=== PATIENT | male | born 1980 | race Hispanic/Latino ===

== ENCOUNTER 2018-04-16 16:55 | Emergency (ER) | payer SELFPAY ==
[~2018-04-16] VITALS: Ht 165.1 cm; Wt 70.0 kg
[~2018-04-16 16:55] MED LIST: KEFLEX250 MG PO; NO
[2018-04-16] MEDS ORDERED: LISINOPRIL20 MG PO (17:41)
[2018-04-16] MEDS ORDERED: NORVASC5 M1 PO (17:42)
[2018-04-16] MEDS ORDERED: CARVEDILOL25 MG PO (17:42)
[2018-04-16 17:49] LABS: MEAN CELL VOLUME 89.7 fL CALC (80.0-100.0); MEAN CORPUSCULAR HGB 30.6 pG CALC (26.0-32.0); MEAN CORPUSCULAR HGB CONC 34.1 g/L CALC (32.0-36.0); NEUT# 12.93 thou/uL (1.82-7.42); RED BLOOD COUNT 4.67 mill/uL (4.70-6.10); RED CELL DISTRI WIDTH 12.9 % (11.5-15.5)
[2018-04-16 17:50] LABS: HEMATOCRIT 41.9 % (39.0-50.0); HEMOGLOBIN 14.3 g/dl (14.0-18.0)
[2018-04-16 18:02] LABS: PROTHROMBIN TIME 11.4 SECONDS (9.0-12.5)
[2018-04-16 18:03] LABS: ALKALINE PHOSPHATASE 119 u/l (38-126); BILIRUBIN, TOTAL 0.4 mg/dL (0.0-1.4); CHLORIDE 100 mmol/l (95-108); SGOT/AST 15 u/l (17-59); SGPT/ALT 25 u/l (21-72); SODIUM 136 mmol/l (137-146)
[2018-04-16 18:10] LABS: ALBUMIN 4.7 g/dL (3.2-5.0); ANION GAP 27 (6-22 (CALC)); BUN 99 mg/dL (9-20); BUN/CREATININE RATIO 10 (12-20 (CALC)); CARBON DIOXIDE 15 mmol/l (22-30); CREATININE 9.9 mg/dL (0.7-1.3); GFR 6 ML/MIN (>=60 (CALC)); GFR FOR AFR.AMER. 7 ML/MIN (>=60 (CALC)); TOTAL PROTEIN 7.9 g/dL (6.3-8.2)
[2018-04-16 18:14] LABS: MYOGLOBIN 364 ng/mL (0 - 121)
[2018-04-16 19:19] VITALS: BP 104/60
[2018-04-16 19:34] LABS: INFLUENZA A NONE DETECTED (NONE DETECT); INFLUENZA B NONE DETECTED (NONE DETECT)
== END 2018-04-16 19:19 | DRG 684 ==
LOC: ED 16:55
PROVIDERS: Emergency Medicine
DX: N17.9 Acute kidney failure, unspecified (principal); I95.9 Hypotension, unspecified; R55 Syncope and collapse; I12.9 Hypertensive chronic kidney disease with stage 1 through stage 4 chronic kidney disease, or unspecified chronic kidney disease; N18.9 Chronic kidney disease, unspecified; F17.210 Nicotine dependence, cigarettes, uncomplicated

== ENCOUNTER 2018-06-18 08:41 | Inpatient (IN) | payer SELFPAY ==
[2018-06-18] VITALS (17 sets, daily range): BP systolic 119–169; BP diastolic 61–109
[~2018-06-18] VITALS: Ht 162.6 cm; Wt 87.3 kg
[~2018-06-18 08:41] MED LIST changes: +CARVEDILOL25 MG PO; +LISINOPRIL20 MG PO; +NORVASC5 M1 PO
--- NOTE | 2018-06-18 08:50 | NUR ---
PT AMB TO ROOM WITH SLOW GAIT, SLIGHTLY UNSTEADY.
--- NOTE | 2018-06-18 09:15 | NUR ---
NYSTAGMUS NOTED WHEN PATIENT TRACKING FINGER.
--- NOTE | 2018-06-18 09:18 | NUR ---
PATIENT REPORTS STOPPING ALL MEDICATIONS AT THIS TIME. STATES "I WANTED TO COME HERE TO FOR A CHECK UP BEFORE FILLING ANY MEDICATIONS." REPORTS NOT TAKING MEDS FOR 15 DAYS.
[2018-06-18 09:44] LABS: HEMATOCRIT 41.3 % (39.0-50.0); IMMATURE GRANULOCYTES 0.5 % (0.0-5.0); MEAN CELL VOLUME 90.4 fL CALC (80.0-100.0); MEAN CORPUSCULAR HGB 30.6 pG CALC (26.0-32.0); MEAN CORPUSCULAR HGB CONC 33.9 g/L CALC (32.0-36.0); NEUT# 7.58 thou/uL (1.82-7.42); RED BLOOD COUNT 4.57 mill/uL (4.70-6.10); RED CELL DISTRI WIDTH 12.8 % (11.5-15.5)
[2018-06-18 09:50] LABS: BILIRUBIN, TOTAL 0.4 mg/dL (0.0-1.4); TOTAL PROTEIN 6.7 g/dL (6.3-8.2)
[2018-06-18 10:04] LABS: POTASSIUM 3.8 mmol/l (3.5-5.1)
--- NOTE | 2018-06-18 10:10 | NUR ---
PATIENT RESTING ON STRETCHER ALERT AND ORIENTED X3. INFORMED ABOUT BP. AWAITING NEW ORDERS.
--- NOTE | 2018-06-18 10:25 | NUR ---
PATIENT GIVEN 20 MG OF LABETALOL SLOW IV PUSH. TEACHING DONE WITH PATIENT ON HOW TO TAKE BP AT HOME. INFORMED TO TAKE BP BEFORE TAKING HOME BP MEDS AND TO CHECK PB WHEN FEELING WEAK. VERBAL UNDERSTANDING. WILL CONTINUE TO MONITOR. CALL LIGHT WITHIN REACH.
--- NOTE | 2018-06-18 11:19 | NUR ---
INFORMED OF BP 167/112. AWAITING NEW ORDERS.
[2018-06-18 11:52] LABS: BARBITURATES NEGATIVE (NEGATIVE); COCAINE NEGATIVE (NEGATIVE); METHADONE NEGATIVE (NEGATIVE); TETRAHYDROCANNABIONOL POSITIVE (NEGATIVE); TRICYLIC ANTIDEPRESSANTS NEGATIVE (NEGATIVE)
[2018-06-18 11:53] LABS: OXCYCODONE NEGATIVE (NEGATIVE)
--- NOTE | 2018-06-18 12:19 | NUR ---
PATIENT STARTED ON 5 MG/HR OF CARDENE DRIP PER , INFORMED OF BP 157/95, VERBAL ORDER TO CONTINUE WITH ORDER. WILL CONTINUE TO MONITOR BP.
--- NOTE | 2018-06-18 12:29 | NUR ---
VERBAL ORDER FROM TO HOLD SAWYER KRAMER AT THIS TIME FOR B/P 140/79.
--- NOTE | 2018-06-18 12:38 | NUR ---
SBAR PRINTED TO FLOOR
--- NOTE | 2018-06-18 12:42 | NUR ---
ATTEMPT MADE TO CALL REPORT, SPOKE TO RANDOLPH, REPORTS NOT AVAILABLE AT THIS TIME FOR REPORT, WILL CALL BACK.
--- NOTE | 2018-06-18 12:53 | NUR ---
REPORT CALLED TO ICU
--- NOTE | 2018-06-18 12:55 | NUR ---
Admission Note Report Given to: SBAR PRINTED TO FLOOR Transported by: Wheelchair X Stretcher Transported with: X Nurse Transporter X Patent IV O2 X Agile Test Lead
--- NOTE | 2018-06-18 13:05 | NUR ---
male pt received to ICU bed 4 via stretcher accompanied by Edi Roque RN in stable condition; ambulatory to bed with steady gait; admission assessment completed at this time; pt alert and oriented; hong konger speaking; kelley Perez CNA at bedside; c/c of headache and dizziness; pt admits to stopping BP med and kidney meds approx 15 days ago due to meds making him sick and passing out; no n/v/diaphoresis noted; nystagmus noted to bilat eyes, worse left; pt denies pain at current; resp even and unlabored; lungs clear bilat; skin color wnl; ra; hr reg; strong pulses; no edema noted; sr on monitor; abd soft with bs present; no bm noted per policy writer typist; pt admits to voiding without pain or burning; no urine to inspect at this time; #20 in lac saline locked; iv flushed and patent; cardene restarted d/t elevated bp; pt admits to having dialysis for 2 months approx 2 yrs ago; plan of care/ meds explained; pt oriented to bed and call light system; will continue to monitor
--- NOTE | 2018-06-18 13:35 | NUR ---
pt transferred to US department via wc accompanied by this instructional writer with Cardene infusing per protocol; instructional writer remains with pt; will continue to monitor
--- NOTE | 2018-06-18 14:05 | NUR ---
returned to unit in stable condition accompanied by this resume writer
--- NOTE | 2018-06-18 14:15 | NUR ---
Dr Emmanuel present at bedside to assess pt and discuss plan of care; delay in ECHO reported; MD aware ECHO to be dome possibly wednesday
[2018-06-18 14:50] LABS: CHOLESTEROL HDL RATIO 6.1 (<4.4 (CALC))
--- NOTE | 2018-06-18 16:09 | NUR ---
awake in bed; offers no complaints; no distress noted; sr on monitor; bp controlled; cardene gtt infusing at 5mg/hr; no redness or edema noted at site; call light within reach; will continue to monitor
--- NOTE | 2018-06-18 17:10 | NUR ---
Dr Emmanuel on unit; orders received and on chart; target BP 140/90; cardene gtt placed on hold due to sbp 125 as per MD request; will continue to monitor
--- NOTE | 2018-06-18 18:00 | NUR ---
awake in bed; offers no complaints; no distress noted; iv flushed and patent; sr on monitor; pt declined dinner/ noted eating [employer] earlier; bed in lowest position; side rails elevated; call light within reach
--- NOTE | 2018-06-18 19:28 | NUR ---
PT RESTING IN BED WITH EYES CLOSED. AWAKENS TO VERBAL STIMULI. PT IS ALERT AND ORIENTED X3. SHIFT ASSESSMENT COMPLETED AT THIS TIME. IV PATENT X1. CALL LIGHT IN REACH. WILL CONTINUE TO MONITOR.
--- NOTE | 2018-06-18 20:40 | NUR ---
NOTIFIED DR MUNSON OF BP 168/108. PLACED PT BACK ON CARDENE GTT. PT ON PHONE. STARTED DRIP AT 5MG. WILL CONTINUE TO MONITOR
--- NOTE | 2018-06-18 22:10 | NUR ---
PT RESTING IN BED ON PHONE. CALL LIGHT IN REACH. WILL CONTINUE OT MONITOR
--- NOTE | 2018-06-18 23:46 | NUR ---
PT RESTING IN BED WITH EYES CLOSED. RESP ARE EVEN AND UNLABORED. NO DISTRESS NOTED. CALL LIGHT IN REACH. WILL CONTINUE TO MONITOR
[2018-06-19] VITALS (45 sets, daily range): BP systolic 119–198; BP diastolic 68–126
--- NOTE | 2018-06-19 01:50 | NUR ---
PT RESTING IN BED WITH EYES CLOSED. RESP ARE EVEN AND UNLABORED. NO DISTRESS NOTED. CALL LIGHT IN REACH. WILL CONTINUE TO MONITOR
--- NOTE | 2018-06-19 04:00 | NUR ---
PT RESTING IN BED WITH EYES CLOSED. RESP ARE EVEN AND UNLABORED. NO DISTRESS NOTED. CALL LIGHT IN REACH. WILL CONTINUE TO MONITOR
--- NOTE | 2018-06-19 05:11 | NUR ---
PLACED PT BACK ON CARDENE GTT FOR BP 182/126. LAB AT BEDSIDE DRAWING AM LABS
[2018-06-19 05:43] LABS: ALBUMIN 3.4 g/dL (3.2-5.0); BILIRUBIN, TOTAL 0.3 mg/dL (0.0-1.4); CREATININE 2.7 mg/dL (0.7-1.3); MAGNESIUM 2.2 mg/dL (1.6-2.3); POTASSIUM 3.9 mmol/l (3.5-5.1)
[2018-06-19 06:00] LABS: HEMATOCRIT 38.9 % (39.0-50.0); HEMOGLOBIN 13.2 g/dl (14.0-18.0); IMMATURE GRANULOCYTES 1.6 % (0.0-5.0); MEAN CELL VOLUME 92.2 fL CALC (80.0-100.0); MEAN CORPUSCULAR HGB 31.3 pG CALC (26.0-32.0); MEAN CORPUSCULAR HGB CONC 33.9 g/L CALC (32.0-36.0); NEUT# 7.95 thou/uL (1.82-7.42); RED BLOOD COUNT 4.22 mill/uL (4.70-6.10); RED CELL DISTRI WIDTH 12.8 % (11.5-15.5)
--- NOTE | 2018-06-19 06:10 | NUR ---
PT RESTING IN BED WITH EYES CLOSED. RESP ARE EVEN AND UNLABORED. NO DISTRESS NOTED. CALL LIGHT IN REACH. WILL CONTINUE TO MONITOR.
--- NOTE | 2018-06-19 07:30 | NUR ---
pt resting in bed with eyes closed; easily aroused; pt offers no complaints; assessment completed at this time; pt sinhala but able to speak and understabd albanian; pt alert and oriented; denies pain/headache; no n/v noted; pt admits to stationary objects moving/impaired vision; resp even and unlabored; lungs clear; skin color wnl; ra; hr reg; strong pulses; no edema noted; sr on monitor; abd soft with bs present; no bm noted per rewriter; voiding without diffculty; urinal at bedside; #20 to lac flushed and patent; cardene gtt infusing at 5mg/hr; no redness or edema noted at site; cardene place on hold for a target bp of 140/90; plan of care reviewed; call light within reach; will continue to monitor
--- NOTE | 2018-06-19 08:11 | NUR ---
pt resting with head covered; no apparent distress noted; sr on monitor; will continue to monito
--- NOTE | 2018-06-19 08:51 | NUR ---
bladimir gtt resumed; bp 183/113; hr 70; medicated with am norvasc at this time
--- NOTE | 2018-06-19 09:28 | NUR ---
Addie cheng NP notified of elevated BP; informed cardene grr restarted for bp 183/113; target bp reviewed; pt on minimal cardene; orders received to infuse cardene at 2.5mg; lovenox reviewed with BEAD CUTTER in regards to renal insuff; orders received to give lovenox
--- NOTE | 2018-06-19 10:00 | NUR ---
Dr Emmanuel at bedside to discuss plan of care; Cardene to be continued at this time;
--- NOTE | 2018-06-19 10:36 | NUR ---
awake in bed; field nurse case manager at bedside; pt offers no complaints; no distress noted; sr on monitor; iv patent; cardene gtt infusing at 2.5mg/hr; am care offered/ pt requesting to shower; bed bath offered; pt declined, wants shower; call light within reach; will continue to monitor
--- NOTE | 2018-06-19 11:02 | NUR ---
pt friend noted at bedside with outside food; cardiac diet reinfornced
--- NOTE | 2018-06-19 11:58 | NUR ---
awake in bed; visitor at bedside; no distress noted; pt offers no complaints; iv patent; cardene gtt at 2.5mg/hr; no redness or edema noted at site; sr on monitor; deny needs; call light within reach; will continue to monitor
--- NOTE | 2018-06-19 14:00 | NUR ---
pt awake in bed; no distress noted; pt offers no complaints; iv patent; cardene infusing at 2.5mg/hr; no redness or edema noted at site; sr on monitor; call light within reach; will continue to monitor
--- NOTE | 2018-06-19 14:46 | NUR ---
PT STATED HE HAS TO HAVE A BM, REFUSED TO USE A COMMODE, AMBULATED TO THE BATHROOM WITH DIFFICULTY.
--- NOTE | 2018-06-19 16:05 | NUR ---
awake in bed; offers no complaints; conversing on phone; sr on monitor; iv patent; cardene infusing at 2.5 mg/hr; call light within reach; will continue to monitor
--- NOTE | 2018-06-19 18:00 | NUR ---
awake in bed; offers no complaints; no apparent distress; sr on monitor; cardene cont at 5mg/hr; no redness or edema noted at site; call light within reach
--- NOTE | 2018-06-19 19:00 | NUR ---
PT SITTING UP IN BED TALKING ON PHONE. PT IS ALERT AND ORIENTED X3. SHIFT ASSESSMENT COMPLETED AT THIS TIME. IV PATENT X1. CALL LIGHT IN REACH. WILL CONTINUE TO MONITOR.
--- NOTE | 2018-06-19 19:15 | NUR ---
BP 185/122. INCREASED CARDENE GTT PER TITRATION CHARTING AND MD ORDERS.
--- NOTE | 2018-06-19 20:08 | NUR ---
BP 146/114. GAVE 2100 MEDS PER MAR WILL CONTINUE TO MONITOR.
--- NOTE | 2018-06-19 21:43 | NUR ---
PT RESTING IN BED TALKING ON PHONE. RESP ARE EVEN AND UNLABORED. NO DISTRESS NOTED. CALL LIGHT IN REACH. WILL CONTINUE TO MONITOR.
[2018-06-20] VITALS (16 sets, daily range): BP systolic 102–188; BP diastolic 57–122
--- NOTE | 2018-06-20 00:30 | NUR ---
TITRATED CARDENE GTT PER MD ORDERS AND PER TITRATION RECORD.
--- NOTE | 2018-06-20 01:07 | NUR ---
TITRATED CARDENE GTT PER ORDERS AND PER TITRATION RECORD.
--- NOTE | 2018-06-20 02:11 | NUR ---
STOPPED CARDENE GTT AT THIS TIME PER MD ORDERS AND TITRATION CHARTING. WILL CONTINUE TO MONITOR
--- NOTE | 2018-06-20 03:49 | NUR ---
PT RESTING IN BED WITH EYES CLOSED. RESP ARE EVEN AND UNLABORED. NO DISTRESS NOTED. CALL LIGHT IN REACH. WILL CONTINUE TO MONITOR
--- NOTE | 2018-06-20 05:45 | NUR ---
PT RESTING IN BED WITH EYES CLOSED. RESP ARE EVEN AND UNLABORED. NO DISTRESS NOTED. CALL LIGHT IN REACH. WILL CONTINUE TO MONITOR
--- NOTE | 2018-06-20 07:08 | NUR ---
pt asleep; easily aroused; pt offers no complaints; no apparent distress noted; assessment completed at this time; pt alert and oriented; speaks/ understands some palestinian; denies pain/ headache; no n/v noted; resp even and unlabored; lungs clear bilat; skin color wnl; ra; hr reg; strong pulses; no edema; sr on monitor; abd soft with bs present; no bm noted per mortgage or loan underwriter; no urine to inspect at this time; urinal at bedside; #20 saline locked to lac; flushed and patent; no redness or edema noted at site; plan of care/ am meds explained; call light within reach; will continue to monitor
--- NOTE | 2018-06-20 08:02 | NUR ---
awake conversing on cell phone; no distress noted; sr on monitor; iv intact; call light within reach; will continue to monitor
--- NOTE | 2018-06-20 09:15 | NUR ---
Dr Emmanuel present at bedside to assess pt and discuss plan of care; MD planning for discharge; BP reviewed with MD; MD aware of HTN
[2018-06-20] MEDS ORDERED: ATORVASTATIN CA20 MG PO (09:20)
[2018-06-20] MEDS ORDERED: CARVEDILOL25 MG PO (09:20)
[2018-06-20] MEDS ORDERED: AMLODIPINE BESYL5 MG PO (09:20)
--- NOTE | 2018-06-20 09:23 | NUR ---
PER DR MUNSON, CASE MANAGEMENT CALLED TO HELP PT BECAUSE HE CAN NOT AFFORD HIS HOME MEDS.
--- NOTE | 2018-06-20 09:58 | NUR ---
awake in bed; conversing on cell phone; no distress noted; pt denies needs; iv intact; sr on monitor; call light within reach; will continue to monitor
--- NOTE | 2018-06-20 10:59 | NUR ---
CASE MANAGEMENT @BEDSIDE WITH PT DISCUSSING OPTIONS FOR HOME MEDS.
--- NOTE | 2018-06-20 11:59 | NUR ---
CASE MANAGEMENT @ BEDSIDE WITH PROBATE CLERK, DISCUSSING HELP WITH RX AFTER DC.
--- NOTE | 2018-06-20 12:20 | NUR ---
Dr Emmanuel called per jingle writer; jingle writer informed current bp 181/122; pt insisting on discharge; pt to be discharged;; will continue to monitor
--- NOTE | 2018-06-20 12:40 | NUR ---
GLENROY, FROM [facility], IS ON HER WAY HERE TO DELIVER PTS HOME MEDICATIONS SINCE SENT THEM THERE WITH DC INSTRUCTIONS. MED INSTRUCTIONS WILL BE WRITTEN IN [place] FOR PT. RN & TRANSLATER AT BEDSIDE ANSWERING PTS QUESTIONS/CONCERNS.
--- NOTE | 2018-06-20 12:54 | NUR ---
Discharge instructions given. Patient verbalizes understanding of same. Discharged in stable condition via Wheelchair to Home with friend. All belongings sent with pt. Discharge instructions reviewed in great detail using forensic science examiner Morris Hernandez. Follow up care explained in great deatail. Pt strongly encouraged to buy BP monitor to monitor BP closely; Home medications/directions explained; Next dose of medications explained using forensic science examiner; Laila Gottlieb at bedside to deliver medication;
== END 2018-06-20 13:00 | disposition home or self-care (01) | DRG 305 ==
LOC: ED 08:41 → ED-I 12:01 → ED 12:32 → ICU 12:33
PROVIDERS: Emergency Medicine; Nurse Practitioner Family; ADMIT Internal Medicine Nephrology; ATTEND Internal Medicine Nephrology
DX: I16.1 Hypertensive emergency (principal); N17.9 Acute kidney failure, unspecified; H35.033 Hypertensive retinopathy, bilateral; I12.9 Hypertensive chronic kidney disease with stage 1 through stage 4 chronic kidney disease, or unspecified chronic kidney disease; N18.9 Chronic kidney disease, unspecified; F17.210 Nicotine dependence, cigarettes, uncomplicated; D63.1 Anemia in chronic kidney disease; E78.5 Hyperlipidemia, unspecified; Z91.14 Patient's other noncompliance with medication regimen
CPT/HCPCS: J1650

== ENCOUNTER 2018-11-10 16:54 | Emergency (ER) | payer SELFPAY ==
[~2018-11-10] VITALS: Ht 162.6 cm; Wt 90.0 kg
[~2018-11-10 16:54] MED LIST changes: +AMLODIPINE BESYL5 MG PO; +ATORVASTATIN CA20 MG PO
[2018-11-10 17:52] VITALS: BP 160/101
== END 2018-11-10 17:54 | disposition home or self-care (01) | DRG 607 ==
LOC: ED 16:54
DX: L65.9 Nonscarring hair loss, unspecified (principal)

== ENCOUNTER 2019-08-09 18:40 | Emergency (ER) | payer SELFPAY ==
[~2019-08-09] VITALS: Ht 162.6 cm; Wt 84.5 kg
[2019-08-09 19:31] LABS: HEMATOCRIT 36.4 % (39.0-50.0); HEMOGLOBIN 12.5 g/dl (14.0-18.0); IMMATURE GRANULOCYTES 0.9 % (0.0-5.0); MEAN CELL VOLUME 88.8 fL CALC (80.0-100.0); MEAN CORPUSCULAR HGB 30.5 pG CALC (26.0-32.0); MEAN CORPUSCULAR HGB CONC 34.3 g/L CALC (32.0-36.0); NEUT# 11.78 thou/uL (1.82-7.42); RED BLOOD COUNT 4.1 mill/uL (4.70-6.10); RED CELL DISTRI WIDTH 12.8 % (11.5-15.5)
[2019-08-09 19:32] LABS: URINE BILIRUBIN - DIPSTICK NEGATIVE (NEGATIVE); URINE BLOOD DIPSTICK MODERATE (NEGATIVE); URINE COLOR YELLOW; URINE GLUCOSE - DIPSTICK NEGATIVE (NEGATIVE); URINE KETONE NEGATIVE (NEGATIVE); URINE LEUK ESTERASE NEGATIVE (NEGATIVE); URINE NITRITE - DIPSTICK NEGATIVE (Negative); URINE PROTEIN - DIPSTICK >=300 mg/dL (NEG-TRACE); URINE SPECIFIC GRAVITY 1.025; URINE UROBILINOGEN - DIPSTICK 0.2 E.U./dL (0.2)
[2019-08-09 19:46] LABS: POTASSIUM 3.4 mmol/l (3.5-5.1); TOTAL PROTEIN 7.2 g/dL (6.3-8.2)
[2019-08-09 19:52] LABS: BILIRUBIN, TOTAL 0.5 mg/dL (0.0-1.4)
[2019-08-09 19:53] LABS: CREATININE 6.8 mg/dL (0.7-1.3)
[2019-08-09 21:34] VITALS: BP 151/98
== END 2019-08-09 21:33 | disposition short-term general hospital (02) | DRG 683 ==
LOC: ED 18:40
PROVIDERS: Family Medicine
DX: I12.9 Hypertensive chronic kidney disease with stage 1 through stage 4 chronic kidney disease, or unspecified chronic kidney disease (principal); N17.9 Acute kidney failure, unspecified; N18.9 Chronic kidney disease, unspecified; R79.89 Other specified abnormal findings of blood chemistry; N45.3 Epididymo-orchitis; R10.32 Left lower quadrant pain; N50.811 Right testicular pain; M19.90 Unspecified osteoarthritis, unspecified site; F17.210 Nicotine dependence, cigarettes, uncomplicated

== ENCOUNTER 2020-05-24 17:23 | Emergency (ER) | payer MEDICAID ==
[~2020-05-24] VITALS: Ht 162.6 cm; Wt 81.8 kg
[2020-05-24 17:55] LABS: IMMATURE GRANULOCYTES 0.5 % (0.0-5.0); MEAN CELL VOLUME 89.7 fL CALC (80.0-100.0); MEAN CORPUSCULAR HGB 29.7 pG CALC (26.0-32.0); MEAN CORPUSCULAR HGB CONC 33.1 g/dL CAL (32.0-36.0); NEUT# 6.31 thou/uL (1.82-7.42); RED BLOOD COUNT 1.85 mill/uL (4.70-6.10); RED CELL DISTRI WIDTH 13.7 % (11.5-15.5)
[2020-05-24 18:12] LABS: HEMATOCRIT 16.6 % (39.0-50.0); HEMOGLOBIN 5.5 g/dl (14.0-18.0)
[2020-05-24 18:14] LABS: ALBUMIN 3.5 g/dL (3.2-5.0); BILIRUBIN, TOTAL 0.5 mg/dL (0.0-1.4); TOTAL PROTEIN 5.8 g/dL (6.3-8.2)
[2020-05-24 18:39] LABS: CREATININE 18.8 mg/dL (0.7-1.3)
[2020-05-24 19:46] VITALS: BP 174/92
[2020-05-24 20:01] VITALS: BP 162/93
[2020-05-24 20:10] VITALS: BP 162/93
[2020-05-24 21:13] LABS: URINE BILIRUBIN - DIPSTICK NEGATIVE (NEGATIVE); URINE BLOOD DIPSTICK SMALL (NEGATIVE); URINE COLOR YELLOW; URINE GLUCOSE - DIPSTICK NEGATIVE (NEGATIVE); URINE KETONE NEGATIVE (NEGATIVE); URINE LEUK ESTERASE NEGATIVE (NEGATIVE); URINE NITRITE - DIPSTICK NEGATIVE (Negative); URINE PROTEIN - DIPSTICK 100 mg/dL (NEG-TRACE); URINE UROBILINOGEN - DIPSTICK 0.2 E.U./dL (0.2)
[2020-05-24 21:16] LABS: URINE EPITHELIAL CELLS FEW EPI/hpf (0-FEW); URINE MUCUS FEW hpf (NONE-FEW); URINE RBC 0-2 RBC/hpf (0-5)
== END 2020-05-24 21:10 | disposition short-term general hospital (02) | DRG 193 ==
LOC: ED 17:23
PROVIDERS: Family Medicine
DX: J18.9 Pneumonia, unspecified organism (principal); N18.6 End stage renal disease; N17.9 Acute kidney failure, unspecified; I12.0 Hypertensive chronic kidney disease with stage 5 chronic kidney disease or end stage renal disease; D64.9 Anemia, unspecified; F17.200 Nicotine dependence, unspecified, uncomplicated; Z99.2 Dependence on renal dialysis; Z20.828 Contact with and (suspected) exposure to other viral communicable diseases
CPT/HCPCS: P9016

== ENCOUNTER 2020-05-31 05:35 | Emergency (ER) | payer SELFPAY ==
[~2020-05-31] VITALS: Ht 162.6 cm; Wt 81.8 kg
[2020-05-31 06:52] VITALS: BP 163/106
[2020-05-31] MEDS ORDERED: LIPITOR40 M1 PO (06:54)
[2020-05-31] MEDS ORDERED: AMLODIPINE BESY10 MG PO (06:55)
[2020-05-31] MEDS ORDERED: LABETALOL HYDR300 MG PO (06:55)
[2020-05-31] MEDS ORDERED: ATORVASTATIN CA40 MG PO (16:18)
== END 2020-05-31 07:01 | disposition home or self-care (01) | DRG 315 ==
LOC: ED 05:35
DX: T82.838A Hemorrhage due to vascular prosthetic devices, implants and grafts, initial encounter (principal); N17.9 Acute kidney failure, unspecified; I10 Essential (primary) hypertension; F17.200 Nicotine dependence, unspecified, uncomplicated; Y83.8 Other surgical procedures as the cause of abnormal reaction of the patient, or of later complication, without mention of misadventure at the time of the procedure

== ENCOUNTER 2020-05-31 13:54 | Emergency (ER) | payer MEDICAID ==
[~2020-05-31] VITALS: Ht 162.6 cm; Wt 70.0 kg
[~2020-05-31 13:54] MED LIST changes: +AMLODIPINE BESY10 MG PO; +LABETALOL HYDR300 MG PO; +LIPITOR40 M1 PO
[2020-05-31 14:33] LABS: HEMATOCRIT 25.8 % (39.0-50.0); HEMOGLOBIN 8.3 g/dl (14.0-18.0); IMMATURE GRANULOCYTES 0.4 % (0.0-5.0); MEAN CELL VOLUME 90.2 fL CALC (80.0-100.0); MEAN CORPUSCULAR HGB CONC 32.2 g/dL CAL (32.0-36.0); NEUT# 5.58 thou/uL (1.82-7.42); RED BLOOD COUNT 2.86 mill/uL (4.70-6.10); RED CELL DISTRI WIDTH 14.8 % (11.5-15.5)
[2020-05-31 15:00] LABS: POTASSIUM 4.9 mmol/l (3.5-5.1)
[2020-05-31 15:09] LABS: CREATININE 10.8 mg/dL (0.7-1.3)
[2020-05-31] MEDS ORDERED: ATORVASTATIN CA40 MG PO (16:18)
[2020-05-31 16:35] VITALS: BP 162/111
== END 2020-05-31 16:35 | disposition short-term general hospital (02) | DRG 682 ==
LOC: ED 13:54
PROVIDERS: Family Medicine
DX: I12.0 Hypertensive chronic kidney disease with stage 5 chronic kidney disease or end stage renal disease (principal); N18.6 End stage renal disease; T82.838A Hemorrhage due to vascular prosthetic devices, implants and grafts, initial encounter; N17.9 Acute kidney failure, unspecified; F17.200 Nicotine dependence, unspecified, uncomplicated; Z99.2 Dependence on renal dialysis; I10 Essential (primary) hypertension; Y83.8 Other surgical procedures as the cause of abnormal reaction of the patient, or of later complication, without mention of misadventure at the time of the procedure

== ENCOUNTER 2020-08-15 00:27 | Emergency (ER) | payer MEDICAID ==
[~2020-08-15] VITALS: Ht 170.2 cm; Wt 78.0 kg
[~2020-08-15 00:27] MED LIST changes: +ATORVASTATIN CA40 MG PO
[2020-08-15] MEDS ORDERED: LASIX 40 MG TAB40 MG PO (00:54)
[2020-08-15] MEDS ORDERED: AZITHROMYCIN500 MG PO (00:54)
[2020-08-15] MEDS ORDERED: APRESOLINE50 MG PO (00:55)
[2020-08-15] MEDS ORDERED: [UNRECOGNIZED DRUG - OTHER] PO (00:56)
[2020-08-15 01:44] LABS: HEMATOCRIT 24.4 % (39.0-50.0); IMMATURE GRANULOCYTES 0.9 % (0.0-5.0); MEAN CELL VOLUME 91.4 fL CALC (80.0-100.0); MEAN CORPUSCULAR HGB CONC 32.8 g/dL CAL (32.0-36.0); NEUT# 7.99 thou/uL (1.82-7.42); RED BLOOD COUNT 2.67 mill/uL (4.70-6.10); RED CELL DISTRI WIDTH 14.3 % (11.5-15.5)
[2020-08-15 01:58] LABS: PROTHROMBIN TIME 10.3 SECONDS (9.0-12.5)
[2020-08-15 02:08] LABS: BILIRUBIN, TOTAL 0.4 mg/dL (0.0-1.4); TOTAL PROTEIN 6.8 g/dL (6.3-8.2)
[2020-08-15 02:22] LABS: ALBUMIN 4.3 g/dL (3.2-5.0); CREATININE 14.8 mg/dL (0.7-1.3); POTASSIUM 5.2 mmol/l (3.5-5.1)
[2020-08-15 05:28] VITALS: BP 188/103
== END 2020-08-15 05:28 | disposition short-term general hospital (02) ==
LOC: ED 00:27
PROVIDERS: Emergency Medicine
DX: N17.9 Acute kidney failure, unspecified (principal); I12.0 Hypertensive chronic kidney disease with stage 5 chronic kidney disease or end stage renal disease; N18.6 End stage renal disease; F17.210 Nicotine dependence, cigarettes, uncomplicated; Z99.2 Dependence on renal dialysis

== ENCOUNTER 2020-08-29 20:18 | Emergency (ER) | payer MEDICAID ==
[~2020-08-29] VITALS: Ht 170.2 cm; Wt 73.0 kg
[~2020-08-29 20:18] MED LIST changes: +APRESOLINE50 MG PO; +AZITHROMYCIN500 MG PO; +LASIX 40 MG TAB40 MG PO; +[UNRECOGNIZED DRUG - OTHER] PO
[2020-08-29 21:10] VITALS: BP 165/100
== END 2020-08-29 21:10 | disposition home or self-care (01) ==
LOC: ED 20:18
DX: R10.33 Periumbilical pain (principal); I10 Essential (primary) hypertension; F17.210 Nicotine dependence, cigarettes, uncomplicated; Z95.828 Presence of other vascular implants and grafts

== ENCOUNTER 2021-05-04 05:39 | Emergency (ER) | payer MEDICAID ==
[~2021-05-04] VITALS: Ht 170.2 cm; Wt 68.0 kg
[2021-05-04 06:24] LABS: IMMATURE GRANULOCYTES 0.3 % (0.0-5.0); MEAN CELL VOLUME 93.3 fL CALC (80.0-100.0); MEAN CORPUSCULAR HGB CONC 32.2 g/dL CAL (32.0-36.0); NEUT# 8.57 thou/uL (1.82-7.42); RED BLOOD COUNT 3.43 mill/uL (4.70-6.10); RED CELL DISTRI WIDTH 14.6 % (11.5-15.5)
[2021-05-04 06:25] LABS: HEMOGLOBIN 10.3 g/dl (14.0-18.0)
[2021-05-04 06:40] LABS: ALBUMIN 4.7 g/dL (3.2-5.0); ALKALINE PHOSPHATASE 103 u/l (38-126); ANION GAP 28 (6-22 (CALC)); BILIRUBIN, TOTAL 0.4 mg/dL (0.0-1.4); CARBON DIOXIDE 19 mmol/l (22-30); CHLORIDE 90 mmol/l (95-108); ETHYL ALCOHOL 0 mg/dl (0-30); GFR 4 ML/MIN (>=60 (CALC)); GFR FOR AFR.AMER. 5 ML/MIN (>=60 (CALC)); MAGNESIUM 2.7 mg/dL (1.6-2.3); POTASSIUM 4.6 mmol/l (3.5-5.1); SGOT/AST 34 u/l (17-59); SODIUM 132 mmol/l (137-146); TOTAL PROTEIN 7.5 g/dL (6.3-8.2)
[2021-05-04 06:46] LABS: BUN 64 mg/dL (9-20); BUN/CREATININE RATIO 5 (12-20 (CALC))
[2021-05-04 06:47] LABS: CREATININE 13.5 mg/dL (0.7-1.3)
[2021-05-04] MEDS ORDERED: LABETALOL HYDR300 MG PO (07:32)
[2021-05-04] MEDS ORDERED: HYDRALAZINE50 MG PO (07:32)
[2021-05-04] MEDS ORDERED: AMLODIPINE BESY10 MG PO (07:32)
[2021-05-04] MEDS ORDERED: ATORVASTATIN CA40 MG PO (07:33)
[2021-05-04] MEDS ORDERED: ASPIRIN81 MG PO (07:33)
[2021-05-04 10:07] VITALS: BP 182/114
== END 2021-05-04 10:36 | disposition short-term general hospital (02) ==
LOC: ED 05:39
PROVIDERS: Family Medicine
DX: F10.131 Alcohol abuse with withdrawal delirium (principal); I12.0 Hypertensive chronic kidney disease with stage 5 chronic kidney disease or end stage renal disease; N18.6 End stage renal disease; Z99.2 Dependence on renal dialysis; Z91.15 Patient's noncompliance with renal dialysis; F17.200 Nicotine dependence, unspecified, uncomplicated; Z20.822 Contact with and (suspected) exposure to COVID-19
CPT/HCPCS: J2060; S0166

== ENCOUNTER 2021-11-04 18:49 | Emergency (ER) | payer MEDICAID ==
[~2021-11-04] VITALS: Ht 170.2 cm; Wt 82.0 kg
[~2021-11-04 18:49] MED LIST changes: +ASPIRIN81 MG PO; +HYDRALAZINE50 MG PO
[2021-11-04 19:00] VITALS: BP 197/117
[2021-11-04] MEDS ORDERED: RENA-VIT1 PO (19:34)
== END 2021-11-04 20:25 | disposition home or self-care (01) ==
LOC: ED 18:49
DX: F41.9 Anxiety disorder, unspecified (principal); I12.0 Hypertensive chronic kidney disease with stage 5 chronic kidney disease or end stage renal disease; N18.6 End stage renal disease; Z99.2 Dependence on renal dialysis; F17.210 Nicotine dependence, cigarettes, uncomplicated

== ENCOUNTER 2021-11-10 01:36 | Emergency (ER) | payer MEDICAID ==
[~2021-11-10 01:36] MED LIST changes: +RENA-VIT1 PO
== END 2021-11-10 01:57 | disposition left against medical advice (07) | DRG 951 ==
LOC: ED 01:36 → LWOBS 01:57
DX: Z53.21 Procedure and treatment not carried out due to patient leaving prior to being seen by health care provider (principal)

== ENCOUNTER 2021-12-03 23:28 | Observation (INO) | payer MEDICAID ==
[~2021-12-03] VITALS: Ht 170.2 cm; Wt 80.0 kg
[2021-12-03 23:42] VITALS: BP 115/71
[2021-12-03 23:57] LABS: HEMATOCRIT 26.5 % (39.0-50.0); HEMOGLOBIN 8.5 g/dl (14.0-18.0); IMMATURE GRANULOCYTES 0.2 % (0.0-5.0); MEAN CORPUSCULAR HGB 33.2 pG CALC (26.0-32.0); MEAN CORPUSCULAR HGB CONC 32.1 g/dL CAL (32.0-36.0); NEUT# 12.21 thou/uL (1.82-7.42); RED BLOOD COUNT 2.56 mill/uL (4.70-6.10); RED CELL DISTRI WIDTH 13.8 % (11.5-15.5)
[2021-12-04 00:04] LABS: MEAN CELL VOLUME 103.5 fL CALC (80.0-100.0)
[2021-12-04 00:15] LABS: ALBUMIN 3.9 g/dL (3.2-5.0); MAGNESIUM 2.5 mg/dL (1.6-2.3); TOTAL PROTEIN 6.7 g/dL (6.3-8.2)
[2021-12-04 00:22] LABS: BILIRUBIN, TOTAL 0.6 mg/dL (0.0-1.4); CREATININE 9.5 mg/dL (0.7-1.3)
[2021-12-04 07:59] VITALS: BP 144/92
[2021-12-04 08:51] VITALS: BP 156/91
[2021-12-04 09:01] VITALS: BP 139/93
[2021-12-04 09:31] VITALS: BP 140/91
[2021-12-04 10:34] VITALS: BP 173/111
[2021-12-04] MEDS ORDERED: ALBUTEROL108 MCG/AC PO (10:48)
[2021-12-04] MEDS ORDERED: HYDRALAZINE100 MG PO (10:49)
[2021-12-04] MEDS ORDERED: DICYCLOMINE HYD10 MG PO (10:49)
[2021-12-04] MEDS ORDERED: LIPITOR40 M1 PO (10:49)
[2021-12-04] MEDS ORDERED: METOCLOPRAMIDE H5 MG PO (10:53)
[2021-12-04] MEDS ORDERED: LASIX 40 MG TAB40 MG PO (10:53)
[2021-12-04] MEDS ORDERED: OS-CAL 500500 M1 PO (10:54)
[2021-12-04] MEDS ORDERED: HYDROXYZINE HYD25 MG PO (12:01)
[2021-12-04 17:11] VITALS: BP 196/113
[2021-12-05] MEDS ORDERED: ISOSORB MONO30 MG PO (10:06)
== END 2021-12-04 18:09 | disposition home or self-care (01) ==
LOC: ED 23:28 → ED-I 12-04 07:40 → ED 12-04 08:08 → MS2 12-04 08:09
PROVIDERS: Emergency Medicine; ADMIT Hospitalist; ATTEND Hospitalist
DX: I12.0 Hypertensive chronic kidney disease with stage 5 chronic kidney disease or end stage renal disease (principal); N18.6 End stage renal disease; I16.0 Hypertensive urgency; Z99.2 Dependence on renal dialysis; D63.1 Anemia in chronic kidney disease; N25.81 Secondary hyperparathyroidism of renal origin; R10.9 Unspecified abdominal pain; R11.2 Nausea with vomiting, unspecified; D72.829 Elevated white blood cell count, unspecified; F10.10 Alcohol abuse, uncomplicated; F17.200 Nicotine dependence, unspecified, uncomplicated; Z20.822 Contact with and (suspected) exposure to COVID-19
CPT/HCPCS: G0378

== ENCOUNTER 2021-12-05 08:50 | Emergency (ER) | payer MEDICAID ==
[~2021-12-05] VITALS: Ht 170.2 cm; Wt 74.3 kg
[2021-12-05] VITALS (9 sets, daily range): BP systolic 151–184; BP diastolic 75–124
[~2021-12-05 08:50] MED LIST changes: +ALBUTEROL108 MCG/AC PO; +DICYCLOMINE HYD10 MG PO; +HYDRALAZINE100 MG PO; +HYDROXYZINE HYD25 MG PO; +METOCLOPRAMIDE H5 MG PO; +OS-CAL 500500 M1 PO
[2021-12-05 09:17] LABS: HEMOGLOBIN 10.2 g/dl (14.0-18.0); IMMATURE GRANULOCYTES 0.2 % (0.0-5.0); MEAN CELL VOLUME 104.5 fL CALC (80.0-100.0); MEAN CORPUSCULAR HGB 32.8 pG CALC (26.0-32.0); MEAN CORPUSCULAR HGB CONC 31.4 g/dL CAL (32.0-36.0); NEUT# 9.87 thou/uL (1.82-7.42); RED BLOOD COUNT 3.11 mill/uL (4.70-6.10); RED CELL DISTRI WIDTH 13.3 % (11.5-15.5)
[2021-12-05 09:25] LABS: HEMATOCRIT 32.5 % (39.0-50.0)
[2021-12-05] MEDS ORDERED: ISOSORB MONO30 MG PO (10:06)
[2021-12-05 10:10] LABS: ALBUMIN 4.5 g/dL (3.2-5.0); BILIRUBIN, TOTAL 0.7 mg/dL (0.0-1.4); POTASSIUM 4.9 mmol/l (3.5-5.1); TOTAL PROTEIN 7.3 g/dL (6.3-8.2)
[2021-12-05 10:12] LABS: CREATININE 7.2 mg/dL (0.7-1.3)
== END 2021-12-05 17:30 | disposition left against medical advice (07) ==
LOC: ED 08:50
PROVIDERS: Family Medicine
DX: R10.11 Right upper quadrant pain (principal); R10.31 Right lower quadrant pain; I12.0 Hypertensive chronic kidney disease with stage 5 chronic kidney disease or end stage renal disease; N18.6 End stage renal disease; F17.200 Nicotine dependence, unspecified, uncomplicated; Z99.2 Dependence on renal dialysis; Z91.19 Patient's noncompliance with other medical treatment and regimen

== ENCOUNTER 2021-12-22 07:12 | Observation (INO) | payer MEDICAID ==
[2021-12-22] VITALS (43 sets, daily range): BP systolic 131–226; BP diastolic 67–160
[~2021-12-22] VITALS: Ht 170.2 cm; Wt 84.0 kg
[~2021-12-22 07:12] MED LIST changes: +ISOSORB MONO30 MG PO
[2021-12-22 07:48] LABS: HEMATOCRIT 31.5 % (39.0-50.0); HEMOGLOBIN 10.2 g/dl (14.0-18.0); IMMATURE GRANULOCYTES 0.4 % (0.0-5.0); MEAN CORPUSCULAR HGB 32.7 pG CALC (26.0-32.0); MEAN CORPUSCULAR HGB CONC 32.4 g/dL CAL (32.0-36.0); NEUT# 8.69 thou/uL (1.82-7.42); RED BLOOD COUNT 3.12 mill/uL (4.70-6.10); RED CELL DISTRI WIDTH 13.7 % (11.5-15.5)
[2021-12-22 08:08] LABS: ALBUMIN 4.2 g/dL (3.2-5.0); ALKALINE PHOSPHATASE 160 u/l (38-126); BILIRUBIN, TOTAL 0.6 mg/dL (0.0-1.4); BUN 64 mg/dL (9-20); CHLORIDE 96 mmol/l (95-108); SGOT/AST 37 u/l (17-59); SODIUM 132 mmol/l (137-146); TOTAL PROTEIN 7.3 g/dL (6.3-8.2)
[2021-12-22 08:12] LABS: INTERNATIONAL NORMALIZED RATIO 1.2 RATIO (0.7-1.3); PROTHROMBIN TIME 12.7 SECONDS (9.0-12.5)
[2021-12-22 08:16] LABS: ANION GAP 27 (6-22 (CALC)); BUN/CREATININE RATIO 6 (12-20 (CALC)); CARBON DIOXIDE 15 mmol/l (22-30); CREATININE 9.9 mg/dL (0.7-1.3); GFR 6 ML/MIN (>=60 (CALC)); GFR FOR AFR.AMER. 7 ML/MIN (>=60 (CALC)); POTASSIUM 5.7 mmol/l (3.5-5.1)
[2021-12-22 08:20] LABS: MYOGLOBIN 253 ng/mL (0 - 121)
[2021-12-22 08:22] LABS: D-DIMER 0.86 mg/L (0.19-0.60)
[2021-12-23 00:30] VITALS: BP 144/84
[2021-12-23 02:01] VITALS: BP 169/103
[2021-12-23 02:31] VITALS: BP 164/120
[2021-12-23 05:34] LABS: ALBUMIN 3.7 g/dL (3.2-5.0)
[2021-12-23 05:46] LABS: CREATININE 7.9 mg/dL (0.7-1.3)
[2021-12-23 05:47] LABS: POTASSIUM 5.2 mmol/l (3.5-5.1)
[2021-12-23 06:33] VITALS: BP 212/113
[2021-12-23 08:30] VITALS: BP 183/126
[2021-12-23 09:12] VITALS: BP 183/126
== END 2021-12-23 14:30 | disposition left against medical advice (07) ==
LOC: ED 07:12 → ED-I 10:17 → ED 10:48 → ICU 10:49
PROVIDERS: Emergency Medicine; Internal Medicine Nephrology; ADMIT Internal Medicine; ATTEND Internal Medicine
DX: I16.0 Hypertensive urgency (principal); I13.2 Hypertensive heart and chronic kidney disease with heart failure and with stage 5 chronic kidney disease, or end stage renal disease; N18.6 End stage renal disease; I50.33 Acute on chronic diastolic (congestive) heart failure; D63.1 Anemia in chronic kidney disease; N25.81 Secondary hyperparathyroidism of renal origin; E87.5 Hyperkalemia; E87.1 Hypo-osmolality and hyponatremia; E87.2 Acidosis; F10.10 Alcohol abuse, uncomplicated; F17.200 Nicotine dependence, unspecified, uncomplicated; Z99.2 Dependence on renal dialysis; Z20.822 Contact with and (suspected) exposure to COVID-19
CPT/HCPCS: J1756; Q9967

== ENCOUNTER 2021-12-24 14:50 | Observation (INO) | payer MEDICAID ==
[~2021-12-24] VITALS: Ht 170.2 cm; Wt 81.2 kg
[2021-12-24 15:02] VITALS: BP 157/108
[2021-12-24 15:34] VITALS: BP 163/111
[2021-12-24 16:01] VITALS: BP 183/115
[2021-12-24 16:42] LABS: HEMATOCRIT 27.7 % (39.0-50.0); HEMOGLOBIN 8.9 g/dl (14.0-18.0); IMMATURE GRANULOCYTES 0.4 % (0.0-5.0); MEAN CELL VOLUME 102.6 fL CALC (80.0-100.0); MEAN CORPUSCULAR HGB CONC 32.1 g/dL CAL (32.0-36.0); NEUT# 4.66 thou/uL (1.82-7.42); RED BLOOD COUNT 2.7 mill/uL (4.70-6.10); RED CELL DISTRI WIDTH 13.7 % (11.5-15.5)
[2021-12-24 16:58] LABS: POTASSIUM 5.1 mmol/l (3.5-5.1)
[2021-12-24 19:00] VITALS: BP 188/126
[2021-12-24 20:02] VITALS: BP 174/103
[2022-01-02] MEDS ORDERED: TRAMADOL HCL50 MG PO (13:53)
== END 2021-12-24 21:00 | disposition home or self-care (01) ==
LOC: ED 14:50 → ED-I 15:00 → ED 15:00 → ED-I 15:15 → ED 15:50 → MS2 15:51
PROVIDERS: Family Medicine; ADMIT Internal Medicine; ATTEND Internal Medicine
DX: I12.0 Hypertensive chronic kidney disease with stage 5 chronic kidney disease or end stage renal disease (principal); N18.6 End stage renal disease; D63.1 Anemia in chronic kidney disease; N25.81 Secondary hyperparathyroidism of renal origin; F10.10 Alcohol abuse, uncomplicated; F41.9 Anxiety disorder, unspecified; E78.5 Hyperlipidemia, unspecified; F17.200 Nicotine dependence, unspecified, uncomplicated; Z91.15 Patient's noncompliance with renal dialysis; Z99.2 Dependence on renal dialysis; Z20.822 Contact with and (suspected) exposure to COVID-19
CPT/HCPCS: G0378

== ENCOUNTER 2021-12-26 00:09 | Observation (INO) | payer MEDICAID ==
[~2021-12-26] VITALS: Ht 170.2 cm; Wt 82.0 kg
[2021-12-26] VITALS (11 sets, daily range): BP systolic 128–208; BP diastolic 72–138
[2021-12-26 00:57] LABS: HEMATOCRIT 27.8 % (39.0-50.0); HEMOGLOBIN 8.8 g/dl (14.0-18.0); MEAN CELL VOLUME 101.5 fL CALC (80.0-100.0); MEAN CORPUSCULAR HGB 32.1 pG CALC (26.0-32.0); MEAN CORPUSCULAR HGB CONC 31.7 g/dL CAL (32.0-36.0); NEUT# 6.31 thou/uL (1.82-7.42); RED BLOOD COUNT 2.74 mill/uL (4.70-6.10); RED CELL DISTRI WIDTH 13.4 % (11.5-15.5)
[2021-12-26 01:09] LABS: ALBUMIN 4.2 g/dL (3.2-5.0); BILIRUBIN, TOTAL 0.5 mg/dL (0.0-1.4); TOTAL PROTEIN 7.3 g/dL (6.3-8.2)
[2021-12-26 01:21] LABS: CREATININE 8.7 mg/dL (0.7-1.3); POTASSIUM 5.4 mmol/l (3.5-5.1)
[2021-12-26 01:22] LABS: ACT PARTIAL THROMBO TIME 25.6 SECONDS (20.0-32.5); INTERNATIONAL NORMALIZED RATIO 1.1 RATIO (0.7-1.3); PROTHROMBIN TIME 11.4 SECONDS (9.0-12.5)
[2021-12-26] MEDS ORDERED: ACETAMINOPHEN500 M1 PO (08:34)
[2022-01-02] MEDS ORDERED: TRAMADOL HCL50 MG PO (13:53)
== END 2021-12-26 13:30 | disposition home or self-care (01) ==
LOC: ED 00:09 → ICU 02:00
PROVIDERS: Family Medicine; ADMIT Internal Medicine; ATTEND Internal Medicine
DX: I12.0 Hypertensive chronic kidney disease with stage 5 chronic kidney disease or end stage renal disease (principal); N18.6 End stage renal disease; D63.1 Anemia in chronic kidney disease; N25.81 Secondary hyperparathyroidism of renal origin; F10.10 Alcohol abuse, uncomplicated; F17.200 Nicotine dependence, unspecified, uncomplicated; Z99.2 Dependence on renal dialysis; Z91.15 Patient's noncompliance with renal dialysis; Z20.822 Contact with and (suspected) exposure to COVID-19
CPT/HCPCS: Q5106 EC

== ENCOUNTER 2021-12-28 23:16 | Observation (INO) | payer MEDICAID ==
[~2021-12-28] VITALS: Ht 170.2 cm; Wt 84.0 kg
[~2021-12-28 23:16] MED LIST changes: +ACETAMINOPHEN500 M1 PO
[2021-12-29 00:17] LABS: HEMATOCRIT 25.1 % (39.0-50.0); MEAN CELL VOLUME 102.4 fL CALC (80.0-100.0); MEAN CORPUSCULAR HGB 32.7 pG CALC (26.0-32.0); MEAN CORPUSCULAR HGB CONC 31.9 g/dL CAL (32.0-36.0); NEUT# 8.54 thou/uL (1.82-7.42); RED BLOOD COUNT 2.45 mill/uL (4.70-6.10); RED CELL DISTRI WIDTH 13.5 % (11.5-15.5)
[2021-12-29 00:37] LABS: BILIRUBIN, TOTAL 0.5 mg/dL (0.0-1.4); TOTAL PROTEIN 6.5 g/dL (6.3-8.2)
[2021-12-29 00:40] LABS: CREATININE 10.6 mg/dL (0.7-1.3); POTASSIUM 6.4 mmol/l (3.5-5.1)
[2021-12-29 08:30] VITALS: BP 157/97
[2021-12-29 17:07] VITALS: BP 242/131
[2022-01-02] MEDS ORDERED: TRAMADOL HCL50 MG PO (13:53)
== END 2021-12-29 18:05 | disposition left against medical advice (07) ==
LOC: ED 23:16 → ED-I 12-29 08:28 → ED 12-29 08:36 → MS2 12-29 08:37
PROVIDERS: Family Medicine; ADMIT Hospitalist; ATTEND Hospitalist
DX: I12.0 Hypertensive chronic kidney disease with stage 5 chronic kidney disease or end stage renal disease (principal); N18.6 End stage renal disease; F17.200 Nicotine dependence, unspecified, uncomplicated; F10.10 Alcohol abuse, uncomplicated; Z99.2 Dependence on renal dialysis
CPT/HCPCS: G0378; Q5106 EC

== ENCOUNTER 2021-12-31 08:55 | Observation (INO) | payer MEDICAID ==
[~2021-12-31] VITALS: Ht 170.2 cm; Wt 88.0 kg
[2021-12-31] VITALS (12 sets, daily range): BP systolic 205–224; BP diastolic 122–148
[2021-12-31 10:12] LABS: HEMATOCRIT 25.2 % (39.0-50.0); HEMOGLOBIN 8.3 g/dl (14.0-18.0); IMMATURE GRANULOCYTES 0.4 % (0.0-5.0); MEAN CELL VOLUME 98.8 fL CALC (80.0-100.0); MEAN CORPUSCULAR HGB 32.5 pG CALC (26.0-32.0); MEAN CORPUSCULAR HGB CONC 32.9 g/dL CAL (32.0-36.0); NEUT# 9.14 thou/uL (1.82-7.42); RED BLOOD COUNT 2.55 mill/uL (4.70-6.10); RED CELL DISTRI WIDTH 13.3 % (11.5-15.5)
[2021-12-31 10:32] LABS: BILIRUBIN, TOTAL 0.6 mg/dL (0.0-1.4); TOTAL PROTEIN 6.6 g/dL (6.3-8.2)
[2021-12-31 10:39] LABS: POTASSIUM 5.2 mmol/l (3.5-5.1)
[2021-12-31 10:40] LABS: CREATININE 10.3 mg/dL (0.7-1.3)
[2022-01-02] MEDS ORDERED: TRAMADOL HCL50 MG PO (13:53)
== END 2021-12-31 20:45 | disposition left against medical advice (07) ==
LOC: ED 08:55 → ED-I 10:48 → ED 10:53 → MS2 10:54
PROVIDERS: Internal Medicine; ADMIT Hospitalist; ATTEND Hospitalist
DX: I12.0 Hypertensive chronic kidney disease with stage 5 chronic kidney disease or end stage renal disease (principal); N18.6 End stage renal disease; I16.1 Hypertensive emergency; D64.9 Anemia, unspecified; F10.10 Alcohol abuse, uncomplicated; F17.200 Nicotine dependence, unspecified, uncomplicated; Z99.2 Dependence on renal dialysis
CPT/HCPCS: G0378; Q5106 EC

== ENCOUNTER 2022-01-01 17:22 | Emergency (ER) | payer MEDICAID ==
[~2022-01-01] VITALS: Ht 170.2 cm; Wt 88.0 kg
[2022-01-01 18:07] VITALS: BP 203/116
[2022-01-01 18:12] VITALS: BP 208/135
[2022-01-01 18:31] VITALS: BP 207/123
[2022-01-01 19:21] VITALS: BP 173/149
[2022-01-01 19:23] VITALS: BP 191/128
[2022-01-02] MEDS ORDERED: TRAMADOL HCL50 MG PO (13:53)
== END 2022-01-01 21:10 | disposition home or self-care (01) ==
LOC: ED 17:22
DX: R07.89 Other chest pain (principal); I12.0 Hypertensive chronic kidney disease with stage 5 chronic kidney disease or end stage renal disease; N18.6 End stage renal disease; Z99.2 Dependence on renal dialysis; F17.200 Nicotine dependence, unspecified, uncomplicated

== ENCOUNTER 2022-01-05 06:47 | Observation (INO) | payer MEDICAID ==
[2022-01-05] VITALS (29 sets, daily range): BP systolic 105–213; BP diastolic 71–150
[~2022-01-05] VITALS: Ht 170.2 cm; Wt 75.0 kg
[~2022-01-05 06:47] MED LIST changes: +TRAMADOL HCL50 MG PO
--- NOTE | 2022-01-05 07:30 | NUR ---
PT TO ROOM HOLDING LT CHEST STATING MY RIBS HURT AND I CANT BREATHE
--- NOTE | 2022-01-05 07:45 | NUR ---
PT ASKED FOR PAIN MEDS FOR LT RIB PAIN 05/13, EDP UPDATED
--- NOTE | 2022-01-05 07:55 | NUR ---
PT REQUESTED WARM BLANKET TO PLACE ON LT RIBS, GIVEN.
--- NOTE | 2022-01-05 08:00 | NUR ---
ABG AND CXR PERFORMED.
[2022-01-05 08:17] LABS: HEMOGLOBIN 7.9 g/dl (14.0-18.0); IMMATURE GRANULOCYTES 0.3 % (0.0-5.0); MEAN CELL VOLUME 98.8 fL CALC (80.0-100.0); MEAN CORPUSCULAR HGB 32.5 pG CALC (26.0-32.0); MEAN CORPUSCULAR HGB CONC 32.9 g/dL CAL (32.0-36.0); RED BLOOD COUNT 2.43 mill/uL (4.70-6.10); RED CELL DISTRI WIDTH 12.6 % (11.5-15.5)
--- NOTE | 2022-01-05 08:35 | NUR ---
MEDICATED FOR LT RIB PAIN, RESTS COMFORTABLY WITH EYES CLOSED AND SNORING RESPIRATIONS AND THEN AWAKENS WITH A JOLT AND SCREAMS OUT IN PAIN. UPDATED ON POC
[2022-01-05 08:44] LABS: ALBUMIN 4.2 g/dL (3.2-5.0); BILIRUBIN, TOTAL 0.5 mg/dL (0.0-1.4)
[2022-01-05 08:57] LABS: CREATININE 12.1 mg/dL (0.7-1.3)
--- NOTE | 2022-01-05 09:30 | NUR ---
MEDICATED FOR PAIN 05/13 LT RIB. CONTINUES ON O2 @3LPM VIA NC, SAT 96%.
--- NOTE | 2022-01-05 10:38 | NUR ---
PT MEDICATED FOR ELEVATED BP PER ORDER. PT PROVIDED WITH WARM BLANKET AND ICE PER REQUEST. ATTEMPT MADE TO REACH FAMILY TO LOCATE PT'S CELL PHONE THAT HE THINKS HE LEFT IN [place]-UNABLE TO REACH, WILL TRY AGAIN-PT AWARE. WILL CONTINUE TO MONITOR.
--- NOTE | 2022-01-05 10:56 | NUR ---
PT'S BP REMAINS ELEVATED, DR AVILA AWARE ADN ORDERS OBTAINED.
--- NOTE | 2022-01-05 11:04 | NUR ---
PT MEDICATED AGAING FOR ELEVATED BP AND OXYGEN TITRATED TO 5L/MIN VIA NC TO MAINTAIN OXYGEN SAT ABOVE 90%. DR AVILA AWARE. PT SLEEPING/SNORING DURING MED ADMINISTRATION. WILL CONTINUE TO MONITOR.
--- NOTE | 2022-01-05 11:13 | NUR ---
DR AVILA IN TO SPEAK WITH PT ABOUT RESULTS AND POC
--- NOTE | 2022-01-05 11:52 | NUR ---
PT ASLEEP/SNORING. PT'S BP REMAINS ELEVATED. DR MCGUIRE.
--- NOTE | 2022-01-05 11:56 | NUR ---
CALL PLACED TO MED/SURG TO GIVE SBAR. ZENA MACIAS WILL CALL BACK TO RECEIVE REPORT.
--- NOTE | 2022-01-05 12:27 | NUR ---
SECOND ATTEMPT TO CALL SBAR REPORT. LEFT MESSAGE FOR ZENA MACIAS TO RETURN CALL.
--- NOTE | 2022-01-05 12:37 | NUR ---
PT'S OXYGEN SATURATION DROPS, IN TO CHECK ON PT AND PT WEARING NC ON HIS FOREHEAD. NC PLACED BACK INTO NARES. PT REMAINS ASLEEP/SNORING. PT AWAITING ADMISSION. WILL CONTINUE TO MONITOR.
--- NOTE | 2022-01-05 12:52 | NUR ---
[employer] ATTENDANT/HOSPITALIST IN TO SEE PT
--- NOTE | 2022-01-05 13:05 | NUR ---
REPORT GIVEN TO COLLEEN FREITAS AT THIS TIME.
--- NOTE | 2022-01-05 13:12 | NUR ---
PT TAKEN TO MED/SURG VIA STRETCHER WITH TELE AND OXYGEN IN PLACE. ALL BELONGINGS AND PAPERWORK HANDED OFF TO ZENA MACIAS. PT'S CANTOR COUNTED BY THIS RN AND ZENA MACIAS IN FRONT OF PT AND RECORDED ON BELONGINGS SHEET.
--- NOTE | 2022-01-05 14:15 | NUR ---
PT ARRIVED BY TERRENCE, VERY SLEEPY, WOULD WAKE UP FOR A COUPLE SECONDS THEN FALL BACK ALSEEP
--- NOTE | 2022-01-05 18:00 | NUR ---
PT GETTING DIALYSIS, RESTING IN BED NO S/S OF DISCOMFORT OR DISTRESS
--- NOTE | 2022-01-05 20:00 | NUR ---
PATIENT RESTING IN BED AT THIS TIME. H/D COMPLETED. PATIENT WITH TELE MONITOR IN PLACE. H/D CATH INTACT TO RIGHT UPPER CHEST. SALINE LOCK INTACT TO LAC WITH GOOD BLOOD RETURN. O2 VIA NASAL CANNULA REAPPLIED-O2 SAT IN THE HIGH 80'S WITHOUT O2 IN PLACE. PATIENT RFEINSTRUCTED THAT HE NEEDS TO LEAVE THE O2 IN PLACE-O2 SAT IN LOW 90'S. BP IS ELEVATED AT 180/106-HS MEDS INCLUDING BP MEDS. TEMP-100.9-MEDICATED WITH TYLENOL FOR TEMP. SAFETY PRECAUTIONS REINFORCED. CALL LIGHT IN REACH. [facility]
--- NOTE | 2022-01-05 22:00 | NUR ---
TEMP IOS DOWN TO 98.9. PATIENT EATING HELATHY CHOICE TURKEY DINNER AT THIS TIME-STATES THAT HE IS HUNGRY. BP IS DOWN TO 142/83 AT THIS TIME. CALL LIGHT IN REACH. WILL CONT TO MONITOR.
[2022-01-06] VITALS (8 sets, daily range): BP systolic 142–200; BP diastolic 89–120
--- NOTE | 2022-01-06 | NUR ---
RESTING IN BED AT THIS TIME. TELE MONITOR IN PLACE. RIGHT UPPER CHEST DIALYSIS CATH INTACT. IV SITE TO LAC INTACT. O2 VIA NASAL CANNULA REAPPLIED. REINFORCED WITH PATIENT THAT HE NEEDS TO LEAVE THE O2 IN PLACE. CALL LIGHT IN REACH. WILL CONT TO MONITOR,
--- NOTE | 2022-01-06 05:15 | NUR ---
PATIENT RESTING IN BED-CONT TO TAKE OFF HIS O2 AND HIS TELE MONITOR. ENCOURAGED PATIENT TO LEAVE THE O2 VIA NASAL CANNULA IN PLACE AND TO LEAVE TELE MONITOR IN PLACE. C/O LEFT RIB PAIN-MEDICATED WITH TRAMADOL 50MG PO FOR PAIN. LAST TELE READING WAS SR-94. SAFETY PRECAUTIONS REINFORCED. CALL LIGHT IN REACH. WILL CONT TO MONITOR.
[2022-01-06 05:42] LABS: HEMATOCRIT 22.7 % (39.0-50.0); HEMOGLOBIN 7.3 g/dl (14.0-18.0); MEAN CORPUSCULAR HGB 32.2 pG CALC (26.0-32.0); MEAN CORPUSCULAR HGB CONC 32.2 g/dL CAL (32.0-36.0); RED BLOOD COUNT 2.27 mill/uL (4.70-6.10); RED CELL DISTRI WIDTH 12.9 % (11.5-15.5)
[2022-01-06 06:27] LABS: CREATININE 8.2 mg/dL (0.7-1.3); POTASSIUM 5.2 mmol/l (3.5-5.1)
--- NOTE | 2022-01-06 06:39 | NUR ---
RECIEVED CALL FROMMAU IN THE LAB WITH CRITICAL CREAT OF 8.2. PATIENT ESRD ALREADY ON H/D. HAD DIALYSIS YESTERDAY-SCHEDULED ON . WILL CONT TO MONITOR.
--- NOTE | 2022-01-06 07:50 | NUR ---
PT SLEEPING IN BED, SNORING NO S/S OF DISTRESS OR DISCOMFORT
--- NOTE | 2022-01-06 11:09 | NUR ---
ASKED BY DR VAUGHN IF WE COULD USE A VENTURI MASK INSTEAD OF A NASAL CANNULA FOR THE PATEINT. PT WAS PRIMARILY DOING MOUTH BREATHING, AND A VENTURI MASK WAS STARTED. PT IS ON 30% VENTURI MASK WITH A FLOW OF 6L.
--- NOTE | 2022-01-06 12:00 | NUR ---
PT RESTING IN BED, RESTING COMFORTABLLY NO S/S OR DISTRESS OR DISCOMFORT
--- NOTE | 2022-01-06 16:17 | NUR ---
REMOVED MEDS INCLUDING HYDRALAZINE, TRAMADOL AND GUAIFFENESIN W/ PARAS AT 1525 HE IS IN THE SHOWER AND TOLD ME TO COME BACK HE WAS STILL IN SHOWER AT 1615 WILL HOLD MEDS UNTIL HE GETS OUT REQUESTED
--- NOTE | 2022-01-06 18:51 | NUR ---
PT STATED THAT HE FEELS LIKE HE HAS SOMETHING OBSTRUCTING HIS AIRWAY EVEN WITH THE O2 ON AND THE O2 MAKES IT WORSE. ALSO FEELS PRESSURE ON HIS CHEST. VS 200/111, HR 84, O2 96% ON OXYGEN. DR SOMMER ADVISED TO GIVE BREATHING TX AND HYDRAZELINE
--- NOTE | 2022-01-06 19:30 | NUR ---
PATIENT RESTING IN BED-AWAKE ALERT AND ORIENTEDX3. PATIENT IS QUITE ANXIOUS-BP IS ELEVATED-177/104-MEDICATED WITH HS MEDS INCLUDING APRESOLINE 100MG PO AND LABETALOL 300MG PO. PATIENT CONT TO TAKE O2 ON AND OFF-WHEN HE HAS IT ON HE SATS IN THE MID90'S. WHEN OFF DESATS TO THE LOW 90'S-HI 80'S. RIGHT UPPER CHEST DIALYSIS CATH INTACT. IV SITE TO LAC INTACT AND HEALTHY AT THIS TIME. TELE MONITOR-SR -80'S. SAFETY PRECAUTIONS REINFORCED. WILL CONT TO MONITOR.
[2022-01-07 00:31] VITALS: BP 172/106
--- NOTE | 2022-01-07 00:44 | NUR ---
PATIENT SITTING UP IN BED WITH O2 OFF AGAIN. PATIENT IS HIGH ANXIETY AGAIN. MEDICATED FOR HTN 172/106, HR-89 WITH APRESOLINE 10MG IVP ORDERED FOR HTN. ALSO MEDICATED FOR LEFT RIB PAIN WITH U LTRAM 50MG PO AND FOR COUGH WITH ROBITUSSIN AC. PATIENT STATES THAT HE NEEDS TO GO TO THE BR-CN HERE TO ASSIST PATIENT. WILL CONT TO MONITOR.
--- NOTE | 2022-01-07 02:45 | NUR ---
PATIENT SITTING UP IN BED-ANXIOUS AND AGITATED-MEDICATED WITH ATIVAN 0.5MG IVP VIA LEFT AC SITE. H/D CATH TO RIGHT UPPER CHEST INTACT. O2 VIA NASAL MASK REAPPLIED. TELE MONITOR REAPPLIED AGAIN. PATIENT IS CONSTANTLY TAKING IT OFF EVEN AFTER BEING EDUCATED OVER AND OVER AGAIN. PATIENT IS ALSO SCRATCHING BOTH OF HIS ARMS VERY HARD. SAFETY PRECAUTIONS REINFORCED. CALL LIGHT IN REACH. WILL CONT TO MONITOR.
[2022-01-07 04:09] VITALS: BP 173/98
[2022-01-07 05:49] LABS: HEMATOCRIT 22.1 % (39.0-50.0); HEMOGLOBIN 7.2 g/dl (14.0-18.0); MEAN CORPUSCULAR HGB 32.6 pG CALC (26.0-32.0); MEAN CORPUSCULAR HGB CONC 32.6 g/dL CAL (32.0-36.0); RED BLOOD COUNT 2.21 mill/uL (4.70-6.10); RED CELL DISTRI WIDTH 12.9 % (11.5-15.5)
[2022-01-07 06:16] LABS: ALBUMIN 3.8 g/dL (3.2-5.0)
[2022-01-07 06:23] LABS: CREATININE 10.1 mg/dL (0.7-1.3)
--- NOTE | 2022-01-07 07:00 | NUR ---
RECEIVE REPORT FROM YAW FREITAS.
[2022-01-07 08:00] VITALS: BP 209/109
--- NOTE | 2022-01-07 08:00 | NUR ---
PATIENT ALERT AND ORIENTE X3. NO RESPIRATORY DISTRESS AT HTIS TIME. PATIENT SMOKES IN THE BATHROOM BUT SAYS THAT HE DID NOT BUT WE FOUD THE CIGARETTES AND SOLE BUFFER IN THE BED PLUS THE STRONG SMELL OF CIGARETTES. PATIENT IS EDUCATES ABOUT THIS, MEDICATIONS, DIALYSIS AND NURSING PLAN FOR TODAY.
--- NOTE | 2022-01-07 12:07 | NUR ---
PATIENT STABLE AT THIS TIME. PATIENT IN DIALYSIS NOW.
[2022-01-07 15:09] VITALS: BP 150/98
[2022-01-07 15:26] VITALS: BP 150/98
== END 2022-01-07 15:14 | disposition left against medical advice (07) ==
LOC: ED 06:47 → ED-I 10:50 → ED 11:11 → MS2 11:12
PROVIDERS: Family Medicine; Internal Medicine Nephrology; ADMIT Internal Medicine; ATTEND Internal Medicine
DX: J18.9 Pneumonia, unspecified organism (principal); I12.0 Hypertensive chronic kidney disease with stage 5 chronic kidney disease or end stage renal disease; N18.6 End stage renal disease; I16.1 Hypertensive emergency; D63.1 Anemia in chronic kidney disease; N25.81 Secondary hyperparathyroidism of renal origin; E87.5 Hyperkalemia; E87.1 Hypo-osmolality and hyponatremia; E87.2 Acidosis; F10.10 Alcohol abuse, uncomplicated; F17.200 Nicotine dependence, unspecified, uncomplicated; S22.32XD Fracture of one rib, left side, subsequent encounter for fracture with routine healing; X58.XXXD Exposure to other specified factors, subsequent encounter; T46.5X6A Underdosing of other antihypertensive drugs, initial encounter; Z91.128 Patient's intentional underdosing of medication regimen for other reason; Z99.2 Dependence on renal dialysis; Z20.822 Contact with and (suspected) exposure to COVID-19; Z91.11 Patient's noncompliance with dietary regimen
CPT/HCPCS: G0378; J2060; Q5106 EC; Q9967

== ENCOUNTER 2022-01-09 00:21 | Observation (INO) | payer MEDICAID ==
[~2022-01-09] VITALS: Ht 170.2 cm; Wt 63.0 kg
[2022-01-09 01:08] VITALS: BP 173/118
[2022-01-09 01:43] LABS: HEMATOCRIT 20.4 % (39.0-50.0); IMMATURE GRANULOCYTES 0.8 % (0.0-5.0); MEAN CORPUSCULAR HGB 32.7 pG CALC (26.0-32.0); MEAN CORPUSCULAR HGB CONC 32.4 g/dL CAL (32.0-36.0); NEUT# 9.56 thou/uL (1.82-7.42); RED BLOOD COUNT 2.02 mill/uL (4.70-6.10)
[2022-01-09 01:49] LABS: HEMOGLOBIN 6.6 g/dl (14.0-18.0)
[2022-01-09 01:53] LABS: ALBUMIN 3.7 g/dL (3.2-5.0); BILIRUBIN, TOTAL 0.5 mg/dL (0.0-1.4); TOTAL PROTEIN 6.3 g/dL (6.3-8.2)
[2022-01-09 01:58] LABS: CREATININE 9.2 mg/dL (0.7-1.3)
[2022-01-09 07:45] VITALS: BP 215/114
[2022-01-09 12:45] VITALS: BP 198/108
[2022-01-09 12:51] VITALS: BP 193/117
== END 2022-01-09 14:40 | disposition left against medical advice (07) ==
LOC: ED 00:21 → MS2 06:36
PROVIDERS: Family Medicine; ADMIT Internal Medicine; ATTEND Internal Medicine
DX: I13.2 Hypertensive heart and chronic kidney disease with heart failure and with stage 5 chronic kidney disease, or end stage renal disease (principal); N18.6 End stage renal disease; I50.32 Chronic diastolic (congestive) heart failure; I16.1 Hypertensive emergency; J18.9 Pneumonia, unspecified organism; Z99.2 Dependence on renal dialysis; F10.10 Alcohol abuse, uncomplicated; S22.32XD Fracture of one rib, left side, subsequent encounter for fracture with routine healing; X58.XXXD Exposure to other specified factors, subsequent encounter; D63.1 Anemia in chronic kidney disease; N25.81 Secondary hyperparathyroidism of renal origin; E87.5 Hyperkalemia; E87.1 Hypo-osmolality and hyponatremia; E87.2 Acidosis; K59.00 Constipation, unspecified; Z91.14 Patient's other noncompliance with medication regimen; F17.200 Nicotine dependence, unspecified, uncomplicated
CPT/HCPCS: G0378; P9016

== ENCOUNTER 2022-01-10 23:24 | Emergency (ER) | payer MEDICAID ==
[~2022-01-10] VITALS: Ht 170.2 cm; Wt 76.0 kg
[2022-01-11] VITALS (9 sets, daily range): BP systolic 146–179; BP diastolic 88–116
[2022-01-11 00:05] LABS: HEMATOCRIT 21.5 % (39.0-50.0); IMMATURE GRANULOCYTES 1.4 % (0.0-5.0); MEAN CELL VOLUME 102.4 fL CALC (80.0-100.0); MEAN CORPUSCULAR HGB 32.4 pG CALC (26.0-32.0); MEAN CORPUSCULAR HGB CONC 31.6 g/dL CAL (32.0-36.0); NEUT# 6.21 thou/uL (1.82-7.42); RED BLOOD COUNT 2.1 mill/uL (4.70-6.10)
[2022-01-11 00:22] LABS: ALBUMIN 3.7 g/dL (3.2-5.0); BILIRUBIN, TOTAL 0.5 mg/dL (0.0-1.4); POTASSIUM 5.1 mmol/l (3.5-5.1); TOTAL PROTEIN 6.2 g/dL (6.3-8.2)
[2022-01-11 00:30] LABS: HEMOGLOBIN 6.8 g/dl (14.0-18.0)
[2022-01-11 00:31] LABS: CREATININE 8.8 mg/dL (0.7-1.3)
[2022-01-11] MEDS ORDERED: RENA-VIT1 PO (01:13)
== END 2022-01-11 05:07 | disposition home or self-care (01) ==
LOC: ED 23:24
PROVIDERS: Family Medicine
DX: R07.89 Other chest pain (principal); I12.0 Hypertensive chronic kidney disease with stage 5 chronic kidney disease or end stage renal disease; N18.6 End stage renal disease; F17.200 Nicotine dependence, unspecified, uncomplicated; Z99.2 Dependence on renal dialysis

== ENCOUNTER 2022-01-14 06:38 | Observation (INO) | payer MEDICAID ==
[~2022-01-14] VITALS: Ht 170.2 cm; Wt 90.9 kg
--- NOTE | 2022-01-14 07:03 | NUR ---
AMBULATORY TO TX ROOM, STABLE
[2022-01-14 07:23] VITALS: BP 186/125
[2022-01-14 07:24] VITALS: BP 179/120
[2022-01-14 07:25] VITALS: BP 202/127
[2022-01-14 07:34] LABS: HEMATOCRIT 22.4 % (39.0-50.0); HEMOGLOBIN 7.2 g/dl (14.0-18.0); IMMATURE GRANULOCYTES 0.5 % (0.0-5.0); MEAN CELL VOLUME 100.4 fL CALC (80.0-100.0); MEAN CORPUSCULAR HGB 32.3 pG CALC (26.0-32.0); MEAN CORPUSCULAR HGB CONC 32.1 g/dL CAL (32.0-36.0); NEUT# 9.77 thou/uL (1.82-7.42); RED BLOOD COUNT 2.23 mill/uL (4.70-6.10); RED CELL DISTRI WIDTH 13.5 % (11.5-15.5)
[2022-01-14 07:38] VITALS: BP 179/120
[2022-01-14 07:47] LABS: ALBUMIN 3.9 g/dL (3.2-5.0); BILIRUBIN, TOTAL 0.6 mg/dL (0.0-1.4); POTASSIUM 4.5 mmol/l (3.5-5.1); TOTAL PROTEIN 6.5 g/dL (6.3-8.2)
[2022-01-14 07:49] LABS: CREATININE 7.8 mg/dL (0.7-1.3)
--- NOTE | 2022-01-14 08:07 | NUR ---
Reassessment of patient completed. No distress noted.
--- NOTE | 2022-01-14 08:45 | NUR ---
REPORT PROVIDED PT TO RM 286 VIA WC IN STABLE CONDITION.
--- NOTE | 2022-01-14 09:00 | NUR ---
pt to room from er per w/c and placed in recliner, dialysis nurse at bedside. advmission done as well as this staff can because of poor historian and language. pt appears to be veryi restless.
--- NOTE | 2022-01-14 13:30 | NUR ---
pt completed dialysis with dialysis nurse and vss. pt tolerated well. Patient decides to leave AMA. Multiple attempts made to ecourage patient to remain here for continued treatment. Explained to patient all risks of leaving against medical advice including . Pt verbalized understanding of all risks. Pt also encouraged to return to [facility] at any time, especially if symptoms continue or become worse. Pt verbalized understanding. Pt left ambulatory to lobby in no distress with steady gait.
== END 2022-01-14 13:30 | disposition left against medical advice (07) ==
LOC: ED 06:38 → ED-I 07:19 → ED 07:19 → MS2 08:06
PROVIDERS: Family Medicine; ADMIT Hospitalist; ATTEND Hospitalist
DX: I12.0 Hypertensive chronic kidney disease with stage 5 chronic kidney disease or end stage renal disease (principal); N18.6 End stage renal disease; D63.1 Anemia in chronic kidney disease; N25.81 Secondary hyperparathyroidism of renal origin; I16.1 Hypertensive emergency; K59.00 Constipation, unspecified; E87.5 Hyperkalemia; E87.1 Hypo-osmolality and hyponatremia; E87.2 Acidosis; F10.10 Alcohol abuse, uncomplicated; F17.200 Nicotine dependence, unspecified, uncomplicated; Z99.2 Dependence on renal dialysis; Z91.14 Patient's other noncompliance with medication regimen
CPT/HCPCS: G0378

== ENCOUNTER 2022-01-16 07:01 | Observation (INO) | payer MEDICAID ==
[~2022-01-16] VITALS: Ht 170.2 cm; Wt 84.3 kg
[2022-01-16] VITALS (10 sets, daily range): BP systolic 152–194; BP diastolic 85–127
[2022-01-16 07:53] LABS: HEMATOCRIT 21.2 % (39.0-50.0); IMMATURE GRANULOCYTES 0.5 % (0.0-5.0); MEAN CELL VOLUME 101.9 fL CALC (80.0-100.0); MEAN CORPUSCULAR HGB 32.7 pG CALC (26.0-32.0); MEAN CORPUSCULAR HGB CONC 32.1 g/dL CAL (32.0-36.0); NEUT# 10.28 thou/uL (1.82-7.42); RED BLOOD COUNT 2.08 mill/uL (4.70-6.10); RED CELL DISTRI WIDTH 13.2 % (11.5-15.5)
[2022-01-16 08:00] LABS: ALBUMIN 3.5 g/dL (3.2-5.0); BILIRUBIN, TOTAL 0.5 mg/dL (0.0-1.4)
[2022-01-16 08:13] LABS: CREATININE 8.6 mg/dL (0.7-1.3)
[2022-01-16 08:14] LABS: HEMOGLOBIN 6.8 g/dl (14.0-18.0)
[2022-01-16 15:57] LABS: MAGNESIUM 3.1 mg/dL (1.6-2.3)
[2022-01-17 00:27] VITALS: BP 175/106
[2022-01-17 04:30] VITALS: BP 194/107
[2022-01-17 05:26] LABS: HEMATOCRIT 24.4 % (39.0-50.0); HEMOGLOBIN 7.9 g/dl (14.0-18.0); MEAN CELL VOLUME 99.6 fL CALC (80.0-100.0); MEAN CORPUSCULAR HGB 32.2 pG CALC (26.0-32.0); MEAN CORPUSCULAR HGB CONC 32.4 g/dL CAL (32.0-36.0); RED BLOOD COUNT 2.45 mill/uL (4.70-6.10); RED CELL DISTRI WIDTH 14.4 % (11.5-15.5)
[2022-01-17 05:42] LABS: MAGNESIUM 2.7 mg/dL (1.6-2.3)
[2022-01-17 05:54] LABS: POTASSIUM 5.6 mmol/l (3.5-5.1)
[2022-01-17 08:00] VITALS: BP 199/125
[2022-01-17] MEDS ORDERED: LORTAB 5/3255 MG PO (11:17)
[2022-01-17] MEDS ORDERED: LIDOCAINE 3.5% TD ×2 (11:20→11:21)
[2022-01-17] MEDS ORDERED: LORTAB 7.57.5 MG PO ×2 (11:20→11:21)
[2022-01-17] MEDS ORDERED: ALBUTEROL108 MCG/AC IN (11:58)
[2022-01-21] MEDS ORDERED: OMEPRAZOLE DR20 MG PO (10:14)
[2022-01-21] MEDS ORDERED: LIDOCAINE PATCH 55 % TD (10:20)
== END 2022-01-17 12:18 | disposition left against medical advice (07) ==
LOC: ED 07:01 → ED-I 08:00 → ED 08:26 → MS2 08:27
PROVIDERS: Family Medicine; Internal Medicine Nephrology; ADMIT Hospitalist; ATTEND Hospitalist
DX: I12.0 Hypertensive chronic kidney disease with stage 5 chronic kidney disease or end stage renal disease (principal); N18.6 End stage renal disease; D63.1 Anemia in chronic kidney disease; N25.81 Secondary hyperparathyroidism of renal origin; I16.1 Hypertensive emergency; E87.5 Hyperkalemia; E87.1 Hypo-osmolality and hyponatremia; E87.2 Acidosis; K59.00 Constipation, unspecified; F10.10 Alcohol abuse, uncomplicated; F17.200 Nicotine dependence, unspecified, uncomplicated; S22.32XD Fracture of one rib, left side, subsequent encounter for fracture with routine healing; X58.XXXD Exposure to other specified factors, subsequent encounter; Z99.2 Dependence on renal dialysis; Z91.14 Patient's other noncompliance with medication regimen; Z20.822 Contact with and (suspected) exposure to COVID-19
CPT/HCPCS: G0378; P9016

== ENCOUNTER 2022-01-19 06:43 | Observation (INO) | payer MEDICAID ==
[~2022-01-19] VITALS: Ht 170.2 cm; Wt 90.0 kg
[~2022-01-19 06:43] MED LIST changes: +ALBUTEROL108 MCG/AC IN; +LIDOCAINE 3.5% TD; +LORTAB 5/3255 MG PO; +LORTAB 7.57.5 MG PO
[2022-01-19 07:09] VITALS: BP 168/114
[2022-01-19 07:15] VITALS: BP 183/125
[2022-01-19 07:30] VITALS: BP 192/132
[2022-01-19 07:48] LABS: HEMATOCRIT 23.4 % (39.0-50.0); HEMOGLOBIN 7.6 g/dl (14.0-18.0); IMMATURE GRANULOCYTES 0.6 % (0.0-5.0); MEAN CORPUSCULAR HGB 32.5 pG CALC (26.0-32.0); MEAN CORPUSCULAR HGB CONC 32.5 g/dL CAL (32.0-36.0); NEUT# 9.47 thou/uL (1.82-7.42); RED BLOOD COUNT 2.34 mill/uL (4.70-6.10); RED CELL DISTRI WIDTH 14.2 % (11.5-15.5)
[2022-01-19 08:04] LABS: BILIRUBIN, TOTAL 0.5 mg/dL (0.0-1.4); TOTAL PROTEIN 6.6 g/dL (6.3-8.2)
[2022-01-19 08:18] LABS: CREATININE 11.6 mg/dL (0.7-1.3); POTASSIUM 5.8 mmol/l (3.5-5.1)
[2022-01-19 12:14] VITALS: BP 200/127
[2022-01-21] MEDS ORDERED: OMEPRAZOLE DR20 MG PO (10:14)
[2022-01-21] MEDS ORDERED: LIDOCAINE PATCH 55 % TD (10:20)
== END 2022-01-19 14:06 | disposition left against medical advice (07) ==
LOC: ED 06:43 → ED-I 08:20 → ED 08:30 → MS2 08:31
PROVIDERS: ADMIT Internal Medicine; ATTEND Internal Medicine
DX: I12.0 Hypertensive chronic kidney disease with stage 5 chronic kidney disease or end stage renal disease (principal); N18.6 End stage renal disease; J18.9 Pneumonia, unspecified organism; I16.1 Hypertensive emergency; D63.1 Anemia in chronic kidney disease; N25.81 Secondary hyperparathyroidism of renal origin; E87.5 Hyperkalemia; E87.1 Hypo-osmolality and hyponatremia; E87.2 Acidosis; F10.10 Alcohol abuse, uncomplicated; F17.200 Nicotine dependence, unspecified, uncomplicated; Z91.14 Patient's other noncompliance with medication regimen; Z99.2 Dependence on renal dialysis; Z20.822 Contact with and (suspected) exposure to COVID-19
CPT/HCPCS: G0378

== ENCOUNTER 2022-01-23 11:28 | Observation (INO) | payer MEDICAID ==
[~2022-01-23] VITALS: Ht 170.2 cm; Wt 77.8 kg
[~2022-01-23 11:28] MED LIST changes: +LIDOCAINE PATCH 55 % TD; +OMEPRAZOLE DR20 MG PO
[2022-01-23 11:36] VITALS: BP 198/140
[2022-01-23 11:51] LABS: HEMOGLOBIN 8.1 g/dl (14.0-18.0); IMMATURE GRANULOCYTES 0.2 % (0.0-5.0); MEAN CELL VOLUME 98.8 fL CALC (80.0-100.0); MEAN CORPUSCULAR HGB CONC 32.4 g/dL CAL (32.0-36.0); NEUT# 6.26 thou/uL (1.82-7.42); RED BLOOD COUNT 2.53 mill/uL (4.70-6.10); RED CELL DISTRI WIDTH 13.7 % (11.5-15.5)
[2022-01-23 11:58] VITALS: BP 171/122
[2022-01-23 12:08] LABS: ALBUMIN 4.3 g/dL (3.2-5.0); BILIRUBIN, TOTAL 0.6 mg/dL (0.0-1.4); TOTAL PROTEIN 7.1 g/dL (6.3-8.2)
[2022-01-23 12:12] LABS: CREATININE 11.9 mg/dL (0.7-1.3); POTASSIUM 5.6 mmol/l (3.5-5.1)
[2022-01-23 21:14] VITALS: BP 166/111
[2022-01-23 23:29] VITALS: BP 185/109
[2022-01-23 23:34] VITALS: BP 203/130
[2022-01-23 23:46] VITALS: BP 201/120
[2022-01-24] VITALS (46 sets, daily range): BP systolic 113–233; BP diastolic 72–139
[2022-01-24 04:17] LABS: HEMATOCRIT 25.7 % (39.0-50.0); HEMOGLOBIN 8.1 g/dl (14.0-18.0); MEAN CELL VOLUME 99.6 fL CALC (80.0-100.0); MEAN CORPUSCULAR HGB 31.4 pG CALC (26.0-32.0); MEAN CORPUSCULAR HGB CONC 31.5 g/dL CAL (32.0-36.0); RED BLOOD COUNT 2.58 mill/uL (4.70-6.10); RED CELL DISTRI WIDTH 13.4 % (11.5-15.5)
[2022-01-24 04:41] LABS: ALBUMIN 3.8 g/dL (3.2-5.0); POTASSIUM 4.5 mmol/l (3.5-5.1)
[2022-01-24 04:50] LABS: CREATININE 7.9 mg/dL (0.7-1.3)
[2022-01-25] VITALS (33 sets, daily range): BP systolic 140–194; BP diastolic 91–134
[2022-01-26 07:23] VITALS: BP 163/114
[2022-01-26 08:01] VITALS: BP 166/107
[2022-01-26 08:52] LABS: HEMATOCRIT 23.3 % (39.0-50.0); HEMOGLOBIN 7.6 g/dl (14.0-18.0); IMMATURE GRANULOCYTES 0.3 % (0.0-5.0); MEAN CELL VOLUME 98.3 fL CALC (80.0-100.0); MEAN CORPUSCULAR HGB 32.1 pG CALC (26.0-32.0); MEAN CORPUSCULAR HGB CONC 32.6 g/dL CAL (32.0-36.0); NEUT# 6.96 thou/uL (1.82-7.42); RED BLOOD COUNT 2.37 mill/uL (4.70-6.10); RED CELL DISTRI WIDTH 13.3 % (11.5-15.5)
[2022-01-26 09:01] VITALS: BP 191/123
[2022-01-26 09:57] VITALS: BP 164/105
[2022-01-26 09:59] LABS: CREATININE 11.7 mg/dL (0.7-1.3); POTASSIUM 5.2 mmol/l (3.5-5.1)
[2022-01-26 14:51] VITALS: BP 164/105
== END 2022-01-26 20:45 | disposition left against medical advice (07) ==
LOC: ED 11:28 → ED-I 12:05 → ED 12:22 → MS2 12:23 → ICU 19:21
PROVIDERS: Family Medicine; Nurse Practitioner; ADMIT Internal Medicine; ATTEND Internal Medicine
DX: I12.0 Hypertensive chronic kidney disease with stage 5 chronic kidney disease or end stage renal disease (principal); F17.200 Nicotine dependence, unspecified, uncomplicated; N18.6 End stage renal disease; Z99.2 Dependence on renal dialysis; F10.20 Alcohol dependence, uncomplicated; F29 Unspecified psychosis not due to a substance or known physiological condition; D63.1 Anemia in chronic kidney disease; R53.83 Other fatigue; N25.81 Secondary hyperparathyroidism of renal origin; E87.1 Hypo-osmolality and hyponatremia; Z91.19 Patient's noncompliance with other medical treatment and regimen
CPT/HCPCS: Q5106 EC; S0166

== ENCOUNTER 2022-01-29 18:54 | Emergency (ER) | payer MEDICAID ==
[~2022-01-29] VITALS: Ht 170.2 cm; Wt 82.0 kg
[2022-01-29 21:37] LABS: HEMATOCRIT 23.8 % (39.0-50.0); HEMOGLOBIN 7.6 g/dl (14.0-18.0); IMMATURE GRANULOCYTES 0.4 % (0.0-5.0); MEAN CORPUSCULAR HGB 31.9 pG CALC (26.0-32.0); MEAN CORPUSCULAR HGB CONC 31.9 g/dL CAL (32.0-36.0); NEUT# 6.61 thou/uL (1.82-7.42); RED BLOOD COUNT 2.38 mill/uL (4.70-6.10)
[2022-01-29 21:54] LABS: ALBUMIN 4.1 g/dL (3.2-5.0); BILIRUBIN, TOTAL 0.5 mg/dL (0.0-1.4); POTASSIUM 4.8 mmol/l (3.5-5.1); TOTAL PROTEIN 6.7 g/dL (6.3-8.2)
[2022-01-29 21:58] LABS: CREATININE 9.2 mg/dL (0.7-1.3)
[2022-01-29] MEDS ORDERED: BENADRYL25 M1 PO (22:21)
[2022-01-29] MEDS ORDERED: PATADAY0.2 % OU (22:21)
[2022-01-29 22:24] VITALS: BP 179/121
== END 2022-01-29 23:49 | disposition home or self-care (01) ==
LOC: ED 18:54
PROVIDERS: Emergency Medicine
DX: L29.9 Pruritus, unspecified (principal); F41.9 Anxiety disorder, unspecified; I12.0 Hypertensive chronic kidney disease with stage 5 chronic kidney disease or end stage renal disease; N18.6 End stage renal disease; Z99.2 Dependence on renal dialysis; F17.210 Nicotine dependence, cigarettes, uncomplicated

== ENCOUNTER 2022-01-30 12:35 | Observation (INO) | payer MEDICAID ==
[~2022-01-30] VITALS: Ht 170.2 cm; Wt 84.6 kg
[~2022-01-30 12:35] MED LIST changes: +BENADRYL25 M1 PO; +PATADAY0.2 % OU
[2022-01-30 12:47] VITALS: BP 196/133
--- NOTE | 2022-01-30 12:48 | NUR ---
PATIENT TO ROOM 15
[2022-01-30 13:20] LABS: HEMATOCRIT 22.7 % (39.0-50.0); HEMOGLOBIN 7.3 g/dl (14.0-18.0); IMMATURE GRANULOCYTES 0.3 % (0.0-5.0); MEAN CELL VOLUME 101.3 fL CALC (80.0-100.0); MEAN CORPUSCULAR HGB 32.6 pG CALC (26.0-32.0); MEAN CORPUSCULAR HGB CONC 32.2 g/dL CAL (32.0-36.0); NEUT# 9.28 thou/uL (1.82-7.42); RED BLOOD COUNT 2.24 mill/uL (4.70-6.10); RED CELL DISTRI WIDTH 14.1 % (11.5-15.5)
--- NOTE | 2022-01-30 13:40 | NUR ---
Reassessment of patient completed. No distress noted.
[2022-01-30 13:41] VITALS: BP 181/122
[2022-01-30 13:44] LABS: ALBUMIN 3.8 g/dL (3.2-5.0); BILIRUBIN, TOTAL 0.6 mg/dL (0.0-1.4); POTASSIUM 4.7 mmol/l (3.5-5.1); TOTAL PROTEIN 6.2 g/dL (6.3-8.2)
[2022-01-30 13:46] VITALS: BP 174/118
[2022-01-30 13:46] LABS: CREATININE 9.2 mg/dL (0.7-1.3)
[2022-01-30 13:58] VITALS: BP 213/139
--- NOTE | 2022-01-30 15:15 | NUR ---
PATIENT IN HALLWAY/NURSES STATION SEVERAL TIMES. PATIENT UPDATED TO CURRENT PPOC AND ENCOURAGED TO PARTICAPATE IN HIS OWN CARE.
--- NOTE | 2022-01-30 15:34 | NUR ---
PATIENT BEING PICK-UP AT THIS TIME BY DIALYSIS NURSE TO GO UPSTAIRS
--- NOTE | 2022-01-30 15:45 | NUR ---
male pt received to [facility] 286 via wc accompanied by staff; admission assessment completed at this time; pt alert and oriented; admits to generalized pain; no n/v noted; pt here for dialysis treatment; pt anxious; resp labored; lungs clear with crackles to left bases; skin color wnl; ra; loose productive freq cough noted; pt noted to spit on floor, self avd various places; tissues and trash basin provided; hr reg; strong pulses; 4+ edema noted to ble/feet; facial edema noted as well; abd soft with bs present; no bm noted per financial underwriter; no urine to inspect at this time; dialydid catheter intact to right subclavian; plan of care/ meds explained; weight 84.6kg; consent for dialysis obtained; staff remains at bedside; will continue to monitor
--- NOTE | 2022-01-30 15:45 | NUR ---
CALLED DR LAURENT AND DIALYSIS ORDERS RECEIVED.
[2022-01-30 16:00] VITALS: BP 178/126
--- NOTE | 2022-01-30 16:59 | NUR ---
staff attempting to place tele monitor; pt noncompliant
--- NOTE | 2022-01-30 17:12 | NUR ---
Dr Villaseñor called per marketing copywriter; informed of elevated bp; informed of prev bp meds admin; bp currently 188/129; 1.5 hours left of dialysis; orders received to admin 2100 dose of labetalol
--- NOTE | 2022-01-30 17:41 | NUR ---
dinner provided; pt declined
[2022-01-30 17:45] VITALS: BP 205/131
--- NOTE | 2022-01-30 19:27 | NUR ---
staff has spoken with pt in great detail in regards to leaving ama; pt insisting on leaving AMA: detoriation and/or explained; pt demanding to leave AMA after treatment
--- NOTE | 2022-01-30 20:42 | NUR ---
completed four hours of dialysis. pt more alert and converses more appropriately, pt still very demanding about needs but more pleasant. no sob, no cp denies cramping. noted pedal edema decreased to 1+. tablo reads 5.0 L fluid removed during treatment. vss. pt ambulatory around room without difficulty. dressing change completed to cvc site colin.
--- NOTE | 2022-01-30 20:55 | NUR ---
Patient decides to leave AMA. Multiple attempts made to ecourage patient to remain here for continued treatment. Explained to patient all risks of leaving against medical advice including . Pt verbalized understanding of all risks. Pt also encouraged to return to [facility] at any time, especially if symptoms continue or become worse. Pt verbalized understanding. Pt transported to exit via after calling for a ride. pt ambulatory in no distress.
== END 2022-01-30 20:55 | disposition left against medical advice (07) ==
LOC: ED 12:35 → ED-I 13:30 → ED 14:56 → MS2 14:56
PROVIDERS: Nurse Practitioner; ADMIT Hospitalist; ATTEND Hospitalist
DX: I12.0 Hypertensive chronic kidney disease with stage 5 chronic kidney disease or end stage renal disease (principal); N18.6 End stage renal disease; N25.81 Secondary hyperparathyroidism of renal origin; D63.1 Anemia in chronic kidney disease; I16.1 Hypertensive emergency; F17.200 Nicotine dependence, unspecified, uncomplicated; F10.10 Alcohol abuse, uncomplicated; Z91.19 Patient's noncompliance with other medical treatment and regimen; Z99.2 Dependence on renal dialysis
CPT/HCPCS: G0378

== ENCOUNTER 2022-02-02 13:26 | Observation (INO) | payer MEDICAID ==
[~2022-02-02] VITALS: Ht 170.2 cm; Wt 68.0 kg
[2022-02-02] VITALS (10 sets, daily range): BP systolic 124–172; BP diastolic 80–107
--- NOTE | 2022-02-02 13:35 | NUR ---
PATIENT ROOMED IN NO ACUTE DISTRESS. CONNECTED TO MONITOR. PROVIDER NOTIFIED OF PATIENT STATUS.
[2022-02-02 14:11] LABS: IMMATURE GRANULOCYTES 0.4 % (0.0-5.0); MEAN CELL VOLUME 99.5 fL CALC (80.0-100.0); MEAN CORPUSCULAR HGB 31.7 pG CALC (26.0-32.0); MEAN CORPUSCULAR HGB CONC 31.8 g/dL CAL (32.0-36.0); NEUT# 6.78 thou/uL (1.82-7.42); RED BLOOD COUNT 2.21 mill/uL (4.70-6.10); RED CELL DISTRI WIDTH 13.8 % (11.5-15.5)
[2022-02-02 14:13] LABS: ALBUMIN 3.8 g/dL (3.2-5.0); BILIRUBIN, TOTAL 0.4 mg/dL (0.0-1.4); TOTAL PROTEIN 6.2 g/dL (6.3-8.2)
[2022-02-02 14:16] LABS: CREATININE 11.4 mg/dL (0.7-1.3); POTASSIUM 5.5 mmol/l (3.5-5.1)
--- NOTE | 2022-02-02 15:49 | NUR ---
PT TRANSPORTED TO DIALYSIS. REPORT GIVEN TO MARJORIE FREITAS. PT STABLE IN NO ACUTE DISTRESS
--- NOTE | 2022-02-02 15:49 | NUR ---
PT ARRIVES ON MS VIA WC, WALKS TO SCALE WITHOUT DISTRESS.REPORT FROM ER NURSE ABA. PT RESP EVEN AND UNLABORED. T WITH 3+ PEDAL EDEMA BILATERALLY. LUNGS CLEAR. COLOR PALE. MAEW. PT C/O LT RIB PAIN TODAY. ALSO C/O ITCHING TO TRUNK. FREE FROM RASH OR ERUPTIONS. ORIENTED TO ROOM AND NEED FRO BLOOD ADMINISTRATION TODAY WITH DIALYSIS . PT AGREEABLE.
--- NOTE | 2022-02-02 16:45 | NUR ---
1 UMIT PRBC INITIATED ORDERED PER PROTOCOL VIA DIALYSIS. PT TOLERATING WELL. WILL MONITOR.
--- NOTE | 2022-02-02 17:39 | NUR ---
completed 1 unit PRBC, vss, pt tolerated well. lungs clear , resp even and unlabored. continues dialysis tx without complaint.
--- NOTE | 2022-02-02 19:45 | NUR ---
DRESSING CHANGE TO RIJ LINE. FREE FROM DRAINAGE, BOTH SITES CLEAN AND DRY.
--- NOTE | 2022-02-02 20:22 | NUR ---
completed dialysis tx, 4999.5L removed during tx. Pt tolerated well. Noted by to be hypertensive. Pt states "i am not taking any medicine right now. I have to wait one hour after dialysis and recheck my bp, then I will take my medicine" Pt states he is leaving AMA as he "does not want to stay here tonight". Patient decides to leave AMA. Multiple attempts made to ecourage patient to remain here for continued treatment. Explained to patient all risks of leaving against medical advice including . Pt verbalized understanding of all risks. Pt also encouraged to return to [facility] at any time, especially if symptoms continue or become worse. Pt verbalized understanding. pt transported to [facility] in no distress via wc and pt waits on bench for his ride per his request.
== END 2022-02-02 20:25 | disposition left against medical advice (07) ==
LOC: ED 13:26 → ED-I 14:13 → ED 14:25 → MS2 14:26
PROVIDERS: ADMIT Internal Medicine; ATTEND Internal Medicine
DX: I12.0 Hypertensive chronic kidney disease with stage 5 chronic kidney disease or end stage renal disease (principal); N18.6 End stage renal disease; D63.1 Anemia in chronic kidney disease; N25.81 Secondary hyperparathyroidism of renal origin; F10.10 Alcohol abuse, uncomplicated; F17.200 Nicotine dependence, unspecified, uncomplicated; Z99.2 Dependence on renal dialysis; Z91.14 Patient's other noncompliance with medication regimen; Z20.822 Contact with and (suspected) exposure to COVID-19
CPT/HCPCS: G0378; P9016

== ENCOUNTER 2022-02-04 08:39 | Observation (INO) | payer MEDICAID ==
[2022-02-04] VITALS (9 sets, daily range): BP systolic 157–196; BP diastolic 108–121
[~2022-02-04] VITALS: Ht 170.2 cm; Wt 82.0 kg
[2022-02-04 09:11] LABS: HEMATOCRIT 26.3 % (39.0-50.0); HEMOGLOBIN 8.4 g/dl (14.0-18.0); IMMATURE GRANULOCYTES 0.4 % (0.0-5.0); MEAN CORPUSCULAR HGB 31.9 pG CALC (26.0-32.0); MEAN CORPUSCULAR HGB CONC 31.9 g/dL CAL (32.0-36.0); NEUT# 8.89 thou/uL (1.82-7.42); RED BLOOD COUNT 2.63 mill/uL (4.70-6.10)
[2022-02-04 09:49] LABS: ALBUMIN 4.1 g/dL (3.2-5.0); BILIRUBIN, TOTAL 0.5 mg/dL (0.0-1.4); TOTAL PROTEIN 6.7 g/dL (6.3-8.2)
[2022-02-04 09:59] LABS: CREATININE 9.4 mg/dL (0.7-1.3); POTASSIUM 5.5 mmol/l (3.5-5.1)
[2022-02-11] MEDS ORDERED: HYDROCO/APAP1 T10 PO ×3 (07:23→16:26)
== END 2022-02-04 22:30 | disposition left against medical advice (07) ==
LOC: ED 08:39 → ED-I 09:08 → ED 10:10 → MS2 10:11
PROVIDERS: Internal Medicine; ADMIT Internal Medicine; ATTEND Internal Medicine
DX: I12.0 Hypertensive chronic kidney disease with stage 5 chronic kidney disease or end stage renal disease (principal); F17.200 Nicotine dependence, unspecified, uncomplicated; N18.6 End stage renal disease; Z99.2 Dependence on renal dialysis; F10.10 Alcohol abuse, uncomplicated; Z91.14 Patient's other noncompliance with medication regimen; D63.1 Anemia in chronic kidney disease; R07.89 Other chest pain; S22.32XA Fracture of one rib, left side, initial encounter for closed fracture; N25.81 Secondary hyperparathyroidism of renal origin; X58.XXXA Exposure to other specified factors, initial encounter; Y92.009 Unspecified place in unspecified non-institutional (private) residence as the place of occurrence of the external cause
CPT/HCPCS: G0378; Q5106 EC

== ENCOUNTER 2022-02-06 07:46 | Observation (INO) | payer MEDICAID ==
[~2022-02-06] VITALS: Ht 170.2 cm; Wt 84.1 kg
[2022-02-06] VITALS (11 sets, daily range): BP systolic 185–223; BP diastolic 119–156
--- NOTE | 2022-02-06 08:01 | NUR ---
PT CALLED FROM LOBBY AND ENTRY WAY BUT NOT PRESENT.
--- NOTE | 2022-02-06 08:05 | NUR ---
PT HAS DIALYSIS CATH TO RT CHEST
--- NOTE | 2022-02-06 08:15 | NUR ---
PATIENT TO ROOM VIA WHEELCHAIR FOR BEDSIDE TRIAGE.
--- NOTE | 2022-02-06 08:27 | NUR ---
PATIENT REQUESTING TO BE PLACED ON O2, VERBAL ORDER FROM DR LERMA OBTAINED.
[2022-02-06 09:11] LABS: ALBUMIN 4.3 g/dL (3.2-5.0); BILIRUBIN, TOTAL 0.5 mg/dL (0.0-1.4); TOTAL PROTEIN 7.3 g/dL (6.3-8.2)
[2022-02-06 09:12] LABS: HEMATOCRIT 28.1 % (39.0-50.0); HEMOGLOBIN 9.2 g/dl (14.0-18.0); IMMATURE GRANULOCYTES 0.4 % (0.0-5.0); MEAN CELL VOLUME 99.3 fL CALC (80.0-100.0); MEAN CORPUSCULAR HGB 32.5 pG CALC (26.0-32.0); MEAN CORPUSCULAR HGB CONC 32.7 g/dL CAL (32.0-36.0); NEUT# 9.26 thou/uL (1.82-7.42); RED BLOOD COUNT 2.83 mill/uL (4.70-6.10); RED CELL DISTRI WIDTH 13.8 % (11.5-15.5)
[2022-02-06 09:23] LABS: CREATININE 9.2 mg/dL (0.7-1.3); POTASSIUM 6.3 mmol/l (3.5-5.1)
--- NOTE | 2022-02-06 09:33 | NUR ---
DR LERMA AWARE OF ELEVATED BP. NO NEW ORDERS RECIEVED.
--- NOTE | 2022-02-06 10:00 | NUR ---
REPORT PROVIDED TO ROBI
[2022-02-06] MEDS ORDERED: VENTOLIN HFA108 MCG IN (10:21)
[2022-02-06] MEDS ORDERED: LIDOCAINE PATCH 55 % TOP (10:21)
[2022-02-06] MEDS ORDERED: AMLODIPINE BESY10 MG PO (10:22)
[2022-02-06] MEDS ORDERED: ASPIRIN81 MG PO (10:22)
[2022-02-06] MEDS ORDERED: RENA-VIT1 PO (10:22)
[2022-02-06] MEDS ORDERED: TRANDATE300 MG PO (10:23)
[2022-02-06] MEDS ORDERED: ISOSORB MONO30 MG PO (10:23)
[2022-02-06] MEDS ORDERED: ATORVASTATIN CA40 MG PO (10:23)
--- NOTE | 2022-02-06 10:30 | NUR ---
PT TO ROOM 286 VIA WC IN STABLE CONDITION. CARE ASSUMED BY ROBI DUMAS ON [facility]. ADVISED OF ELEVATED BP MD AWARE. PT MEDICATED FOR PAIN DUE TO PRIOR LT RIB INJURY/PAIN PRIOR TO BEING TRANSPORTED TO [facility].
--- NOTE | 2022-02-06 14:30 | NUR ---
PT RETRIEVED FROM INPT ROOM VIA WC, TO STANDUP SCALE FOR WT AND TRANSPORTED TO DIALYSIS ROOM TO INITIATE DIALYSIS TREATMENT. PT C/O PAIN TO LT RIB AREA WITH ANY MOVEMENT. PLACED IN RECLINER AND ATEMPTED TO MAKE COMFORTABLE WITH MX PILLOWS AND POSITIONING. VSS.CLEANSED RIJ LINE DIALYSIS CATHETERS INDICATED, GOOD BLOOD RETURN AND FLUSHES WELL. SETUP TABLO AND INITIATED HEMODIALYSIS INDICATED AFTER SAFETY CHECKS.
--- NOTE | 2022-02-06 14:58 | NUR ---
PT CONTINUES TO THRASH AROUND IN CHAIR, FALLS ASLEEP UPRIGHT IN RECLINER AND JERKS AWAKE WHEN HE STARTS TO LEAN FORWARD. HAVE MADE NUMEROUS ATTEMPTS TO REPOSITION FOR COMFORT. PT MEDICATED WITH LORTAB ORDERED FOR PAIN. PT FULLY ABLE TO MAKE NEEDS KNOWN TO NURSE IN [place].
--- NOTE | 2022-02-06 16:00 | NUR ---
PATIENT WITH DIALYSIS NURSE GETTING TREATMENT NOW. PATIENT IS SLEEPING IN RECLINER.
--- NOTE | 2022-02-06 18:57 | NUR ---
completed dialysis treatment and pt tolerated well. vss. denies sob, chest pain,leg cramping or dizziness.
--- NOTE | 2022-02-06 19:02 | NUR ---
Patient decides to leave AMA. Multiple attempts made to ecourage patient to remain here for continued treatment. Explained to patient all risks of leaving against medical advice including . Pt verbalized understanding of all risks. Pt also encouraged to return to [facility] at any time, especially if symptoms continue or become worse. Pt verbalized understanding.Pt left via wc in stable condition.
== END 2022-02-06 19:00 | disposition left against medical advice (07) ==
LOC: ED 07:46 → ED-I 09:20 → ED 09:35 → MS2 09:36
PROVIDERS: ADMIT Internal Medicine; ATTEND Internal Medicine
DX: I12.0 Hypertensive chronic kidney disease with stage 5 chronic kidney disease or end stage renal disease (principal); N18.6 End stage renal disease; Z99.2 Dependence on renal dialysis; E87.5 Hyperkalemia; D63.1 Anemia in chronic kidney disease; N25.81 Secondary hyperparathyroidism of renal origin; F10.10 Alcohol abuse, uncomplicated; F17.200 Nicotine dependence, unspecified, uncomplicated; T50.916A Underdosing of multiple unspecified drugs, medicaments and biological substances, initial encounter; S22.32XD Fracture of one rib, left side, subsequent encounter for fracture with routine healing; X58.XXXD Exposure to other specified factors, subsequent encounter; Z91.11 Patient's noncompliance with dietary regimen; Z91.128 Patient's intentional underdosing of medication regimen for other reason
CPT/HCPCS: G0378; Q5106 EC

== ENCOUNTER 2022-02-11 06:37 | Observation (INO) | payer MEDICAID ==
[2022-02-11] VITALS (10 sets, daily range): BP systolic 129–151; BP diastolic 50–97
[~2022-02-11] VITALS: Ht 170.2 cm; Wt 105.0 kg
[~2022-02-11 06:37] MED LIST changes: +LIDOCAINE PATCH 55 % TOP; +TRANDATE300 MG PO; +VENTOLIN HFA108 MCG IN
[2022-02-11] MEDS ORDERED: HYDROCO/APAP1 T10 PO ×4 (07:23→16:53)
[2022-02-11] MEDS ORDERED: OYSTER CALCIUM500 MG PO (07:26)
[2022-02-11] MEDS ORDERED: DIPHENHIST25 MG PO (07:27)
[2022-02-11 07:32] LABS: HEMATOCRIT 25.9 % (39.0-50.0); HEMOGLOBIN 8.3 g/dl (14.0-18.0); IMMATURE GRANULOCYTES 0.4 % (0.0-5.0); MEAN CELL VOLUME 98.9 fL CALC (80.0-100.0); MEAN CORPUSCULAR HGB 31.7 pG CALC (26.0-32.0); NEUT# 10.85 thou/uL (1.82-7.42); RED BLOOD COUNT 2.62 mill/uL (4.70-6.10); RED CELL DISTRI WIDTH 13.7 % (11.5-15.5)
[2022-02-11 07:48] LABS: ALBUMIN 4.3 g/dL (3.2-5.0); BILIRUBIN, TOTAL 0.5 mg/dL (0.0-1.4); TOTAL PROTEIN 7.1 g/dL (6.3-8.2)
[2022-02-11 08:17] LABS: CREATININE 9.9 mg/dL (0.7-1.3); POTASSIUM 7.6 mmol/l (3.5-5.1)
== END 2022-02-11 16:53 | disposition left against medical advice (07) ==
LOC: ED 06:37 → ED-I 07:30 → ED 08:53 → MS2 08:54
PROVIDERS: Family Medicine; ADMIT Hospitalist; ATTEND Hospitalist
DX: I12.0 Hypertensive chronic kidney disease with stage 5 chronic kidney disease or end stage renal disease (principal); N18.6 End stage renal disease; J18.9 Pneumonia, unspecified organism; Z99.2 Dependence on renal dialysis; F10.10 Alcohol abuse, uncomplicated; D63.1 Anemia in chronic kidney disease; N25.81 Secondary hyperparathyroidism of renal origin; E87.5 Hyperkalemia; F17.200 Nicotine dependence, unspecified, uncomplicated; S22.32XD Fracture of one rib, left side, subsequent encounter for fracture with routine healing; X58.XXXD Exposure to other specified factors, subsequent encounter; Z91.19 Patient's noncompliance with other medical treatment and regimen; Z20.822 Contact with and (suspected) exposure to COVID-19
CPT/HCPCS: G0378; Q5106 EC

== ENCOUNTER 2022-02-13 11:14 | Observation (INO) | payer MEDICAID ==
[~2022-02-13] VITALS: Ht 170.2 cm; Wt 86.4 kg
[~2022-02-13 11:14] MED LIST changes: +DIPHENHIST25 MG PO; +HYDROCO/APAP1 T10 PO; +OYSTER CALCIUM500 MG PO
[2022-02-13 11:54] LABS: HEMATOCRIT 24.3 % (39.0-50.0); HEMOGLOBIN 7.8 g/dl (14.0-18.0); IMMATURE GRANULOCYTES 0.3 % (0.0-5.0); MEAN CELL VOLUME 98.8 fL CALC (80.0-100.0); MEAN CORPUSCULAR HGB 31.7 pG CALC (26.0-32.0); MEAN CORPUSCULAR HGB CONC 32.1 g/dL CAL (32.0-36.0); NEUT# 9.28 thou/uL (1.82-7.42); RED BLOOD COUNT 2.46 mill/uL (4.70-6.10); RED CELL DISTRI WIDTH 13.4 % (11.5-15.5)
[2022-02-13 12:17] LABS: BILIRUBIN, TOTAL 0.4 mg/dL (0.0-1.4); TOTAL PROTEIN 6.7 g/dL (6.3-8.2)
[2022-02-13 12:38] LABS: CREATININE 10.7 mg/dL (0.7-1.3); POTASSIUM 6.8 mmol/l (3.5-5.1)
[2022-02-13 16:00] VITALS: BP 137/101; BP 156/92
== END 2022-02-13 20:55 | disposition left against medical advice (07) ==
LOC: ED 11:14 → ED-I 12:30 → ED 12:42 → MS2 12:43
PROVIDERS: ADMIT Hospitalist; ATTEND Hospitalist
DX: I12.0 Hypertensive chronic kidney disease with stage 5 chronic kidney disease or end stage renal disease (principal); N18.6 End stage renal disease; D63.1 Anemia in chronic kidney disease; E87.5 Hyperkalemia; N25.81 Secondary hyperparathyroidism of renal origin; Z99.2 Dependence on renal dialysis; F10.10 Alcohol abuse, uncomplicated; S22.32XD Fracture of one rib, left side, subsequent encounter for fracture with routine healing; F17.200 Nicotine dependence, unspecified, uncomplicated; X58.XXXD Exposure to other specified factors, subsequent encounter; Z91.19 Patient's noncompliance with other medical treatment and regimen
CPT/HCPCS: G0378; P9016; Q5106 EC

== ENCOUNTER 2022-02-16 10:10 | Observation (INO) | payer MEDICAID ==
[~2022-02-16] VITALS: Ht 170.2 cm; Wt 82.0 kg
[2022-02-16 10:21] VITALS: BP 153/96
[2022-02-16 10:43] LABS: HEMATOCRIT 25.5 % (39.0-50.0); HEMOGLOBIN 8.1 g/dl (14.0-18.0); IMMATURE GRANULOCYTES 0.4 % (0.0-5.0); MEAN CELL VOLUME 99.2 fL CALC (80.0-100.0); MEAN CORPUSCULAR HGB 31.5 pG CALC (26.0-32.0); MEAN CORPUSCULAR HGB CONC 31.8 g/dL CAL (32.0-36.0); NEUT# 7.65 thou/uL (1.82-7.42); RED BLOOD COUNT 2.57 mill/uL (4.70-6.10); RED CELL DISTRI WIDTH 13.9 % (11.5-15.5)
[2022-02-16 10:55] LABS: BILIRUBIN, TOTAL 0.4 mg/dL (0.0-1.4); TOTAL PROTEIN 6.9 g/dL (6.3-8.2)
[2022-02-16 10:58] LABS: CREATININE 11.2 mg/dL (0.7-1.3); POTASSIUM 6.2 mmol/l (3.5-5.1)
[2022-02-16 12:30] VITALS: BP 155/92
[2022-02-16] MEDS ORDERED: LASIX 80 MG TAB80 MG PO (13:22)
[2022-02-17] MEDS ORDERED: ULTRAM50 M1 PO (10:20)
== END 2022-02-16 17:55 | disposition left against medical advice (07) ==
LOC: ED 10:10 → ED-I 10:59 → MS2 11:15 → ED 11:15 → MS2 17:55
PROVIDERS: Family Medicine; ADMIT Internal Medicine; ATTEND Internal Medicine
DX: I12.0 Hypertensive chronic kidney disease with stage 5 chronic kidney disease or end stage renal disease (principal); N18.6 End stage renal disease; Z99.2 Dependence on renal dialysis; E87.5 Hyperkalemia; D63.1 Anemia in chronic kidney disease; N25.81 Secondary hyperparathyroidism of renal origin; F10.10 Alcohol abuse, uncomplicated; F17.200 Nicotine dependence, unspecified, uncomplicated; T50.1X6A Underdosing of loop [high-ceiling] diuretics, initial encounter; Z91.128 Patient's intentional underdosing of medication regimen for other reason; S22.43XD Multiple fractures of ribs, bilateral, subsequent encounter for fracture with routine healing; X58.XXXD Exposure to other specified factors, subsequent encounter; Z91.11 Patient's noncompliance with dietary regimen; Z20.822 Contact with and (suspected) exposure to COVID-19
CPT/HCPCS: G0378; Q5106 EC

== ENCOUNTER 2022-02-17 08:40 | Emergency (ER) | payer MEDICAID ==
[~2022-02-17] VITALS: Ht 170.2 cm; Wt 90.0 kg
[~2022-02-17 08:40] MED LIST changes: +LASIX 80 MG TAB80 MG PO
[2022-02-17 09:23] VITALS: BP 186/116
[2022-02-17] MEDS ORDERED: ULTRAM50 M1 PO (10:20)
[2022-02-17 10:23] VITALS: BP 186/116
== END 2022-02-17 10:28 | disposition home or self-care (01) ==
LOC: ED 08:40
DX: S22.31XD Fracture of one rib, right side, subsequent encounter for fracture with routine healing (principal); I12.0 Hypertensive chronic kidney disease with stage 5 chronic kidney disease or end stage renal disease; N18.6 End stage renal disease; X58.XXXD Exposure to other specified factors, subsequent encounter; Z99.2 Dependence on renal dialysis

== ENCOUNTER 2022-02-18 09:50 | Emergency (ER) | payer MEDICAID ==
[~2022-02-18 09:50] MED LIST changes: +ULTRAM50 M1 PO
== END 2022-02-18 11:07 | disposition left against medical advice (07) | DRG 951 ==
LOC: ED 09:50 → LWOBS 11:07
DX: Z53.21 Procedure and treatment not carried out due to patient leaving prior to being seen by health care provider (principal)

== ENCOUNTER 2022-02-18 13:26 | Observation (INO) | payer MEDICAID ==
[~2022-02-18] VITALS: Ht 170.2 cm; Wt 82.0 kg
[2022-02-18 13:32] VITALS: BP 166/109
[2022-02-18 13:49] LABS: HEMATOCRIT 27.1 % (39.0-50.0); HEMOGLOBIN 8.5 g/dl (14.0-18.0); IMMATURE GRANULOCYTES 0.4 % (0.0-5.0); MEAN CELL VOLUME 97.5 fL CALC (80.0-100.0); MEAN CORPUSCULAR HGB 30.6 pG CALC (26.0-32.0); MEAN CORPUSCULAR HGB CONC 31.4 g/dL CAL (32.0-36.0); NEUT# 7.03 thou/uL (1.82-7.42); RED BLOOD COUNT 2.78 mill/uL (4.70-6.10); RED CELL DISTRI WIDTH 13.8 % (11.5-15.5)
[2022-02-18 14:01] LABS: ALBUMIN 4.1 g/dL (3.2-5.0); BILIRUBIN, TOTAL 0.4 mg/dL (0.0-1.4); TOTAL PROTEIN 6.9 g/dL (6.3-8.2)
[2022-02-18 14:12] LABS: CREATININE 10.1 mg/dL (0.7-1.3); POTASSIUM 5.2 mmol/l (3.5-5.1)
[2022-02-18 17:00] VITALS: BP 185/131
[2022-02-18 17:27] VITALS: BP 202/122
== END 2022-02-18 21:30 | disposition left against medical advice (07) ==
LOC: ED 13:26 → ED-I 13:37 → ED 13:37 → ED-I 13:52 → ED 14:19 → MS2 14:20 → ED-I 15:35 → ED 15:35 → MS2 21:30
PROVIDERS: Nurse Practitioner; ADMIT Internal Medicine; ATTEND Internal Medicine
DX: I12.0 Hypertensive chronic kidney disease with stage 5 chronic kidney disease or end stage renal disease (principal); N18.6 End stage renal disease; Z99.2 Dependence on renal dialysis; E87.5 Hyperkalemia; D63.1 Anemia in chronic kidney disease; N25.81 Secondary hyperparathyroidism of renal origin; F10.10 Alcohol abuse, uncomplicated; F17.200 Nicotine dependence, unspecified, uncomplicated; S22.43XD Multiple fractures of ribs, bilateral, subsequent encounter for fracture with routine healing; X58.XXXD Exposure to other specified factors, subsequent encounter; Z91.11 Patient's noncompliance with dietary regimen
CPT/HCPCS: G0378

== ENCOUNTER 2022-02-20 14:26 | Observation (INO) | payer MEDICAID ==
[~2022-02-20] VITALS: Ht 170.2 cm; Wt 80.0 kg
[2022-02-20 14:40] VITALS: BP 174/114
[2022-02-20 15:12] LABS: HEMATOCRIT 27.1 % (39.0-50.0); HEMOGLOBIN 8.8 g/dl (14.0-18.0); IMMATURE GRANULOCYTES 0.5 % (0.0-5.0); MEAN CELL VOLUME 95.8 fL CALC (80.0-100.0); MEAN CORPUSCULAR HGB 31.1 pG CALC (26.0-32.0); MEAN CORPUSCULAR HGB CONC 32.5 g/dL CAL (32.0-36.0); NEUT# 5.22 thou/uL (1.82-7.42); RED BLOOD COUNT 2.83 mill/uL (4.70-6.10); RED CELL DISTRI WIDTH 13.9 % (11.5-15.5)
[2022-02-20 15:35] LABS: ALBUMIN 4.3 g/dL (3.2-5.0); BILIRUBIN, TOTAL 0.4 mg/dL (0.0-1.4); POTASSIUM 4.6 mmol/l (3.5-5.1); TOTAL PROTEIN 7.3 g/dL (6.3-8.2)
[2022-02-20 15:43] LABS: CREATININE 10.7 mg/dL (0.7-1.3)
[2022-02-20 17:16] VITALS: BP 174/117
== END 2022-02-20 19:50 | disposition left against medical advice (07) ==
LOC: ED 14:26 → ED-I 15:20 → ED 15:52 → MS2 15:53
PROVIDERS: Family Medicine; ADMIT Internal Medicine; ATTEND Internal Medicine
DX: I12.0 Hypertensive chronic kidney disease with stage 5 chronic kidney disease or end stage renal disease (principal); N18.6 End stage renal disease; Z99.2 Dependence on renal dialysis; R07.81 Pleurodynia; Z53.9 Procedure and treatment not carried out, unspecified reason
CPT/HCPCS: G0378; Q5106 EC

== ENCOUNTER 2022-02-23 12:21 | Observation (INO) | payer MEDICAID ==
[~2022-02-23] VITALS: Ht 170.2 cm; Wt 86.0 kg
[2022-02-23 13:15] LABS: HEMATOCRIT 26.4 % (39.0-50.0); HEMOGLOBIN 8.2 g/dl (14.0-18.0); MEAN CORPUSCULAR HGB 31.1 pG CALC (26.0-32.0); MEAN CORPUSCULAR HGB CONC 31.1 g/dL CAL (32.0-36.0); NEUT# 10.65 thou/uL (1.82-7.42); RED BLOOD COUNT 2.64 mill/uL (4.70-6.10); RED CELL DISTRI WIDTH 14.6 % (11.5-15.5)
[2022-02-23 13:37] LABS: BILIRUBIN, TOTAL 0.4 mg/dL (0.0-1.4); TOTAL PROTEIN 6.6 g/dL (6.3-8.2)
[2022-02-23 13:42] LABS: CREATININE 11.3 mg/dL (0.7-1.3); POTASSIUM 5.8 mmol/l (3.5-5.1)
[2022-02-23 18:51] VITALS: BP 196/136
== END 2022-02-23 19:40 | disposition left against medical advice (07) ==
LOC: ED 12:21 → MS2 14:07
PROVIDERS: ADMIT Hospitalist; ATTEND Hospitalist
DX: I12.0 Hypertensive chronic kidney disease with stage 5 chronic kidney disease or end stage renal disease (principal); N18.6 End stage renal disease; N25.81 Secondary hyperparathyroidism of renal origin; D63.1 Anemia in chronic kidney disease; Z99.2 Dependence on renal dialysis; F10.10 Alcohol abuse, uncomplicated; F17.200 Nicotine dependence, unspecified, uncomplicated; E87.5 Hyperkalemia; Z91.14 Patient's other noncompliance with medication regimen; Z87.81 Personal history of (healed) traumatic fracture; Z20.822 Contact with and (suspected) exposure to COVID-19
CPT/HCPCS: G0378; Q5106 EC

== ENCOUNTER 2022-02-24 04:53 | Emergency (ER) | payer MEDICAID ==
[~2022-02-24] VITALS: Ht 170.2 cm; Wt 77.2 kg
[2022-02-24 05:13] VITALS: BP 175/117
[2022-02-24 05:23] LABS: HEMATOCRIT 26.4 % (39.0-50.0); HEMOGLOBIN 8.4 g/dl (14.0-18.0); IMMATURE GRANULOCYTES 0.4 % (0.0-5.0); MEAN CELL VOLUME 98.5 fL CALC (80.0-100.0); MEAN CORPUSCULAR HGB 31.3 pG CALC (26.0-32.0); MEAN CORPUSCULAR HGB CONC 31.8 g/dL CAL (32.0-36.0); NEUT# 11.06 thou/uL (1.82-7.42); RED BLOOD COUNT 2.68 mill/uL (4.70-6.10); RED CELL DISTRI WIDTH 14.3 % (11.5-15.5)
[2022-02-24 05:38] LABS: BILIRUBIN, TOTAL 0.5 mg/dL (0.0-1.4); POTASSIUM 4.7 mmol/l (3.5-5.1); TOTAL PROTEIN 6.8 g/dL (6.3-8.2)
[2022-02-24 05:43] LABS: CREATININE 7.1 mg/dL (0.7-1.3)
[2022-02-24 06:13] VITALS: BP 171/112
[2022-02-24 06:15] VITALS: BP 162/127
[2022-02-24 06:30] VITALS: BP 163/118
[2022-02-24 07:02] VITALS: BP 175/88
== END 2022-02-24 07:04 | disposition home or self-care (01) ==
LOC: ED 04:53
PROVIDERS: Family Medicine
DX: R06.02 Shortness of breath (principal); I12.0 Hypertensive chronic kidney disease with stage 5 chronic kidney disease or end stage renal disease; N18.6 End stage renal disease; F17.200 Nicotine dependence, unspecified, uncomplicated; Z99.2 Dependence on renal dialysis

== ENCOUNTER 2022-02-25 08:55 | Observation (INO) | payer MEDICAID ==
[~2022-02-25] VITALS: Ht 170.2 cm; Wt 81.4 kg
[2022-02-25 09:19] LABS: HEMATOCRIT 26.7 % (39.0-50.0); HEMOGLOBIN 8.4 g/dl (14.0-18.0); IMMATURE GRANULOCYTES 0.3 % (0.0-5.0); MEAN CELL VOLUME 100.8 fL CALC (80.0-100.0); MEAN CORPUSCULAR HGB 31.7 pG CALC (26.0-32.0); MEAN CORPUSCULAR HGB CONC 31.5 g/dL CAL (32.0-36.0); NEUT# 9.11 thou/uL (1.82-7.42); RED BLOOD COUNT 2.65 mill/uL (4.70-6.10); RED CELL DISTRI WIDTH 14.6 % (11.5-15.5)
[2022-02-25 09:39] LABS: ALBUMIN 4.1 g/dL (3.2-5.0); BILIRUBIN, TOTAL 0.6 mg/dL (0.0-1.4); TOTAL PROTEIN 7.1 g/dL (6.3-8.2)
[2022-02-25 09:42] LABS: POTASSIUM 5.9 mmol/l (3.5-5.1)
[2022-02-25 09:43] LABS: CREATININE 9.1 mg/dL (0.7-1.3)
[2022-02-25 13:55] VITALS: BP 209/131
== END 2022-02-25 16:15 | disposition left against medical advice (07) ==
LOC: ED 08:55 → ED-I 09:34 → ED 10:01 → MS2 10:02
PROVIDERS: Family Medicine; ADMIT Hospitalist; ATTEND Hospitalist
DX: I12.0 Hypertensive chronic kidney disease with stage 5 chronic kidney disease or end stage renal disease (principal); N18.6 End stage renal disease; Z99.2 Dependence on renal dialysis; D63.1 Anemia in chronic kidney disease; N25.81 Secondary hyperparathyroidism of renal origin; E87.5 Hyperkalemia; F10.10 Alcohol abuse, uncomplicated; F17.200 Nicotine dependence, unspecified, uncomplicated; Z91.14 Patient's other noncompliance with medication regimen; Z87.81 Personal history of (healed) traumatic fracture
CPT/HCPCS: G0378; Q5106 EC

== ENCOUNTER 2022-02-27 08:12 | Observation (INO) | payer MEDICAID ==
[~2022-02-27] VITALS: Ht 170.2 cm; Wt 81.2 kg
--- NOTE | 2022-02-27 08:12 | NUR ---
PT ROOMED BY DR AVILA
[2022-02-27 08:28] VITALS: BP 163/110
[2022-02-27 09:07] LABS: HEMATOCRIT 26.7 % (39.0-50.0); HEMOGLOBIN 8.5 g/dl (14.0-18.0); IMMATURE GRANULOCYTES 0.2 % (0.0-5.0); MEAN CELL VOLUME 98.9 fL CALC (80.0-100.0); MEAN CORPUSCULAR HGB 31.5 pG CALC (26.0-32.0); MEAN CORPUSCULAR HGB CONC 31.8 g/dL CAL (32.0-36.0); NEUT# 9.08 thou/uL (1.82-7.42); RED BLOOD COUNT 2.7 mill/uL (4.70-6.10); RED CELL DISTRI WIDTH 14.5 % (11.5-15.5)
[2022-02-27 09:32] LABS: ALBUMIN 4.3 g/dL (3.2-5.0); BILIRUBIN, TOTAL 0.6 mg/dL (0.0-1.4); TOTAL PROTEIN 6.9 g/dL (6.3-8.2)
[2022-02-27 09:34] LABS: CREATININE 8.5 mg/dL (0.7-1.3); POTASSIUM 6.3 mmol/l (3.5-5.1)
--- NOTE | 2022-02-27 10:00 | NUR ---
PT BROUGHT TO MED SURG TELE AT THIS TIME VIA WC REPORT GIVEN TO MARJORIE FREITAS AT BEDSIDE.
--- NOTE | 2022-02-27 10:00 | NUR ---
PT RECEIVED FROM ER VIA WC IN NO DISTRESS. ALERT AND ORIENTED. STOOD ON SCALE TO BE WEIGHED AND TO ROOM.ORIENTED TO DIALYSIS ROOM AND PT SIGNED CONSENT FOR DIALYSIS. ALL PRECHECKS COMPLETED. RIJ CVC INTACT, WITH GOOD BLOOD RETURN AND FLUSHES WELL. INITIATED TREATMENT AFTER ORDERES RECEIVED BY DR FLORES.
--- NOTE | 2022-02-27 12:00 | NUR ---
ADVISED DR LANIER AND COREY BLANTON OF CONTINUED ELEVATED BP. PT ASYMPTOMATIC AT THIS TIME. REFUSED LUNCH TRAY BUT ORDERED SUBWAY BY RUTHIE. COUNSELED O SALT CONTENT OF THIS MEAL.
[2022-02-27 12:33] VITALS: BP 169/119
--- NOTE | 2022-02-27 13:00 | NUR ---
ARRANGED TRANSPORT FOR PT WITH [employer] WILL BUFFING WHEEL INSPECTOR PT AT HIS HOME ADDRESS APPROX 730AM MWF,AND WILL TRANSPORT TO HOME AFTER TRESTMENT, PT AGREEABLE.PT TOLERATING DIALYSIS WELL. MEDICATED EARLIER WITH PO MEDS FOR HTN.
--- NOTE | 2022-02-27 14:50 | NUR ---
dialysis completed.Blood returned , procrit administered as ordered.rij cvc flushes well. dressing change to rij completed. pt denies dizziness or sob. pt to lobby via wc in no distress. 5L fluid removed during dialysis , 83.9L processed and completed 4 hour treatment as ordered. Patient decides to leave AMA. Multiple attempts made to ecourage patient to remain here for continued treatment. Explained to patient all risks of leaving against medical advice including . Pt verbalized understanding of all risks. Pt also encouraged to return to [facility] at any time, especially if symptoms continue or become worse. Pt verbalized understanding.
== END 2022-02-27 14:50 | disposition left against medical advice (07) ==
LOC: ED 08:12 → ED-I 08:43 → ED 09:45 → MS2 09:46
PROVIDERS: Family Medicine; ADMIT Hospitalist; ATTEND Hospitalist
DX: I12.0 Hypertensive chronic kidney disease with stage 5 chronic kidney disease or end stage renal disease (principal); N18.6 End stage renal disease; Z99.2 Dependence on renal dialysis; E87.5 Hyperkalemia; D63.1 Anemia in chronic kidney disease; N25.81 Secondary hyperparathyroidism of renal origin; F10.10 Alcohol abuse, uncomplicated; F17.200 Nicotine dependence, unspecified, uncomplicated; Z87.81 Personal history of (healed) traumatic fracture; Z91.19 Patient's noncompliance with other medical treatment and regimen
CPT/HCPCS: G0378; Q5106 EC

== ENCOUNTER 2022-02-28 06:14 | Emergency (ER) | payer MEDICAID ==
[2022-02-28] VITALS (26 sets, daily range): BP systolic 151–209; BP diastolic 101–137
[~2022-02-28] VITALS: Ht 170.2 cm; Wt 88.0 kg
[2022-02-28 06:50] LABS: HEMATOCRIT 26.8 % (39.0-50.0); HEMOGLOBIN 8.3 g/dl (14.0-18.0); IMMATURE GRANULOCYTES 0.4 % (0.0-5.0); NEUT# 8.47 thou/uL (1.82-7.42); RED BLOOD COUNT 2.68 mill/uL (4.70-6.10); RED CELL DISTRI WIDTH 14.6 % (11.5-15.5)
[2022-02-28 06:59] LABS: ALBUMIN 4.2 g/dL (3.2-5.0); BILIRUBIN, TOTAL 0.5 mg/dL (0.0-1.4); TOTAL PROTEIN 7.1 g/dL (6.3-8.2)
[2022-02-28 07:06] LABS: CREATININE 6.4 mg/dL (0.7-1.3); POTASSIUM 5.4 mmol/l (3.5-5.1)
== END 2022-02-28 10:19 | disposition short-term general hospital (02) ==
LOC: ED 06:14
PROVIDERS: Emergency Medicine
DX: R07.9 Chest pain, unspecified (principal); I16.1 Hypertensive emergency; I12.0 Hypertensive chronic kidney disease with stage 5 chronic kidney disease or end stage renal disease; N18.6 End stage renal disease; Z99.2 Dependence on renal dialysis; Z87.81 Personal history of (healed) traumatic fracture; Z20.822 Contact with and (suspected) exposure to COVID-19

== ENCOUNTER 2022-03-02 07:25 | Observation (INO) | payer MEDICAID ==
[2022-03-02] VITALS (16 sets, daily range): BP systolic 176–244; BP diastolic 116–168
[~2022-03-02] VITALS: Ht 170.2 cm; Wt 81.0 kg
[2022-03-02 07:53] LABS: HEMATOCRIT 30.7 % (39.0-50.0); HEMOGLOBIN 9.6 g/dl (14.0-18.0); IMMATURE GRANULOCYTES 0.2 % (0.0-5.0); MEAN CELL VOLUME 99.4 fL CALC (80.0-100.0); MEAN CORPUSCULAR HGB 31.1 pG CALC (26.0-32.0); MEAN CORPUSCULAR HGB CONC 31.3 g/dL CAL (32.0-36.0); NEUT# 9.99 thou/uL (1.82-7.42); RED BLOOD COUNT 3.09 mill/uL (4.70-6.10); RED CELL DISTRI WIDTH 14.7 % (11.5-15.5)
[2022-03-02 08:07] LABS: ALBUMIN 4.7 g/dL (3.2-5.0); BILIRUBIN, TOTAL 0.5 mg/dL (0.0-1.4); TOTAL PROTEIN 7.7 g/dL (6.3-8.2)
[2022-03-02 08:10] LABS: CREATININE 8.8 mg/dL (0.7-1.3); POTASSIUM 5.2 mmol/l (3.5-5.1)
== END 2022-03-02 14:50 | disposition left against medical advice (07) ==
LOC: ED 07:25 → ED-I 09:00 → ED 09:30 → ICU 09:31
PROVIDERS: Family Medicine; ADMIT Hospitalist; ATTEND Hospitalist
DX: I16.1 Hypertensive emergency (principal); I12.0 Hypertensive chronic kidney disease with stage 5 chronic kidney disease or end stage renal disease; N18.6 End stage renal disease; F10.10 Alcohol abuse, uncomplicated; F17.200 Nicotine dependence, unspecified, uncomplicated; G47.30 Sleep apnea, unspecified; Z99.2 Dependence on renal dialysis; Z87.81 Personal history of (healed) traumatic fracture; Z91.19 Patient's noncompliance with other medical treatment and regimen; Z20.822 Contact with and (suspected) exposure to COVID-19
CPT/HCPCS: G0378

== ENCOUNTER 2022-03-04 07:55 | Observation (INO) | payer MEDICAID ==
[~2022-03-04] VITALS: Ht 170.2 cm; Wt 81.8 kg
[2022-03-04 08:57] VITALS: BP 172/124
[2022-03-04 09:00] VITALS: BP 167/107
[2022-03-04 09:20] LABS: HEMATOCRIT 27.2 % (39.0-50.0); HEMOGLOBIN 8.7 g/dl (14.0-18.0); IMMATURE GRANULOCYTES 0.5 % (0.0-5.0); MEAN CELL VOLUME 98.2 fL CALC (80.0-100.0); MEAN CORPUSCULAR HGB 31.4 pG CALC (26.0-32.0); NEUT# 7.85 thou/uL (1.82-7.42); RED BLOOD COUNT 2.77 mill/uL (4.70-6.10)
[2022-03-04 09:42] LABS: ALBUMIN 4.4 g/dL (3.2-5.0); BILIRUBIN, TOTAL 0.4 mg/dL (0.0-1.4); POTASSIUM 4.9 mmol/l (3.5-5.1); TOTAL PROTEIN 7.4 g/dL (6.3-8.2)
[2022-03-04 10:53] VITALS: BP 178/134
[2022-03-04 10:55] VITALS: BP 175/118
== END 2022-03-04 12:43 | disposition left against medical advice (07) ==
LOC: ED 07:55 → ED-I 10:10 → ED 10:22 → MS2 10:23
PROVIDERS: ADMIT Internal Medicine; ATTEND Internal Medicine
DX: I12.0 Hypertensive chronic kidney disease with stage 5 chronic kidney disease or end stage renal disease (principal); N18.6 End stage renal disease; Z99.2 Dependence on renal dialysis; D63.1 Anemia in chronic kidney disease; N25.81 Secondary hyperparathyroidism of renal origin; E87.5 Hyperkalemia; F10.10 Alcohol abuse, uncomplicated; F17.200 Nicotine dependence, unspecified, uncomplicated; T82.41XA Breakdown (mechanical) of vascular dialysis catheter, initial encounter; Y83.8 Other surgical procedures as the cause of abnormal reaction of the patient, or of later complication, without mention of misadventure at the time of the procedure; Z91.14 Patient's other noncompliance with medication regimen
CPT/HCPCS: G0378

== ENCOUNTER 2022-03-09 09:09 | Emergency (ER) | payer MEDICAID ==
[~2022-03-09] VITALS: Ht 170.2 cm; Wt 90.0 kg
[2022-03-09 09:52] VITALS: BP 181/125
[2022-03-09 09:56] VITALS: BP 181/125
[2022-03-09 10:31] LABS: HEMATOCRIT 31.3 % (39.0-50.0); HEMOGLOBIN 9.8 g/dl (14.0-18.0); IMMATURE GRANULOCYTES 0.5 % (0.0-5.0); MEAN CELL VOLUME 99.7 fL CALC (80.0-100.0); MEAN CORPUSCULAR HGB 31.2 pG CALC (26.0-32.0); MEAN CORPUSCULAR HGB CONC 31.3 g/dL CAL (32.0-36.0); NEUT# 9.1 thou/uL (1.82-7.42); RED BLOOD COUNT 3.14 mill/uL (4.70-6.10); RED CELL DISTRI WIDTH 14.4 % (11.5-15.5)
[2022-03-09 10:49] LABS: ALBUMIN 4.3 g/dL (3.2-5.0); BILIRUBIN, TOTAL 0.4 mg/dL (0.0-1.4); POTASSIUM 4.7 mmol/l (3.5-5.1); TOTAL PROTEIN 7.5 g/dL (6.3-8.2)
[2022-03-09 10:51] LABS: CREATININE 10.8 mg/dL (0.7-1.3)
== END 2022-03-09 10:28 | disposition left against medical advice (07) ==
LOC: ED 09:09
PROVIDERS: Family Medicine
DX: I12.0 Hypertensive chronic kidney disease with stage 5 chronic kidney disease or end stage renal disease (principal); N18.6 End stage renal disease; Z99.2 Dependence on renal dialysis; F17.200 Nicotine dependence, unspecified, uncomplicated; Z91.19 Patient's noncompliance with other medical treatment and regimen

== ENCOUNTER 2022-03-09 13:44 | Observation (INO) | payer MEDICAID ==
[~2022-03-09] VITALS: Ht 170.2 cm; Wt 77.8 kg
[2022-03-09 17:35] VITALS: BP 199/126
== END 2022-03-09 21:10 | disposition left against medical advice (07) ==
LOC: ED 13:44 → ED-I 14:26 → ED 14:26 → ED-I 14:26 → ED 14:40 → MS2 14:40
PROVIDERS: ADMIT Hospitalist; ATTEND Hospitalist
DX: I12.0 Hypertensive chronic kidney disease with stage 5 chronic kidney disease or end stage renal disease (principal); I16.0 Hypertensive urgency; N18.6 End stage renal disease; Z99.2 Dependence on renal dialysis; D63.1 Anemia in chronic kidney disease; N25.81 Secondary hyperparathyroidism of renal origin; E87.5 Hyperkalemia; F10.10 Alcohol abuse, uncomplicated; F17.200 Nicotine dependence, unspecified, uncomplicated; Z91.14 Patient's other noncompliance with medication regimen; Z87.81 Personal history of (healed) traumatic fracture; Z20.822 Contact with and (suspected) exposure to COVID-19; R06.02 Shortness of breath; Z91.19 Patient's noncompliance with other medical treatment and regimen
CPT/HCPCS: G0378; Q5106 EC

== ENCOUNTER 2022-03-11 08:48 | Observation (INO) | payer MEDICAID ==
[~2022-03-11] VITALS: Ht 170.2 cm; Wt 85.0 kg
[2022-03-11 09:21] LABS: HEMOGLOBIN 9.6 g/dl (14.0-18.0); IMMATURE GRANULOCYTES 0.7 % (0.0-5.0); MEAN CELL VOLUME 98.7 fL CALC (80.0-100.0); MEAN CORPUSCULAR HGB 30.6 pG CALC (26.0-32.0); NEUT# 7.86 thou/uL (1.82-7.42); RED BLOOD COUNT 3.14 mill/uL (4.70-6.10); RED CELL DISTRI WIDTH 15.2 % (11.5-15.5)
[2022-03-11 09:33] LABS: ALBUMIN 4.2 g/dL (3.2-5.0); BILIRUBIN, TOTAL 0.4 mg/dL (0.0-1.4); POTASSIUM 5.9 mmol/l (3.5-5.1); TOTAL PROTEIN 6.9 g/dL (6.3-8.2)
[2022-03-11 09:34] LABS: CREATININE 9.8 mg/dL (0.7-1.3)
[2022-03-11 12:35] VITALS: BP 174/111
== END 2022-03-11 14:51 | disposition left against medical advice (07) ==
LOC: ED 08:48 → ED-I 09:33 → ED 09:40 → MS2 09:41
PROVIDERS: Emergency Medicine; ADMIT Hospitalist; ATTEND Hospitalist
DX: I12.0 Hypertensive chronic kidney disease with stage 5 chronic kidney disease or end stage renal disease (principal); N18.6 End stage renal disease; Z99.2 Dependence on renal dialysis; I16.0 Hypertensive urgency; D63.1 Anemia in chronic kidney disease; N25.81 Secondary hyperparathyroidism of renal origin; E87.5 Hyperkalemia; F10.10 Alcohol abuse, uncomplicated; F17.200 Nicotine dependence, unspecified, uncomplicated; Z91.14 Patient's other noncompliance with medication regimen; Z87.81 Personal history of (healed) traumatic fracture
CPT/HCPCS: G0378; Q5106 EC

== ENCOUNTER 2022-03-18 06:40 | Observation (INO) | payer MEDICAID ==
[~2022-03-18] VITALS: Ht 170.2 cm; Wt 81.0 kg
[2022-03-18 07:45] VITALS: BP 172/120
[2022-03-18 08:01] VITALS: BP 174/110
[2022-03-18 08:15] VITALS: BP 184/130
[2022-03-18 08:42] LABS: HEMATOCRIT 26.9 % (39.0-50.0); HEMOGLOBIN 8.6 g/dl (14.0-18.0); IMMATURE GRANULOCYTES 0.2 % (0.0-5.0); MEAN CELL VOLUME 96.8 fL CALC (80.0-100.0); MEAN CORPUSCULAR HGB 30.9 pG CALC (26.0-32.0); NEUT# 7.51 thou/uL (1.82-7.42); RED BLOOD COUNT 2.78 mill/uL (4.70-6.10); RED CELL DISTRI WIDTH 15.1 % (11.5-15.5)
[2022-03-18 08:59] LABS: ALBUMIN 3.9 g/dL (3.2-5.0); BILIRUBIN, TOTAL 0.4 mg/dL (0.0-1.4); TOTAL PROTEIN 6.6 g/dL (6.3-8.2)
[2022-03-18 09:03] LABS: CREATININE 11.2 mg/dL (0.7-1.3); POTASSIUM 6.5 mmol/l (3.5-5.1)
[2022-03-18 11:36] VITALS: BP 184/130
== END 2022-03-18 15:35 | disposition left against medical advice (07) ==
LOC: ED 06:40 → ED-I 08:30 → ED 09:06 → MS2 09:07
PROVIDERS: Emergency Medicine; ADMIT Internal Medicine; ATTEND Internal Medicine
DX: I12.0 Hypertensive chronic kidney disease with stage 5 chronic kidney disease or end stage renal disease (principal); N18.6 End stage renal disease; Z99.2 Dependence on renal dialysis; D63.1 Anemia in chronic kidney disease; N25.81 Secondary hyperparathyroidism of renal origin; E87.5 Hyperkalemia; E87.1 Hypo-osmolality and hyponatremia; F10.10 Alcohol abuse, uncomplicated; F17.200 Nicotine dependence, unspecified, uncomplicated; T50.916A Underdosing of multiple unspecified drugs, medicaments and biological substances, initial encounter; Z91.128 Patient's intentional underdosing of medication regimen for other reason; Z20.822 Contact with and (suspected) exposure to COVID-19
CPT/HCPCS: G0378; J2997

== ENCOUNTER 2022-03-20 08:36 | Emergency (ER) | payer MEDICAID ==
[~2022-03-20] VITALS: Ht 170.2 cm; Wt 80.0 kg
[2022-03-20 08:43] VITALS: BP 193/128
[2022-03-20 09:00] VITALS: BP 201/123
[2022-03-20 09:45] LABS: HEMATOCRIT 26.3 % (39.0-50.0); HEMOGLOBIN 8.4 g/dl (14.0-18.0); IMMATURE GRANULOCYTES 0.3 % (0.0-5.0); MEAN CORPUSCULAR HGB CONC 31.9 g/dL CAL (32.0-36.0); NEUT# 7.51 thou/uL (1.82-7.42); RED BLOOD COUNT 2.71 mill/uL (4.70-6.10); RED CELL DISTRI WIDTH 14.8 % (11.5-15.5)
[2022-03-20 09:54] LABS: ALBUMIN 4.2 g/dL (3.2-5.0); BILIRUBIN, TOTAL 0.4 mg/dL (0.0-1.4)
[2022-03-20 10:02] LABS: CREATININE 10.2 mg/dL (0.7-1.3); POTASSIUM 5.6 mmol/l (3.5-5.1)
[2022-03-20 10:09] VITALS: BP 201/123
== END 2022-03-20 10:01 | disposition left against medical advice (07) ==
LOC: ED 08:36
PROVIDERS: Internal Medicine
DX: I12.0 Hypertensive chronic kidney disease with stage 5 chronic kidney disease or end stage renal disease (principal); N18.6 End stage renal disease; F17.200 Nicotine dependence, unspecified, uncomplicated; Z99.2 Dependence on renal dialysis; Z91.19 Patient's noncompliance with other medical treatment and regimen

== ENCOUNTER 2022-03-23 08:28 | Observation (INO) | payer MEDICAID ==
[2022-03-23] VITALS (8 sets, daily range): BP systolic 152–192; BP diastolic 74–128
[~2022-03-23] VITALS: Ht 170.2 cm; Wt 56.0 kg
[2022-03-23 09:09] LABS: HEMATOCRIT 27.2 % (39.0-50.0); HEMOGLOBIN 8.6 g/dl (14.0-18.0); IMMATURE GRANULOCYTES 0.6 % (0.0-5.0); MEAN CELL VOLUME 96.5 fL CALC (80.0-100.0); MEAN CORPUSCULAR HGB 30.5 pG CALC (26.0-32.0); MEAN CORPUSCULAR HGB CONC 31.6 g/dL CAL (32.0-36.0); NEUT# 4.32 thou/uL (1.82-7.42); RED BLOOD COUNT 2.82 mill/uL (4.70-6.10); RED CELL DISTRI WIDTH 14.3 % (11.5-15.5)
[2022-03-23 09:27] LABS: ALBUMIN 3.9 g/dL (3.2-5.0); BILIRUBIN, TOTAL 0.4 mg/dL (0.0-1.4); TOTAL PROTEIN 6.4 g/dL (6.3-8.2)
[2022-03-23 09:43] LABS: CREATININE 12.9 mg/dL (0.7-1.3); POTASSIUM 5.4 mmol/l (3.5-5.1)
== END 2022-03-23 14:50 | disposition left against medical advice (07) ==
LOC: ED 08:28 → ED-I 09:15 → ED 09:40 → MS2 09:41
PROVIDERS: Family Medicine; ADMIT Internal Medicine; ATTEND Internal Medicine
DX: I12.0 Hypertensive chronic kidney disease with stage 5 chronic kidney disease or end stage renal disease (principal); N18.6 End stage renal disease; D63.1 Anemia in chronic kidney disease; N25.81 Secondary hyperparathyroidism of renal origin; E87.5 Hyperkalemia; E87.1 Hypo-osmolality and hyponatremia; F17.200 Nicotine dependence, unspecified, uncomplicated; Z91.14 Patient's other noncompliance with medication regimen; Z99.2 Dependence on renal dialysis; Z20.822 Contact with and (suspected) exposure to COVID-19
CPT/HCPCS: G0378

== ENCOUNTER 2022-03-24 21:37 | Emergency (ER) | payer MEDICAID ==
[~2022-03-24] VITALS: Ht 170.2 cm; Wt 81.0 kg
[2022-03-24 22:33] LABS: HEMATOCRIT 24.6 % (39.0-50.0); HEMOGLOBIN 7.9 g/dl (14.0-18.0); IMMATURE GRANULOCYTES 0.7 % (0.0-5.0); MEAN CELL VOLUME 96.1 fL CALC (80.0-100.0); MEAN CORPUSCULAR HGB 30.9 pG CALC (26.0-32.0); MEAN CORPUSCULAR HGB CONC 32.1 g/dL CAL (32.0-36.0); NEUT# 2.91 thou/uL (1.82-7.42); RED BLOOD COUNT 2.56 mill/uL (4.70-6.10); RED CELL DISTRI WIDTH 14.2 % (11.5-15.5)
[2022-03-24 22:46] LABS: POTASSIUM 4.8 mmol/l (3.5-5.1)
[2022-03-24 22:47] LABS: CREATININE 9.6 mg/dL (0.7-1.3)
[2022-03-24 23:45] VITALS: BP 139/95
== END 2022-03-24 23:45 | disposition home or self-care (01) ==
LOC: ED 21:37
PROVIDERS: Family Medicine
DX: R07.89 Other chest pain (principal); I12.0 Hypertensive chronic kidney disease with stage 5 chronic kidney disease or end stage renal disease; N18.6 End stage renal disease; Z99.2 Dependence on renal dialysis; F17.200 Nicotine dependence, unspecified, uncomplicated

== ENCOUNTER 2022-03-25 09:48 | Observation (INO) | payer MEDICAID ==
[~2022-03-25] VITALS: Ht 170.2 cm; Wt 81.2 kg
[2022-03-25 10:24] VITALS: BP 122/82
[2022-03-25 10:42] LABS: HEMATOCRIT 27.5 % (39.0-50.0); HEMOGLOBIN 8.8 g/dl (14.0-18.0); IMMATURE GRANULOCYTES 0.3 % (0.0-5.0); MEAN CELL VOLUME 93.9 fL CALC (80.0-100.0); NEUT# 2.17 thou/uL (1.82-7.42); RED BLOOD COUNT 2.93 mill/uL (4.70-6.10); RED CELL DISTRI WIDTH 13.9 % (11.5-15.5)
--- NOTE | 2022-03-25 11:00 | NUR ---
PATIENT AMBULATORY TO ROOM IN NAD. PROVIDER NOTIFIED OF PATIENT STATUS.
--- NOTE | 2022-03-25 11:00 | NUR ---
Reassessment of patient completed. No distress noted.
[2022-03-25 11:26] LABS: ALBUMIN 4.1 g/dL (3.2-5.0); BILIRUBIN, TOTAL 0.4 mg/dL (0.0-1.4); POTASSIUM 4.6 mmol/l (3.5-5.1)
--- NOTE | 2022-03-25 12:05 | NUR ---
PT ARRIVES TO FLOOR ALERT AND RESPONSIVE IN NO DISTRESS. AMBULATES TO CHAIR AND CONSENTS SIGNED. BP ELEVATED. DISCUSSED POC. RIJ CVC WITH GOOD BLOOD RETURN BOTH LINES AND FLUSHES WELL.PT FALLS ASLEEP QUICKLY IN DIALYSIS CHAIR. READIED FOR HEMODIALYSIS AFTER ORDERS RECEIVED FROM DR LAURENT.
--- NOTE | 2022-03-25 12:16 | NUR ---
PT TRANSPORTED TO [facility] ROOM 286 VIA WHEELCHAIR IN STABLE CONDITION.
[2022-03-25 12:30] VITALS: BP 171/108
--- NOTE | 2022-03-25 13:16 | NUR ---
INFORMED DR LANIER OF ASYMPTOMATIC ELEVATED BP AND RT RIB PAIN. PAIN TO RT LOWER RIB AREA REPRODUCILE WITH PALPATION. NO BRUISING OR SWELLING NOTED. PT DENIES FALL OR TRAUMA. PT WAS SEEN FOR SAME C/O LAST NIGHT IN [facility] ER WITH NEGATIVE RIB XR. PT CURRENTLY SLEEPING WITH EYES CLOSED WITH SNORING RESPIRATIONS.
[2022-03-25 13:19] VITALS: BP 154/110
--- NOTE | 2022-03-25 14:00 | NUR ---
PT RELATES HE DOES NOT KNOW THE NAMES OF HIS MEDICATIONS BUT "I TAKE THE ONES YOU TOLD ME TO TAKE" ASKED PT TO BRING MEDS TO NEXT VISIT. PT STATES UNDERSTANDING
[2022-03-25 14:01] VITALS: BP 154/110
--- NOTE | 2022-03-25 17:30 | NUR ---
pt completed dialysis treatment. Bp appropriate for Procrit administration, administered as ordered via dialysis . pt alert and conversive, in a hurry to get disconnected and leave. pt denies dizziness, sob or chest pain. slept most of dialysis tx after being medicated for pain. Patient decides to leave AMA. Multiple attempts made to ecourage patient to remain here for continued treatment. Explained to patient all risks of leaving against medical advice including . Pt verbalized understanding of all risks. Pt also encouraged to return to [facility] at any time, especially if symptoms continue or become worse. Pt verbalized understanding. pt left ambulatory in no distress.
== END 2022-03-25 17:30 | disposition left against medical advice (07) ==
LOC: ED 09:48 → ED-I 11:25 → ED 11:44 → MS2 11:45
PROVIDERS: Family Medicine; ADMIT Hospitalist; ATTEND Hospitalist
DX: I12.0 Hypertensive chronic kidney disease with stage 5 chronic kidney disease or end stage renal disease (principal); N18.6 End stage renal disease; Z99.2 Dependence on renal dialysis; I16.0 Hypertensive urgency; E87.5 Hyperkalemia; D63.1 Anemia in chronic kidney disease; N25.81 Secondary hyperparathyroidism of renal origin; F17.200 Nicotine dependence, unspecified, uncomplicated; Z87.81 Personal history of (healed) traumatic fracture; Z91.14 Patient's other noncompliance with medication regimen
CPT/HCPCS: G0378

== ENCOUNTER 2022-03-26 21:07 | Emergency (ER) | payer MEDICAID ==
[~2022-03-26] VITALS: Ht 170.2 cm; Wt 85.0 kg
[2022-03-26 21:16] VITALS: BP 168/129
[2022-03-26 21:30] VITALS: BP 151/116
[2022-03-26 21:41] LABS: HEMATOCRIT 28.5 % (39.0-50.0); HEMOGLOBIN 9.3 g/dl (14.0-18.0); IMMATURE GRANULOCYTES 0.5 % (0.0-5.0); MEAN CELL VOLUME 95.3 fL CALC (80.0-100.0); MEAN CORPUSCULAR HGB 31.1 pG CALC (26.0-32.0); MEAN CORPUSCULAR HGB CONC 32.6 g/dL CAL (32.0-36.0); NEUT# 7.55 thou/uL (1.82-7.42); RED BLOOD COUNT 2.99 mill/uL (4.70-6.10); RED CELL DISTRI WIDTH 14.2 % (11.5-15.5)
[2022-03-26 21:55] VITALS: BP 151/116
[2022-03-26 22:10] LABS: ALBUMIN 4.1 g/dL (3.2-5.0); BILIRUBIN, TOTAL 0.4 mg/dL (0.0-1.4); POTASSIUM 5.1 mmol/l (3.5-5.1); TOTAL PROTEIN 7.2 g/dL (6.3-8.2)
[2022-03-26 22:13] LABS: CREATININE 8.6 mg/dL (0.7-1.3)
== END 2022-03-26 21:50 | disposition left against medical advice (07) ==
LOC: ED 21:07
PROVIDERS: Emergency Medicine
DX: R07.9 Chest pain, unspecified (principal); I12.0 Hypertensive chronic kidney disease with stage 5 chronic kidney disease or end stage renal disease; N18.6 End stage renal disease; F17.200 Nicotine dependence, unspecified, uncomplicated; Z99.2 Dependence on renal dialysis; Z91.19 Patient's noncompliance with other medical treatment and regimen

== ENCOUNTER 2022-03-27 08:19 | Emergency (ER) | payer MEDICAID ==
[~2022-03-27] VITALS: Ht 170.2 cm; Wt 79.5 kg
[2022-03-27 08:25] VITALS: BP 175/132
[2022-03-27 08:30] VITALS: BP 187/132
[2022-03-27 08:49] VITALS: BP 187/132
[2022-03-27 08:55] LABS: HEMOGLOBIN 9.3 g/dl (14.0-18.0); IMMATURE GRANULOCYTES 0.3 % (0.0-5.0); MEAN CELL VOLUME 95.1 fL CALC (80.0-100.0); MEAN CORPUSCULAR HGB 30.5 pG CALC (26.0-32.0); MEAN CORPUSCULAR HGB CONC 32.1 g/dL CAL (32.0-36.0); NEUT# 9.73 thou/uL (1.82-7.42); RED BLOOD COUNT 3.05 mill/uL (4.70-6.10); RED CELL DISTRI WIDTH 14.2 % (11.5-15.5)
[2022-03-27 09:14] LABS: INTERNATIONAL NORMALIZED RATIO 1.2 RATIO (0.7-1.3); PROTHROMBIN TIME 12.3 SECONDS (9.0-12.5)
[2022-03-27 09:16] LABS: BILIRUBIN, TOTAL 0.4 mg/dL (0.0-1.4); POTASSIUM 4.7 mmol/l (3.5-5.1); TOTAL PROTEIN 6.7 g/dL (6.3-8.2)
[2022-03-27 09:30] LABS: CREATININE 9.5 mg/dL (0.7-1.3)
== END 2022-03-27 10:52 | disposition left against medical advice (07) ==
LOC: ED 08:19 → ED-I 10:25 → ED 10:52
PROVIDERS: Family Medicine
DX: J18.9 Pneumonia, unspecified organism (principal); R04.2 Hemoptysis; I12.0 Hypertensive chronic kidney disease with stage 5 chronic kidney disease or end stage renal disease; N18.6 End stage renal disease; Z99.2 Dependence on renal dialysis; F17.200 Nicotine dependence, unspecified, uncomplicated; Z91.19 Patient's noncompliance with other medical treatment and regimen; Z20.822 Contact with and (suspected) exposure to COVID-19

== ENCOUNTER 2022-03-30 10:37 | Emergency (ER) | payer MEDICAID ==
[~2022-03-30] VITALS: Ht 170.2 cm; Wt 79.5 kg
[2022-03-30 10:58] VITALS: BP 122/90
[2022-03-30 11:00] VITALS: BP 124/95
[2022-03-30 11:46] LABS: HEMATOCRIT 33.1 % (39.0-50.0); HEMOGLOBIN 10.6 g/dl (14.0-18.0); IMMATURE GRANULOCYTES 0.5 % (0.0-5.0); MEAN CELL VOLUME 94.6 fL CALC (80.0-100.0); MEAN CORPUSCULAR HGB 30.3 pG CALC (26.0-32.0); NEUT# 10.76 thou/uL (1.82-7.42); RED BLOOD COUNT 3.5 mill/uL (4.70-6.10); RED CELL DISTRI WIDTH 14.3 % (11.5-15.5)
[2022-03-30 11:53] LABS: ALBUMIN 4.8 g/dL (3.2-5.0); POTASSIUM 4.1 mmol/l (3.5-5.1)
[2022-03-30 12:06] LABS: BILIRUBIN, TOTAL 0.6 mg/dL (0.0-1.4); CREATININE 8.7 mg/dL (0.7-1.3); TOTAL PROTEIN 8.9 g/dL (6.3-8.2)
[2022-03-30 13:02] VITALS: BP 124/95
== END 2022-03-30 13:03 | disposition home or self-care (01) ==
LOC: ED 10:37
PROVIDERS: Family Medicine
DX: I12.0 Hypertensive chronic kidney disease with stage 5 chronic kidney disease or end stage renal disease (principal); N18.6 End stage renal disease; F17.200 Nicotine dependence, unspecified, uncomplicated; Z99.2 Dependence on renal dialysis

== ENCOUNTER 2022-04-01 09:28 | Observation (INO) | payer MEDICAID ==
[~2022-04-01] VITALS: Ht 170.2 cm; Wt 80.2 kg
--- NOTE | 2022-04-01 09:30 | NUR ---
PT AMB TO ROOM FOR TRIAGE
[2022-04-01 09:36] VITALS: BP 165/118
[2022-04-01 09:45] VITALS: BP 163/116
[2022-04-01 10:10] LABS: HEMATOCRIT 28.4 % (39.0-50.0); HEMOGLOBIN 9.1 g/dl (14.0-18.0); IMMATURE GRANULOCYTES 0.9 % (0.0-5.0); MEAN CORPUSCULAR HGB 30.1 pG CALC (26.0-32.0); NEUT# 10.49 thou/uL (1.82-7.42); RED BLOOD COUNT 3.02 mill/uL (4.70-6.10); RED CELL DISTRI WIDTH 14.3 % (11.5-15.5)
[2022-04-01 10:24] LABS: ALBUMIN 4.1 g/dL (3.2-5.0); BILIRUBIN, TOTAL 0.5 mg/dL (0.0-1.4); TOTAL PROTEIN 7.2 g/dL (6.3-8.2)
[2022-04-01 10:26] LABS: CREATININE 11.8 mg/dL (0.7-1.3); POTASSIUM 5.3 mmol/l (3.5-5.1)
--- NOTE | 2022-04-01 10:30 | NUR ---
PT RETURNED FROM CT
--- NOTE | 2022-04-01 11:46 | NUR ---
Admission Note Report Given to: ZENA AMADOR Transported by: X Wheelchair Stretcher Transported with: X Nurse Transporter Patent IV O2 X Glassware Selector Location: ICU X MS2
--- NOTE | 2022-04-01 11:50 | NUR ---
Brought to floor via wc alert and in no distress. making usual request for food, juice, crackers and ice. Wt 77 kg via standing scale. resp even and unlabored. no edema noted. Pt states he had 5L removed Wednesday and Wednesday via hemodialysis at [facility]. Pt counseled on dietary non compliance. Consents signed and orders received from Dr Coello for hemodialysis.
[2022-04-01 12:31] VITALS: BP 207/133
[2022-04-01 15:39] VITALS: BP 125/83
--- NOTE | 2022-04-01 16:16 | NUR ---
pt resting supine in no distress,vss. Tolerating hemodialysis well.
[2022-04-01 16:34] VITALS: BP 138/83
--- NOTE | 2022-04-01 17:16 | NUR ---
COMPLETED HEMODIALYSIS, BLOOD RETURNED VIA TABLO, NO DIFFICULTIES. BP STABEL AND PROCRIT ADMINISTERED. SAT IN CHAIR FOR 10 MIN FOR OBSERVATION OF C/O DIZZINESS UNTIL DIZZINESS RESOLVED. NO C/O CHEST PAIN OR SOB. DRESSING INTACT TO [facility] CVC. PT STATES HE DOES NOT WISH TO STAY FOR ADMISSION. ENCOURAGED PT TO STAY FOR OBSERVATION HE HAD RT SIDE PAIN EARLIER. PT DECLINES, NO FURTHER C/O SIDE PAIN.
--- NOTE | 2022-04-01 17:25 | NUR ---
Patient decides to leave AMA. Multiple attempts made to ecourage patient to remain here for continued treatment. Explained to patient all risks of leaving against medical advice including . Pt verbalized understanding of all risks. Pt also encouraged to return to [facility] at any time, especially if symptoms continue or become worse. Pt verbalized understanding. PT LEFT VIA WC TO AWAIT COMPLIMENTARY CAB HOJME TODAY.
[2022-04-02] MEDS ORDERED: BENADRYL25 M1 PO (08:29)
[2022-04-02] MEDS ORDERED: PROAIR HFA108 MCG/AC PO (08:29)
[2022-04-02] MEDS ORDERED: LASIX 40 MG TAB40 MG PO (08:32)
[2022-04-02] MEDS ORDERED: CITRATE OF MEGNESIA PO (08:32)
== END 2022-04-01 17:20 | disposition left against medical advice (07) ==
LOC: ED 09:28 → ED-I 10:52 → ED 11:06 → MS2 11:07
PROVIDERS: Family Medicine; ADMIT Internal Medicine; ATTEND Internal Medicine
DX: J18.9 Pneumonia, unspecified organism (principal); I12.0 Hypertensive chronic kidney disease with stage 5 chronic kidney disease or end stage renal disease; N18.6 End stage renal disease; N25.81 Secondary hyperparathyroidism of renal origin; Z99.2 Dependence on renal dialysis; D63.1 Anemia in chronic kidney disease; F10.10 Alcohol abuse, uncomplicated; E87.5 Hyperkalemia; E87.1 Hypo-osmolality and hyponatremia; R07.81 Pleurodynia; F17.200 Nicotine dependence, unspecified, uncomplicated; Z91.14 Patient's other noncompliance with medication regimen; Z20.822 Contact with and (suspected) exposure to COVID-19
CPT/HCPCS: G0378; J1644; Q9967

== ENCOUNTER 2022-04-02 06:16 | Emergency (ER) | payer MEDICAID ==
[~2022-04-02] VITALS: Ht 170.2 cm; Wt 80.0 kg
[2022-04-02 07:00] VITALS: BP 157/108
[2022-04-02 07:01] LABS: HEMATOCRIT 28.2 % (39.0-50.0); HEMOGLOBIN 8.7 g/dl (14.0-18.0); IMMATURE GRANULOCYTES 1.2 % (0.0-5.0); MEAN CELL VOLUME 95.9 fL CALC (80.0-100.0); MEAN CORPUSCULAR HGB 29.6 pG CALC (26.0-32.0); MEAN CORPUSCULAR HGB CONC 30.9 g/dL CAL (32.0-36.0); NEUT# 13.38 thou/uL (1.82-7.42); RED BLOOD COUNT 2.94 mill/uL (4.70-6.10); RED CELL DISTRI WIDTH 14.4 % (11.5-15.5)
[2022-04-02 07:22] LABS: BILIRUBIN, TOTAL 0.4 mg/dL (0.0-1.4); POTASSIUM 4.7 mmol/l (3.5-5.1); TOTAL PROTEIN 7.1 g/dL (6.3-8.2)
[2022-04-02 07:30] LABS: CREATININE 7.8 mg/dL (0.7-1.3)
[2022-04-02] MEDS ORDERED: BENADRYL25 M1 PO (08:29)
[2022-04-02] MEDS ORDERED: PROAIR HFA108 MCG/AC PO (08:29)
[2022-04-02] MEDS ORDERED: CITRATE OF MEGNESIA PO (08:32)
[2022-04-02] MEDS ORDERED: LASIX 40 MG TAB40 MG PO (08:32)
== END 2022-04-02 09:01 | disposition home or self-care (01) ==
LOC: ED 06:16
PROVIDERS: Family Medicine
DX: K59.00 Constipation, unspecified (principal); I12.0 Hypertensive chronic kidney disease with stage 5 chronic kidney disease or end stage renal disease; N18.6 End stage renal disease; F17.200 Nicotine dependence, unspecified, uncomplicated; S22.43XD Multiple fractures of ribs, bilateral, subsequent encounter for fracture with routine healing; X58.XXXD Exposure to other specified factors, subsequent encounter; Z99.2 Dependence on renal dialysis

== ENCOUNTER 2022-04-06 12:38 | Observation (INO) | payer MEDICAID ==
[2022-04-06] VITALS (7 sets, daily range): BP systolic 179–220; BP diastolic 119–162
[~2022-04-06] VITALS: Ht 170.2 cm; Wt 63.6 kg
[~2022-04-06 12:38] MED LIST changes: +CITRATE OF MEGNESIA PO; +PROAIR HFA108 MCG/AC PO
[2022-04-06 13:42] LABS: HEMATOCRIT 26.7 % (39.0-50.0); HEMOGLOBIN 8.6 g/dl (14.0-18.0); IMMATURE GRANULOCYTES 0.5 % (0.0-5.0); MEAN CORPUSCULAR HGB 30.6 pG CALC (26.0-32.0); MEAN CORPUSCULAR HGB CONC 32.2 g/dL CAL (32.0-36.0); NEUT# 11.49 thou/uL (1.82-7.42); RED BLOOD COUNT 2.81 mill/uL (4.70-6.10); RED CELL DISTRI WIDTH 14.6 % (11.5-15.5)
[2022-04-06 13:52] LABS: ALBUMIN 4.1 g/dL (3.2-5.0); BILIRUBIN, TOTAL 0.5 mg/dL (0.0-1.4); POTASSIUM 5.1 mmol/l (3.5-5.1); TOTAL PROTEIN 7.1 g/dL (6.3-8.2)
[2022-04-06 14:01] LABS: CREATININE 17.6 mg/dL (0.7-1.3)
== END 2022-04-06 20:00 | disposition left against medical advice (07) ==
LOC: ED 12:38 → ED-I 12:53 → ED 14:31 → MS2 14:32
PROVIDERS: Nurse Practitioner; ADMIT Hospitalist; ATTEND Hospitalist
DX: I12.0 Hypertensive chronic kidney disease with stage 5 chronic kidney disease or end stage renal disease (principal); I16.0 Hypertensive urgency; N18.6 End stage renal disease; Z99.2 Dependence on renal dialysis; D63.1 Anemia in chronic kidney disease; E87.5 Hyperkalemia; N25.81 Secondary hyperparathyroidism of renal origin; F10.10 Alcohol abuse, uncomplicated; F17.200 Nicotine dependence, unspecified, uncomplicated; Z91.14 Patient's other noncompliance with medication regimen; Z87.81 Personal history of (healed) traumatic fracture; Z20.822 Contact with and (suspected) exposure to COVID-19; Z04.89 Encounter for examination and observation for other specified reasons; K59.00 Constipation, unspecified; D72.829 Elevated white blood cell count, unspecified; T50.916A Underdosing of multiple unspecified drugs, medicaments and biological substances, initial encounter; Z91.128 Patient's intentional underdosing of medication regimen for other reason; F17.210 Nicotine dependence, cigarettes, uncomplicated
CPT/HCPCS: G0378

== ENCOUNTER 2022-04-06 21:44 | Emergency (ER) | payer MEDICAID ==
[~2022-04-06] VITALS: Ht 170.2 cm; Wt 68.0 kg
[2022-04-06] VITALS (8 sets, daily range): BP systolic 121–181; BP diastolic 88–124
[2022-04-06 22:43] LABS: HEMATOCRIT 30.8 % (39.0-50.0); HEMOGLOBIN 9.9 g/dl (14.0-18.0); IMMATURE GRANULOCYTES 0.8 % (0.0-5.0); MEAN CELL VOLUME 93.6 fL CALC (80.0-100.0); MEAN CORPUSCULAR HGB 30.1 pG CALC (26.0-32.0); MEAN CORPUSCULAR HGB CONC 32.1 g/dL CAL (32.0-36.0); NEUT# 15.36 thou/uL (1.82-7.42); RED BLOOD COUNT 3.29 mill/uL (4.70-6.10); RED CELL DISTRI WIDTH 14.5 % (11.5-15.5)
[2022-04-06 23:04] LABS: POTASSIUM 4.8 mmol/l (3.5-5.1)
[2022-04-06 23:06] LABS: CREATININE 8.9 mg/dL (0.7-1.3)
== END 2022-04-06 23:45 | DRG 391 ==
LOC: ED 21:44
PROVIDERS: Family Medicine
DX: K59.00 Constipation, unspecified (principal); D72.829 Elevated white blood cell count, unspecified; N18.6 End stage renal disease; I12.0 Hypertensive chronic kidney disease with stage 5 chronic kidney disease or end stage renal disease; Z99.2 Dependence on renal dialysis; T50.916A Underdosing of multiple unspecified drugs, medicaments and biological substances, initial encounter; Z91.128 Patient's intentional underdosing of medication regimen for other reason; F17.210 Nicotine dependence, cigarettes, uncomplicated

== ENCOUNTER 2022-04-07 14:59 | Emergency (ER) | payer OTHER, MEDICAID | END 2022-04-07 15:03 | disposition left against medical advice (07) | DRG 951 | LOC: ED 14:59 → LWOBS 15:02 | DX: Z53.21 Procedure and treatment not carried out due to patient leaving prior to being seen by health care provider (principal) ==

== ENCOUNTER 2022-04-08 12:25 | Observation (INO) | payer MEDICAID ==
[~2022-04-08] VITALS: Ht 170.2 cm; Wt 70.0 kg
--- NOTE | 2022-04-08 12:26 | NUR ---
PT TRANSFERRED TO ROOM 9 FROM EMS STRETCHER. NAD NOTED.
[2022-04-08 13:00] VITALS: BP 201/135
[2022-04-08 13:06] LABS: HEMATOCRIT 25.7 % (39.0-50.0); HEMOGLOBIN 8.2 g/dl (14.0-18.0); IMMATURE GRANULOCYTES 1.8 % (0.0-5.0); MEAN CELL VOLUME 95.5 fL CALC (80.0-100.0); MEAN CORPUSCULAR HGB 30.5 pG CALC (26.0-32.0); MEAN CORPUSCULAR HGB CONC 31.9 g/dL CAL (32.0-36.0); NEUT# 8.77 thou/uL (1.82-7.42); RED BLOOD COUNT 2.69 mill/uL (4.70-6.10); RED CELL DISTRI WIDTH 14.5 % (11.5-15.5)
[2022-04-08 13:34] LABS: ALBUMIN 4.1 g/dL (3.2-5.0); BILIRUBIN, TOTAL 0.5 mg/dL (0.0-1.4); POTASSIUM 4.8 mmol/l (3.5-5.1); TOTAL PROTEIN 7.5 g/dL (6.3-8.2)
[2022-04-08 13:56] LABS: CREATININE 12.2 mg/dL (0.7-1.3)
--- NOTE | 2022-04-08 14:30 | NUR ---
PT CONTINUOUSLY HEARD CALLING OUT FROM ROOM. PT AT DOOR ASKING FOR NURSE IN [place]. THIS RN TO BEDSIDE, PT STATES HE HAS BEEN ASKING FOR FOOD AND WATER. PT ADVISED THAT HE WAS TOLD HE IS NPO D/T HIS ABDOMINAL PAIN, HE IS AWAITING ROOM FOR DIALYSIS. PT CONTINUES TO RAMBLE AND TALK OVER THIS RN. PT ASKING WHAT HE IS WAITING FOR NOW DESPITE PRIMARY RN UPDATING HIM 10 MINUTES AGO. PT ADVISED HE IS AWAITING HIS ROOM TO BE READY FOR DIALYSIS. PT NOTED TO HAVE TAKEN HIMSELF OFF ADMIN DIR. PRIMARY RN NOTIFIED.
--- NOTE | 2022-04-08 15:00 | NUR ---
PT XFER TO DIALYSIS RM, BEDSIDE REPORT GIVEN TO RN. PT STABLE IN NO ACUTE DISTRESS
--- NOTE | 2022-04-08 15:00 | NUR ---
PT ARRIVES VIA WC IN NO DISTRESS.SKIN PALE, STOOD ON SCALE TO BE WEIGHED. DISCUSSED POC AND TREATMENT, CONSENTS SIGNED AND DR LAURENT NOTIFIED FOR ORDERS.
--- NOTE | 2022-04-08 15:29 | NUR ---
PT STOOD AT BEDSIDE AND URINATED APPROX 20CC YELLOW URINE. SITTING UP EATING ICE PER HIS REQUEST. RESP EVEN AND UNLABORED. PT APPEARS PALE. NO COMPLAINTS AT THIS TIME.
[2022-04-08 15:35] VITALS: BP 190/130
--- NOTE | 2022-04-08 15:41 | NUR ---
PT COMPLAINS OF ITCHING ALL OVER BODY. NO RASH OR DISCOLORATION NOTED TO SKIN. NOTIFIED DR LANIER AND MEDICATED FOR HTN.
--- NOTE | 2022-04-08 16:41 | NUR ---
RESTING SUPINE IN RECLINER WITH EYES CLOSED WITH SNORING RESPIRATIONS, ROUSES EASILY. STATES HE IS HUNGRY. ORDERED LATE LUNCH TRAY FOR PT. CONSUMED 100% OF MEAL WITHOUT COMPLANTS. TOLERATING DIALYSIS VIA RIJ CVC WELL.
--- NOTE | 2022-04-08 17:35 | NUR ---
PT PASSING GAS, DENIES ABDOMNAL PAIN. STILL WANTS TO WAIT TO TAKE MAG CITRATE UNTIL HE GETS HOME SO "I CAN POOP AT HOME". PT PLEASANT AND CONVERSIVE AT THIS TIME. NO COMPLAINTS. CONTINUES DIALYSIS THRU RIJ CVC, TOLERATING WELL. NO CRAMPING, SOB OR CHEST PAIN
--- NOTE | 2022-04-08 18:40 | NUR ---
PT RESTING RECLINED WITH EYES CLOSED.ROUSES EASILY. NO COMPLAINTS AT THIS TIME.
--- NOTE | 2022-04-08 19:40 | NUR ---
COMPLETED DIALYSIS TREATMENT AND BLOOD RETURNED VIA RIJ CVC, FLUSHES WELL AND DISCONNECTED. PT STILL WITH HTN, PT STATES HE IS NOT STAYING THE NIGHT AND WISHES TO LEAVE. LUNGS CLEAR, RESP EVEN AND UNLABORED.NOO C/O CP OR SOB WT 70 KG VIA STANDING SCALE POST TREATMENT. Patient decides to leave AMA. Multiple attempts made to ecourage patient to remain here for continued treatment. Explained to patient all risks of leaving against medical advice including . Pt verbalized understanding of all risks. Pt also encouraged to return to [facility] at any time, especially if symptoms continue or become worse. Pt verbalized understanding. DR LANIER NOTIFIED. PT TRANSPORTED TO [facility] FOR INCURABLES AND AMBULATED TO [facility]. CALLED FOR COMPLIMENTARY CAB DUE TO LATE HOUR. PT THANKED STAFF FOR CARE.
== END 2022-04-08 19:45 | disposition left against medical advice (07) ==
LOC: ED 12:25 → ED-I 14:00 → ED 14:27 → MS2 14:27
PROVIDERS: Nurse Practitioner; ADMIT Hospitalist; ATTEND Hospitalist
DX: I12.0 Hypertensive chronic kidney disease with stage 5 chronic kidney disease or end stage renal disease (principal); N18.6 End stage renal disease; I16.0 Hypertensive urgency; K59.00 Constipation, unspecified; D63.1 Anemia in chronic kidney disease; E87.5 Hyperkalemia; N25.81 Secondary hyperparathyroidism of renal origin; F10.10 Alcohol abuse, uncomplicated; F17.200 Nicotine dependence, unspecified, uncomplicated; S22.32XD Fracture of one rib, left side, subsequent encounter for fracture with routine healing; X58.XXXD Exposure to other specified factors, subsequent encounter; Z99.2 Dependence on renal dialysis; Z91.14 Patient's other noncompliance with medication regimen
CPT/HCPCS: G0378

== ENCOUNTER 2022-04-11 03:20 | Emergency (ER) | payer MEDICAID ==
[~2022-04-11] VITALS: Ht 170.2 cm; Wt 81.0 kg
[2022-04-11] MEDS ORDERED: CORTISPORIN OTI10 ML AU (03:38)
[2022-04-11 03:51] VITALS: BP 124/64
== END 2022-04-11 04:02 | disposition home or self-care (01) ==
LOC: ED 03:20
DX: H92.03 Otalgia, bilateral (principal); I12.0 Hypertensive chronic kidney disease with stage 5 chronic kidney disease or end stage renal disease; N18.6 End stage renal disease; F17.200 Nicotine dependence, unspecified, uncomplicated; Z99.2 Dependence on renal dialysis

== ENCOUNTER 2022-04-13 10:47 | Observation (INO) | payer MEDICAID ==
[~2022-04-13] VITALS: Ht 170.2 cm; Wt 68.0 kg
[~2022-04-13 10:47] MED LIST changes: +CORTISPORIN OTI10 ML AU
--- NOTE | 2022-04-13 11:00 | NUR ---
PATIENT TO ROOM VIA WHEELCHAIR.
[2022-04-13 11:36] LABS: HEMATOCRIT 27.1 % (39.0-50.0); HEMOGLOBIN 8.9 g/dl (14.0-18.0); IMMATURE GRANULOCYTES 0.4 % (0.0-5.0); MEAN CELL VOLUME 90.9 fL CALC (80.0-100.0); MEAN CORPUSCULAR HGB 29.9 pG CALC (26.0-32.0); MEAN CORPUSCULAR HGB CONC 32.8 g/dL CAL (32.0-36.0); NEUT# 6.16 thou/uL (1.82-7.42); RED BLOOD COUNT 2.98 mill/uL (4.70-6.10); RED CELL DISTRI WIDTH 14.9 % (11.5-15.5)
--- NOTE | 2022-04-13 12:08 | NUR ---
PT CONTINUES TO CALL OUT FROM ROOM, UPON ENTERING ROOM PT STATES HE WANTS TO SPEAK WITH THE NURSE THAT BROUGHT HIM IN. PT ADVISED THAT THIS RN IS HIS PRIMARY RN. STATES HE NEEDS TO SPEAK TO PANDA RN ABOUT SOMETHING. PTS CALL KAUR IN REACH AND RE-EDUCATED ON USE. LEONA FREITAS NOTIFIED
[2022-04-13 12:16] LABS: ALBUMIN 4.4 g/dL (3.2-5.0); BILIRUBIN, TOTAL 0.5 mg/dL (0.0-1.4); TOTAL PROTEIN 7.5 g/dL (6.3-8.2)
[2022-04-13 12:32] LABS: CREATININE 18.4 mg/dL (0.7-1.3); POTASSIUM 5.3 mmol/l (3.5-5.1)
--- NOTE | 2022-04-13 13:30 | NUR ---
PT TO MS WITH DIALYSIS NURSE MARJORIE FREITAS VIA WHEELCHAIR AT THIS TIME W/ TELE IN PLACE.
--- NOTE | 2022-04-13 13:30 | NUR ---
pt to dialysis room via wc from ed. Resp even and unlbored. minimal swlling to LE. pt alert, states he has pain to lt ear from "the animals in my ear".
--- NOTE | 2022-04-13 13:55 | NUR ---
dr manjarrez at bedside to assess pt.
--- NOTE | 2022-04-13 14:30 | NUR ---
PT SITITNG UP IN CHAIR "TRYING TO PULL ANIMALS OUT OF MY EAR" MAKING PULLING MOTION TO BOTH EARS LIKE HE IS PULLING A STRING OUT OF IT, HE WINDS "SOMETHING UP IN HIS HAND AND PUTS IT IN A BAG, NOTED NOTHING IN HIS HANDS.
--- NOTE | 2022-04-13 16:15 | NUR ---
treatement delayed Radha Friedman APRN notified. Pt in no distress. Updated on POC and agreeable.
--- NOTE | 2022-04-13 16:20 | NUR ---
NOTED THAT PTS RIJ CVC LINE HAS NO PROTECTIVE COVERING/DRESSING TO IT. AREA CLEANSED AND STERILE DRESSING APPLIED AND LINES SECURED.
--- NOTE | 2022-04-13 16:28 | NUR ---
Good blood return from venous and arterial line RIJ CVC.Lines flush well. Prepared for dialysis and intiiated as per orders. Reclining in dialysis room pt cooperative.
--- NOTE | 2022-04-13 17:22 | NUR ---
PATIENT CONTINUES TO EXPRESS CONCERN FOR "ANIMALS" IN HIS EARS, C/O PF PAIN TO BOTH EARS, MD. AWARE AND EARS CHECKED WITH NO ISSUES NOTED. PATIENT ITCHING CONSTANTLY, TRYING TO KEEP TELE PASTIES INTACT WITHOUT SUCCESS. CONSTANT MOVEMENT WITH DIALYSIS MACHINE ALARMING. B/P MEDICATION GIVEN WITH B/P'S REMAINING HIOGHT AT THIS TIME.
[2022-04-13 17:54] VITALS: BP 202/143
--- NOTE | 2022-04-13 19:45 | NUR ---
SPOKE WITH DR LANIER WHO INQUIRED HOW TREATMENT WAS PROGRESSING.
--- NOTE | 2022-04-13 20:22 | NUR ---
SITTING UP IN RECLINER EATING BURRITO FROM HOME. REFUSED DINNER TRAY OFFERED EARLIER. REQUESTED A CUP OFICE, GIVEN. SKIN PWD. NO DISTRESS. RESP EVEN AND UNLABORED. DIALYSIS CONTINUES.
--- NOTE | 2022-04-13 20:40 | NUR ---
call placed to Dr Villaseñor to inform pt is staying as admission this evening as " i havent slept in 5 days". discussed elevated bp and labetolol ordered for 1999. states to give po labetolol scheduled and monitor bp.
--- NOTE | 2022-04-13 20:50 | NUR ---
blood returned and treatment completed. Blood returned without any s/s of clotting. Pt tolerated well. no c/o cramping,sob, or chest pain.
[2022-04-13 20:53] VITALS: BP 191/120
--- NOTE | 2022-04-13 21:00 | NUR ---
Pt transported to room via stretcher and weighed on stand up scale. Oriented to room and report given to Flora Jolley.
--- NOTE | 2022-04-13 21:00 | NUR ---
RECEIVED REPORT FROM ZENA AMADOR. PATIENT RESTING IN BED. PATIENT AOX3; OBEYS COMMANDS. PATIENT APPEARS LETHARGIC; HOWEVER, OPENS EYES TO VERBAL STIMULI. NO DISTRESS NOTED. BP ELEVATED; WILL MEDICATE PER PHYSICIANS ORDERS. TELEMONITORING IN PLACE. FALL PRECAUTTIONS INITIATED. CALL KAUR WITHIN REACH.
[2022-04-13 21:06] VITALS: BP 169/116
--- NOTE | 2022-04-14 00:16 | NUR ---
PATIENT SLEEPING AT THIS; OPENS EYES TO VEBAL STIMULI; HOW STILL APPEARS LETHARGIC. STATES 'HE HAS NOT SLEPT IN 5 DAYS.' NO COMPLAINTS AT THIS. FALL PRECAUTIONS IN PLACE.
[2022-04-14 04:13] VITALS: BP 168/117
--- NOTE | 2022-04-14 04:15 | NUR ---
PATIENT AWAKE AT THIS TIME, RESTING IN BED. NO DISTRESS NOTED. FALLL PRECAUTIONS IN PLACE. CALL KAUR WITHIN REACH.
[2022-04-14 05:03] LABS: HEMATOCRIT 28.2 % (39.0-50.0); HEMOGLOBIN 9.3 g/dl (14.0-18.0); MEAN CELL VOLUME 91.6 fL CALC (80.0-100.0); MEAN CORPUSCULAR HGB 30.2 pG CALC (26.0-32.0); RED BLOOD COUNT 3.08 mill/uL (4.70-6.10); RED CELL DISTRI WIDTH 14.4 % (11.5-15.5)
[2022-04-14 05:24] LABS: MAGNESIUM 2.8 mg/dL (1.6-2.3); POTASSIUM 4.5 mmol/l (3.5-5.1)
[2022-04-14 05:36] LABS: CREATININE 9.4 mg/dL (0.7-1.3)
--- NOTE | 2022-04-14 05:37 | NUR ---
NOTIFIED BY LAB TECHNITION INITIALS RR THAT PATIENT HAS CREATININE OF CITICAL CREATININE OF 9.4. PATIENT RECEIVED DIALYSIS ON 04/13/22 CREATININE IMPROVED FROM 18.4.
--- NOTE | 2022-04-14 06:45 | NUR ---
NOITIFIED DR. LANIER OF CRITICAL CREATININE LAB OF 9.4.
[2022-04-14 06:46] VITALS: BP 149/98
[2022-04-14 10:11] VITALS: BP 150/99
[2022-04-14 11:04] VITALS: BP 100/57
[2022-04-14 15:26] VITALS: BP 121/87
--- NOTE | 2022-04-14 15:53 | NUR ---
PT TO BE DC
--- NOTE | 2022-04-14 19:20 | NUR ---
PATIENT AOX3. SITTING UP IN BED. NO DISTRESS NOTED. PT C/O L CHRONIC HEAR PAIN. EDUCATED PATIENT ON SCHEDULED PAIN MEDICATION AND PAIN SCALE. PATIENT STATES UNDERSTANDING. FALL PRECAUTIONS IN PLACE. CALL KAUR WITHIN REACH.
[2022-04-14 20:03] VITALS: BP 137/92
--- NOTE | 2022-04-14 23:48 | NUR ---
NOTIFIED DR. LANIER THAT PATIENT CONTINUES TO REMOVE TELEMONITOR. RECEIVED ORDER TO DISCONTINUE TELEMONITOR.
--- NOTE | 2022-04-15 00:50 | NUR ---
PATIENT RESTING IN BED. NO DISTRESS NOTED. FALL PRECAUTIONS IN PLACE. CALL KAUR WITHIN REACH.
[2022-04-15 03:37] VITALS: BP 134/97
[2022-04-15 04:33] LABS: HEMATOCRIT 26.7 % (39.0-50.0); HEMOGLOBIN 8.8 g/dl (14.0-18.0); MEAN CELL VOLUME 91.8 fL CALC (80.0-100.0); MEAN CORPUSCULAR HGB 30.2 pG CALC (26.0-32.0); RED BLOOD COUNT 2.91 mill/uL (4.70-6.10); RED CELL DISTRI WIDTH 14.7 % (11.5-15.5)
[2022-04-15 04:44] LABS: MAGNESIUM 2.8 mg/dL (1.6-2.3); POTASSIUM 4.8 mmol/l (3.5-5.1)
--- NOTE | 2022-04-15 04:49 | NUR ---
PATIENT SLEEPING. NO DISTRESS NOTED. FALL PRECAUTION IN PLACE. CALL BEEL WITHIN REACH.
[2022-04-15 04:57] LABS: CREATININE 11.3 mg/dL (0.7-1.3)
--- NOTE | 2022-04-15 05:50 | NUR ---
RECEIVED CALL FROM R.R. IN LAB OF A CRITICAL CREATININE OF 11.3. PER DR. LANIER NO NEED TO NOTIFY OF CRITICAL CREATININE RESULTS PATIENT RECEIVES DIALYSIS.
[2022-04-15 06:19] VITALS: BP 136/95
--- NOTE | 2022-04-15 08:00 | NUR ---
GOT REPORT FROM DRUM MAKER NURSE. PATIENT ASSESSED. AOX3. PATIENT C/O OF A SMALL PAIN IN HIS EAR AND BELIEVES THAT THERE IS A BUG IN IT. I RE-ENSURED PATIENT THAT THERE WERE NO BUGS IN HIS EAR. PATIENT HAS CALL LIGHT AND BEDSIDE TABLE WITH IN REACH. ADVISED TO CALL IF HE NEEDED ANYTHING.
--- NOTE | 2022-04-15 09:30 | NUR ---
transported patient via w/c from admit room to dialysis room. assisted to dialysis chair. no c/o at present. Dialysis cathater intact, changed drsg, cleaned ports and tago for ready use for dialysis. Patient lungs cta all peace, oriented x 4, heart regular, no edema noted, pulses regular palpable. Dialysis initiated, V/S WNL, assessment negative, Dr. Coello notified for orders. Dialysis orders reviewed and initiated.
--- NOTE | 2022-04-15 10:45 | NUR ---
DR LANIER AT BEDSIDE. DISCUSSED PTS COMPLAINTS AND CONCERNS. TOLERATING DIALYSIS WELL.
--- NOTE | 2022-04-15 12:00 | NUR ---
PATIENT STILL IN WITH DIAYLSIS.
[2022-04-15 13:50] VITALS: BP 147/94
[2022-04-15 14:08] VITALS: BP 132/84
[2022-04-15 14:10] VITALS: BP 102/68
--- NOTE | 2022-04-15 14:24 | NUR ---
PATIENT FINISHED DIAYLSIS. GOT REPORT FROM DIALYSIS NURSE. PATIENT SETTLED IN ROOM. NO QUESTIONS OR CONCERNS AT THIS TIME.
--- NOTE | 2022-04-15 14:27 | NUR ---
Patient dialysis complete, blood returned, patient tolerated without incident, v/s stable, patient verbalized no c/o at present. sitting b/p 132/84, standing patient had orthostatic hypotension of 102/64, sat back down for several minutes. Patient placed in W/C stood for weight without issues and taken back to room. Instructed patient to notify nursing of any issues of dizziness standing or any issues at all. Patient verbalized understanding. Cathater tales taped for security. Procret given per Dt. Coello.
--- NOTE | 2022-04-15 14:27 | NUR ---
COMPLETED DIALYSIS AND RETURNED TO ROOM, STOOD ON STANDING SCALE WITHOUT COMPLAINTS. RETURNED TO ROOM VIA WC IN NO DISTRESS.
--- NOTE | 2022-04-15 15:31 | NUR ---
Discharge instructions given. Patient verbalizes understanding of same. Discharged in stable condition via Wheelchair to Home with *Other. All belongings sent with pt.
== END 2022-04-15 15:37 | disposition home or self-care (01) ==
LOC: ED 10:47 → ED-I 12:40 → ED 12:51 → MS2 12:51
PROVIDERS: ADMIT Hospitalist; ATTEND Hospitalist
DX: I12.0 Hypertensive chronic kidney disease with stage 5 chronic kidney disease or end stage renal disease (principal); I16.0 Hypertensive urgency; N18.6 End stage renal disease; D63.1 Anemia in chronic kidney disease; E87.5 Hyperkalemia; N25.81 Secondary hyperparathyroidism of renal origin; E87.2 Acidosis; K59.00 Constipation, unspecified; F10.10 Alcohol abuse, uncomplicated; F17.200 Nicotine dependence, unspecified, uncomplicated; Z99.2 Dependence on renal dialysis; Z87.81 Personal history of (healed) traumatic fracture; Z91.14 Patient's other noncompliance with medication regimen; Z20.822 Contact with and (suspected) exposure to COVID-19
CPT/HCPCS: G0378; J1644

== ENCOUNTER 2022-04-17 06:18 | Observation (INO) | payer MEDICAID ==
[~2022-04-17] VITALS: Ht 170.2 cm; Wt 75.8 kg
--- NOTE | 2022-04-17 07:55 | NUR ---
PT TO ROOM W/STEADY GAIT.
[2022-04-17 08:15] VITALS: BP 165/136
[2022-04-17 08:49] LABS: HEMATOCRIT 30.1 % (39.0-50.0); HEMOGLOBIN 9.8 g/dl (14.0-18.0); IMMATURE GRANULOCYTES 0.7 % (0.0-5.0); MEAN CELL VOLUME 94.1 fL CALC (80.0-100.0); MEAN CORPUSCULAR HGB 30.6 pG CALC (26.0-32.0); MEAN CORPUSCULAR HGB CONC 32.6 g/dL CAL (32.0-36.0); NEUT# 10.76 thou/uL (1.82-7.42); RED BLOOD COUNT 3.2 mill/uL (4.70-6.10); RED CELL DISTRI WIDTH 15.1 % (11.5-15.5)
[2022-04-17 09:12] LABS: BILIRUBIN, TOTAL 0.3 mg/dL (0.0-1.4); POTASSIUM 4.5 mmol/l (3.5-5.1); TOTAL PROTEIN 6.9 g/dL (6.3-8.2)
[2022-04-17 09:16] LABS: CREATININE 9.9 mg/dL (0.7-1.3)
--- NOTE | 2022-04-17 09:30 | NUR ---
PT PROVIDED WITH ICE CHIPS PER REQUEST. AMBULATES IN ROOM. PLEASANT. ADVISED OF WAIT TIME.
--- NOTE | 2022-04-17 10:23 | NUR ---
PT TO MEDSURG VIA WC ON TELE IN STABLE CONDITION.
[2022-04-17 11:00] VITALS: BP 201/138
[2022-04-17 11:33] VITALS: BP 199/130
--- NOTE | 2022-04-17 12:36 | NUR ---
Patient alert and oriented x 4, Md. orders, consents, meds, and admission initiated. Patient ambulates with steady gait. wt 75.8 kg. Elevated B/P noted with appropriate medications given.Heart regular, no edema noted, pulses present, skin warm dry intact, lungs CTA, respirations easy nonlabored on RA, no cough noted. patient denies c/o of pain at present, BS x 4 BM today in ER per patient Drsg to Dialysis Cathater changed, clean dry intact. lines aspirating and flushing without incident. no evidence of infection noted. No cardiac issues noted ST regular rate and rhythm. No hypotensive episodes noted, thus no interventions needed B/P 2 hours into tx. 189/133 Heart rate 107. Dialysis machine without issues noted this day. appropriate conductivity and PH and Temp. Arterial and Venous lines intact visable and secured, pressures WNL. Patient tolerating meal trays without incident. PO food and fluids 100 taken on braskfast and lunch trays. No edema noted, skin warm dry intact. Tele shows ST normal rate and rhythm. Q hour flushes of 50 mls via dialysis machine. Patient educated on disease process, epogen, and dialysis importance. Patient verbalized understanding. No clotting thus far, tolerating dialysis treatment without incident.. No reaction to treatment of dialysis
--- NOTE | 2022-04-17 16:26 | NUR ---
Patient tolerated dialysis treatment without incident. Cathater DRSG CHANGED no evidence of infection noted. Lines aspirating and flushing without difficulty. V/S remained high with Md aware and medicated appropriately with home medication. No EPOGEN given this treatment due to elevated B/P. No incidences of HYPOTENSION, SEIZURES, EARLY TERMINATION, CLOTTING OF THE SYSTEM OR LINES, NO CARDIAC ISSUES, TEMP WNL,EDUCATION FOR TREATMENT, MEDS AND IMPORTANCE OF REGULAR TREATMENTS WEIGHTS PRE AND POST RECORDED, CONDUCTIVIEY AT 13.9, ARTERIAL AND VENOUS PRESSURES DOCUMENTED Q B/P ALONG WITH UFR, ALARMS ON AND OFF INDICATED. CATHATER PATENT AND FUNCTIONING WITHOUT INCIDENT.. Patient decides to leave AMA. Multiple attempts made to ecourage patient to remain here for continued treatment. Explained to patient all risks of leaving against medical advice including . Pt verbalized understanding of all risks. Pt also encouraged to return to [facility] at any time, especially if symptoms continue or become worse. Pt verbalized understanding. Patient weight on standing scale without incident, to lobby via w/c to complimantary taxi to home. No issues noted on AMA D/C.
== END 2022-04-17 15:30 | disposition left against medical advice (07) ==
LOC: ED 06:18 → ED-I 09:01 → ED 09:32 → MS2 09:33
PROVIDERS: Family Medicine; ADMIT Hospitalist; ATTEND Hospitalist
DX: I12.0 Hypertensive chronic kidney disease with stage 5 chronic kidney disease or end stage renal disease (principal); N18.6 End stage renal disease; Z99.2 Dependence on renal dialysis; I16.0 Hypertensive urgency; F10.10 Alcohol abuse, uncomplicated; D63.1 Anemia in chronic kidney disease; N25.81 Secondary hyperparathyroidism of renal origin; K59.00 Constipation, unspecified; E87.5 Hyperkalemia; E87.2 Acidosis; F17.200 Nicotine dependence, unspecified, uncomplicated; Z91.14 Patient's other noncompliance with medication regimen; Z87.81 Personal history of (healed) traumatic fracture
CPT/HCPCS: G0378; J1644

== ENCOUNTER 2022-04-18 01:13 | Emergency (ER) | payer MEDICAID ==
[~2022-04-18] VITALS: Ht 170.2 cm; Wt 90.0 kg
[2022-04-18 01:44] LABS: HEMATOCRIT 27.4 % (39.0-50.0); HEMOGLOBIN 8.7 g/dl (14.0-18.0); MEAN CELL VOLUME 95.1 fL CALC (80.0-100.0); MEAN CORPUSCULAR HGB 30.2 pG CALC (26.0-32.0); MEAN CORPUSCULAR HGB CONC 31.8 g/dL CAL (32.0-36.0); NEUT# 7.66 thou/uL (1.82-7.42); RED BLOOD COUNT 2.88 mill/uL (4.70-6.10); RED CELL DISTRI WIDTH 15.2 % (11.5-15.5)
[2022-04-18 02:03] LABS: ALBUMIN 3.8 g/dL (3.2-5.0); BILIRUBIN, TOTAL 0.3 mg/dL (0.0-1.4); POTASSIUM 4.4 mmol/l (3.5-5.1); TOTAL PROTEIN 6.9 g/dL (6.3-8.2)
[2022-04-18 02:10] LABS: CREATININE 5.8 mg/dL (0.7-1.3)
[2022-04-18 03:02] VITALS: BP 174/100
== END 2022-04-18 03:26 | disposition home or self-care (01) ==
LOC: ED 01:13
PROVIDERS: Family Medicine
DX: R07.89 Other chest pain (principal); I12.0 Hypertensive chronic kidney disease with stage 5 chronic kidney disease or end stage renal disease; N18.6 End stage renal disease; Z99.2 Dependence on renal dialysis; F17.200 Nicotine dependence, unspecified, uncomplicated

== ENCOUNTER 2022-04-20 04:55 | Observation (INO) | payer MEDICAID ==
[~2022-04-20] VITALS: Ht 170.2 cm; Wt 64.0 kg
--- NOTE | 2022-04-20 04:55 | NUR ---
PT TO ROOM 15 VIA EMS.
[2022-04-20] MEDS ORDERED: LASIX 80 MG TAB80 MG PO (05:17)
[2022-04-20] MEDS ORDERED: FAMOTIDINE20 M1 PO (05:18)
--- NOTE | 2022-04-20 05:22 | NUR ---
PT REPORTS HE ONLY CURRENTLY TAKES TWO MEDICATIONS BECAUSE ALL THE OTHER MEDICATIONS FINISHED A MONTH AGO. PT EDUCATED ON IMPORTANCE OF REFILLING HIS MEDICATIONS AND TAKING MEDICATIONS PRESCRIBED.
--- NOTE | 2022-04-20 05:33 | NUR ---
REINFORCED TEACHING ABOUT MEDICATION COMPLIANCE PARTICULARLY FOR ELEBATED BLOOD PRESSURE THAT MAY RESULT IN A STROKE LEADING TO OR DISABILITY. INFORMATION GIVEN IN SERBIAN AND GUAMANIAN BY ZENA RAMIREZ.
[2022-04-20 05:38] LABS: HEMATOCRIT 26.1 % (39.0-50.0); HEMOGLOBIN 8.6 g/dl (14.0-18.0); IMMATURE GRANULOCYTES 0.7 % (0.0-5.0); MEAN CELL VOLUME 93.5 fL CALC (80.0-100.0); MEAN CORPUSCULAR HGB 30.8 pG CALC (26.0-32.0); NEUT# 13.61 thou/uL (1.82-7.42); RED BLOOD COUNT 2.79 mill/uL (4.70-6.10); RED CELL DISTRI WIDTH 15.6 % (11.5-15.5)
--- NOTE | 2022-04-20 05:46 | NUR ---
PT REMOVES OPHTHALMIC TECH AND PULSE-OX. PT SP02 94% WITH 02 @ 2L/M VIA NC. PT LOUDLY YELLING OUT FOR MORE OXYGEN. PT STATES "IF YOU'RE NOT GOING TO GIVE ME MORE OXYGEN JUST LET ME " AND PT REMOVES NASAL CANNULA. EDUCATION PROVIDED TO PT REGARDING APPROPRIATE OXYGEN NEEDS AND IMPORTANCE OF CARDIAC MONITORING. PT REFUSES TO ALLOW OXYGEN OR MONITORS TO BE RE-APPLIED. PT WISHES FOR OXYGEN TO BE TURNED "ALL THE WAY UP". EDUCATION PROVIDED REGARDING PRESCRIBED MEDICATIONS, PT REFUSES MEDICATION. PT ADVISED TO LET NURSE KNOW WHEN HE WAS PREPARED TO ALLOW TREATMENT IF HE CHOOSES TO CONTINUE WITH TREATMENT. CALL KAUR WITHIN REACH. DR. MCGINNIS AWARE OF PT'S REFUSAL.
--- NOTE | 2022-04-20 05:52 | NUR ---
DR. MCGINNIS AT BEDSIDE.
--- NOTE | 2022-04-20 05:57 | NUR ---
OFFERED TO REAPPLY O2 AND BLOOD COORDINATOR AND ADMINISTER ORDERED MEDICATIONS. PT REFUSING AT THIS TIME. WILL CON'T WITH FREQ VISUAL MONITORING SINCE PT WILL NOT ALLOW HEMODYNAMIC MONITORING. PT SITTING AT END OF STRETCHER WITH BLANKET PULLED OVER HIS HEAD.
[2022-04-20 06:03] LABS: TOTAL PROTEIN 7.1 g/dL (6.3-8.2)
[2022-04-20 06:06] LABS: BILIRUBIN, TOTAL 0.5 mg/dL (0.0-1.4)
--- NOTE | 2022-04-20 06:14 | NUR ---
Vivian CROFT RN, AND STAGE BUILDER TO ROOM TO REINFORCE EDUCATION REGARDING PRESCRIBED MEDICATIONS AND HEMODYNAMIC MONITORING. PT AGREES TO REAPPLY MONITOR, 02 AND TAKE MEDICATIONS. 02 REAPPLIED. MONITOR REAPPLIED. MEDICATION ADMINISTERED, SEE E-MAR.
--- NOTE | 2022-04-20 06:26 | NUR ---
PT PULLS OUT IV, PULLS OFF CHARGE WEIGHER AND PULSE-OX. SITTING UP ON STOOL. REFUSES TO ALLOW MONITORING OR GET BACK ON STRETCHER. REFUSING IV RE-INSERTION.
--- NOTE | 2022-04-20 07:10 | NUR ---
Reassessment of patient completed. No distress noted. ASSUMED CARE OF PATIENT AND RECEIVED BEDSIDE REPORT FROM RN.
--- NOTE | 2022-04-20 07:55 | NUR ---
PATIENT TRANSPORTED VIA WHEELCHAIR WITH MEAL TRAY AND BELONGINGS TO DIALYSIS ROOM 286. BEDSIDE REPORT GIVEN. PATIENT IN NAD.
--- NOTE | 2022-04-20 08:01 | NUR ---
MANUEL WITH EMERGENT RADIOLOGY CALLED WITH RESULTS STATING POSSIBLE ACUTE RIGHT RIB FRACTURE AND FOCAL ILEUS VERSUS SMALL BOWEL OBSTRUCTION. CALLED THESE RESULTS TO ARAVIND IN DIALYSIS WHO IS IN CARE OF THE PATIENT. ARAVIND STATED SHE WOULD NOTIFY THE PHYSICIAN.
[2022-04-20 10:41] VITALS: BP 214/129
[2022-04-20 11:26] VITALS: BP 201/133
--- NOTE | 2022-04-20 11:42 | NUR ---
Patient admitted for dialysis. Cathater to [facility] chest clean dry intact, drsg changed no evidence of infection noted.to remove 4800 mls fluid via dialysis machine. No evidence of hypotension this shift B/P 201/133 , B/P meds given per orders. No reactions to treatment noted.elevated heart rate however regular rate and rhythm. Consents signed with . orders verifiedStarting weight 81.6 kg. V/S elevated 191/143, Temp 98.4, respiration at 20. Conductivity and PH noted and documented. Patient eating breakfast tray at present.
--- NOTE | 2022-04-20 13:52 | NUR ---
patient dialysis completed, blood returned, patient tolerated treatment without incident, inded 13:42 rremoved 4798.9 mls fluid V/S remained high throughouttreatment. No EPOGEN give due to elevated B/P No Heparin given not clotting of dialysis lines or cathater. Patient transported via W/C to room for more testing and procedures vis Md. rios
--- NOTE | 2022-04-20 14:10 | NUR ---
Patient decides to leave AMA. Multiple attempts made to ecourage patient to remain here for continued treatment. Explained to patient all risks of leaving against medical advice including . Pt verbalized understanding of all risks. Pt also encouraged to return to [facility] at any time, especially if symptoms continue or become worse. Pt verbalized understanding.PATIENT LEFT AT 1358
== END 2022-04-20 13:58 | disposition left against medical advice (07) ==
LOC: ED 04:55 → MS2 07:06
PROVIDERS: Family Medicine; ADMIT Internal Medicine; ATTEND Internal Medicine
DX: I12.0 Hypertensive chronic kidney disease with stage 5 chronic kidney disease or end stage renal disease (principal); N18.6 End stage renal disease; Z99.2 Dependence on renal dialysis; I16.0 Hypertensive urgency; R10.11 Right upper quadrant pain; F10.10 Alcohol abuse, uncomplicated; F17.200 Nicotine dependence, unspecified, uncomplicated; T50.916A Underdosing of multiple unspecified drugs, medicaments and biological substances, initial encounter; Z91.128 Patient's intentional underdosing of medication regimen for other reason; Z20.822 Contact with and (suspected) exposure to COVID-19; D63.1 Anemia in chronic kidney disease; N25.81 Secondary hyperparathyroidism of renal origin; E87.5 Hyperkalemia; E87.2 Acidosis
CPT/HCPCS: G0378; Q5106 EC; S0164

== ENCOUNTER 2022-04-22 07:06 | Emergency (ER) | payer MEDICAID ==
[2022-04-22] VITALS (24 sets, daily range): BP systolic 146–235; BP diastolic 116–154
[~2022-04-22] VITALS: Ht 170.2 cm; Wt 80.4 kg
[~2022-04-22 07:06] MED LIST changes: +FAMOTIDINE20 M1 PO
[2022-04-22 08:04] LABS: HEMATOCRIT 22.6 % (39.0-50.0); IMMATURE GRANULOCYTES 0.3 % (0.0-5.0); MEAN CELL VOLUME 99.1 fL CALC (80.0-100.0); MEAN CORPUSCULAR HGB 30.3 pG CALC (26.0-32.0); MEAN CORPUSCULAR HGB CONC 30.5 g/dL CAL (32.0-36.0); NEUT# 14.16 thou/uL (1.82-7.42); RED BLOOD COUNT 2.28 mill/uL (4.70-6.10); RED CELL DISTRI WIDTH 15.5 % (11.5-15.5)
[2022-04-22 08:11] LABS: HEMOGLOBIN 6.9 g/dl (14.0-18.0)
[2022-04-22 08:27] LABS: ALBUMIN 4.4 g/dL (3.2-5.0); BILIRUBIN, TOTAL 0.6 mg/dL (0.0-1.4); TOTAL PROTEIN 7.6 g/dL (6.3-8.2)
[2022-04-22 08:30] LABS: CREATININE 8.8 mg/dL (0.7-1.3); POTASSIUM 5.6 mmol/l (3.5-5.1)
== END 2022-04-22 11:06 ==
LOC: ED 07:06 → ED-I 08:26 → ED 11:06
PROVIDERS: Family Medicine
DX: J18.9 Pneumonia, unspecified organism (principal); I16.1 Hypertensive emergency; D64.9 Anemia, unspecified; I12.0 Hypertensive chronic kidney disease with stage 5 chronic kidney disease or end stage renal disease; N18.6 End stage renal disease; Z99.2 Dependence on renal dialysis; F17.200 Nicotine dependence, unspecified, uncomplicated; Z20.822 Contact with and (suspected) exposure to COVID-19
CPT/HCPCS: Q5106 EC

== ENCOUNTER 2022-04-24 08:38 | Observation (INO) | payer MEDICAID ==
[~2022-04-24] VITALS: Ht 170.2 cm; Wt 82.0 kg
--- NOTE | 2022-04-24 08:45 | NUR ---
PT TO ROOM VIA WC
[2022-04-24 08:50] VITALS: BP 178/126
[2022-04-24 09:24] LABS: HEMATOCRIT 22.8 % (39.0-50.0); HEMOGLOBIN 7.3 g/dl (14.0-18.0); IMMATURE GRANULOCYTES 0.2 % (0.0-5.0); MEAN CELL VOLUME 95.8 fL CALC (80.0-100.0); MEAN CORPUSCULAR HGB 30.7 pG CALC (26.0-32.0); NEUT# 6.71 thou/uL (1.82-7.42); RED BLOOD COUNT 2.38 mill/uL (4.70-6.10); RED CELL DISTRI WIDTH 15.2 % (11.5-15.5)
[2022-04-24] MEDS ORDERED: CITRATE OF MEGNESIA PO (09:40)
[2022-04-24] MEDS ORDERED: FAMOTIDINE20 M1 PO (09:40)
[2022-04-24] MEDS ORDERED: AMLODIPINE BESY10 MG PO (09:40)
[2022-04-24] MEDS ORDERED: LASIX 80 MG TAB80 MG PO (09:40)
[2022-04-24] MEDS ORDERED: PROAIR HFA108 MCG/AC PO (09:40)
[2022-04-24] MEDS ORDERED: ISOSORB MONO30 MG PO (09:40)
[2022-04-24] MEDS ORDERED: ASPIRIN81 MG PO (09:40)
[2022-04-24] MEDS ORDERED: VENTOLIN HFA108 MCG IN (09:40)
[2022-04-24] MEDS ORDERED: TRANDATE300 MG PO (09:40)
[2022-04-24] MEDS ORDERED: ATORVASTATIN CA40 MG PO (09:40)
--- NOTE | 2022-04-24 09:45 | NUR ---
PT AMBULATES TO BATHROOM.
[2022-04-24 10:03] LABS: ALBUMIN 3.8 g/dL (3.2-5.0); BILIRUBIN, TOTAL 0.4 mg/dL (0.0-1.4); TOTAL PROTEIN 6.5 g/dL (6.3-8.2)
[2022-04-24 10:04] LABS: CREATININE 8.1 mg/dL (0.7-1.3); POTASSIUM 5.2 mmol/l (3.5-5.1)
--- NOTE | 2022-04-24 10:30 | NUR ---
Reassessment of patient completed. No distress noted. patient educated on FLUID INTAKE BUT HAS BEEN NON-COMPLIENT. PATIENT STATES THAT WHEN HE LAYS FLAT HE IS SHORT OF BREATH. BUT NO DISTRESS AT THIS TIME
--- NOTE | 2022-04-24 10:45 | NUR ---
Reassessment of patient completed. No distress noted.
--- NOTE | 2022-04-24 11:46 | NUR ---
11:00 patient arrived to room via W/C. B/P initiated. Accessed dialysis cathater without incident. Changed dialysis cathater dressing. patient tolerated without incident. Dialysis initiated 11:14. patient SOB, EDEMA TO RIGHT ARM AND HAND, AND BI LAT LOWER EXTREMITY. O2 N/C FOR SOB. B/P STANDING 205/131 SITTING 211/126. RESPIRATIONS AT 20 LABORED O2 SATS 99%. PULSE 98. TEMP 98.0. NO EVIDENCE OF SEIZURE ACTIVITY, CONSENTS SIGNED,DRSG CHANGED. PATIENT CONSTANTLY MOVING AND ITCHING.
--- NOTE | 2022-04-24 12:16 | NUR ---
PATIENT EATING FOOD FROM OUTSIDE, FAST FOOD, NO EVIDENCE OF SOB NOTED WHILE EATING.
[2022-04-24 12:19] VITALS: BP 112/71
[2022-04-24 13:27] VITALS: BP 210/148
--- NOTE | 2022-04-24 14:47 | NUR ---
patient tolerating dialysis treatment without incident. talking on phone cathater lines intact, secure and visable, B/P meds given for elevated B/P half way into treatment. patient spitting in trash, blowing nose in hands, when asked to stop patient refused.
--- NOTE | 2022-04-24 15:43 | NUR ---
153 DIALYSIS TREATMENT COMPLETE BLOOD RETURNED, PATIENT TOLERATED TREATMENT WITHOUT INCIDENT REMOVED 5 L'S, PRESSURES REMAINED HIGH THROUGHOUT TREATMENT EVEN AFTER B/P MEDS GIVEN. NO EPOGEN OR HEPARIN GIVEN THIS TREATMENT. NO EPISODES OF HYPOTENSION, SEIZURES, CLOTTING, OR ADVERSE REACTIONS TO DIALYSIS NOTED THIS TREATMENT. CATHATER DRSG CHANGED START WEIGHT 84 KG STOP WEIGHT 79.4 KG TEMP 99.1 PATIENT BREATHING BETTER UPON COMPLETION OF TREATMENT. NO ISSUES THROUGHOUT TREATMENT.
== END 2022-04-24 15:32 | disposition left against medical advice (07) ==
LOC: ED 08:38 → ED-I 09:20 → ED 10:11 → MS2 10:12
PROVIDERS: Family Medicine; ADMIT Internal Medicine; ATTEND Internal Medicine
DX: I12.0 Hypertensive chronic kidney disease with stage 5 chronic kidney disease or end stage renal disease (principal); N18.6 End stage renal disease; I16.0 Hypertensive urgency; Z99.2 Dependence on renal dialysis; D63.1 Anemia in chronic kidney disease; N25.81 Secondary hyperparathyroidism of renal origin; E87.5 Hyperkalemia; E87.2 Acidosis; F10.10 Alcohol abuse, uncomplicated; F17.210 Nicotine dependence, cigarettes, uncomplicated; T50.916A Underdosing of multiple unspecified drugs, medicaments and biological substances, initial encounter; Z91.128 Patient's intentional underdosing of medication regimen for other reason
CPT/HCPCS: G0378; J1644

== ENCOUNTER 2022-04-25 21:16 | Inpatient (IN) | payer MEDICAID ==
[~2022-04-25] VITALS: Ht 170.2 cm; Wt 86.0 kg
--- NOTE | 2022-04-25 21:20 | NUR ---
PT TRANSFERRED TO ROOM 15 FROM EMS STRETCHER, LAURA NOTED, A&OX3
--- NOTE | 2022-04-25 21:32 | NUR ---
PT PLACED ON ROOM AIR. ABG COMPLETED. RESP EASY.
[2022-04-25 21:51] LABS: IMMATURE GRANULOCYTES 0.3 % (0.0-5.0); MEAN CELL VOLUME 96.9 fL CALC (80.0-100.0); MEAN CORPUSCULAR HGB 30.9 pG CALC (26.0-32.0); MEAN CORPUSCULAR HGB CONC 31.9 g/dL CAL (32.0-36.0); NEUT# 6.6 thou/uL (1.82-7.42); RED BLOOD COUNT 1.94 mill/uL (4.70-6.10); RED CELL DISTRI WIDTH 15.5 % (11.5-15.5)
[2022-04-25 21:56] LABS: HEMATOCRIT 18.8 % (39.0-50.0)
[2022-04-25 22:00] LABS: ALBUMIN 3.7 g/dL (3.2-5.0); BILIRUBIN, TOTAL 0.3 mg/dL (0.0-1.4); POTASSIUM 4.6 mmol/l (3.5-5.1); TOTAL PROTEIN 6.5 g/dL (6.3-8.2)
[2022-04-25 22:06] LABS: CREATININE 6.8 mg/dL (0.7-1.3)
--- NOTE | 2022-04-25 22:21 | NUR ---
O2 SAT DECREASED TO 83% WHILE ASLEEP. PT AROUSED. SAT INCREASED TO 88%. O2 VIA NC PLACED AT 2L. PT STATES, "I WANT THE MASK." EXPAINED TO PATIENT THAT NC IS NEEDED AT THIS TIME AND WILL MONITOR O2 SATURATION. O2 BY MASK WILL BE PLACED IF NEEDED. PT RIPPED THE NC OFF OF HIS FACE. RIPPED BP CUFF OFF HIS ARM. PT STATES, "I'M CALLING MY FAMILY TO TAKE ME TO A DIFFERENT HOSPITAL." PT ENCOURAGED TO REMAIN IN ED FOR OXYGEN AND TREATMENT/DIAGNOSTIC TESTS ORDERED BY PHYSICIAN FOR ELEVATED BP AND LOW 02 SAT. PT STATTES, "I'M LEAVING. PHYSICIAN AND CHARGE NURSE NOTIFIED.
--- NOTE | 2022-04-25 22:30 | NUR ---
PT SITTING ON STRETCHER. CONTINUES TO REFUSE BP MONITORING. PT OOB AT THIS TIME, REPORTS HE IS GOING TO THE BATHROOM. BEDSIDE COMMODE OFFERED. PT REFUSED.
--- NOTE | 2022-04-25 22:33 | NUR ---
RPT GIVEN TO LUDMILA FREITAS, PT CARE RELINQUISHED AT THIS TIME
--- NOTE | 2022-04-25 22:45 | NUR ---
PT RETURNED TO ROOM 15 VIA AMBULATORY. FRIEND AT BEDSIDE. PT SOB/STATES HAVING PAIN. SWELLING IN LEGS. FRIEND WANTED TO KNOW WHAT WE ARE GOING TO DO ABOUT THAT. ADVISED THAT PT NEEDS TO LET US TREAT HIM...AND NOT REMOVING EQUIP AND O2. ADVISED THAT PT DOES NOT COOPERATE.
[2022-04-26] VITALS (43 sets, daily range): BP systolic 126–183; BP diastolic 78–134
--- NOTE | 2022-04-26 01:13 | NUR ---
PT AGREES WITH PLAN FOR ADMISSION TO ICU. FRIEND AT BEDSIDE.
--- NOTE | 2022-04-26 01:37 | NUR ---
PT BEING TRANSPORTED TO ICU ACCOMPANIED BY NURSE. BP IMPROVED. FREQUENT MONITORING IN PROGRESS.
--- NOTE | 2022-04-26 01:45 | NUR ---
PT ARRIVED TO ICU BED 3 VIA STRETCHER FROM ER ACCOMPANIED BY NURSE. PT SITTING HIGH FOWLERS IN STRETCHER. PT UP TO BED PER SELF PT C/O SOB ON EXERTION. 02 2L NC SPO2 95%. PT C/O GENERALIZED PAIN AND BEING COLD, BLANKETS PROVIDED. CONNECTED PT TO MONITOR, ORIENTED PT TO ROOM AND CALL LIGHT. BED IN LOW POSITIONED, SIDE RAILS X2, CALL LIGHT IN REACH, CONTINUE TO MONITOR.
--- NOTE | 2022-04-26 01:48 | NUR ---
Admission Note Report Given to: ALEXIS Transported by: Wheelchair X Stretcher Transported with: X Nurse Transporter X Patent IV X O2 X Second Ride Fare Collector Location: X ICU MS2 LETY, ZENA AND SERENE, REGULATORY SPECIALIST IN ICU - INSTRUCTED TO GIVE REPORT TO DAMARIS ESPINOZA.
--- NOTE | 2022-04-26 01:48 | NUR ---
PT TRANSPORTED TO ICU. PEPORT GIVEN DAMARIS ESPINOZA INSTRUCTED BY ZENA DAVIDSON IN ICU.
--- NOTE | 2022-04-26 02:15 | NUR ---
REPORT GIVEN TO ZENA GLORIA
--- NOTE | 2022-04-26 02:38 | NUR ---
TRANSFUSION PRBC INITIATED AT THIS TIME WITH Tarik MCKEON RN.
--- NOTE | 2022-04-26 03:00 | NUR ---
PT THRASING ARMS AND ROLLING ABOUT IN BED, CONTINUES TO REMOVE MONITOR AND NIBP CUFF. PT ENCOURAGED TO KEEP CUFF AND MONITOR ON AND KEEP ARMS AT REST TO HELP PRESERVE IV SITE. PT REQUESTS WARM BLANKET, EXTRA TAPE ON IV, AND SLEEPING PILL. WARM BLANKET PROVIDED. IV SITE REINFORCED WITH COBAN. ORDER FOR ATIVAN PO RECEIVED.
--- NOTE | 2022-04-26 03:30 | NUR ---
CALL RECEIVED FROM DR. IZAGUIRRE, ORDER RECEIVED TO CONSULT DR. FLORES. LASIX 60MG IV X1, REPEAT PCXR IN AM. HOLD SECOND UNIT PRBC UNTIL REPEAT PCXR EVALUATED BY PHYSICIAN.
--- NOTE | 2022-04-26 03:52 | NUR ---
PT'S IV SITE BEGINS TO LEAK. TRANSFUSION HELD. PT REFUSES NEW IV ATTEMPT. BLAMES THIS NURSE FOR BLOOD LEAKING ONTO HIS SHORTS. PT WILL NOT ALLOW THIS NURSE TO TREAT HIM AT THIS TIME. AGREES FOR ANOTHER NURSE. Kelly NORTH LPN IN ROOM TO D/C IV. IV SITE FOUND WITH CATHETER DISCONNECTED. LIKELY FROM PT'S THRASHING AROUND. NEW SITE INSERTED BY Kelly NORTH LPN TO R-AC 20G X 1 ATTEMPT. Tarik ABRAMS RN REAL ESTATE REPRESENTATIVE CALLED INTO ROOM. PT STATES HE "DOESN'T WANT THAT (POINTS AT THIS NURSE) IN HERE ANYMORE", THIS NURSE REMOVES SELF FROM PT'S CARE AT THIS TIME. Kelly NORTH LPN ASSIGNED TO CARE AT THIS TIME. PT IS AGREEABLE TO CHANGE IN AU PAIR. TRANSFUSION RESUMED.
--- NOTE | 2022-04-26 04:00 | NUR ---
ASSUMED CARE OF PATIENT, PT IS NOW RESTING IN BED WITH EYES CLOSED, CALL LIGHT IN REACH,CONTINUE TO MONITOR.
--- NOTE | 2022-04-26 04:27 | NUR ---
BLOOD TRANFUSION COMPLETED, TRAPEZE PERFORMER AT BEDSIDE, SL IV TO RAC, PT STATES HE WANTS A MASK INSTEAD OF O2 NC, INFORMED PT THAT HIS 02 SATURATION IS BETTER NO NC THAN THE MASK. PT STATES HE HAS BEEN DOING THIS FOR YEARS AND KNOWS WHAT HE NEEDS. RT AT BEDSIDE PT PLACED ON 30% VENTI MASK. WARM BLANKETS PROVIDED, CALL LIGHT IN REACH, CONTINUE TO MONITOR.
--- NOTE | 2022-04-26 04:30 | NUR ---
PT BP REMAINS ELEVATED, NURSING WEIGHER BULKER CALLED MD AND RECEIVED NEW ORDERS.
--- NOTE | 2022-04-26 05:04 | NUR ---
PATIENT B/P REMAIN ELEVATED. CARDENE DRIP STARTED PER ORDERED.
--- NOTE | 2022-04-26 05:42 | NUR ---
PT RESTLESS STATES HE CANT BREATHE, INFORMED PT THAT HIS SATURATION IS BETTER ON NC, PT NICARDIPINE INFUSING AT 7.5 MG/HR AT THIS TIME. BP DECREASING BUT 02 SATURATION DROPPING INTO 88% EVEN AFTER CHANGED TO NC, ENCOURAGED PT TO BREATHE THROUGH HIS NOSE NOT HIS MOUTH. TITRATED O2 UP TO 4L NC, INCREASED TO 92%. CALL LIGHT IN REACH,CONTINUE TO MONITOR.
--- NOTE | 2022-04-26 06:14 | NUR ---
Vivian MEJIA CPT IN ROOM COLLECTING BLOOD WITH ASSIST FROM Kelly NORTH LPN. PT SWUNG ARM AWAY AFTER 2 PRIOR ATTEMPTS BY. Vivian MEJIA CPT.
[2022-04-26 06:59] LABS: IMMATURE GRANULOCYTES 0.3 % (0.0-5.0); MEAN CELL VOLUME 93.2 fL CALC (80.0-100.0); MEAN CORPUSCULAR HGB 30.5 pG CALC (26.0-32.0); MEAN CORPUSCULAR HGB CONC 32.7 g/dL CAL (32.0-36.0); NEUT# 9.17 thou/uL (1.82-7.42); RED BLOOD COUNT 2.79 mill/uL (4.70-6.10); RED CELL DISTRI WIDTH 15.3 % (11.5-15.5)
[2022-04-26 07:00] LABS: HEMOGLOBIN 8.5 g/dl (14.0-18.0)
--- NOTE | 2022-04-26 07:15 | NUR ---
PATIENT IS SLEEPING, MOANS WHEN TRYING TO WAKE UP HIM UP, 3L 02NC. WARM/DRY SKIN. DIMINSHED LUNG SOUNDS, ACTIVE BOWEL SOUNDS. TRACED EDEMA BUE AND BLE, STRONG PULSES. SAFETY MEASURES IN PLACE, CALL LIGHT IN REACH. WILL CONTINUE TO MONITOR PER HOSPITAL'S POLICY.
--- NOTE | 2022-04-26 07:32 | NUR ---
DR. FLORES STATED HE DOESNT WANT THE 2ND UNIT OF BLOOD, STATED TO D/C 2ND BAG OF BLOOD. STATED TO KEEP HIM STABLE, HE WILL GET DIALYSIS TOMORROW.
--- NOTE | 2022-04-26 07:37 | NUR ---
INFORMED JORGE IN LAB THAT WE NO LONGER NEED 2ND RBC FOR THIS PATIENT.
[2022-04-26 08:08] LABS: ALBUMIN 3.9 g/dL (3.2-5.0); POTASSIUM 4.9 mmol/l (3.5-5.1)
--- NOTE | 2022-04-26 08:30 | NUR ---
PATIENT SITTING UP IN BED, REQUESTING DIALYSIS, EXPLAINED TO HIM TOMORROW, HE SAID NO TODAY, INFORMED HIM PER HIS DIALYSIS DOCTOR IT WILL BE TOMORROW, HE SEEMED UPSET. BREAKFAST TRAY AT BEDSIDE.
[2022-04-26 08:39] LABS: CREATININE 7.6 mg/dL (0.7-1.3)
--- NOTE | 2022-04-26 08:39 | NUR ---
MARY FROM LAB CALLED CREATINE 7.6, WILL NOTIFY DOCTOR.
--- NOTE | 2022-04-26 11:00 | NUR ---
patient ripped out iv, refused to get new iv placed. education was given, requested ama forms, called his friend to pick him up.
--- NOTE | 2022-04-26 11:13 | NUR ---
requested ama forms, education was given, patient refuses to stay, requested ama forms again, per request gave him ama form, patient signed and stated he understood he wants to leave now.
--- NOTE | 2022-04-26 11:20 | NUR ---
patient in wheelchair, sitting on curb out front of the er waiting for his friend to come.
== END 2022-04-26 11:15 | disposition left against medical advice (07) | DRG 291 ==
LOC: ED 21:16 → ED-I 22:50 → ED 04-26 00:24 → ICU 04-26 00:25
PROVIDERS: Internal Medicine Nephrology; ADMIT Emergency Medicine; ATTEND Internal Medicine
PROC: 30233N1 Transfusion of Nonautologous Red Blood Cells into Peripheral Vein, Percutaneous Approach (ICD-10-PCS; principal; 2022-04-26)
DX: I13.2 Hypertensive heart and chronic kidney disease with heart failure and with stage 5 chronic kidney disease, or end stage renal disease (principal); I50.31 Acute diastolic (congestive) heart failure; N18.6 End stage renal disease; E87.1 Hypo-osmolality and hyponatremia; I16.0 Hypertensive urgency; D63.1 Anemia in chronic kidney disease; Z99.2 Dependence on renal dialysis; F10.10 Alcohol abuse, uncomplicated; F17.200 Nicotine dependence, unspecified, uncomplicated; T50.916A Underdosing of multiple unspecified drugs, medicaments and biological substances, initial encounter; Z91.128 Patient's intentional underdosing of medication regimen for other reason; Z20.822 Contact with and (suspected) exposure to COVID-19
CPT/HCPCS: P9016

== ENCOUNTER 2022-05-09 04:32 | Emergency (ER) | payer MEDICAID ==
[~2022-05-09] VITALS: Ht 170.2 cm; Wt 77.0 kg
[2022-05-09] VITALS (38 sets, daily range): BP systolic 155–191; BP diastolic 95–131
[2022-05-09 05:25] LABS: HEMATOCRIT 29.8 % (39.0-50.0); HEMOGLOBIN 9.5 g/dl (14.0-18.0); IMMATURE GRANULOCYTES 3.3 % (0.0-5.0); MEAN CELL VOLUME 97.4 fL CALC (80.0-100.0); MEAN CORPUSCULAR HGB CONC 31.9 g/dL CAL (32.0-36.0); NEUT# 9.88 thou/uL (1.82-7.42); RED BLOOD COUNT 3.06 mill/uL (4.70-6.10); RED CELL DISTRI WIDTH 16.6 % (11.5-15.5)
[2022-05-09 05:48] LABS: ALBUMIN 3.9 g/dL (3.2-5.0); BILIRUBIN, TOTAL 0.3 mg/dL (0.0-1.4); POTASSIUM 4.1 mmol/l (3.5-5.1); TOTAL PROTEIN 6.9 g/dL (6.3-8.2)
[2022-05-14] MEDS ORDERED: LOPRESSOR25 M1 PO (13:11)
[2022-05-14] MEDS ORDERED: RENVELA800 MG PO (13:12)
[2022-05-14] MEDS ORDERED: AMOX/K CLAV875 M1 PO (13:13)
[2022-05-14] MEDS ORDERED: LASIX 80 MG TAB80 MG PO (13:14)
[2022-05-14] MEDS ORDERED: PERCOCET 5/325M1 TAB PO (13:14)
[2022-05-14] MEDS ORDERED: PROCARDIA XL60 MG PO (13:15)
[2022-05-14] MEDS ORDERED: PREDNISONE10 MG PO (13:17)
== END 2022-05-09 09:44 | disposition home or self-care (01) ==
LOC: ED 04:32
PROVIDERS: Emergency Medicine
DX: R07.9 Chest pain, unspecified (principal); H66.91 Otitis media, unspecified, right ear; I12.0 Hypertensive chronic kidney disease with stage 5 chronic kidney disease or end stage renal disease; N18.6 End stage renal disease; Z99.2 Dependence on renal dialysis; F19.10 Other psychoactive substance abuse, uncomplicated; F17.200 Nicotine dependence, unspecified, uncomplicated; Z20.822 Contact with and (suspected) exposure to COVID-19

== ENCOUNTER 2022-05-10 06:44 | Observation (INO) | payer MEDICAID ==
[~2022-05-10] VITALS: Ht 170.2 cm; Wt 81.0 kg
--- NOTE | 2022-05-10 07:00 | NUR ---
REPORT RECEIVED FROM ZENA VIVAR. PATIENT RESTING ON STRETCHER. REQUESTING CUP OF ICE
--- NOTE | 2022-05-10 07:00 | NUR ---
PT REFUSED IV STICK
--- NOTE | 2022-05-10 07:30 | NUR ---
PATIENT TO BATHROOM WITH STEADY GAIT.
[2022-05-10 07:36] LABS: HEMATOCRIT 27.8 % (39.0-50.0); HEMOGLOBIN 8.7 g/dl (14.0-18.0); IMMATURE GRANULOCYTES 3.5 % (0.0-5.0); MEAN CELL VOLUME 98.2 fL CALC (80.0-100.0); MEAN CORPUSCULAR HGB 30.7 pG CALC (26.0-32.0); MEAN CORPUSCULAR HGB CONC 31.3 g/dL CAL (32.0-36.0); NEUT# 9.17 thou/uL (1.82-7.42); RED BLOOD COUNT 2.83 mill/uL (4.70-6.10); RED CELL DISTRI WIDTH 16.9 % (11.5-15.5)
[2022-05-10 07:46] VITALS: BP 171/114
--- NOTE | 2022-05-10 07:48 | NUR ---
PATIENT REPORTS NOT TAKING MEDICATION DIRECTED DUE TO BEING ADMITTED.
[2022-05-10 08:00] LABS: POTASSIUM 4.7 mmol/l (3.5-5.1)
--- NOTE | 2022-05-10 08:11 | NUR ---
Admission Note Report Given to: ARELI Transported by: X Wheelchair Stretcher Transported with: X Nurse Transporter Patent IV O2 X Head Worker Location: ICU X MS2 DIALYSIS NURSE COMES TO ED FOR PATIENT. REPORT GIVEN, CARE RELINQUISHED
[2022-05-10 08:22] LABS: CREATININE 8.4 mg/dL (0.7-1.3)
--- NOTE | 2022-05-10 09:29 | NUR ---
DIALYSIS: PT RECEIVED ON ER, PT STABLE, ALERT, NO C/O'S, LUNGS CLEAR, CVC DRESSING C/I/D, PERIORBITAL EDEMA, HD TX CONSENT SIGNED, RT CVC DRESSING CHANGED, TEGOS PUT ON, BP HIGH, PT REFER DID NOT TAKE HIS MEDICATIONS IN THE MORNING, TX STARTED UNDER ASEPTIC TECHNIQUES. LABS REVIEWED, ORDERS GIVEN BY DR. LAURENT, PT EDUCATED ABOUT PROCEDURE, VERVALIZED UNDERSTANDING. DENIES ANY PAIN. BP 169/106, P 102, R 19, TEMP 98.2 MACHINE: [id number] CARTRIDGE LOT- [id number] PH- 7.4 COND. EXP.- 13.9 COND. ACT- 13.9
--- NOTE | 2022-05-10 11:58 | NUR ---
DIALYSIS: BLOOD RETURNED UNDER ASEPTIC TECHNIQUES, CVC CAPPED AND CLAMPPED, 700 ML REMOVED, PT STILL WITH HBP, EDUCATED ABOUT TAKE HIS BP MEDS, PT TRANSFERED TO ER ON WHEELCHAIR. PT SIGNED AN AMA. PT STABLE, ASYMPTHOMATIC, DENIES ANY PAIN.
--- NOTE | 2022-05-10 12:38 | NUR ---
Patient decides to leave AMA. Multiple attempts made to ecourage patient to remain here for continued treatment. Explained to patient all risks of leaving against medical advice including . Pt verbalized understanding of all risks. Pt also encouraged to return to [facility] at any time, especially if symptoms continue or become worse. Pt verbalized understanding.
[2022-05-14] MEDS ORDERED: LOPRESSOR25 M1 PO (13:11)
[2022-05-14] MEDS ORDERED: RENVELA800 MG PO (13:12)
[2022-05-14] MEDS ORDERED: AMOX/K CLAV875 M1 PO (13:13)
[2022-05-14] MEDS ORDERED: PERCOCET 5/325M1 TAB PO (13:14)
[2022-05-14] MEDS ORDERED: LASIX 80 MG TAB80 MG PO (13:14)
[2022-05-14] MEDS ORDERED: PROCARDIA XL60 MG PO (13:15)
[2022-05-14] MEDS ORDERED: PREDNISONE10 MG PO (13:17)
== END 2022-05-10 11:35 | disposition left against medical advice (07) ==
LOC: ED 06:44 → ED-I 07:40 → ED 07:52 → MS2 07:53
PROVIDERS: Family Medicine; ADMIT Internal Medicine; ATTEND Internal Medicine
DX: I12.0 Hypertensive chronic kidney disease with stage 5 chronic kidney disease or end stage renal disease (principal); N18.6 End stage renal disease; Z99.2 Dependence on renal dialysis; F10.10 Alcohol abuse, uncomplicated; D63.1 Anemia in chronic kidney disease; N25.81 Secondary hyperparathyroidism of renal origin; E87.5 Hyperkalemia; E87.2 Acidosis; F17.200 Nicotine dependence, unspecified, uncomplicated; Z86.74 Personal history of sudden cardiac arrest
CPT/HCPCS: G0378

== ENCOUNTER 2022-05-12 02:41 | Observation (INO) | payer MEDICAID ==
[~2022-05-12] VITALS: Ht 170.2 cm; Wt 80.0 kg
[2022-05-12] VITALS (16 sets, daily range): BP systolic 159–216; BP diastolic 115–154
--- NOTE | 2022-05-12 02:50 | NUR ---
RECEIVED PT FROM EMS IN ROOM 15. NO DISTRESS. PT REFUSED BEDSIDE PRE ASSEMBLY WIRER.
[2022-05-12 03:24] LABS: HEMATOCRIT 26.8 % (39.0-50.0); HEMOGLOBIN 8.6 g/dl (14.0-18.0); IMMATURE GRANULOCYTES 1.8 % (0.0-5.0); MEAN CELL VOLUME 96.4 fL CALC (80.0-100.0); MEAN CORPUSCULAR HGB 30.9 pG CALC (26.0-32.0); MEAN CORPUSCULAR HGB CONC 32.1 g/dL CAL (32.0-36.0); NEUT# 10.51 thou/uL (1.82-7.42); RED BLOOD COUNT 2.78 mill/uL (4.70-6.10); RED CELL DISTRI WIDTH 16.7 % (11.5-15.5)
[2022-05-12 03:43] LABS: ALBUMIN 3.9 g/dL (3.2-5.0); BILIRUBIN, TOTAL 0.3 mg/dL (0.0-1.4); POTASSIUM 4.8 mmol/l (3.5-5.1); TOTAL PROTEIN 6.5 g/dL (6.3-8.2)
--- NOTE | 2022-05-12 04:00 | NUR ---
DR. IZAGUIRRE INFORMED OF BP 169/144. NO NEW ORDER AT THIS TIME. PER PHYSICIAN. PT IN NEED OF DIALYSIS. WILL CONINUE WITH PLAN OF CARE.
--- NOTE | 2022-05-12 04:22 | NUR ---
PT FREQUENTLY REMOVES BP CUFF.
--- NOTE | 2022-05-12 04:39 | NUR ---
PT C/O L RIB PAIN AND REQUESTS PAIN MEDICINE. PHYICIAN NOTIFIED.
--- NOTE | 2022-05-12 04:54 | NUR ---
PT REFUSES IV START FOR PAIN MEDICINE AND FOR BP MEDICINE. PT STATES, "NO IV. I DON'T WANT NO IV. I ONLY WANT DIALYSIS."
--- NOTE | 2022-05-12 07:09 | NUR ---
REPORT GIVEN TO ZENA HERNANDEZ
--- NOTE | 2022-05-12 07:46 | NUR ---
PATIENT DEPARTED ED VIA WHEELCHAIR TO ROOM 286 MED SURG/DIALYSIS ON TELE.
--- NOTE | 2022-05-12 08:43 | NUR ---
DIALYSIS: PT RECEIVED IN WHEELCHAIR FROM ER WITH RN, PT STABLE, ALERT, C/O OF SOB, PT WITH GENERALIZED EDEMA, HD TX CONSENT SIGNED, CVC DRESSING C/I/D, BP HIGH, PT EDUCATED ABOUT PROCEDURE, HOW IMPORTANT IS TAKE HIS MEDICATIONS, AND FLUIDS RESTRICTIONS. TX STARTED UNDER ASEPTIC TECHNIQUES, TARGET SET TO 5 LTS RANDELL. BP- 193/128, P-104, R-20, TEMP-97.5, DENIES ANY PAIN. ORDERS RECEIVED BY DR. LAURENT. [id number] CARTRIDGE [id number] PH-7.0 COND. ACT.-13.9 COND EXP.-13.9 WATER TEMP- 78.8
--- NOTE | 2022-05-12 09:03 | NUR ---
DIALYSIS CONT: LUNGS EXP. WHEEZINGS BILAT
--- NOTE | 2022-05-12 12:20 | NUR ---
Patient decides to leave AMA. Multiple attempts made to ecourage patient to remain here for continued treatment. Explained to patient all risks of leaving against medical advice including . Pt verbalized understanding of all risks. Pt also encouraged to return to [facility] at any time, especially if symptoms continue or become worse. Pt verbalized understanding.
--- NOTE | 2022-05-12 12:20 | NUR ---
Patient decides to leave AMA. Multiple attempts made to ecourage patient to remain here for continued treatment. Explained to patient all risks of leaving against medical advice including . Pt verbalized understanding of all risks. Pt also encouraged to return to [facility] at any time, especially if symptoms continue or become worse. Pt verbalized understanding.Patient left at 1220
--- NOTE | 2022-05-12 12:38 | NUR ---
DIALYSIS POST: BLOOD RETURNED UNDER ASEPTIC TECHNIQUES, CVC CAPPED AND CLAMPPED, 5 LTS REMOVED W/O PROBLEMS, CVC LOCKED WITH HEPARIN 1,000 UNITS, 2.1 ML EACH PORT. BP STILL HIGH, PT EDUCATED TO TAKER HIS BP MEDS. PT SIGNED AMA. PT LEFT FROM THE UNIT ON WHEELCHAIR WITH VOLUNTEER. BP-179/110, P-96, R-20, TEMP 98.4, DENIES ANY PAIN, LUNGS CLEAR, DRESSING CHANGED PER PT REQUEST.
[2022-05-14] MEDS ORDERED: LOPRESSOR25 M1 PO (13:11)
[2022-05-14] MEDS ORDERED: RENVELA800 MG PO (13:12)
[2022-05-14] MEDS ORDERED: AMOX/K CLAV875 M1 PO (13:13)
[2022-05-14] MEDS ORDERED: PERCOCET 5/325M1 TAB PO (13:14)
[2022-05-14] MEDS ORDERED: LASIX 80 MG TAB80 MG PO (13:14)
[2022-05-14] MEDS ORDERED: PROCARDIA XL60 MG PO (13:15)
[2022-05-14] MEDS ORDERED: PREDNISONE10 MG PO (13:17)
== END 2022-05-12 12:20 | disposition left against medical advice (07) ==
LOC: ED 02:41 → ED-I 06:30 → ED 06:45 → MS2 06:46
PROVIDERS: Emergency Medicine; ADMIT Internal Medicine; ATTEND Internal Medicine
DX: I12.0 Hypertensive chronic kidney disease with stage 5 chronic kidney disease or end stage renal disease (principal); N18.6 End stage renal disease; Z99.2 Dependence on renal dialysis; D63.1 Anemia in chronic kidney disease; N25.81 Secondary hyperparathyroidism of renal origin; E87.5 Hyperkalemia; E87.2 Acidosis; F10.10 Alcohol abuse, uncomplicated; F17.200 Nicotine dependence, unspecified, uncomplicated; T50.916A Underdosing of multiple unspecified drugs, medicaments and biological substances, initial encounter; Z91.128 Patient's intentional underdosing of medication regimen for other reason
CPT/HCPCS: G0378; J1644

== ENCOUNTER 2022-05-21 07:12 | Emergency (ER) | payer MEDICAID ==
[~2022-05-21] VITALS: Ht 170.2 cm; Wt 84.8 kg
[~2022-05-21 07:12] MED LIST changes: +AMOX/K CLAV875 M1 PO; +LOPRESSOR25 M1 PO; +PERCOCET 5/325M1 TAB PO; +PREDNISONE10 MG PO; +PROCARDIA XL60 MG PO; +RENVELA800 MG PO
[2022-05-21 07:29] VITALS: BP 191/134
[2022-05-21 07:30] VITALS: BP 189/138
[2022-05-21 08:00] VITALS: BP 192/139
[2022-05-21 08:06] LABS: HEMATOCRIT 24.8 % (39.0-50.0); HEMOGLOBIN 7.9 g/dl (14.0-18.0); IMMATURE GRANULOCYTES 0.4 % (0.0-5.0); MEAN CELL VOLUME 95.8 fL CALC (80.0-100.0); MEAN CORPUSCULAR HGB 30.5 pG CALC (26.0-32.0); MEAN CORPUSCULAR HGB CONC 31.9 g/dL CAL (32.0-36.0); NEUT# 8.01 thou/uL (1.82-7.42); RED BLOOD COUNT 2.59 mill/uL (4.70-6.10); RED CELL DISTRI WIDTH 15.5 % (11.5-15.5)
[2022-05-21 08:50] LABS: ALBUMIN 4.3 g/dL (3.2-5.0); BILIRUBIN, TOTAL 0.4 mg/dL (0.0-1.4); TOTAL PROTEIN 7.5 g/dL (6.3-8.2)
[2022-05-21 08:58] LABS: CREATININE 10.3 mg/dL (0.7-1.3); POTASSIUM 4.7 mmol/l (3.5-5.1)
[2022-05-21 10:11] VITALS: BP 192/139
== END 2022-05-21 10:12 | disposition left against medical advice (07) ==
LOC: ED 07:12 → ED-I 08:30 → ED 09:10 → MS2 09:11 → ED 09:11
PROVIDERS: Emergency Medicine
DX: I12.0 Hypertensive chronic kidney disease with stage 5 chronic kidney disease or end stage renal disease (principal); N18.6 End stage renal disease; Z72.0 Tobacco use
CPT/HCPCS: Q5106 EC

== ENCOUNTER 2022-06-03 18:57 | Emergency (ER) | payer MEDICAID ==
[~2022-06-03] VITALS: Ht 170.2 cm; Wt 84.8 kg
[2022-06-03 19:45] VITALS: BP 119/83
[2022-06-03 20:00] VITALS: BP 119/84
== END 2022-06-03 20:50 | disposition left against medical advice (07) ==
LOC: ED 18:57
DX: A64 Unspecified sexually transmitted disease (principal); H57.89 Other specified disorders of eye and adnexa; H92.02 Otalgia, left ear; I12.0 Hypertensive chronic kidney disease with stage 5 chronic kidney disease or end stage renal disease; N18.6 End stage renal disease; F19.10 Other psychoactive substance abuse, uncomplicated; F17.200 Nicotine dependence, unspecified, uncomplicated; Z99.2 Dependence on renal dialysis; Z91.19 Patient's noncompliance with other medical treatment and regimen

== ENCOUNTER 2022-06-04 07:48 | Observation (INO) | payer MEDICAID ==
[2022-06-04] VITALS (25 sets, daily range): BP systolic 136–209; BP diastolic 88–164
[~2022-06-04] VITALS: Ht 170.2 cm; Wt 82.0 kg
[2022-06-04 08:08] LABS: HEMATOCRIT 25.2 % (39.0-50.0); HEMOGLOBIN 8.1 g/dl (14.0-18.0); IMMATURE GRANULOCYTES 0.4 % (0.0-5.0); MEAN CELL VOLUME 96.6 fL CALC (80.0-100.0); MEAN CORPUSCULAR HGB CONC 32.1 g/dL CAL (32.0-36.0); NEUT# 9.99 thou/uL (1.82-7.42); RED BLOOD COUNT 2.61 mill/uL (4.70-6.10); RED CELL DISTRI WIDTH 16.6 % (11.5-15.5)
[2022-06-04 08:17] LABS: BILIRUBIN, TOTAL 0.5 mg/dL (0.0-1.4); TOTAL PROTEIN 6.9 g/dL (6.3-8.2)
[2022-06-04 08:20] LABS: CREATININE 12.4 mg/dL (0.7-1.3); POTASSIUM 5.6 mmol/l (3.5-5.1)
[2022-06-05] VITALS (7 sets, daily range): BP systolic 132–180; BP diastolic 76–124
[2022-06-05 06:08] LABS: CHOLESTEROL HDL RATIO 2.5 (<4.4 (CALC)); MAGNESIUM 2.1 mg/dL (1.6-2.3)
[2022-06-05 07:22] LABS: CREATININE 7.6 mg/dL (0.7-1.3)
[2022-06-05 07:23] LABS: POTASSIUM 5.2 mmol/l (3.5-5.1)
== END 2022-06-05 10:20 | disposition left against medical advice (07) ==
LOC: ED 07:48 → ED-I 08:10 → ED 08:10 → ICU 08:59
PROVIDERS: Family Medicine; ADMIT Internal Medicine; ATTEND Internal Medicine
DX: I13.2 Hypertensive heart and chronic kidney disease with heart failure and with stage 5 chronic kidney disease, or end stage renal disease (principal); I16.0 Hypertensive urgency; N18.6 End stage renal disease; I50.22 Chronic systolic (congestive) heart failure; R79.89 Other specified abnormal findings of blood chemistry; Z99.2 Dependence on renal dialysis; F10.10 Alcohol abuse, uncomplicated; D63.1 Anemia in chronic kidney disease; N25.81 Secondary hyperparathyroidism of renal origin; E87.5 Hyperkalemia; E87.2 Acidosis; I25.10 Atherosclerotic heart disease of native coronary artery without angina pectoris; F17.200 Nicotine dependence, unspecified, uncomplicated; S22.43XD Multiple fractures of ribs, bilateral, subsequent encounter for fracture with routine healing; X58.XXXD Exposure to other specified factors, subsequent encounter; Z91.19 Patient's noncompliance with other medical treatment and regimen; Z20.822 Contact with and (suspected) exposure to COVID-19
CPT/HCPCS: J1650

== ENCOUNTER 2022-06-06 08:15 | Observation (INO) | payer MEDICAID ==
[~2022-06-06] VITALS: Ht 170.2 cm; Wt 82.0 kg
[2022-06-06 08:22] VITALS: BP 152/111
--- NOTE | 2022-06-06 08:25 | NUR ---
PT AMBULATES TO ROOM 5 FOR EVAL OF SOB SINCE YESTERDAY
[2022-06-06 08:30] VITALS: BP 167/111
[2022-06-06 08:32] LABS: HEMATOCRIT 28.2 % (39.0-50.0); HEMOGLOBIN 9.2 g/dl (14.0-18.0); IMMATURE GRANULOCYTES 0.4 % (0.0-5.0); MEAN CELL VOLUME 96.6 fL CALC (80.0-100.0); MEAN CORPUSCULAR HGB 31.5 pG CALC (26.0-32.0); MEAN CORPUSCULAR HGB CONC 32.6 g/dL CAL (32.0-36.0); NEUT# 11.11 thou/uL (1.82-7.42); RED BLOOD COUNT 2.92 mill/uL (4.70-6.10); RED CELL DISTRI WIDTH 16.8 % (11.5-15.5)
[2022-06-06 08:58] LABS: ALBUMIN 4.3 g/dL (3.2-5.0); BILIRUBIN, TOTAL 0.5 mg/dL (0.0-1.4); TOTAL PROTEIN 7.2 g/dL (6.3-8.2)
[2022-06-06 08:59] LABS: POTASSIUM 5.3 mmol/l (3.5-5.1)
[2022-06-06 09:00] LABS: CREATININE 9.7 mg/dL (0.7-1.3)
--- NOTE | 2022-06-06 09:42 | NUR ---
PRIVATE SECTOR EXECUTIVE AT BEDSIDE. REPORT RECEIVED.
[2022-06-06 09:54] VITALS: BP 167/111
--- NOTE | 2022-06-06 11:07 | NUR ---
DIALYSIS PRE: PT RECEIVED FROM ER ON WHEELCHAIR WITH LASTING MACHINE OPERATOR, C/O OF ITCHY, PT WITH GENERALIZED EDEMA, LUNGS DIMINISHED, PT EDUCATED ABOUT PROCEDURE, HD TX CONSENT SIGNED, CVC DRESSING SOILED, CVC DRESSING CHANGED, HBP 217/127 P97 R22, TEMP 97.4 WEIGHT 81 KG. C/O OF PAIN ON HIS BODY. ORDERS RECEIVED BY DR. LAURENT, TX STARTED UNDER ASEPTIC TECHNIQUES, TARGET SET TO 6 LTS RANDELL. ANTIBIOTIC ORDERED BY PRIMARY DR. NICKERSON GIVEN. MACHINE-[id number] CARTRIDGE LOT- [id number] COND ACT- 13.9 COND EXP- 13.9 WATER TEMP- 86.1
--- NOTE | 2022-06-06 12:15 | NUR ---
ADMIT NOTE: ATTEMPTS TO COMPLETE ADMISSION PROCESS MADE WHILE PT RECEIVING DIALYSIS. PT KNOWN TO THIS NURSE, PT WITH HISTORY OF REFUSAL OF PARTICIPATION IN CARE AND AGGRESIVE BEHAVIOR. PT TURNS TO DIALYSIS NURSE AND STATES "I DON'T WANT HIM TO TOUCH ME", PT REFUSES TO PARTICIPATE OR ALLOW FULL PHYSICAL EXAM. ASSESMENT DEFFERED PER PT'S STATED DESIRE AND THIS NURSES SAFETY.
--- NOTE | 2022-06-06 15:56 | NUR ---
DIALYSIS POST: BLOOD RETURNED UNDER ASEPTIC TECHNIQUES, 6.1LTS REMOVED W/O PROBLEMS, ANTIBIOTIC GIVEN IN THE END OF TX, BENADRYL GIVEN DURING TX, PT TOOK HIS BP MEDS DURING TX, PT STILL WITH HBP. CVC CAPPED AND CLAMPPED.PT CONTINUE WITH PAIN ON HIS BODY. BP 193/133 P-88, R-19 TEMP-98.1 WEIGHT 74.9 KG. AMA SIGNED BY PT. PT TRANSFERED TO THE EXIT ON WHEELCHAIR. PT STABLE, ALERT.
[2022-06-07] MEDS ORDERED: VISTARIL 50MG C50 M1 PO (07:22)
== END 2022-06-06 14:50 | disposition home or self-care (01) ==
LOC: ED 08:15 → ED-I 08:45 → ED 09:04 → MS2 09:05
PROVIDERS: Family Medicine; ADMIT Internal Medicine; ATTEND Internal Medicine
DX: I13.2 Hypertensive heart and chronic kidney disease with heart failure and with stage 5 chronic kidney disease, or end stage renal disease (principal); N18.6 End stage renal disease; I50.22 Chronic systolic (congestive) heart failure; Z99.2 Dependence on renal dialysis; D63.1 Anemia in chronic kidney disease; N25.81 Secondary hyperparathyroidism of renal origin; E87.5 Hyperkalemia; E87.2 Acidosis; I25.10 Atherosclerotic heart disease of native coronary artery without angina pectoris; F10.10 Alcohol abuse, uncomplicated; F17.200 Nicotine dependence, unspecified, uncomplicated; Z91.19 Patient's noncompliance with other medical treatment and regimen
CPT/HCPCS: G0378; J1644; Q5106 EC

== ENCOUNTER 2022-06-07 05:41 | Emergency (ER) | payer MEDICAID ==
[~2022-06-07] VITALS: Ht 170.2 cm; Wt 81.8 kg
[2022-06-07 05:52] VITALS: BP 188/132
[2022-06-07] MEDS ORDERED: VISTARIL 50MG C50 M1 PO (07:22)
== END 2022-06-07 07:10 | disposition home or self-care (01) ==
LOC: ED 05:41
DX: R44.2 Other hallucinations (principal); I12.0 Hypertensive chronic kidney disease with stage 5 chronic kidney disease or end stage renal disease; N18.6 End stage renal disease; F17.200 Nicotine dependence, unspecified, uncomplicated; Z99.2 Dependence on renal dialysis; Z91.19 Patient's noncompliance with other medical treatment and regimen

== ENCOUNTER 2022-06-08 12:34 | Emergency (ER) | payer MEDICAID ==
[~2022-06-08] VITALS: Ht 170.2 cm; Wt 81.8 kg
[2022-06-08] VITALS (9 sets, daily range): BP systolic 197–228; BP diastolic 139–161
[~2022-06-08 12:34] MED LIST changes: +VISTARIL 50MG C50 M1 PO
[2022-06-08 12:52] LABS: HEMATOCRIT 27.3 % (39.0-50.0); HEMOGLOBIN 8.9 g/dl (14.0-18.0); IMMATURE GRANULOCYTES 0.5 % (0.0-5.0); MEAN CELL VOLUME 95.8 fL CALC (80.0-100.0); MEAN CORPUSCULAR HGB 31.2 pG CALC (26.0-32.0); MEAN CORPUSCULAR HGB CONC 32.6 g/dL CAL (32.0-36.0); NEUT# 10.17 thou/uL (1.82-7.42); RED BLOOD COUNT 2.85 mill/uL (4.70-6.10); RED CELL DISTRI WIDTH 16.2 % (11.5-15.5)
== END 2022-06-08 13:24 | disposition left against medical advice (07) ==
LOC: ED 12:34
PROVIDERS: Nurse Practitioner
DX: R06.02 Shortness of breath (principal); I12.0 Hypertensive chronic kidney disease with stage 5 chronic kidney disease or end stage renal disease; N18.6 End stage renal disease; Z99.2 Dependence on renal dialysis; F19.10 Other psychoactive substance abuse, uncomplicated; F17.200 Nicotine dependence, unspecified, uncomplicated; Z91.19 Patient's noncompliance with other medical treatment and regimen; Z20.822 Contact with and (suspected) exposure to COVID-19

== ENCOUNTER 2022-06-09 05:01 | Observation (INO) | payer MEDICAID ==
[~2022-06-09] VITALS: Ht 170.2 cm; Wt 82.0 kg
[2022-06-09 05:58] LABS: HEMATOCRIT 26.6 % (39.0-50.0); HEMOGLOBIN 8.7 g/dl (14.0-18.0); IMMATURE GRANULOCYTES 0.7 % (0.0-5.0); MEAN CELL VOLUME 96.4 fL CALC (80.0-100.0); MEAN CORPUSCULAR HGB 31.5 pG CALC (26.0-32.0); MEAN CORPUSCULAR HGB CONC 32.7 g/dL CAL (32.0-36.0); NEUT# 10.67 thou/uL (1.82-7.42); RED BLOOD COUNT 2.76 mill/uL (4.70-6.10); RED CELL DISTRI WIDTH 16.1 % (11.5-15.5)
[2022-06-09 06:42] LABS: CREATININE 12.1 mg/dL (0.7-1.3); POTASSIUM 7.5 mmol/l (3.5-5.1)
[2022-06-09 08:54] VITALS: BP 205/154
[2022-06-09 12:30] LABS: ALBUMIN 4.1 g/dL (3.2-5.0)
[2022-06-09 12:37] LABS: CREATININE 5.5 mg/dL (0.7-1.3)
== END 2022-06-09 13:23 | disposition left against medical advice (07) ==
LOC: ED 05:01 → ED-I 06:31 → ED 06:53 → MS2 06:54
PROVIDERS: Family Medicine; Internal Medicine Nephrology; ADMIT Internal Medicine; ATTEND Internal Medicine
DX: I13.2 Hypertensive heart and chronic kidney disease with heart failure and with stage 5 chronic kidney disease, or end stage renal disease (principal); I16.1 Hypertensive emergency; N18.6 End stage renal disease; I50.22 Chronic systolic (congestive) heart failure; Z99.2 Dependence on renal dialysis; J18.9 Pneumonia, unspecified organism; D63.1 Anemia in chronic kidney disease; N25.81 Secondary hyperparathyroidism of renal origin; E87.5 Hyperkalemia; E87.2 Acidosis; I25.10 Atherosclerotic heart disease of native coronary artery without angina pectoris; F10.10 Alcohol abuse, uncomplicated; F17.200 Nicotine dependence, unspecified, uncomplicated; Z91.14 Patient's other noncompliance with medication regimen; Z20.822 Contact with and (suspected) exposure to COVID-19
CPT/HCPCS: G0378; J1644; Q5106 EC

== ENCOUNTER 2022-06-10 21:28 | Emergency (ER) | payer MEDICAID ==
[~2022-06-10] VITALS: Ht 170.2 cm; Wt 90.0 kg
[2022-06-10 21:34] VITALS: BP 195/143
[2022-06-10 21:45] VITALS: BP 207/145
== END 2022-06-10 22:01 | disposition left against medical advice (07) ==
LOC: ED 21:28
DX: R06.02 Shortness of breath (principal); I12.0 Hypertensive chronic kidney disease with stage 5 chronic kidney disease or end stage renal disease; N18.6 End stage renal disease; Z99.2 Dependence on renal dialysis; Z91.19 Patient's noncompliance with other medical treatment and regimen; F17.210 Nicotine dependence, cigarettes, uncomplicated

== ENCOUNTER 2022-06-11 00:54 | Observation (INO) | payer MEDICAID ==
[~2022-06-11] VITALS: Ht 170.2 cm; Wt 82.0 kg
--- NOTE | 2022-06-11 00:55 | NUR ---
PT TO ROOM 9 VIA EMS AFTER LEAVING AMA A FEW HOURS AGO.
[2022-06-11 01:11] VITALS: BP 196/134
[2022-06-11 01:15] VITALS: BP 186/150
[2022-06-11 01:37] LABS: HEMATOCRIT 26.8 % (39.0-50.0); HEMOGLOBIN 8.6 g/dl (14.0-18.0); MEAN CELL VOLUME 96.8 fL CALC (80.0-100.0); MEAN CORPUSCULAR HGB CONC 32.1 g/dL CAL (32.0-36.0); NEUT# 7.92 thou/uL (1.82-7.42); RED BLOOD COUNT 2.77 mill/uL (4.70-6.10); RED CELL DISTRI WIDTH 16.3 % (11.5-15.5)
[2022-06-11 01:54] LABS: ALBUMIN 3.8 g/dL (3.2-5.0); BILIRUBIN, TOTAL 0.4 mg/dL (0.0-1.4); TOTAL PROTEIN 6.6 g/dL (6.3-8.2)
[2022-06-11 01:58] LABS: POTASSIUM 5.3 mmol/l (3.5-5.1)
[2022-06-11 01:59] LABS: CREATININE 9.7 mg/dL (0.7-1.3)
--- NOTE | 2022-06-11 02:03 | NUR ---
PT MEDICATED FOR BP. CONTINUES TO REQUEST ICE CHIPS FREQUENTLY. PT REMOVES MONITORING EQUIP.
--- NOTE | 2022-06-11 03:02 | NUR ---
PT VITAL SIGNS INACCURATE PT CONTINUES TO PULL PULSE OX AND BP CUFF OFF.
[2022-06-11 03:49] VITALS: BP 187/136
--- NOTE | 2022-06-11 04:30 | NUR ---
PT RESTING. REFUSES TO KEEP EQUIP ON. EATING ICE CHIPS.
--- NOTE | 2022-06-11 06:00 | NUR ---
PT RESTING. NAD.
--- NOTE | 2022-06-11 07:00 | NUR ---
RECEIVED BEDSIDE REPORT FROM NIGHTSHIFT RN. PATIENT IN NAD.
--- NOTE | 2022-06-11 08:03 | NUR ---
ESCORTED PATIENT TO DIALYSIS. BEDSIDE REPORT GIVEN TO NECK SKEWER. PATIENT IN NAD.
--- NOTE | 2022-06-11 09:20 | NUR ---
DIALYSIS PRE: PT RECEIVED FROM ER ON WHEELCHAIR WITH RN, PT WITH GENERALIZED EDEMA, C/O'S OF SOB, PT WITH OXIGEN BY MASK ON 5 LTS, PT ALERT, PT WITH RIGHT CVC LINE WITH DRESSING SOILED, PT EDUACTED ABOUT PROCEDURE, HD TX CONSENT SIGNED. ORDERS RECEIVED BY DR. LAURENT. TX STARTED UNDER ASEPTIC TECHNIQUES, TARGET SET TO 6 LTS RANDELL, PT WITH HBP. BP 193/134 P 75 R 22 TEMP 96.5 WEIGHT 79.6 KG. PT DENIES ANY PAIN, PT WITH ITCHY ON HIS BODY. [id number] CARTRIDGE [id number] PH-7.2 COND ACT-13.9 COND EXP-13.9 WATER TEMP-80.2
[2022-06-11 10:23] VITALS: BP 224/141
--- NOTE | 2022-06-11 12:20 | NUR ---
Patient decides to leave AMA. Multiple attempts made to ecourage patient to remain here for continued treatment. Explained to patient all risks of leaving against medical advice including . Pt verbalized understanding of all risks. Pt also encouraged to return to [facility] at any time, especially if symptoms continue or become worse. Pt verbalized understanding.
--- NOTE | 2022-06-11 12:54 | NUR ---
DIALYSIS POST: DR. LAURENT ROUNDED, PT WANTED TO COME OFF WITH ONLY 3.36 HOURS PT EDUCATED ABOUT COMPLICATIONS, AMA SIGNED, PT STILL WITH HBP. BLOOD RETURNED UNDER ASEPTIC TECHNIQUES, CVC CAPPED AND CLAMPPED, 5.3 LTS REMOVED, PT DENIES ANY PAIN. BP 229/129 P 78 R 19 TEMP 98.3 WEIGHT 75KG. PT LEFT FROM THE UNIT ON WHEELCHAIR WITH RN. ANTIBIOTIC, RETACRIT AND HEPARIN GIVEN DURING TX.
== END 2022-06-11 12:20 | disposition left against medical advice (07) ==
LOC: ED 00:54 → ED-I 06:40 → ED 06:48 → MS2 06:49
PROVIDERS: Family Medicine; ADMIT Internal Medicine; ATTEND Internal Medicine
DX: I13.2 Hypertensive heart and chronic kidney disease with heart failure and with stage 5 chronic kidney disease, or end stage renal disease (principal); N18.6 End stage renal disease; I50.22 Chronic systolic (congestive) heart failure; Z99.2 Dependence on renal dialysis; N25.81 Secondary hyperparathyroidism of renal origin; E87.5 Hyperkalemia; E87.2 Acidosis; I25.10 Atherosclerotic heart disease of native coronary artery without angina pectoris; D63.1 Anemia in chronic kidney disease; Z91.14 Patient's other noncompliance with medication regimen; Z91.11 Patient's noncompliance with dietary regimen; F10.10 Alcohol abuse, uncomplicated; F17.200 Nicotine dependence, unspecified, uncomplicated; I16.1 Hypertensive emergency; J40 Bronchitis, not specified as acute or chronic; R06.02 Shortness of breath; I12.0 Hypertensive chronic kidney disease with stage 5 chronic kidney disease or end stage renal disease; Z91.15 Patient's noncompliance with renal dialysis
CPT/HCPCS: G0378; J1644; Q5106 EC

== ENCOUNTER 2022-06-11 20:27 | Emergency (ER) | payer MEDICAID ==
[~2022-06-11] VITALS: Ht 170.2 cm; Wt 80.0 kg
[2022-06-11 20:35] VITALS: BP 197/139
[2022-06-11 20:51] VITALS: BP 197/139
== END 2022-06-11 20:45 | disposition left against medical advice (07) ==
LOC: ED 20:27
DX: R06.02 Shortness of breath (principal); I12.0 Hypertensive chronic kidney disease with stage 5 chronic kidney disease or end stage renal disease; N18.6 End stage renal disease; Z99.2 Dependence on renal dialysis; Z91.15 Patient's noncompliance with renal dialysis; F17.200 Nicotine dependence, unspecified, uncomplicated

== ENCOUNTER 2022-06-15 01:39 | Emergency (ER) | payer MEDICAID ==
[~2022-06-15] VITALS: Ht 170.2 cm; Wt 80.0 kg
[2022-06-15] VITALS (14 sets, daily range): BP systolic 156–214; BP diastolic 105–163
[2022-06-15 02:20] LABS: HEMATOCRIT 28.2 % (39.0-50.0); HEMOGLOBIN 9.3 g/dl (14.0-18.0); IMMATURE GRANULOCYTES 1.4 % (0.0-5.0); MEAN CELL VOLUME 95.3 fL CALC (80.0-100.0); MEAN CORPUSCULAR HGB 31.4 pG CALC (26.0-32.0); NEUT# 8.25 thou/uL (1.82-7.42); RED BLOOD COUNT 2.96 mill/uL (4.70-6.10); RED CELL DISTRI WIDTH 16.4 % (11.5-15.5)
[2022-06-15 02:26] LABS: ALBUMIN 4.1 g/dL (3.2-5.0); TOTAL PROTEIN 6.8 g/dL (6.3-8.2)
[2022-06-15 02:31] LABS: BILIRUBIN, TOTAL 0.6 mg/dL (0.0-1.4); CREATININE 10.9 mg/dL (0.7-1.3); POTASSIUM 5.3 mmol/l (3.5-5.1)
== END 2022-06-15 03:45 | disposition short-term general hospital (02) ==
LOC: ED 01:39
PROVIDERS: Family Medicine
DX: I12.0 Hypertensive chronic kidney disease with stage 5 chronic kidney disease or end stage renal disease (principal); N18.6 End stage renal disease; Z99.2 Dependence on renal dialysis; I16.1 Hypertensive emergency; R79.89 Other specified abnormal findings of blood chemistry; F19.10 Other psychoactive substance abuse, uncomplicated; Z91.19 Patient's noncompliance with other medical treatment and regimen; Z77.22 Contact with and (suspected) exposure to environmental tobacco smoke (acute) (chronic)
CPT/HCPCS: J2060

== ENCOUNTER 2022-06-25 01:38 | Observation (INO) | payer MEDICAID ==
[~2022-06-25] VITALS: Ht 170.2 cm; Wt 79.5 kg
[2022-06-25] VITALS (15 sets, daily range): BP systolic 171–240; BP diastolic 113–159
--- NOTE | 2022-06-25 01:40 | NUR ---
PT TO ROOM 6 VIA EMS
--- NOTE | 2022-06-25 01:44 | NUR ---
PT REPRENTS TO THE ED VIA EMS C/O SOB AND COUGH. PT IS HYPERTENSIVE. PT STATES HE WAS AT [facility] YESTERDAY, THEY PRESCRIBED HIM ANTI-HYTENSIVE MEDS WHICH HE DID NOT GET FILLED AT THE PHARMACY. IV LINE STARTED LABS AND ECG HAS BEEN OBTAINED.
[2022-06-25 02:11] LABS: HEMATOCRIT 25.5 % (39.0-50.0); HEMOGLOBIN 8.2 g/dl (14.0-18.0); IMMATURE GRANULOCYTES 1.2 % (0.0-5.0); MEAN CELL VOLUME 94.8 fL CALC (80.0-100.0); MEAN CORPUSCULAR HGB 30.5 pG CALC (26.0-32.0); MEAN CORPUSCULAR HGB CONC 32.2 g/dL CAL (32.0-36.0); NEUT# 9.11 thou/uL (1.82-7.42); RED BLOOD COUNT 2.69 mill/uL (4.70-6.10); RED CELL DISTRI WIDTH 14.9 % (11.5-15.5)
[2022-06-25 02:36] LABS: POTASSIUM 5.7 mmol/l (3.5-5.1)
--- NOTE | 2022-06-25 02:50 | NUR ---
PT IS NON-COMPLIANT WITH ED TREATMENT WITH THE EXEPTION OF MEDICATION. PT REFUSE TO STAY IN BED AND REFUSING TO KEEP PULSE OX ON.
--- NOTE | 2022-06-25 03:25 | NUR ---
PT STANDING, FALLING ASLEEP STANDING UP, REGARDLESS OF PT ALMOST FALLEN, PT CONTINUING TO REFUSE TO STAY IN BED. PT HAS BEEN EDUCATED ON SAFETY, BUT STILL REFUSE. PT REFUSE TO SIT OR GET IN BED FOR ACCURATED BLOOD PRESSURE READING.
--- NOTE | 2022-06-25 04:05 | NUR ---
PT IS SLEEPING ON THE CHAIR CONTINUING TO REFUSE TO KEEP PULSE OX ON FINGER AND REFUSING TO GO TO BED.
--- NOTE | 2022-06-25 05:33 | NUR ---
PT IS AWAKE. SITTING IN CHAIR. NO DISTRESS OR DISCOMFORT NOTED AT THIS TIME
--- NOTE | 2022-06-25 06:45 | NUR ---
Reassessment of patient completed. Pt is in chair. No distress noted.
--- NOTE | 2022-06-25 07:05 | NUR ---
RECEIVED REPORT FROM OUTGOING RN
--- NOTE | 2022-06-25 07:45 | NUR ---
PT WHEELED TO DIALYSIS
--- NOTE | 2022-06-25 08:28 | NUR ---
PRE-DIALYSIS NOTE: PT ARRIVES VIA WHEELCHAIR, ACCOMPANIED BY JAVASCRIPT FRONT END DEVELOPER. VERBAL REPORT RECEIVED, CARE OF PT ASSUMED AT THIS TIME. FOR HEMODIALYSIS TREATMENT. CONSENT HAS BEEN OBTAINED AND SIGNED BY PHYSICIAN. TREATMENT ORDERS OBTAINED FROM DR. FLORES. EDUCATION PROVIDED VERBALLY, ALLOWING TIME FOR PT TO ASK ANY QUESTIONS. PT VERBALIZES UNDERSTANDING AND DENIES FURTHER QUESTIONS. LABS REVIEWED. WEIGHT: 79 KG VS: 196/117 mmHg 85 bpm 20 RR/MIN 97.2 F HD ACCESS: PT WITH RT CVC WITH DRESSING C/I/D HEMODIALYSIS TREATMENT INITIATED AT 0806 WITHOUT DIFFICULTY OR COMPLICATION. PT TOLERATED PROCEDURE WELL. WILL REMAIN WITH PT FOR MONITORING. TX STARTED UNDER ASEPTIC TECHNIQUES, TARGET SET TO 3.5 LTS RANDELL, PT WITH HBP. PT DENIES ANY PAIN. LUNGS CLEAR, GENERALIZED EDEMA. MACHINE # [id number] DIALYZER F 180 - [id number] CARTRIDGE LOT - [id number] PH - 7.2 COND. EXP.- 13.9 COND. ACT. - 14.0 WATER TEMP - 78.8 F
--- NOTE | 2022-06-25 12:20 | NUR ---
Patient decides to leave AMA. Multiple attempts made to ecourage patient to remain here for continued treatment. Explained to patient all risks of leaving against medical advice including . Pt verbalized understanding of all risks. Pt also encouraged to return to [facility] at any time, especially if symptoms continue or become worse. Pt verbalized understanding.
--- NOTE | 2022-06-25 12:32 | NUR ---
BLOOD RETURNED UNDER ASEPTIC TECHNIQUES, CVC DRESSING AND TEGOS CHANGED, 3.5 LTS REMOVED W/O PROBLEMS, PT STILL WITH HBP, PRESCRIPTION GIVEN BY DR. VAUGHN. CVC CAPPED AND CLAMPPED, AMA SIGNED, BENADRYL, OXYCODONE, LEVAQUIN AND HEPARIN GIVEN DUJEFF TX, DR. LAURENT ROUNDED. PT LEFT FROM THE UNIT AMBULATORY. BP 181/125 P 95 R 20 TEMP 98.2 WEIGHT 75.5 KG
== END 2022-06-25 12:32 | disposition left against medical advice (07) ==
LOC: ED 01:38 → ED-I 06:42 → ED 06:55 → MS2 06:56
PROVIDERS: Family Medicine; ADMIT Internal Medicine; ATTEND Internal Medicine
DX: I13.2 Hypertensive heart and chronic kidney disease with heart failure and with stage 5 chronic kidney disease, or end stage renal disease (principal); N18.6 End stage renal disease; I50.22 Chronic systolic (congestive) heart failure; Z99.2 Dependence on renal dialysis; I16.1 Hypertensive emergency; J18.9 Pneumonia, unspecified organism; F10.10 Alcohol abuse, uncomplicated; D63.1 Anemia in chronic kidney disease; N25.81 Secondary hyperparathyroidism of renal origin; E87.5 Hyperkalemia; E87.2 Acidosis; I25.10 Atherosclerotic heart disease of native coronary artery without angina pectoris; F17.200 Nicotine dependence, unspecified, uncomplicated; T50.916A Underdosing of multiple unspecified drugs, medicaments and biological substances, initial encounter; Z91.128 Patient's intentional underdosing of medication regimen for other reason; Z20.822 Contact with and (suspected) exposure to COVID-19
CPT/HCPCS: G0378; J1644

== ENCOUNTER 2022-06-27 02:56 | Emergency (ER) | payer MEDICAID ==
[~2022-06-27] VITALS: Ht 170.2 cm; Wt 80.0 kg
[2022-06-27 03:01] VITALS: BP 155/134
[2022-06-27 03:15] LABS: HEMATOCRIT 23.4 % (39.0-50.0); HEMOGLOBIN 7.5 g/dl (14.0-18.0); IMMATURE GRANULOCYTES 0.6 % (0.0-5.0); MEAN CELL VOLUME 95.5 fL CALC (80.0-100.0); MEAN CORPUSCULAR HGB 30.6 pG CALC (26.0-32.0); MEAN CORPUSCULAR HGB CONC 32.1 g/dL CAL (32.0-36.0); NEUT# 10.53 thou/uL (1.82-7.42); RED BLOOD COUNT 2.45 mill/uL (4.70-6.10); RED CELL DISTRI WIDTH 14.8 % (11.5-15.5)
[2022-06-27 03:35] LABS: POTASSIUM 5.6 mmol/l (3.5-5.1)
[2022-06-27 03:36] LABS: CREATININE 8.9 mg/dL (0.7-1.3)
[2022-06-27 06:08] VITALS: BP 211/146
== END 2022-06-27 04:15 | disposition left against medical advice (07) ==
LOC: ED 02:56
PROVIDERS: Family Medicine
DX: R06.02 Shortness of breath (principal); I12.0 Hypertensive chronic kidney disease with stage 5 chronic kidney disease or end stage renal disease; N18.6 End stage renal disease; F17.200 Nicotine dependence, unspecified, uncomplicated; Z99.2 Dependence on renal dialysis; Z91.19 Patient's noncompliance with other medical treatment and regimen; F19.10 Other psychoactive substance abuse, uncomplicated

== ENCOUNTER 2022-06-29 02:19 | Emergency (ER) | payer MEDICAID ==
[~2022-06-29] VITALS: Ht 170.2 cm; Wt 70.0 kg
[2022-06-29 02:39] VITALS: BP 201/151
== END 2022-06-29 02:39 | disposition left against medical advice (07) ==
LOC: ED 02:19
DX: R06.02 Shortness of breath (principal); I12.0 Hypertensive chronic kidney disease with stage 5 chronic kidney disease or end stage renal disease; N18.6 End stage renal disease; Z99.2 Dependence on renal dialysis; F19.10 Other psychoactive substance abuse, uncomplicated; F17.200 Nicotine dependence, unspecified, uncomplicated; Z91.19 Patient's noncompliance with other medical treatment and regimen

== ENCOUNTER 2022-07-02 17:53 | Emergency (ER) | payer MEDICAID ==
[~2022-07-02] VITALS: Ht 170.2 cm; Wt 80.0 kg
[2022-07-02 17:58] VITALS: BP 131/83
[2022-07-02] MEDS ORDERED: HYDROCO/APAP1 TA9 PO (18:29)
[2022-07-02 18:31] LABS: HEMATOCRIT 26.5 % (39.0-50.0); HEMOGLOBIN 8.3 g/dl (14.0-18.0); IMMATURE GRANULOCYTES 1.2 % (0.0-5.0); MEAN CELL VOLUME 97.8 fL CALC (80.0-100.0); MEAN CORPUSCULAR HGB 30.6 pG CALC (26.0-32.0); MEAN CORPUSCULAR HGB CONC 31.3 g/dL CAL (32.0-36.0); NEUT# 7.91 thou/uL (1.82-7.42); RED BLOOD COUNT 2.71 mill/uL (4.70-6.10); RED CELL DISTRI WIDTH 15.4 % (11.5-15.5)
[2022-07-02 18:37] VITALS: BP 131/83
[2022-07-02 18:37] LABS: ALBUMIN 4.5 g/dL (3.2-5.0); BILIRUBIN, TOTAL 0.4 mg/dL (0.0-1.4); TOTAL PROTEIN 7.8 g/dL (6.3-8.2)
[2022-07-02 18:39] LABS: POTASSIUM 4.4 mmol/l (3.5-5.1)
[2022-07-02 18:40] LABS: CREATININE 9.8 mg/dL (0.7-1.3)
== END 2022-07-02 18:39 | disposition left against medical advice (07) ==
LOC: ED 17:53
PROVIDERS: Family Medicine
DX: R11.2 Nausea with vomiting, unspecified (principal); I12.0 Hypertensive chronic kidney disease with stage 5 chronic kidney disease or end stage renal disease; N18.6 End stage renal disease; Z99.2 Dependence on renal dialysis; F19.10 Other psychoactive substance abuse, uncomplicated; F17.200 Nicotine dependence, unspecified, uncomplicated; Z91.19 Patient's noncompliance with other medical treatment and regimen

== ENCOUNTER 2022-07-06 04:59 | Observation (INO) | payer MEDICAID ==
[~2022-07-06] VITALS: Ht 170.2 cm; Wt 75.0 kg
[2022-07-06] VITALS (36 sets, daily range): BP systolic 144–236; BP diastolic 90–167
[~2022-07-06 04:59] MED LIST changes: +HYDROCO/APAP1 TA9 PO
[2022-07-06 06:03] LABS: HEMATOCRIT 23.5 % (39.0-50.0); HEMOGLOBIN 7.4 g/dl (14.0-18.0); IMMATURE GRANULOCYTES 0.4 % (0.0-5.0); MEAN CELL VOLUME 97.1 fL CALC (80.0-100.0); MEAN CORPUSCULAR HGB 30.6 pG CALC (26.0-32.0); MEAN CORPUSCULAR HGB CONC 31.5 g/dL CAL (32.0-36.0); NEUT# 7.99 thou/uL (1.82-7.42); RED BLOOD COUNT 2.42 mill/uL (4.70-6.10); RED CELL DISTRI WIDTH 15.4 % (11.5-15.5)
--- NOTE | 2022-07-06 06:28 | NUR ---
PT'S BP DID NOT IMPROVE WITH CATAPRES, PT REFUSED IV FOR ANTIHYPERTENSIVE. DR. IZAGUIRRE NOTIFIED.
[2022-07-06 06:31] LABS: ALBUMIN 4.1 g/dL (3.2-5.0); BILIRUBIN, TOTAL 0.4 mg/dL (0.0-1.4)
[2022-07-06 06:35] LABS: CREATININE 12.1 mg/dL (0.7-1.3); POTASSIUM 6.2 mmol/l (3.5-5.1)
--- NOTE | 2022-07-06 07:57 | NUR ---
patient is a dialysis patient here for dialysis. last session was on Wednesday. pt complainig of SOB and requesting oxygen saturation wnl with NC. patient have right chest dialysis port. blood pressure elevated. waiting to be admited for dialysis
--- NOTE | 2022-07-06 08:37 | NUR ---
PT TO DIALYSIIS AT THIS TIME AND CARE RELINQUISHED TO DIALYSIS NURSES.
--- NOTE | 2022-07-06 09:00 | NUR ---
PATIENT ARIVED TO DIALYSIS BY WHEELCHAIR. NO REPORT RECEIVED. PATIENT TRANSFERRED TO CHAIR. BP ELEVATED AT 244/152. PT C/O SOB AND PRODUCTIVE COUGH.
--- NOTE | 2022-07-06 09:10 | NUR ---
patient was taken to dialysis,
--- NOTE | 2022-07-06 09:30 | NUR ---
PT NOTED WITH TACHYPNEA, O2 SAT 82% ON RA, APPLIED O2 VIA NC @4LPM, O2 SAT IMPROVED TO 93%. PT FIGHTING WITH NURSE TO KEEP CANNULA ON YELLING THAT "I NEED A MASK".
--- NOTE | 2022-07-06 09:35 | NUR ---
NON REBREATHER APPLIED TO PATIENT SPO2 100% NOW RESTING COMFORTABLY IN CHAIR.
--- NOTE | 2022-07-06 10:12 | NUR ---
[facility]AP[facility] RESPONSE CALLED. PT C/O SEVERE SOB. HE IS TACHPNIC, SPO2 79% ON NON REBREATHER.
--- NOTE | 2022-07-06 10:30 | NUR ---
PATIENT DIFFUSE WHEEZES AND COUGHING UP PINK TINGED SPUTUM. IV SITE INITAITED, EKG COMPLETED AND PATIENT PLACED ON BIPAP. DR AVILA AND DR VAUGHN AT BEDSIDE. VERBAL ORDERS GIVEN FOR NITRO SL X 3, NITRO DRIP START 100 MCG/MIN AND 5 MG OF VALIUM IVP.
--- NOTE | 2022-07-06 11:10 | NUR ---
INITIATION OF DIALYSIS: PT MOVED TO DIALYSIS BAY ON CONTINUOUS BIPAP, GOOD BLOOD RETURN FROM ARTERIAL AND VENOUS CATHS TO RT CHEST CVC. PT RESTING WITH EYES CLOSED ROUSES TO VOICE. PERRLA AT 4MM. FACIAL SYMMETRY NOTED. PT CONTINUOUS EVENT MANAGER, BP AND O2. TOLERATING IV NITRO GTT WELL
--- NOTE | 2022-07-06 11:15 | NUR ---
PATIENT SPO2 100% ON BIPAP. HE IS RESTING IN BED. BP REMAINS ELEVATED AT 219/144.
--- NOTE | 2022-07-06 12:30 | NUR ---
BP 196/135. NITRO DRIP REMAINS AT 300 MCG/MIN. DR VAUGHN NOTIFIED, AWAITING NEW ORDERS.
--- NOTE | 2022-07-06 12:55 | NUR ---
CARDENE INFUSION INITIATED AT 5 MG/HR. NITRO DRIP DECREASED TO 200 MCG/MIN. BP 201/144.
--- NOTE | 2022-07-06 14:00 | NUR ---
NITRO DRIP COMPLETED. CARDENE INFUSING AT 12.5 MG/HR. BP 159/97 WILL CONTINUE TO TITRATE DOWN.
--- NOTE | 2022-07-06 15:20 | NUR ---
REPORT CALLED TO KEYANNA MANAGER OF SOFTWARE DEVELOPMENT, PT AWAKE MOVING ARMS AND LEGS, TALKING THRU BIPAP SAYING " I AM HUNGRY" STATES HE IS FEELING MUCH BETTER. SKIN PWD.
--- NOTE | 2022-07-06 19:20 | NUR ---
During patient physical assessment, patient refused to wear bipap. Educated patient of necesity of bipap, oxygen necessity, and at risk of decompensating. Patient called family via cell, and requested to leave AMA. Notified Dr. Palmer. Patient signed AMA. Removed left AC. Family picked up in ED.
--- NOTE | 2022-07-06 19:30 | NUR ---
Patient decides to leave AMA. Multiple attempts made to ecourage patient to remain here for continued treatment. Explained to patient all risks of leaving against medical advice including . Pt verbalized understanding of all risks. Pt also encouraged to return to [facility] at any time, especially if symptoms continue or become worse. Pt verbalized understanding.
== END 2022-07-06 19:16 | disposition left against medical advice (07) ==
LOC: ED 04:59 → ED-I 06:18 → ED 06:28 → ED-I 06:29 → ANR-I 08:33 → ICU 10:26
PROVIDERS: Emergency Medicine; ADMIT Internal Medicine; ATTEND Internal Medicine
DX: I12.0 Hypertensive chronic kidney disease with stage 5 chronic kidney disease or end stage renal disease (principal); N18.6 End stage renal disease; Z99.2 Dependence on renal dialysis; I16.0 Hypertensive urgency; D63.1 Anemia in chronic kidney disease; N25.81 Secondary hyperparathyroidism of renal origin; R09.02 Hypoxemia; F19.10 Other psychoactive substance abuse, uncomplicated; F10.10 Alcohol abuse, uncomplicated; F17.200 Nicotine dependence, unspecified, uncomplicated; Z91.199 Patient's noncompliance with other medical treatment and regimen due to unspecified reason

== ENCOUNTER 2022-07-07 05:54 | Inpatient (IN) | payer MEDICAID ==
[~2022-07-07] VITALS: Ht 170.2 cm; Wt 70.0 kg
[2022-07-07 07:35] LABS: HEMOGLOBIN 7.2 g/dl (14.0-18.0); IMMATURE GRANULOCYTES 0.7 % (0.0-5.0); MEAN CORPUSCULAR HGB 30.8 pG CALC (26.0-32.0); MEAN CORPUSCULAR HGB CONC 32.7 g/dL CAL (32.0-36.0); NEUT# 7.75 thou/uL (1.82-7.42); RED BLOOD COUNT 2.34 mill/uL (4.70-6.10); RED CELL DISTRI WIDTH 15.2 % (11.5-15.5)
[2022-07-07 07:36] LABS: ALBUMIN 4.1 g/dL (3.2-5.0); BILIRUBIN, TOTAL 0.3 mg/dL (0.0-1.4); TOTAL PROTEIN 7.1 g/dL (6.3-8.2)
[2022-07-07 07:39] LABS: CREATININE 9.1 mg/dL (0.7-1.3); POTASSIUM 4.8 mmol/l (3.5-5.1)
[2022-07-07 15:30] VITALS: BP 135/76
[2022-07-08] MEDS ORDERED: CHERATUSSIN PO (15:20)
== END 2022-07-07 20:30 | disposition left against medical advice (07) | DRG 682 ==
LOC: ED 05:54 → ED-I 11:30 → ED 13:32 → ANR-I 13:33 → MS2 18:26
PROVIDERS: Emergency Medicine; ADMIT Internal Medicine; ATTEND Internal Medicine
PROC: 5A1D70Z Performance of Urinary Filtration, Intermittent, Less than 6 Hours Per Day (ICD-10-PCS; principal; 2022-07-07)
DX: I12.0 Hypertensive chronic kidney disease with stage 5 chronic kidney disease or end stage renal disease (principal); J18.9 Pneumonia, unspecified organism; J96.01 Acute respiratory failure with hypoxia; N18.6 End stage renal disease; N25.81 Secondary hyperparathyroidism of renal origin; I16.0 Hypertensive urgency; F19.10 Other psychoactive substance abuse, uncomplicated; D63.1 Anemia in chronic kidney disease; F17.200 Nicotine dependence, unspecified, uncomplicated; B97.4 Respiratory syncytial virus as the cause of diseases classified elsewhere; Z99.2 Dependence on renal dialysis; Z91.14 Patient's other noncompliance with medication regimen; Z91.119 Patient's noncompliance with dietary regimen due to unspecified reason; Z20.822 Contact with and (suspected) exposure to COVID-19

== ENCOUNTER 2022-07-08 13:26 | Emergency (ER) | payer MEDICAID ==
[~2022-07-08] VITALS: Ht 170.2 cm; Wt 77.4 kg
[2022-07-08] VITALS (7 sets, daily range): BP systolic 151–168; BP diastolic 92–120
[2022-07-08 14:01] LABS: HEMATOCRIT 23.3 % (39.0-50.0); HEMOGLOBIN 7.6 g/dl (14.0-18.0); IMMATURE GRANULOCYTES 2.4 % (0.0-5.0); MEAN CORPUSCULAR HGB 30.6 pG CALC (26.0-32.0); MEAN CORPUSCULAR HGB CONC 32.6 g/dL CAL (32.0-36.0); NEUT# 5.72 thou/uL (1.82-7.42); RED BLOOD COUNT 2.48 mill/uL (4.70-6.10); RED CELL DISTRI WIDTH 15.4 % (11.5-15.5)
[2022-07-08 14:18] LABS: ALBUMIN 4.1 g/dL (3.2-5.0); BILIRUBIN, TOTAL 0.4 mg/dL (0.0-1.4); POTASSIUM 3.9 mmol/l (3.5-5.1); TOTAL PROTEIN 7.4 g/dL (6.3-8.2)
[2022-07-08 14:19] LABS: CREATININE 7.7 mg/dL (0.7-1.3)
[2022-07-08] MEDS ORDERED: CHERATUSSIN PO (15:20)
== END 2022-07-08 15:45 | disposition home or self-care (01) ==
LOC: ED 13:26
PROVIDERS: Family Medicine
DX: J06.9 Acute upper respiratory infection, unspecified (principal); I12.0 Hypertensive chronic kidney disease with stage 5 chronic kidney disease or end stage renal disease; N18.6 End stage renal disease; Z99.2 Dependence on renal dialysis; F17.210 Nicotine dependence, cigarettes, uncomplicated; Z91.199 Patient's noncompliance with other medical treatment and regimen due to unspecified reason

== ENCOUNTER 2022-07-09 14:30 | Emergency (ER) | payer MEDICAID ==
[~2022-07-09] VITALS: Ht 170.2 cm; Wt 91.0 kg
[~2022-07-09 14:30] MED LIST changes: +CHERATUSSIN PO
[2022-07-09 14:52] VITALS: BP 195/121
[2022-07-09 14:58] LABS: HEMATOCRIT 24.1 % (39.0-50.0); HEMOGLOBIN 7.5 g/dl (14.0-18.0); IMMATURE GRANULOCYTES 1.7 % (0.0-5.0); MEAN CELL VOLUME 99.2 fL CALC (80.0-100.0); MEAN CORPUSCULAR HGB 30.9 pG CALC (26.0-32.0); MEAN CORPUSCULAR HGB CONC 31.1 g/dL CAL (32.0-36.0); NEUT# 4.94 thou/uL (1.82-7.42); RED BLOOD COUNT 2.43 mill/uL (4.70-6.10); RED CELL DISTRI WIDTH 15.3 % (11.5-15.5)
[2022-07-09 15:20] VITALS: BP 195/121
[2022-07-09 15:38] LABS: ALBUMIN 4.3 g/dL (3.2-5.0); BILIRUBIN, TOTAL 0.3 mg/dL (0.0-1.4); POTASSIUM 4.5 mmol/l (3.5-5.1); TOTAL PROTEIN 6.8 g/dL (6.3-8.2)
[2022-07-09 15:42] LABS: CREATININE 10.4 mg/dL (0.7-1.3)
== END 2022-07-09 15:23 | disposition left against medical advice (07) ==
LOC: ED 14:30
PROVIDERS: Nurse Practitioner
DX: I12.0 Hypertensive chronic kidney disease with stage 5 chronic kidney disease or end stage renal disease (principal); N18.6 End stage renal disease; Z99.2 Dependence on renal dialysis; F19.10 Other psychoactive substance abuse, uncomplicated; F17.200 Nicotine dependence, unspecified, uncomplicated; Z91.199 Patient's noncompliance with other medical treatment and regimen due to unspecified reason; Z53.29 Procedure and treatment not carried out because of patient's decision for other reasons

== ENCOUNTER 2022-07-10 03:03 | Inpatient (IN) | payer MEDICAID ==
[2022-07-10] VITALS (9 sets, daily range): BP systolic 141–198; BP diastolic 85–138
[~2022-07-10] VITALS: Ht 170.2 cm; Wt 82.0 kg
[2022-07-10 03:25] LABS: HEMATOCRIT 22.2 % (39.0-50.0); HEMOGLOBIN 7.3 g/dl (14.0-18.0); MEAN CELL VOLUME 94.9 fL CALC (80.0-100.0); MEAN CORPUSCULAR HGB 31.2 pG CALC (26.0-32.0); MEAN CORPUSCULAR HGB CONC 32.9 g/dL CAL (32.0-36.0); NEUT# 13.19 thou/uL (1.82-7.42); RED BLOOD COUNT 2.34 mill/uL (4.70-6.10); RED CELL DISTRI WIDTH 15.5 % (11.5-15.5)
--- NOTE | 2022-07-10 03:30 | NUR ---
Pt arrives via ems with c/o cp. pt sleeping when asked chest pain level. see triage
[2022-07-10 03:42] LABS: ALBUMIN 4.1 g/dL (3.2-5.0); BILIRUBIN, TOTAL 0.4 mg/dL (0.0-1.4); POTASSIUM 4.8 mmol/l (3.5-5.1); TOTAL PROTEIN 7.3 g/dL (6.3-8.2)
[2022-07-10 03:48] LABS: CREATININE 11.6 mg/dL (0.7-1.3)
--- NOTE | 2022-07-10 06:07 | NUR ---
No changes to note.Bp remains elevated, md aware, pt needs dialysis. Pt contniues to take esthetician/skin therapist off and is non compliant. Denies pain.
--- NOTE | 2022-07-10 06:59 | NUR ---
ekg obtained, pt refusing engine monitor
--- NOTE | 2022-07-10 07:06 | NUR ---
ASSUMED CARE OF PATIENT. NAD.
--- NOTE | 2022-07-10 07:27 | NUR ---
ASSUMED CARE AT THIS TIME. PATIENT RESTING IN BED. NAD. VITALS CHECKED. CALL LIGHT IN REACH. NO CONCERNS VERBALIZED AT THIS TIME.
--- NOTE | 2022-07-10 08:46 | NUR ---
PT WAS REASSESSED. NAD NOTED. VITALS CHECKED. CALL LIGHT IN REACH.BREAKFAST WAS GIVEN. CURRENTLY WAITING FOR DIALYSIS.
--- NOTE | 2022-07-10 10:03 | NUR ---
PATIENT C/O CHEST PAIN, EKG PERFORMED. EKG GIVEN TO DR. AVILA
--- NOTE | 2022-07-10 10:45 | NUR ---
PT TRANSPORTED VIA WHEELCHAIR TO DIALYSIS. REPORT WAS GIVEN TO TERESA FREITAS. PT WAS TRANSPORTED ON 3 LITERS OF O2 AND PORTABLE TELE.
--- NOTE | 2022-07-10 11:00 | NUR ---
ATTEMPTED TO BEGIN DIALYSIS TREATMENT, ARTERIAL PORT OF R-SUBCLAVIAN TLC APPEARS TO BE CRACKED AND LEAKING. TX HELD. DR. VAUGHN NOTIFIED. PLAN IS TO PLACE TEMPORARY CATHETER AND DIALYZE AFTER TEMP CATH ESTABLISHED. PT TAKEN TO ROOM 276 FOR ADMISSION, REPORT GIVEN TO FEMMaylin GUPTA RN.
--- NOTE | 2022-07-10 23:30 | NUR ---
DIALYSIS NOTE START TIME:1938 END TIME:2313 TIME COMPLETED: 3 HRs 10 Min FLUID REMOVED: 6000ML PRE TX WEIGHT: 82KGPOST TX WEIGHT: 76KG TABLO SERIAL #[id number] DIALYZER: OPTIFLUX 200NR PH: 7.4 WATER TEMP: 85F R/O REJECTION: 99% EXPECTED CONDUCTIVITY: 13.9 ACTUAL CONDUCTIVITY: 13.9 HEP B ANTIGEN: NEG 06/09/22 HEP B ANTIBODY: <5 ON 04/06/22 PRE TX VS: NIBP 160/94mmHg HR 100bpm RR 22/MIN T 100F POST TX VS: NIBP 159/99mmHg HR 103bpm RR 22/MIN T 99.9F INFORMED CONSENT SIGNED BY PATIENT AND DR. LAURENT, WITNESSED BY Tarik URIAS RN. LABS REVIEWED, ASSESMENT COMPLETED. ORDERS FOR HEMODIALYSIS OBTAINED FROM DR. LAURENT. EDUCATION PROVIDED TO PATIENT. ACCESS: LEFT GROIN CVC, DOUBLE LUMEN WITH 1.2ML VOLUME. FLUSHES EASILY WITH GOOD BLOOD RETURN. ACCESSED FOR HEMODILAYSIS PER POLICY UNDER ASEPTIC TECHNIQUE. AFTER TX HEPLOCKED PER ORDERS WITH 1.2ML HEPARIN IN EACH LUMEN. TEGO CONNECTERS APPLIED WITH SWAB CAPS. MEDICATIONS ADMINISTERED: NACL 0.9% 1000ML X2, HEPARIN 1,000 UNIT LOADING DOSE, HEPARIN 1,000 UNIT/ML 1.2ML IN EACH CVC LUMEN FOR HEPLOCK. ASSESMENT: PT BROUGHT TO DIALYSIS ROOM IN BED BY PROCESSING OPERATOR AFTER RECEIVING REPORT FROM Joon SHEFFIELD RN. PT IS DROWSY BUT ROUSABLE, A/OX3 AND UNCOOPERATIVE WITH CARE. COUGH WITH MODERATE YELLOW SPUTUM. SOB WITH EXERTION.02 AT 4L/MIN VIA SIMPLE FACE MASK. SR-ST ON MONITOR. GENERALIZED EDEMA +2-3. REFUSES AUSCULATATION OF LUNGS AND HEART. PT TOLERATED HEMODIALYSIS WITHOUT COMPLICATION. REPORT PROVIDED TO Joon SHEFFIELD RN. PT RETURNED TO ROOM IN BED.
[2022-07-11] VITALS (11 sets, daily range): BP systolic 130–177; BP diastolic 77–100
[2022-07-11 05:12] LABS: MAGNESIUM 2.3 mg/dL (1.6-2.3); POTASSIUM 4.1 mmol/l (3.5-5.1)
[2022-07-11 05:14] LABS: CREATININE 8.5 mg/dL (0.7-1.3)
[2022-07-11 05:38] LABS: IMMATURE GRANULOCYTES 0.6 % (0.0-5.0); MEAN CELL VOLUME 94.1 fL CALC (80.0-100.0); MEAN CORPUSCULAR HGB 30.9 pG CALC (26.0-32.0); MEAN CORPUSCULAR HGB CONC 32.8 g/dL CAL (32.0-36.0); NEUT# 13.97 thou/uL (1.82-7.42); RED BLOOD COUNT 2.04 mill/uL (4.70-6.10); RED CELL DISTRI WIDTH 15.5 % (11.5-15.5)
[2022-07-11 05:39] LABS: HEMOGLOBIN 6.3 g/dl (14.0-18.0)
[2022-07-11 05:40] LABS: HEMATOCRIT 19.2 % (39.0-50.0)
--- NOTE | 2022-07-11 06:55 | NUR ---
DR. BARRY AWARE OF HB VALUE. HE STATED HE WOULD ASSESS THE PATIENT WHEN HE ARRIVES.
--- NOTE | 2022-07-11 09:37 | NUR ---
dr costa at bedside for assessment and discussion of poc
--- NOTE | 2022-07-11 09:48 | NUR ---
pt sitting in bed eating breakfast. a&o x3. no distress noted. pt denies any pain. crackles heard in bilateral lower lobes. o2 at bedside if needed. active bowel sounds x4 quadrants. bilateral lower leg edema. tele in place. iv healthy and patent. assessment completed. discussed poc. call light within reach.
--- NOTE | 2022-07-11 12:30 | NUR ---
Per the conversation with this chart writer and MD, temp dialysis catheter not to be removed per Dr. Herrera.
--- NOTE | 2022-07-11 14:40 | NUR ---
informed consent obtained for blood transfusion
--- NOTE | 2022-07-11 14:40 | NUR ---
Consent obtained for administration of blood and or blood products for 1 unit of blood. pt agreebale to have transfusion with dialysis as per dr baltazar pt to be dialyzed today. pt in agreement with plan. IV dressing changed at this time. call light within reach.
--- NOTE | 2022-07-11 15:44 | NUR ---
pt transferred to dialysis via bed in stable condition. bedside report given to Tarik Hernandes Rn. vss, this copy writer to picker packer blood product.
--- NOTE | 2022-07-11 15:59 | NUR ---
blood product verified by Anjali Hernandes and Mar Bell RN, pt educated prior to transfusion regarding s/s of rx pt verbalized understanding. care to be continued at this time during dialysis to Anjali Hernandes RN
--- NOTE | 2022-07-11 17:37 | NUR ---
as warehouse production worker I spoke with director systems integration analyst, the nursing techn, Dr. eldridge and Dr. rachel about this patient's temporary dialysis catheter. patient was still requesting to go home and to sign ama forms. detailed education was given again by patient's nurse.
--- NOTE | 2022-07-11 18:00 | NUR ---
pt educated on risks and benefits of leaving [facility]. per pt he is staying tonight and leaving tomorrow. currently still rec dialysis
--- NOTE | 2022-07-11 19:00 | NUR ---
Report received from offgoing RN.
--- NOTE | 2022-07-11 19:30 | NUR ---
DIALYSIS NOTE START TIME:1549 END TIME:1921 TIME COMPLETED: 3HOURS FLUID REMOVED:3500ML PRE TX WEIGHT: 77KG POST TX WEIGHT: 74KG TABLO SERIAL #[id number] DIALYZER: OPTIFLUX 200NR LOT#[id number] PH: 7.5 WATER TEMP: 80.2FTABLO CARTRIDGE LOT#[id number] R/O REJECTION: 99% EXP CONDUCTIVITY: 13.9 ACT CONDUCTIVITY: 13.9 HEP B ANTIGEN: NEG 07/10/22 HEP B ANTIBODY: <5 ON 04/06/22 PRE TX VS: NIBP 129/83mmHg HR 84bpm RR 22/MIN T 98.3F POST TX VS: NIBP 137/90mmHg HR 85bpm RR 21/MIN T 98.6F INFORMED CONSENT SIGNED BY PATIENT AND DR. LAURENT, WITNESSED BY Tarik URIAS RN. LABS REVIEWED, ASSESMENT COMPLETED. ORDERS FOR HEMODIALYSIS OBTAINED FROM DR. LAURENT. EDUCATION PROVIDED TO PATIENT. PT DISINTERESTED IN EDUCATION. CONTINUE TO REINFORCE. ACCESS: LEFT GROIN CVC, DOUBLE LUMEN WITH 1.2ML VOLUME. FLUSHES EASILY WITH GOOD BLOOD RETURN. ACCESSED FOR HEMODILAYSIS PER POLICY UNDER ASEPTIC TECHNIQUE. AFTER TX HEPLOCKED PER ORDERS WITH 1.2ML HEPARIN IN EACH LUMEN. TEGO CONNECTERS APPLIED WITH SWAB CAPS. MEDICATIONS ADMINISTERED: NACL 0.9% 1000ML X2, HEPARIN 1,000 UNIT LOADING DOSE, HEPARIN 1,000 UNIT/ML 1.2ML IN EACH CVC LUMEN FOR HEPLOCK. BENADRYL 25MG IV AND APAP 650MG PO. ASSESMENT: PT BROUGHT TO DIALYSIS ROOM IN BED BY TUBE ROOM SUPERVISOR AFTER RECEIVING REPORT FROM RANDY FREITAS. DROWSY BUT ROUSABLE, A/OX3 AND UNCOOPERATIVE WITH CARE. COUGH WITH MODERATE YELLOW SPUTUM. SOB WITH EXERTION.02 AT 3/MIN VIA SIMPLE FACE MASK. SR-ST ON MONITOR. GENERALIZED EDEMA +2-3. REFUSES AUSCULATATION OF LUNGS AND HEART. PT TOLERATED HEMODIALYSIS WITHOUT COMPLICATION. REPORT PROVIDED TO Tarik MARTÍNEZ RN. RETURNED TO ROOM IN BED.
--- NOTE | 2022-07-11 19:32 | NUR ---
report given to oncoming shift
--- NOTE | 2022-07-11 21:00 | NUR ---
Pt noted to have a small nose bleed. Humidity place on O2. VSS. Will monitor.
--- NOTE | 2022-07-11 21:30 | NUR ---
Pt awake, alert. Has removed his towel sewer and refuses to have same replaced. Charge nurse aware.
[2022-07-12] VITALS: BP 130/77
--- NOTE | 2022-07-12 00:12 | NUR ---
Pt's IV is leaking and painful. Same removed intact. Pt at first refusing resite. But then allowed nurse to try. Will monitor.
--- NOTE | 2022-07-12 02:15 | NUR ---
Pt assisted up to bathroom to have BM. No noted complaints. Will continue to monitor.
--- NOTE | 2022-07-12 04:17 | NUR ---
Pt refusing VS and daily weight. Also continues to refuse bus driver/monitor.
--- NOTE | 2022-07-12 05:08 | NUR ---
Patient refused daily weight and blood pressure, when asked many times by the nurse and I.
--- NOTE | 2022-07-12 07:32 | NUR ---
PT RESTING IN LOW FOWLERS POSITION. PT ASSESSMENT COMPLETED. HEART RHYHTM SR FROM LAST TELE READING. PT REFUSED TELE AND PT REMOVED. PT 22G RFA NOTED. RESPIRATIONS UNLABORED ON 2L /MASK PER PT REQUEST HUMUDIFIED. BOWEL SOUNDS ACTIVE. PT HAS REFUSED VS . ALL SAFETY PRECAUTIONS IN PLACE WITH CALL LIGHT IN REACH.
[2022-07-12 08:28] VITALS: BP 140/94
[2022-07-12 08:39] VITALS: BP 140/94
[2022-07-12 08:57] LABS: HEMOGLOBIN 7.2 g/dl (14.0-18.0); IMMATURE GRANULOCYTES 2.3 % (0.0-5.0); MEAN CELL VOLUME 92.4 fL CALC (80.0-100.0); MEAN CORPUSCULAR HGB 30.3 pG CALC (26.0-32.0); MEAN CORPUSCULAR HGB CONC 32.7 g/dL CAL (32.0-36.0); NEUT# 8.1 thou/uL (1.82-7.42); RED BLOOD COUNT 2.38 mill/uL (4.70-6.10); RED CELL DISTRI WIDTH 16.6 % (11.5-15.5)
[2022-07-12 09:14] LABS: POTASSIUM 4.2 mmol/l (3.5-5.1)
[2022-07-12 09:21] LABS: CREATININE 6.8 mg/dL (0.7-1.3)
--- NOTE | 2022-07-12 11:25 | NUR ---
TEMPORARY DIALYSIS CATHETER REMOVED IN RIGHT GROIN PATIENT DECIDES TO LEAVE AMA. VERBAL ORDER RECEIVED FROM DR BARRY. CATHETER REMOVED WITH TIP INTACT. PRESSURE HELD TO RIGHT GROIN FOR 10 MINUTES. NO ACTIVE BLEEDING NOTED, DRESSING APPLIED.
--- NOTE | 2022-07-12 11:30 | NUR ---
DAY NURSINGSUPERVISOR. REMOVED. RIGHT GROIN DIALYSIS CATH. NO BLEEDING NOTED AT THE TIME. PT TOLERATED WELL.
--- NOTE | 2022-07-12 11:55 | NUR ---
dressing to right groin remains dry and intact. no active bleeding noted.
--- NOTE | 2022-07-12 12:00 | NUR ---
PT DISLIKED MEAL NEW MEAL ORDERED. IV TO BE REMOVED.
--- NOTE | 2022-07-12 12:25 | NUR ---
Patient decides to leave AMA. Multiple attempts made to ecourage patient to remain here for continued treatment. Explained to patient all risks of leaving against medical advice including . Pt verbalized understanding of all risks. Pt also encouraged to return to [facility] at any time, especially if symptoms continue or become worse. Pt verbalized understanding.
== END 2022-07-12 12:17 | disposition left against medical advice (07) | DRG 682 ==
LOC: ED 03:03 → ED-I 06:40 → ED 06:45 → ED-I 06:45 → ED 06:55 → MS2 06:56
PROVIDERS: Family Medicine; Internal Medicine; ADMIT Internal Medicine; ATTEND Internal Medicine
PROC: 06HY33Z Insertion of Infusion Device into Lower Vein, Percutaneous Approach (ICD-10-PCS; principal; 2022-07-10)
PROC: 5A1D70Z Performance of Urinary Filtration, Intermittent, Less than 6 Hours Per Day (ICD-10-PCS; 2022-07-10)
PROC: 5A1D70Z Performance of Urinary Filtration, Intermittent, Less than 6 Hours Per Day (ICD-10-PCS; 2022-07-11)
PROC: 3E02340 Introduction of Influenza Vaccine into Muscle, Percutaneous Approach (ICD-10-PCS; 2022-07-11)
PROC: 30243N1 Transfusion of Nonautologous Red Blood Cells into Central Vein, Percutaneous Approach (ICD-10-PCS; 2022-07-11)
DX: I12.0 Hypertensive chronic kidney disease with stage 5 chronic kidney disease or end stage renal disease (principal); J18.9 Pneumonia, unspecified organism; N18.6 End stage renal disease; J96.01 Acute respiratory failure with hypoxia; T82.41XA Breakdown (mechanical) of vascular dialysis catheter, initial encounter; N25.81 Secondary hyperparathyroidism of renal origin; I16.0 Hypertensive urgency; D63.1 Anemia in chronic kidney disease; F10.10 Alcohol abuse, uncomplicated; F17.200 Nicotine dependence, unspecified, uncomplicated; Z23 Encounter for immunization; Z99.2 Dependence on renal dialysis; Y83.8 Other surgical procedures as the cause of abnormal reaction of the patient, or of later complication, without mention of misadventure at the time of the procedure; Z91.15 Patient's noncompliance with renal dialysis
CPT/HCPCS: J1644; P9016

== ENCOUNTER 2022-07-24 06:56 | Observation (INO) | payer MEDICAID ==
[~2022-07-24] VITALS: Ht 170.2 cm; Wt 100.0 kg
[2022-07-24 07:03] VITALS: BP 179/119
[2022-07-24 07:23] LABS: HEMATOCRIT 24.6 % (39.0-50.0); HEMOGLOBIN 7.8 g/dl (14.0-18.0); IMMATURE GRANULOCYTES 0.3 % (0.0-5.0); MEAN CELL VOLUME 91.1 fL CALC (80.0-100.0); MEAN CORPUSCULAR HGB 28.9 pG CALC (26.0-32.0); MEAN CORPUSCULAR HGB CONC 31.7 g/dL CAL (32.0-36.0); NEUT# 7.87 thou/uL (1.82-7.42); RED BLOOD COUNT 2.7 mill/uL (4.70-6.10); RED CELL DISTRI WIDTH 16.1 % (11.5-15.5)
[2022-07-24 07:35] LABS: ALBUMIN 3.9 g/dL (3.2-5.0); POTASSIUM 4.8 mmol/l (3.5-5.1); TOTAL PROTEIN 7.4 g/dL (6.3-8.2)
[2022-07-24 07:38] LABS: BILIRUBIN, TOTAL 0.7 mg/dL (0.0-1.4); CREATININE 8.9 mg/dL (0.7-1.3)
[2022-07-24 09:46] VITALS: BP 180/129
== END 2022-07-24 19:20 | disposition left against medical advice (07) ==
LOC: ED 06:56 → ED-I 08:21 → ED 08:41 → MS2 08:41
PROVIDERS: Family Medicine; ADMIT Internal Medicine; ATTEND Internal Medicine
DX: I12.0 Hypertensive chronic kidney disease with stage 5 chronic kidney disease or end stage renal disease (principal); N18.6 End stage renal disease; Z99.2 Dependence on renal dialysis; D63.1 Anemia in chronic kidney disease; N25.81 Secondary hyperparathyroidism of renal origin; F10.10 Alcohol abuse, uncomplicated; F17.200 Nicotine dependence, unspecified, uncomplicated; Z91.199 Patient's noncompliance with other medical treatment and regimen due to unspecified reason
CPT/HCPCS: G0378; J1644

== ENCOUNTER 2022-07-27 07:25 | Observation (INO) | payer MEDICAID ==
[~2022-07-27] VITALS: Ht 170.2 cm; Wt 78.4 kg
[2022-07-27 07:36] VITALS: BP 186/132
[2022-07-27 07:43] LABS: HEMATOCRIT 25.1 % (39.0-50.0); HEMOGLOBIN 8.2 g/dl (14.0-18.0); IMMATURE GRANULOCYTES 0.2 % (0.0-5.0); MEAN CORPUSCULAR HGB 29.1 pG CALC (26.0-32.0); MEAN CORPUSCULAR HGB CONC 32.7 g/dL CAL (32.0-36.0); NEUT# 7.93 thou/uL (1.82-7.42); RED BLOOD COUNT 2.82 mill/uL (4.70-6.10); RED CELL DISTRI WIDTH 16.1 % (11.5-15.5)
[2022-07-27 07:46] VITALS: BP 189/139
[2022-07-27 08:00] VITALS: BP 188/128
[2022-07-27] MEDS ORDERED: LASIX 40 MG TAB40 MG PO (08:00)
[2022-07-27] MEDS ORDERED: NORMODYNE/TRAN100 MG PO (08:01)
[2022-07-27] MEDS ORDERED: VITAMIN D31000 UNI1 PO (08:03)
[2022-07-27] MEDS ORDERED: ACETAMINOPHEN500 M1 PO (08:04)
[2022-07-27] MEDS ORDERED: FERROUS SULF325 M3 PO (08:04)
[2022-07-27 08:05] LABS: ALBUMIN 4.2 g/dL (3.2-5.0); BILIRUBIN, TOTAL 0.6 mg/dL (0.0-1.4); POTASSIUM 5.1 mmol/l (3.5-5.1); TOTAL PROTEIN 7.7 g/dL (6.3-8.2)
[2022-07-27 08:10] LABS: CREATININE 11.5 mg/dL (0.7-1.3)
[2022-07-27 08:15] VITALS: BP 161/117
[2022-07-27 11:17] VITALS: BP 161/117
== END 2022-07-27 14:46 | disposition left against medical advice (07) ==
LOC: ED 07:25 → ED-I 07:51 → ED 07:51 → ED-I 07:55 → ED 08:19 → MS2 08:20
PROVIDERS: Family Medicine; ADMIT Internal Medicine; ATTEND Internal Medicine
DX: I12.0 Hypertensive chronic kidney disease with stage 5 chronic kidney disease or end stage renal disease (principal); N18.6 End stage renal disease; Z99.2 Dependence on renal dialysis; I16.0 Hypertensive urgency; D63.1 Anemia in chronic kidney disease; N25.81 Secondary hyperparathyroidism of renal origin; F10.10 Alcohol abuse, uncomplicated; F17.200 Nicotine dependence, unspecified, uncomplicated; Z91.199 Patient's noncompliance with other medical treatment and regimen due to unspecified reason; Z20.822 Contact with and (suspected) exposure to COVID-19
CPT/HCPCS: G0378; J1644

== ENCOUNTER 2022-07-29 06:50 | Observation (INO) | payer MEDICAID ==
[~2022-07-29] VITALS: Ht 170.2 cm; Wt 76.2 kg
[~2022-07-29 06:50] MED LIST changes: +FERROUS SULF325 M3 PO; +NORMODYNE/TRAN100 MG PO; +VITAMIN D31000 UNI1 PO
[2022-07-29 07:02] VITALS: BP 190/140
[2022-07-29 07:07] VITALS: BP 195/136
[2022-07-29 07:08] VITALS: BP 196/138
[2022-07-29 07:15] VITALS: BP 201/141
[2022-07-29 07:24] LABS: HEMATOCRIT 26.1 % (39.0-50.0); HEMOGLOBIN 8.3 g/dl (14.0-18.0); IMMATURE GRANULOCYTES 0.2 % (0.0-5.0); MEAN CORPUSCULAR HGB 28.6 pG CALC (26.0-32.0); MEAN CORPUSCULAR HGB CONC 31.8 g/dL CAL (32.0-36.0); NEUT# 8.29 thou/uL (1.82-7.42); RED BLOOD COUNT 2.9 mill/uL (4.70-6.10); RED CELL DISTRI WIDTH 16.1 % (11.5-15.5)
[2022-07-29 07:34] LABS: BILIRUBIN, TOTAL 0.5 mg/dL (0.0-1.4); POTASSIUM 5.1 mmol/l (3.5-5.1); TOTAL PROTEIN 7.3 g/dL (6.3-8.2)
[2022-07-29 07:37] LABS: CREATININE 10.8 mg/dL (0.7-1.3)
[2022-07-29 10:37] VITALS: BP 201/141
== END 2022-07-29 13:53 | disposition left against medical advice (07) ==
LOC: ED 06:50 → ED-I 07:20 → ED 07:20 → MS2 07:43
PROVIDERS: Emergency Medicine; ADMIT Internal Medicine; ATTEND Internal Medicine
DX: I12.0 Hypertensive chronic kidney disease with stage 5 chronic kidney disease or end stage renal disease (principal); N18.6 End stage renal disease; Z99.2 Dependence on renal dialysis; D63.1 Anemia in chronic kidney disease; N25.81 Secondary hyperparathyroidism of renal origin; F10.10 Alcohol abuse, uncomplicated; F17.200 Nicotine dependence, unspecified, uncomplicated
CPT/HCPCS: G0378; J1644

== ENCOUNTER 2022-07-31 08:10 | Observation (INO) | payer MEDICAID ==
[~2022-07-31] VITALS: Ht 170.2 cm; Wt 168.1 kg
--- NOTE | 2022-07-31 08:10 | NUR ---
PT ESCORTED VIA WHEELCHAIR TO ROOM 5 FOR REQUEST FOR DIALYSIS
[2022-07-31 08:16] VITALS: BP 142/106
[2022-07-31 08:31] VITALS: BP 133/75
[2022-07-31 08:43] LABS: HEMATOCRIT 24.9 % (39.0-50.0); IMMATURE GRANULOCYTES 0.2 % (0.0-5.0); MEAN CELL VOLUME 89.6 fL CALC (80.0-100.0); MEAN CORPUSCULAR HGB 28.8 pG CALC (26.0-32.0); MEAN CORPUSCULAR HGB CONC 32.1 g/dL CAL (32.0-36.0); NEUT# 6.04 thou/uL (1.82-7.42); RED BLOOD COUNT 2.78 mill/uL (4.70-6.10); RED CELL DISTRI WIDTH 15.8 % (11.5-15.5)
[2022-07-31 08:46] VITALS: BP 109/88
[2022-07-31 09:04] LABS: ALBUMIN 4.1 g/dL (3.2-5.0); BILIRUBIN, TOTAL 0.6 mg/dL (0.0-1.4); POTASSIUM 4.6 mmol/l (3.5-5.1); TOTAL PROTEIN 7.4 g/dL (6.3-8.2)
[2022-07-31 09:12] LABS: CREATININE 10.7 mg/dL (0.7-1.3)
[2022-07-31 09:45] VITALS: BP 109/88
--- NOTE | 2022-07-31 09:57 | NUR ---
PT ARRIVED ON UNIT @ 0957 TRANSPORTED VIA W/C BY ED STAFF AND SETTLED IN BED. BEDSIDE REPORT GIVEN ED STAFF, PT ALERT AND ORIENTED BUT STATES HE WANTS TO SLEEP NOW AND WENT STRAIGHT UNDER COVERS AND CLOSED HIS EYES, TELE MOITOR IN PLACE, CALL KAUR IN REACH AND BED LOCKED IN LOWEST POSITION.
--- NOTE | 2022-07-31 10:13 | NUR ---
TRANSPORTED VIA WHEELCHAIR TO ROOM 273. REPORT PROVIDED TO LANETTE AT BEDSIDE
--- NOTE | 2022-07-31 14:13 | NUR ---
BEING TRANSPORTED VIA W/C TO DIALYSIS AT THIS TIME.
--- NOTE | 2022-07-31 14:15 | NUR ---
PRE-DIALYSIS NOTE: PT ARRIVES VIA W/C , ACCOMPANIED BY VP OF MARKETING. VERBAL REPORT RECEIVED, CARE OF PT ASSUMED AT THIS TIME. FOR HEMODIALYSIS TREATMENT. CONSENT HAS BEEN OBTAINED AND SIGNED BY PHYSICIAN. TREATMENT ORDERS OBTAINED FROM DR. FLORES. EDUCATION PROVIDED VERBALLY, ALLOWING TIME FOR PT TO ASK ANY QUESTIONS. PT VERBALIZES UNDERSTANDING AND DENIES FURTHER QUESTIONS. LABS REVIEWED. WEIGHT: 77.2 KG BY STANDING SCALE VS: 174/120 mmHg 96 bpm 98 SPO2 HEMODIALYSIS TREATMENT INITIATED AT 1430 WITHOUT DIFFICULTY OR COMPLICATION. PT TOLERATED PROCEDURE WELL. WILL REMAIN WITH PT FOR MONITORING. MACHINE #[id number], SEE TABLO DOCUMENTATION.
--- NOTE | 2022-07-31 14:48 | NUR ---
DR VAUGHN AT BEDSIDE TO ASSESS PT.
--- NOTE | 2022-07-31 17:21 | NUR ---
PT RESTING WITH EYES CLOSED IN NO DISTRESS WITH IV LEVAQUIN INFUSING AD ORDERED VIA HD. NO DYSPNEA OR SOB NOTED.
== END 2022-07-31 18:15 | disposition left against medical advice (07) ==
LOC: ED 08:10 → ED-I 09:00 → MS2 09:31 → ED 09:31 → MS2 18:15
PROVIDERS: Emergency Medicine; ADMIT Internal Medicine; ATTEND Internal Medicine
DX: I12.0 Hypertensive chronic kidney disease with stage 5 chronic kidney disease or end stage renal disease (principal); N18.6 End stage renal disease; Z99.2 Dependence on renal dialysis; D63.1 Anemia in chronic kidney disease; N25.81 Secondary hyperparathyroidism of renal origin; F10.10 Alcohol abuse, uncomplicated; F17.200 Nicotine dependence, unspecified, uncomplicated; R11.2 Nausea with vomiting, unspecified; R19.7 Diarrhea, unspecified; R06.00 Dyspnea, unspecified; Z91.199 Patient's noncompliance with other medical treatment and regimen due to unspecified reason; Z87.01 Personal history of pneumonia (recurrent); Z20.822 Contact with and (suspected) exposure to COVID-19
CPT/HCPCS: G0378; J1644

== ENCOUNTER 2022-08-03 11:43 | Observation (INO) | payer MEDICAID ==
[~2022-08-03] VITALS: Ht 170.2 cm; Wt 75.0 kg
[2022-08-03] VITALS (7 sets, daily range): BP systolic 157–212; BP diastolic 108–149
--- NOTE | 2022-08-03 12:00 | NUR ---
PATIENT TO ROOM FOR TRAIGE
[2022-08-03 12:32] LABS: HEMATOCRIT 23.7 % (39.0-50.0); HEMOGLOBIN 7.6 g/dl (14.0-18.0); IMMATURE GRANULOCYTES 0.2 % (0.0-5.0); MEAN CELL VOLUME 89.1 fL CALC (80.0-100.0); MEAN CORPUSCULAR HGB 28.6 pG CALC (26.0-32.0); MEAN CORPUSCULAR HGB CONC 32.1 g/dL CAL (32.0-36.0); NEUT# 8.13 thou/uL (1.82-7.42); RED BLOOD COUNT 2.66 mill/uL (4.70-6.10); RED CELL DISTRI WIDTH 15.8 % (11.5-15.5)
--- NOTE | 2022-08-03 12:35 | NUR ---
PATIENT REFUSING NITRO DRIP AND REFUSING IV SITE. MADE AWARE. WARM BLANKET GIVEN AND CUP OF ICE CHIPS
[2022-08-03 12:42] LABS: ALBUMIN 4.3 g/dL (3.2-5.0); BILIRUBIN, TOTAL 0.7 mg/dL (0.0-1.4); TOTAL PROTEIN 7.6 g/dL (6.3-8.2)
[2022-08-03 12:45] LABS: CREATININE 12.7 mg/dL (0.7-1.3)
--- NOTE | 2022-08-03 13:15 | NUR ---
PATIENT PROPAGATOR LABORER LIGHT, REPORTS WANTING TO VOMIT. NED COMMUNICATIONS ATTENDANT AWARE
--- NOTE | 2022-08-03 13:50 | NUR ---
Admission Note Report Given to: ZENA AMADOR Transported by: Wheelchair X Stretcher Transported with: X Nurse Transporter Patent IV X O2 X Feltmaker And Weigher Location: ICU X MS2 BEDSIDE REPORT GIVEN TO ZENA AMADOR
--- NOTE | 2022-08-03 14:20 | NUR ---
SHE GAUTAM AT BEDSIDE TO ASSESS PT. NON REBREATHER APPLIED O2 SAT ON O2 @4LPM SATS BETWEE 86-89%. PT C/O PAIN TO "MY WHOEL BODY" BUT ESPECIALLY LE "IN THE BONES" O2 SAT IMPROVED TO 100% ON NRB MASK.LUNGS WITH CRACKELS BILATERALLY. TRACE EDEMA TO FACE AND ARMS. 1+ EDEMA TO LE. SKIN PALE.
--- NOTE | 2022-08-03 15:24 | NUR ---
NOTIFIED SHE GAUTAM OF CURRENT VS. PT RESTING WITH EYES CLOSED WITH nrb MASK ON O2 SAT MAINTAINING AT 98-100%. MAKING SNORING RESPIRATIONS OCCASIONALLY AND THEN AWAKES STARTLED. TOLERATING HEMODIALYSIS WITHOUT PROBLEM. ASSITED PT TO REPOSITION FOR COMFORT AND EASE OF BREATHING.
--- NOTE | 2022-08-03 16:02 | NUR ---
BP UNCHANGED AFTER SECOND DOSE OF HYDRALAZINE 10MG VIA DIALYSIS. PT RESTING MORE COMFORTABLY AT THIS TIME WITH EYES CLOSED. ROUSES TO VOICE. O2 SAT 99% ON NRB. NOTED 1800CC FLUID REMOVED VIA DIALYSIS AT THIS TIME.
--- NOTE | 2022-08-03 17:04 | NUR ---
PT AWAKE AND REQUESTING HIS MEAL TRAY. WANTS "A CUP OF ICE AND SOME APPLE JUICE" COUNSELED PT ON NEED TO LIMIT FLUID INTAKE BECAUSE OF EXTREME FLUID OVERLOAD, PT STATES " I ONLY WANT A SMALL CUP OF JUICE AND ICE" TRIED TO GIVE PT ONLY JUICE AND EXPLAINED THAT ICE IS WATER. PT BECAME ANGRY AND STATED "IT IS NOT WATER IT IS ICE". 4 OZ JUICE AND 4 OZ ICE GIVEN TO PT AT HIS DEMAND. SITTING UP EATING MEAL AND HAD TAKEN OF NON REBREATHER. NO APPARENT TACHYPNEA OR SOB BUT NOTED PT O2 SAT TO BE 88% ON R/A. REQUESTED THAT PT PUT ON O2 @3LPM VIA N/C , PT COMPLIED AND O2 SAT MAINTAINED 92-94% WITHOUT DISTRESS.
--- NOTE | 2022-08-03 19:25 | NUR ---
POST DIALYSIS NOTE: START TIME: 1433 END TIME: 1847 TIME COMPLETED: 4 HOURS FLUID REMOVED: 5.7 L PRE TX WEIGHT: 75 KG POST TX WEIGHT: 69.2 KG PRE TX VS: NIBP 210/165 mmHg HR 107 bpm RR 22/MIN T 98.6 F POST TX VS: NIBP 135/106 mmHg HR 106 bpm RR 20/MIN T 98.9 F HEP B ANTIGEN: NEGATIVE (07/10/22) HEP B ANTIBODY: NEGATIVE (07/10/22) ACCESS: RIGHT SUBCLAVIAN DOUBLE LUMEN TUNNELLED CVC WITH C/D/I DRESSING, DRESSING CHANGE COMPLETED USING ASEPTIC TECHNIQUE. NO REDNESS OR DRAINAGE. ACCESSED PER [facility] HD CVC POLICY. FLUSHES EASILY WITH GOOD BLOOD RETURN. POST HD TX CVC FLUSHES EASILY WITH GOOD BLOOD RETURN. SALINE FLUSHED WITH 10ML PER LUMEN . TEGO CONNECTORS AND SWAB CAPS APPLIED TO EACH LUMEN. LUMEN CLAMP ENGAGED. EXPOSED LUMEN WRAPPED WITH 4X4 GAUZE AND SECURED WITH PAPER TAPE. DRESSING CHANGE COMPLETED ON CVC. ASEPTIC TECHNIQUE MAINTAINED THROUGHOUT ACCESS AND DEACCESS PROCEDURES. MEDICATIONS ADMINISTERED: HEPARIN 3,000 UNITS LOADING DOSE. PT DECLINES OFFER FOR APAP. RETACRIT HELD PER PHARMACY DOSING BY DR. LAURENT SECONDARY TO HTN. ASSESMENT: PT A/OX3, DROWSY BUT EASILY ROUSABLE. AMBULATES FROM WHEELCHAIR TO DIALYSIS CHAIR WITH STEADY BALANCED GAIT. LUNGS DIMINISH AND CRACKLES AT BASES. NST ON TELEMETRY. TELEMETRY REMOVED BY PATIENT AFTER TX, REPORTS IT MAKES HIM "ITCHY" AND PT REFUSES RE-APPLICATION. PT AGREEABLE TO ADMISSION HE REQUIRES O2 TO MAINTAIN SATS ABOVE 94%. PT TAKEN TO [facility] DN MADE COMFORTABLE IN BED WITH EVENING MEAL TRAY.REPORT TO ZENA RODRIGUEZ.
--- NOTE | 2022-08-03 20:30 | NUR ---
Patient resting in bed. Blood pressure is elevated. Patient is on NC, SPO2 98. Patient refused tele and IV access. Patient was educated on the need for an IV.
[2022-08-04 01:56] LABS: HEMOGLOBIN 8.3 g/dl (14.0-18.0); IMMATURE GRANULOCYTES 0.5 % (0.0-5.0); MEAN CELL VOLUME 88.7 fL CALC (80.0-100.0); MEAN CORPUSCULAR HGB 28.3 pG CALC (26.0-32.0); MEAN CORPUSCULAR HGB CONC 31.9 g/dL CAL (32.0-36.0); NEUT# 4.94 thou/uL (1.82-7.42); RED BLOOD COUNT 2.93 mill/uL (4.70-6.10); RED CELL DISTRI WIDTH 15.5 % (11.5-15.5)
[2022-08-04 02:23] LABS: ALBUMIN 4.6 g/dL (3.2-5.0); BILIRUBIN, TOTAL 0.6 mg/dL (0.0-1.4); TOTAL PROTEIN 8.2 g/dL (6.3-8.2)
[2022-08-04 02:26] LABS: CREATININE 7.7 mg/dL (0.7-1.3)
--- NOTE | 2022-08-04 02:33 | NUR ---
recieved call from celestino in lab-creat b7.7-for h/d in am.
[2022-08-04 04:03] VITALS: BP 188/120
[2022-08-04 04:18] VITALS: BP 177/121
--- NOTE | 2022-08-04 05:23 | NUR ---
Patient in bed sleeping . Blood pressure is elevated. Patient continues to refuse to allow me to start an IV to give medication for his elevated blood pressure i educated the patient on the risks for having uncontrolled elevated blood pressure. Was notified by lab that the patient's troponins is trending up. I called the physican and left a message to get orders.
[2022-08-04 05:50] VITALS: BP 187/128
[2022-08-04 06:45] VITALS: BP 187/128
--- NOTE | 2022-08-04 07:39 | NUR ---
RECEIVE REPORT FROM LISA FREITAS. PATIENT RESTING IN BED STABLE AT THIS TIME.
--- NOTE | 2022-08-04 08:00 | NUR ---
PATIENT ALERTA AND ORIENTED X3. RESTING IN BED STABLE AT THIS TIME. ASSESSMENT HEAD-TO-TOE COMPLETE. PATIENT IS EDUCATED ABOUD MEDICATIONS AND NURSING PLAN FOR TODAY. PT REFER UNDERSTAND. SAFETY AND FALL PRECAUTIONS IN PLACE. CALL LIGHT WITHIN IN REACH.
[2022-08-04 10:28] VITALS: BP 172/108
[2022-08-04] MEDS ORDERED: PROCARDIA XL60 MG PO (10:58)
[2022-08-04] MEDS ORDERED: ASPIRIN ADULT L81 M2 PO (10:58)
[2022-08-04] MEDS ORDERED: LASIX 40 MG TAB40 MG PO (10:58)
[2022-08-04] MEDS ORDERED: ATORVASTATIN CA40 MG PO (10:58)
[2022-08-04] MEDS ORDERED: NORMODYNE/TRAN100 MG PO (10:58)
[2022-08-04 11:41] VITALS: BP 172/108
--- NOTE | 2022-08-04 12:00 | NUR ---
PATIENT RESTING IN BED-EYES ARE CLOSED AND RESPS ARE EVEN AND UNLABORED. POSITIONED ON LEFT SIDE. TELE MONITOR IN PLACE. SALINE LOCK TO RAC INTACT. CALL LIGHT IN REACH. WILL CONT TO MONITOR.
--- NOTE | 2022-08-04 14:25 | NUR ---
Discharge instructions given. Patient verbalizes understanding of same. Discharged in stable condition via Wheelchair to Home with staff. All belongings sent with pt.
[2022-08-05] MEDS ORDERED: TRAMADOL HCL50 MG PO (17:40)
== END 2022-08-04 14:25 | disposition home or self-care (01) ==
LOC: ED 11:43 → ED-I 13:00 → ED 13:22 → MS2 13:23
PROVIDERS: Family Medicine; ADMIT Internal Medicine; ATTEND Internal Medicine
DX: I12.0 Hypertensive chronic kidney disease with stage 5 chronic kidney disease or end stage renal disease (principal); N18.6 End stage renal disease; Z99.2 Dependence on renal dialysis; I16.0 Hypertensive urgency; D63.1 Anemia in chronic kidney disease; N25.81 Secondary hyperparathyroidism of renal origin; F10.10 Alcohol abuse, uncomplicated; F17.200 Nicotine dependence, unspecified, uncomplicated; R79.89 Other specified abnormal findings of blood chemistry; T50.916A Underdosing of multiple unspecified drugs, medicaments and biological substances, initial encounter; Z91.128 Patient's intentional underdosing of medication regimen for other reason; Z20.822 Contact with and (suspected) exposure to COVID-19
CPT/HCPCS: G0378

== ENCOUNTER 2022-08-05 11:34 | Observation (INO) | payer MEDICAID ==
[~2022-08-05] VITALS: Ht 170.2 cm; Wt 91.0 kg
[~2022-08-05 11:34] MED LIST changes: +ASPIRIN ADULT L81 M2 PO
--- NOTE | 2022-08-05 11:44 | NUR ---
PT ESCORTED VIA WHEELCHAIR TO TRIAGE ROOM REQUESTING DIALYSIS TODAY
--- NOTE | 2022-08-05 11:50 | NUR ---
PT REPORTS HE HAS NOT TAKEN ANY BP PILLS SINCE LAST WEEK. HE IS WAITING ON THEM TO BE DELIVERED
--- NOTE | 2022-08-05 12:30 | NUR ---
ADMIT NOTE: PT BROUGHT UP TO ROOM 286 FROM ED VIA WC BY THIS NURSE. ADMISSION COMPLETE.
[2022-08-05 14:03] VITALS: BP 179/122
[2022-08-05 14:30] LABS: HEMATOCRIT 22.3 % (39.0-50.0); HEMOGLOBIN 7.2 g/dl (14.0-18.0); IMMATURE GRANULOCYTES 0.4 % (0.0-5.0); MEAN CELL VOLUME 89.6 fL CALC (80.0-100.0); MEAN CORPUSCULAR HGB 28.9 pG CALC (26.0-32.0); MEAN CORPUSCULAR HGB CONC 32.3 g/dL CAL (32.0-36.0); NEUT# 6.82 thou/uL (1.82-7.42); RED BLOOD COUNT 2.49 mill/uL (4.70-6.10); RED CELL DISTRI WIDTH 15.8 % (11.5-15.5)
[2022-08-05 14:31] LABS: ALBUMIN 4.1 g/dL (3.2-5.0); BILIRUBIN, TOTAL 0.5 mg/dL (0.0-1.4); TOTAL PROTEIN 7.1 g/dL (6.3-8.2)
[2022-08-05 15:20] LABS: CREATININE 10.5 mg/dL (0.7-1.3)
[2022-08-05] MEDS ORDERED: TRAMADOL HCL50 MG PO (17:40)
--- NOTE | 2022-08-05 17:45 | NUR ---
DIALYSIS NOTE: START TIME: 1423 END TIME: 1740 TIME COMPLETED: 3 HOURS FLUID REMOVED: 5500 ml PRE TX WEIGHT: 75.8 KG POST TX WEIGHT: 70.3 KG PRE TX VS: NIBP 213/149 mmHg HR 101 bpm RR 20/MIN T 98.3 F POST TX VS: NIBP 207/129 mmHg HR 88 bpm RR 20/MIN T 98.8 F HEP B ANTIGEN: NEGATIVE (07/10/22) HEP B ANTIBODY: NEGATIVE (07/10/22) VERIFIED INFORMED CONSENT SIGNED BY PATIENT AND DR. LAURENT, WITNESSED BY Tarik URIAS RN. LABS REVIEWED, ASSESMENT COMPLETED. ORDERS FOR HEMODIALYSIS OBTAINED FROM DR. LAURENT. EDUCATION PROVIDED TO PATIENT. ACCESS: RIGHT SUBCLAVIAN DOUBLE LUMEN TUNNELLED CVC WITH C/D/I DRESSING ACCESSED PER [facility] HD CVC POLICY. FLUSHES EASILY WITH GOOD BLOOD RETURN. POST HD TX CVC FLUSHES EASILY WITH GOOD BLOOD RETURN. SALINE FLUSHED WITH 10ML PER LUMEN AND HEPLOCKED WITH 1.9ML HEPARIN 1000 UNITS PER ML. TEGO CONNECTORS AND SWAB CAPS APPLIED TO EACH LUMEN. LUMEN CLAMP ENGAGED. EXPOSED LUMEN WRAPPED WITH 4X4 GAUZE AND SECURED WITH PAPER TAPE. DRESSING CHANGE COMPLETED ON CVC. ASEPTIC TECHNIQUE MAINTAINED THROUGHOUT ACCESS AND DEACCESS PROCEDURES. MEDICATIONS ADMINISTERED: HEPARIN 3,000 UNITS LOADING DOSE, BENADRYL 25MG IV FOR C/O PRURITIS. PT DECLINES OFFER FOR APAP. RETACRIT NOT PRESCRIBED BY DR. LAURENT SECONDARY TO HTN. ASSESMENT: PT A/OX3, DROWSY BUT EASILY ROUSABLE. AMBULATES FROM WHEELCHAIR TO DIALYSIS CHAIR WITH STEADY BALANCED GAIT. LUNGS DIMINISH AND CLEAR. SR ON TELEMETRY. TELEMETRY REMOVED BY PATIENT DURING TX, REPORTS IT MAKES HIM "ITCHY" AND PT REFUSES RE-APPLICATION. PT PRESENTS WITH GROSS GENERALIZED EDEMA. POST TX, PT SIGNS OUT AMA. SEE AMA NOTE. TABLO SERIAL #:[id number] DIALYZER/LOT #: [id number] CARTRIDGE LOT #: [id number] PH: 7.2 WATER TEMP: 81.6 R/O REJECTION: 99% EXPECTED CONDUCTIVITY: 13.9 ACTUAL CONDUCTIVITY: 14
--- NOTE | 2022-08-05 18:00 | NUR ---
AMA NOTE: Patient decides to leave AMA. Multiple attempts made to ecourage patient to remain here for continued treatment. Explained to patient all risks of leaving against medical advice including . Pt verbalized understanding of all risks. Pt also encouraged to return to [facility] at any time, especially if symptoms continue or become worse. Pt verbalized understanding. DR. JOHANA MCGUIRE.
== END 2022-08-05 18:00 | disposition left against medical advice (07) ==
LOC: ED 11:34 → ED-I 12:30 → ED 12:30 → MS2 13:56 → ED 14:04 → ED-I 16:11 → MS2 18:00
PROVIDERS: Family Medicine; ADMIT Internal Medicine; ATTEND Internal Medicine
DX: I12.0 Hypertensive chronic kidney disease with stage 5 chronic kidney disease or end stage renal disease (principal); N18.6 End stage renal disease; Z99.2 Dependence on renal dialysis; I16.1 Hypertensive emergency; D63.1 Anemia in chronic kidney disease; N25.81 Secondary hyperparathyroidism of renal origin; F10.10 Alcohol abuse, uncomplicated; F17.200 Nicotine dependence, unspecified, uncomplicated; Z91.199 Patient's noncompliance with other medical treatment and regimen due to unspecified reason
CPT/HCPCS: G0378; J1644

== ENCOUNTER 2022-08-07 10:04 | Observation (INO) | payer MEDICAID ==
[~2022-08-07] VITALS: Ht 170.2 cm; Wt 76.0 kg
[2022-08-07] VITALS (12 sets, daily range): BP systolic 81–203; BP diastolic 51–149
[2022-08-07 10:37] LABS: HEMATOCRIT 26.7 % (39.0-50.0); HEMOGLOBIN 8.5 g/dl (14.0-18.0); IMMATURE GRANULOCYTES 0.4 % (0.0-5.0); MEAN CELL VOLUME 91.8 fL CALC (80.0-100.0); MEAN CORPUSCULAR HGB 29.2 pG CALC (26.0-32.0); MEAN CORPUSCULAR HGB CONC 31.8 g/dL CAL (32.0-36.0); NEUT# 5.63 thou/uL (1.82-7.42); RED BLOOD COUNT 2.91 mill/uL (4.70-6.10); RED CELL DISTRI WIDTH 16.3 % (11.5-15.5)
[2022-08-07 10:57] LABS: ALBUMIN 4.2 g/dL (3.2-5.0); BILIRUBIN, TOTAL 0.4 mg/dL (0.0-1.4); TOTAL PROTEIN 7.4 g/dL (6.3-8.2)
[2022-08-07 10:59] LABS: CREATININE 10.2 mg/dL (0.7-1.3)
== END 2022-08-07 19:15 | disposition left against medical advice (07) ==
LOC: ED 10:04 → ED-I 10:59 → ED 11:19 → MS2 11:20
PROVIDERS: Family Medicine; ADMIT Internal Medicine; ATTEND Internal Medicine
DX: I12.0 Hypertensive chronic kidney disease with stage 5 chronic kidney disease or end stage renal disease (principal); N18.6 End stage renal disease; Z99.2 Dependence on renal dialysis; D63.1 Anemia in chronic kidney disease; N25.81 Secondary hyperparathyroidism of renal origin; I16.0 Hypertensive urgency; R10.12 Left upper quadrant pain; R11.0 Nausea; F10.10 Alcohol abuse, uncomplicated; F17.200 Nicotine dependence, unspecified, uncomplicated; T50.916A Underdosing of multiple unspecified drugs, medicaments and biological substances, initial encounter; Z91.128 Patient's intentional underdosing of medication regimen for other reason
CPT/HCPCS: J1644

== ENCOUNTER 2022-08-12 12:11 | Observation (INO) | payer MEDICAID ==
[~2022-08-12] VITALS: Ht 170.2 cm; Wt 95.0 kg
[2022-08-12 12:23] VITALS: BP 198/134
[2022-08-12 12:30] VITALS: BP 201/130
[2022-08-12 12:45] VITALS: BP 206/129
[2022-08-12 12:46] LABS: HEMOGLOBIN 7.8 g/dl (14.0-18.0); IMMATURE GRANULOCYTES 0.2 % (0.0-5.0); MEAN CELL VOLUME 89.6 fL CALC (80.0-100.0); MEAN CORPUSCULAR HGB 29.1 pG CALC (26.0-32.0); MEAN CORPUSCULAR HGB CONC 32.5 g/dL CAL (32.0-36.0); NEUT# 8.39 thou/uL (1.82-7.42); RED BLOOD COUNT 2.68 mill/uL (4.70-6.10); RED CELL DISTRI WIDTH 16.8 % (11.5-15.5)
[2022-08-12 12:51] LABS: ALBUMIN 4.3 g/dL (3.2-5.0); TOTAL PROTEIN 7.3 g/dL (6.3-8.2)
[2022-08-12 12:54] LABS: BILIRUBIN, TOTAL 0.6 mg/dL (0.0-1.4); CREATININE 10.9 mg/dL (0.7-1.3); POTASSIUM 5.2 mmol/l (3.5-5.1)
[2022-08-12 14:10] VITALS: BP 206/129
== END 2022-08-12 18:07 | disposition left against medical advice (07) ==
LOC: ED 12:11 → ED-I 12:51 → ED 12:51 → MS2 13:18
PROVIDERS: Nurse Practitioner; ADMIT Internal Medicine; ATTEND Internal Medicine
DX: I12.0 Hypertensive chronic kidney disease with stage 5 chronic kidney disease or end stage renal disease (principal); N18.6 End stage renal disease; Z99.2 Dependence on renal dialysis; I16.0 Hypertensive urgency; D63.1 Anemia in chronic kidney disease; R09.02 Hypoxemia; N25.81 Secondary hyperparathyroidism of renal origin; F10.10 Alcohol abuse, uncomplicated; F17.200 Nicotine dependence, unspecified, uncomplicated; T50.916A Underdosing of multiple unspecified drugs, medicaments and biological substances, initial encounter; Z91.128 Patient's intentional underdosing of medication regimen for other reason
CPT/HCPCS: G0378; J1644

== ENCOUNTER 2022-08-14 09:23 | Observation (INO) | payer MEDICAID ==
[~2022-08-14] VITALS: Ht 170.2 cm; Wt 85.0 kg
--- NOTE | 2022-08-14 09:30 | NUR ---
PATIENT TO ROOM FOR TRIAGE
[2022-08-14 09:36] VITALS: BP 226/167
[2022-08-14 10:08] LABS: ALBUMIN 4.6 g/dL (3.2-5.0); BILIRUBIN, TOTAL 0.4 mg/dL (0.0-1.4); TOTAL PROTEIN 7.8 g/dL (6.3-8.2)
[2022-08-14 10:11] LABS: HEMATOCRIT 25.8 % (39.0-50.0); HEMOGLOBIN 8.5 g/dl (14.0-18.0); IMMATURE GRANULOCYTES 0.3 % (0.0-5.0); MEAN CELL VOLUME 89.6 fL CALC (80.0-100.0); MEAN CORPUSCULAR HGB 29.5 pG CALC (26.0-32.0); MEAN CORPUSCULAR HGB CONC 32.9 g/dL CAL (32.0-36.0); NEUT# 8.66 thou/uL (1.82-7.42); RED BLOOD COUNT 2.88 mill/uL (4.70-6.10); RED CELL DISTRI WIDTH 16.3 % (11.5-15.5)
[2022-08-14 10:29] LABS: CREATININE 10.5 mg/dL (0.7-1.3); POTASSIUM 6.1 mmol/l (3.5-5.1)
[2022-08-14 10:49] VITALS: BP 226/167
--- NOTE | 2022-08-14 10:49 | NUR ---
Admission Note Report Given to: JUANI Transported by: X Wheelchair Stretcher Transported with: X Nurse Transporter Patent IV X O2 X Supervisor Fruit Grading Location: ICU X MS2 TO DIALYSIS
--- NOTE | 2022-08-14 10:50 | NUR ---
ADMIT NOTE: PT ARRIVAL FROM ED @ 1050. ACCOMPANIED BY Liliana BATISTA LPN. ARRIVES 02 @ 2L/MIN VIA NC, IT SUPPORT ANALYST. TRANSPORTED VIA WHEEL CHAIR.
--- NOTE | 2022-08-14 14:40 | NUR ---
DIALYSIS NOTE-START TIME: 105 END TIME: 1437 TIME COMPLETED: 3 HOURS 10 MINUTES FLUID REMOVED: 6000ml PRE TX WEIGHT: 73.2 KG POST TX WEIGHT: 68 KG PRE TX VS: NIBP 218/158 mmHg HR 103 bpm RR 20/MIN T 98.2 F POST TX VS: NIBP 199/148 mmHg HR 102 bpm RR 20/MIN T 98.6 F HEP B ANTIGEN: NEGATIVE (08/07/22) HEP B ANTIBODY: NEGATIVE (07/10/22) VERIFIED INFORMED CONSENT SIGNED BY PATIENT AND DR. LAURENT, WITNESSED BY Tarik URIAS RN. LABS REVIEWED, ASSESMENT COMPLETED. ORDERS FOR HEMODIALYSIS OBTAINED FROM DR. LAURENT. EDUCATION PROVIDED TO PATIENT. ACCESS: RIGHT SUBCLAVIAN DOUBLE LUMEN TUNNELLED CVC WITH C/D/I DRESSING ACCESSED PER [facility] HD CVC POLICY. FLUSHES EASILY WITH GOOD BLOOD RETURN. POST HD TX CVC FLUSHES EASILY WITH GOOD BLOOD RETURN. SALINE FLUSHED WITH 10ML PER LUMEN AND HEPLOCKED WITH 1.9ML HEPARIN 1000 UNITS PER ML. TEGO CONNECTORS AND SWAB CAPS APPLIED TO EACH LUMEN. LUMEN CLAMP ENGAGED. EXPOSED LUMEN WRAPPED WITH 4X4 GAUZE AND SECURED WITH PAPER TAPE. DRESSING CHANGE TO CVC COMPLETED. ASEPTIC TECHNIQUE MAINTAINED THROUGHOUT ACCESS AND DEACCESS PROCEDURES. MEDICATIONS ADMINISTERED: HEPARIN 4,000 UNITS LOADING DOSE, BENADRYL 25MG IV FOR C/O PRURITIS. RETACRIT NOT PRESCRIBED BY DR. LAURENT SECONDARY TO HTN. TRANDATE, AND PROCARDA FOR HTN, SEE E-MAR. ASSESMENT: PT A/OX3, DROWSY BUT EASILY ROUSABLE. AMBULATES FROM WHEELCHAIR TO DIALYSIS CHAIR WITH STEADY BALANCED GAIT. LUNGS DIMINISH AND CLEAR. SR ON TELEMETRY, PT REMOVES TELEMETRY DURING TX AND REFUSES REAPPLICATION. PT PRESENTS WITH GROSS GENERALIZED EDEMA. POST TX, PT SIGNS OUT AMA. SEE AMA NOTE. TABLO SERIAL #:[id number] DIALYZER/LOT #:[id number] CARTRIDGE LOT #:[id number] PH: 7.2 WATER TEMP: 72.6 R/O REJECTION: 99% EXPECTED CONDUCTIVITY: 13.9 ACTUAL CONDUCTIVITY: 13.9
--- NOTE | 2022-08-14 14:50 | NUR ---
AMA NOTE Patient decides to leave AMA. Multiple attempts made to ecourage patient to remain here for continued treatment. Explained to patient all risks of leaving against medical advice including . Pt verbalized understanding of all risks. Pt also encouraged to return to [facility] at any time, especially if symptoms continue or become worse. Pt verbalized understanding. DR. VAUGHN AWARE, WEB ARCHITECT REMOVED AND TURNED INTO [facility].
== END 2022-08-14 14:50 | disposition left against medical advice (07) ==
LOC: ED 09:23 → ED-I 10:00 → ED 10:31 → MS2 10:32
PROVIDERS: Emergency Medicine; ADMIT Internal Medicine; ATTEND Internal Medicine
DX: I12.0 Hypertensive chronic kidney disease with stage 5 chronic kidney disease or end stage renal disease (principal); I16.1 Hypertensive emergency; N18.6 End stage renal disease; Z99.2 Dependence on renal dialysis; D63.1 Anemia in chronic kidney disease; N25.81 Secondary hyperparathyroidism of renal origin; F10.10 Alcohol abuse, uncomplicated; F17.200 Nicotine dependence, unspecified, uncomplicated; T50.916A Underdosing of multiple unspecified drugs, medicaments and biological substances, initial encounter; Z91.128 Patient's intentional underdosing of medication regimen for other reason
CPT/HCPCS: G0378; J1644

== ENCOUNTER 2022-08-17 11:46 | Inpatient (IN) | payer MEDICAID ==
[2022-08-17] VITALS (29 sets, daily range): BP systolic 140–224; BP diastolic 79–170
[~2022-08-17] VITALS: Ht 170.2 cm; Wt 71.4 kg
--- NOTE | 2022-08-17 12:26 | NUR ---
PATIENT ESCORTED TO ROOM VIA WHEELCHAIR IN NAD. PROVIDER NOTIFIED OF PATIENT STATUS.
[2022-08-17 13:16] LABS: HEMATOCRIT 23.4 % (39.0-50.0); HEMOGLOBIN 7.7 g/dl (14.0-18.0); IMMATURE GRANULOCYTES 0.4 % (0.0-5.0); MEAN CELL VOLUME 90.3 fL CALC (80.0-100.0); MEAN CORPUSCULAR HGB 29.7 pG CALC (26.0-32.0); MEAN CORPUSCULAR HGB CONC 32.9 g/dL CAL (32.0-36.0); NEUT# 8.55 thou/uL (1.82-7.42); RED BLOOD COUNT 2.59 mill/uL (4.70-6.10); RED CELL DISTRI WIDTH 16.3 % (11.5-15.5)
[2022-08-17 13:30] LABS: ALBUMIN 4.3 g/dL (3.2-5.0); ALKALINE PHOSPHATASE 257 u/l (38-126); BILIRUBIN, TOTAL 0.4 mg/dL (0.0-1.4); CHLORIDE 94 mmol/l (95-108); SGOT/AST 24 u/l (17-59); SODIUM 133 mmol/l (137-146); TOTAL PROTEIN 7.2 g/dL (6.3-8.2)
--- NOTE | 2022-08-17 13:30 | NUR ---
RN IN ROOM PROVIDING CARE TO PATIENT. PATIENT UNCOOPERATIVE AND REFUSING VARIOUS TREATMENTS.
--- NOTE | 2022-08-17 13:30 | NUR ---
Reassessment of patient completed. No distress noted.
[2022-08-17 13:31] LABS: ANION GAP 30 (6-22 (CALC)); BUN/CREATININE RATIO 9 (12-20 (CALC)); CARBON DIOXIDE 16 mmol/l (22-30); GFR FOR AFR.AMER. 5 ML/MIN (>=60 (CALC)); GFR OTHER RACES 4 ML/MIN (>=60 (CALC))
[2022-08-17 13:32] LABS: BUN > 120 mg/dL (9-20); CREATININE 13.9 mg/dL (0.7-1.3); POTASSIUM 7.1 mmol/l (3.5-5.1)
--- NOTE | 2022-08-17 14:30 | NUR ---
RN IN ROOM WITH PATIENT PROVIDING CARE.
--- NOTE | 2022-08-17 15:30 | NUR ---
RN IN ROOM WITH PATIENT PROVIDING CARE.
--- NOTE | 2022-08-17 16:00 | NUR ---
PT ARRIVES TO ROOM 286 FOR HEMODIALYSIS TREATMENT FROM ED VIA WHEEL CHAIR, ACCOMPANIED BY Tarik PENDLETON RN. VERBAL REPORT RECEIVED. PT WEIGHED ON STANDING SCAL AT THIS TIME, WEIGHT IS 77kg. PT ARRIVES ATTATCHED TO MANAGER INDUSTRIAL AND NITRO GTT AT 100MCG/MIN. PT IS ALERT, ORIENTED, ANXIOUS AND RESTLESS. WHEN SEATED IN DIALYSIS CHAIR PT BEGINS FRANTICALLY MAKING REQUEST FOR FOOD AND WARM BLANKETS. EXPLAINED TO PT ALL HIS CARES WOULD BE MET AND STARTING HEMODIALYSIS IS THE PRIORITY FOR HIS BEST CLINICAL OUTCOME. PT VERBALIZES UNDERSTANDING HOWEVER CONTINUES TO FRANCTICALLY ASK FOR FOOD, WARMK BLANKETS, AND OXYGEN DESPITE SP02 IN THE HIGH 90'S ON ROOM AIR. ADMISSION PROCESS COMPLETED BEST POSSIBLE WITHOUT PT COOPERATION OR PARTICIPATION.
--- NOTE | 2022-08-17 16:13 | NUR ---
multiple times during patients stay in the er, the pt was uncooperative and removing his bp cuff. pt was advised that it was necessary to monitor his bp.
--- NOTE | 2022-08-17 20:35 | NUR ---
DIALYSIS NOTE: START TIME: 1622 END TIME: 2034 TIME COMPLETED: 3 HOURS 51 MINUTES FLUID REMOVED: 6900 ml PRE TX WEIGHT: 77 KG POST TX WEIGHT: 71.4 KG PRE TX VS: NIBP 204/131 mmHg HR 87 bpm RR 20/MIN T 97 F POST TX VS: NIBP 122/89 mmHg HR 101 bpm RR 20/MIN T 98.1 F HEP B ANTIGEN: NEGATIVE (08/07/22) HEP B ANTIBODY: NEGATIVE (07/10/22) VERIFIED INFORMED CONSENT SIGNED BY PATIENT AND DR. LAURENT, WITNESSED BY Tarik URIAS RN. LABS REVIEWED, ASSESMENT COMPLETED. ORDERS FOR HEMODIALYSIS OBTAINED FROM DR. LAURENT. EDUCATION PROVIDED TO PATIENT. ACCESS: RIGHT SUBCLAVIAN DOUBLE LUMEN TUNNELLED CVC WITH C/D/I DRESSING ACCESSED PER [facility] HD CVC POLICY. FLUSHES EASILY WITH GOOD BLOOD RETURN. POST HD TX CVC FLUSHES EASILY WITH GOOD BLOOD RETURN. SALINE FLUSHED WITH 10ML PER LUMEN AND HEPLOCKED WITH 1.9ML HEPARIN 1000 UNITS PER ML. TEGO CONNECTORS AND SWAB CAPS APPLIED TO EACH LUMEN. LUMEN CLAMP ENGAGED. EXPOSED LUMEN WRAPPED WITH 4X4 GAUZE AND SECURED WITH PAPER TAPE. DRESSING CHANGE TO CVC COMPLETED. ASEPTIC TECHNIQUE MAINTAINED THROUGHOUT ACCESS AND DEACCESS PROCEDURES. MEDICATIONS ADMINISTERED: HEPARIN 4,000 UNITS LOADING DOSE, BENADRYL 25MG IV FOR C/O PRURITIS. RETACRIT NOT PRESCRIBED BY DR. ALURENT SECONDARY TO HTN. CARDENE GTT, PO TRANDATE, AND PO PROCARDA FOR HTN, VERSED FOR RESTLESSESS, SEE E-MAR. ASSESMENT: PT A/OX3, RESTLESS AND UNCOOPERATIVE. AMBULATES FROM WHEELCHAIR TO DIALYSIS CHAIR WITH STEADY BALANCED GAIT. LUNGS DIMINISH AND CLEAR. SR-ST ON TELEMETRY, SCRATCHING SKIN CAUSING SMALL BLEEDING ABRASIONS TO ARMS, TRUNK, AND FACE. BENADRLY ADMINISTERED WUTH LITTLE EFFECT. VERSED ADMINISTERED AND PT SLEPT COMFORTABLY UNTIL END OF TX, WOKE NO LONGER ITCHING OR RESTLESS, COOPERATIVE, PLEASANT AND REPORTING FEELING HUNGRY. ATE COMPLETE DINNER TRAY. PT PRESENTS WITH GROSS GENERALIZED EDEMA. POST TX PT TRANSFERRED TO ICU 6. TABLO SERIAL #: [id number] DIALYZER/LOT #: [id number] CARTRIDGE LOT #: [id number] PH: 7.2 WATER TEMP: 80 R/O REJECTION: 99% EXPECTED CONDUCTIVITY:13.9 ACTUAL CONDUCTIVITY: 13.8
--- NOTE | 2022-08-17 21:15 | NUR ---
PT TRANSFERRED TO ICU VIA WHEELCHAIR WITH CARDENE GTT AT 12.5MG/H AND GUARD MUSEUM. TRANSFERRED IN STABLE CONDITION TO ICU 6. REPORT PROVIDED TO Tarik CRESPO RN, CARE OF PT SURRENDERED AT THIS TIME.
--- NOTE | 2022-08-17 22:09 | NUR ---
RECEIVED PATIENT FROM DIALYSIS ALERT AND ORIENTED X 4. ON CARDENE AT 10 MG/HR TITRATING TO KEEP SBP< 160.TOLERATING WELL.
--- NOTE | 2022-08-17 23:46 | NUR ---
REMAIN ON CARDENE AT 10 MG/HR. TOLERATING WELL.
--- NOTE | 2022-08-17 23:46 | NUR ---
PATIENT SLEEPING AT THIS . NO S/S OF DISTRESS NOTED.
[2022-08-18] VITALS (62 sets, daily range): BP systolic 119–172; BP diastolic 71–116
[2022-08-18 05:15] LABS: HEMATOCRIT 24.7 % (39.0-50.0); HEMOGLOBIN 7.9 g/dl (14.0-18.0); MEAN CELL VOLUME 90.5 fL CALC (80.0-100.0); MEAN CORPUSCULAR HGB 28.9 pG CALC (26.0-32.0); RED BLOOD COUNT 2.73 mill/uL (4.70-6.10); RED CELL DISTRI WIDTH 16.7 % (11.5-15.5)
[2022-08-18 05:41] LABS: ALBUMIN 4.3 g/dL (3.2-5.0)
[2022-08-18 05:45] LABS: CREATININE 8.3 mg/dL (0.7-1.3); POTASSIUM 4.6 mmol/l (3.5-5.1)
--- NOTE | 2022-08-18 06:02 | NUR ---
PATIENT SLEEPING. OFF CARDENE DRIP. SBP STABLE.
--- NOTE | 2022-08-18 07:25 | NUR ---
Recieved bedside report from ZENA Tate. Patient sleeping, monitoring in place, IV saline locked, bed alarm and fall precautions in place.
--- NOTE | 2022-08-18 08:30 | NUR ---
Patient sleeping. Continuous monitoring in place. Bed alarm set. No apparent distress at this time.
--- NOTE | 2022-08-18 10:47 | NUR ---
Patient awake and alert. Makes needs known, appropriated affect and communication. Continuous monitoring remains in place. BP below ordered parameters, Nicardipine remains off. Medicated for leg pain per orders. VSS. NAD.
--- NOTE | 2022-08-18 12:49 | NUR ---
Patient sitting at bedside eating lunch, reports "heavy pain" in bilateral feet. Medicated with Tylenol and warm compress for comfort. Pt also reports RUQ pain just lateral to his umbilicus that has a injection site puncture. After reading ED notes, patient received a dose of Lovenox to the right abdomen per EMAR in the ED prior to ICU admission. Tolerating PO foods and liquids, no N/V/D. No rebound tenderness, no palpable abnormalities. Per patient, MD was notifed by patient during AM rounds. Will reassess pain intervention and medicated according to orders.
--- NOTE | 2022-08-18 14:06 | NUR ---
Patient in bed watching TV. C/o "itching" and requesting medication. MD contacted, pending orders/return call. Patient in NAD. Continuous monitoring in place. VSS.
--- NOTE | 2022-08-18 14:53 | NUR ---
IV restarted. Patient medicated with IV Benadryl per orders for itching. Medicated for pain per orders as well. Patient watching TV in bed, offering no complaints at this time. VSAnton. LAURA.
--- NOTE | 2022-08-18 15:27 | NUR ---
Patient continues to report "acid" and has had approximately 400cc of bile-tinged emesis, but has declined nursing interventions such as milk, milk of magnesia, talon juan manuel. However, despite education, he has requested 2 turkey wraps and has eaten them without distress or complaint.
--- NOTE | 2022-08-18 16:36 | NUR ---
Patient remains side-lying in bed. C/o nausea with bile-tinged emesis. MD order for IV Zofran to be given. Awaiting pharmacy approval. Patient in NAD, VSS.
--- NOTE | 2022-08-18 17:50 | NUR ---
Patient sleeping, O2 sats noted to be declining into the 70's with an adequyate wave form. Patient aroused, O2 mask placed, saturations returned rapidly to >96%.
--- NOTE | 2022-08-18 20:00 | NUR ---
PATIENT LAYING IN BED AT THIS TIME ALERT AND ORIENTED X 3. PATIENT REFUSING TO KEEP GEOLOGIST AND BP CUFF ON. REPLACED AND CARDIAC READING IN SHOWING HR OF 93 AND SINUS RHYTHM AT THIS TIME. PATIENT COMPLAINING OF VOMITTING AND DID HAVE EMESIS IN BAG BROWN IN COLOR. PATIENT THEN COMPLAINING THAT "WE ARE NOT FEEDING HIM WHAT HE WANTS" PATIENT ADVISED IF HE IS VOMITTING HE SHOULD REST HIS STOMACH SO THE ZOFRAN HE WAS GIVEN EARLIER CAN HELP. PATIENT COMMENT WAS "OKAY" BUT CONTINUE TO TAKE OFF BP CUFF AT THIS TIME. PATIENT WAS ADVISED HE NEEDED TO KEEP HIS OXYGEN ON AND DID PERMIT THIS NURSE TO PUT O2 ON AND HIS SPO2 CURRENTLY IS 90%. PATIENT HAS RIGHT CHEST WALL TUNNEL CATH FOR DIALYSIS THAT IS PATENT. SIDERAILS ARE UP CALL LIGHT WIHTIN REACH.
--- NOTE | 2022-08-18 22:00 | NUR ---
PATIENT RESTING IN BED AT THIS TIME DENIES ANY NEEDS BP IS CURRENTLY 143/88 SPO2 IS 100% CARDIAC HEART MONITOR READING SR AND HR OF 84 WILL CONTINUE TO MONITOR.
[2022-08-19] VITALS (26 sets, daily range): BP systolic 108–183; BP diastolic 76–133
--- NOTE | 2022-08-19 00:24 | NUR ---
PATIENT SITTING UP IN BED WATCHING TV AT THIS TIME. PATIENT GIVEN 25MG OF IV BENADRYL FOR COMPLAINTS OF ITCHING AT THIS TIME. PATIENT ALSO REQUESTING ICE AND TWO MORE BREAKFAST BARS. PATIENT CONTINUE TO WEAR HIS 02 VIA MASK AND SPO2 IS CURRENTLY 97% SIDERAILS ARE UP CALL LIGHT IS WITHIN REACH.
--- NOTE | 2022-08-19 02:00 | NUR ---
PATIENT LAYING IN BED AT THIS TIME. PATIENT REMINDED TO KEEP PULSE OX ON AND PATINET STATES "I DON'T WANT TO IF FALLS OFF". PULSE OX REPLACES AND SPO2 IS 100%. PATIENTS BP AT THIS TIME IS 144/91. DATA MANAGEMENT ASSOCIATE READING SR AND HR OF 96. SIDERAILS ARE UP CALL LIGHT IS WITHIN REACH.
--- NOTE | 2022-08-19 04:05 | NUR ---
PATIENT RESTING IN BED AT THIS TIME. LAB IN TO SEE PATIENT TO DRAW LABS FROM AT THIS TIME. PATIENT KEEPS REMOVING PULSE OX FROM EARLOBE, PATIENT STATE'S "I DONT WANT IT". SIDERAILS ARE UP CALL LIGHT IS WITHIN REACH.
[2022-08-19 05:05] LABS: HEMATOCRIT 23.1 % (39.0-50.0); HEMOGLOBIN 7.5 g/dl (14.0-18.0); MEAN CORPUSCULAR HGB 29.9 pG CALC (26.0-32.0); MEAN CORPUSCULAR HGB CONC 32.5 g/dL CAL (32.0-36.0); RED BLOOD COUNT 2.51 mill/uL (4.70-6.10); RED CELL DISTRI WIDTH 16.6 % (11.5-15.5)
[2022-08-19 05:27] LABS: ALBUMIN 3.9 g/dL (3.2-5.0)
[2022-08-19 05:36] LABS: CREATININE 9.4 mg/dL (0.7-1.3); POTASSIUM 6.3 mmol/l (3.5-5.1)
--- NOTE | 2022-08-19 05:54 | NUR ---
PATIENT GIVEN HYDROCODONE 5-325MG AT THIS TIME FOR GENERALIZED PAIN. CULINARY ARTS INSTRUCTOR READING SR AT 97, O2 VIA MASK REMAINS ON AND SPO2 IS CURRENTLY 100%. SIDERAILS ARE UP CALL LIGHT IS WIHTIN REACH.
--- NOTE | 2022-08-19 08:15 | NUR ---
Patient resting in bed. NAD. VSS. Fall precautions in place.
--- NOTE | 2022-08-19 10:40 | NUR ---
Patient resting in bed after breakfast. IV dilaudid for pain given per orders. Reports of itching, advised will be going to HD soon.
--- NOTE | 2022-08-19 12:00 | NUR ---
Patient to HD with ZENA Armenta. VSS. NAD. Offers no complaints. Will transfer to Med-Surg following dialysis.
--- NOTE | 2022-08-19 12:00 | NUR ---
TELEPHONE REPORT RECEIVED FROM PRIMARY NURSE Melanie MALCOLM RN, PT BROUGHT TO ROOM 286 FOR DIALYSIS VIA WHEELCHAIR ACCOMPANIED BY Vivian LEPE RN. PT ARRIVES ON ROOM AIR WITH NO ATTATCHMENTS, TRANSPORT TANK TECHNICIAN ORDERED FROM ED AFTER DICSUSSING CASE WITH DR. VAUGHN. PT WILL BE TRANSFERRED TO [place] WITH TELEMETRY AFTER HD TX COMPLETED.
--- NOTE | 2022-08-19 12:10 | NUR ---
DR. VAUGHN IN ROOM WITH PATIENT.
--- NOTE | 2022-08-19 15:10 | NUR ---
DIALYSIS NOTE: START TIME: 1205 END TIME: 1506 TIME COMPLETED: 2 HOURS, 48 MINUTES FLUID REMOVED: 5300 ml PRE TX WEIGHT: 75 KG POST TX WEIGHT: 69.8 KG PRE TX VS: NIBP 162/92 mmHg HR 95 bpm RR 20/MIN T 98.8 F POST TX VS: NIBP 119/73 mmHg HR 74 bpm RR 20/MIN T 98.6 F HEP B ANTIGEN: NEGATIVE (08/07/22) HEP B ANTIBODY: NEGATIVE (07/10/22) VERIFIED INFORMED CONSENT SIGNED BY PATIENT AND DR. LAURENT, WITNESSED BY Tarik URIAS RN. LABS REVIEWED, ASSESMENT COMPLETED. ORDERS FOR HEMODIALYSIS OBTAINED FROM DR. LAURENT. EDUCATION PROVIDED TO PATIENT. ACCESS: RIGHT SUBCLAVIAN DOUBLE LUMEN TUNNELLED CVC WITH C/D/I DRESSING ACCESSED PER [facility] HD CVC POLICY. FLUSHES EASILY WITH GOOD BLOOD RETURN. POST HD TX CVC FLUSHES EASILY WITH GOOD BLOOD RETURN. SALINE FLUSHED WITH 10ML PER LUMEN AND HEPLOCKED WITH 1.9ML HEPARIN 1000 UNITS PER ML. TEGO CONNECTORS AND SWAB CAPS APPLIED TO EACH LUMEN. LUMEN CLAMP ENGAGED. EXPOSED LUMEN WRAPPED WITH 4X4 GAUZE AND SECURED WITH PAPER TAPE. ASEPTIC TECHNIQUE MAINTAINED THROUGHOUT ACCESS AND DEACCESS PROCEDURES. MEDICATIONS ADMINISTERED: HEPARIN 4,000 UNITS LOADING DOSE, BENADRYL 25MG IV FOR C/O PRURITIS. RETACRIT NOT PRESCRIBED BY DR. LAURENT SECONDARY TO HTN. SEE E-MAR. ASSESMENT: PT A/OX3, DROWSY. AMBULATES FROM WHEELCHAIR TO DIALYSIS CHAIR WITH STEADY BALANCED GAIT. LUNGS DIMINISH AND CLEAR. SR-ST ON TELEMETRY. PT PRESENTS WITH GROSS GENERALIZED EDEMA. TREATMENT ENDED EARLY BECAUSE PT NEEDED TO HAVE A BOWEL MOVEMENT. PT DISCINNECTED AND GUIDED TO BATHROOM. PT PASSED LARGE BOWEL MOVEMENT. TRANSFERRED TO ROOM 275 AFTER HD TX. TABLO SERIAL #: [id number] DIALYZER/LOT #: [id number] CARTRIDGE LOT #: [id number] PH: 7.2 WATER TEMP: 77.3 R/O REJECTION: 99% EXPECTED CONDUCTIVITY: 13.9 ACTUAL CONDUCTIVITY: 13.8
--- NOTE | 2022-08-19 15:30 | NUR ---
PT TRANSFERRED TO ROOM 275 VIA WHEELCHAIR. VERBAL REPORT AND WRITTEN HAND-OFF TO Joon POMPA RN. CARE OF PT SURRENDERED AT THIS TIME.
--- NOTE | 2022-08-19 17:00 | NUR ---
REPORT RECEIVED FROM RICCO IN ICU @ 8970. PT SETTLED IN BED SLEEPING AND SNORING, BREATHING EVEN AND NON-LABORED, TELE MONITOR IN PLACE, CALL KAUR IN REACH AND BED LOCKED IN LOWEST POSITION.
--- NOTE | 2022-08-19 17:02 | NUR ---
Report given to ZENA Cordova. Handoff of care at the time of this note.
--- NOTE | 2022-08-19 19:50 | NUR ---
PATIENT RESTING IN BED ALERT. ABLE TO MAKE NEEDS KNOWN. NO SIGNS OF DISTRESS. NO COMPLAINTS OF CHEST PAIN OR GENERAL PAIN. KEEPS REQUESTING FOOD. GOLD PROSPECTOR PROVIDED FOOD. ASSESSMENT COMPLETE. BED REMAINS IN LOW POSITION. CALL LIGHT IN REACH.
[2022-08-20 00:18] VITALS: BP 155/93
--- NOTE | 2022-08-20 00:44 | NUR ---
PATIENT RANG CALL LIGHT REQUESTING MORE FOOD. REDIRECTED PATIENT ON THE FOOD HE REQUESTED PRIOR. FRESH ICE PROVIDED BY ENGINE ASSEMBLY SUPERVISOR PER PATIENT REQUEST. NO COMPLAINTS OF PAIN NOTED. NO SIGNS OF DISTRESS. BED REMAINS IN LOW POSITION. CALL LIGHT IN REACH.
--- NOTE | 2022-08-20 01:34 | NUR ---
PRN ZOFRAN GIVEN PER ORDERS. PATIENT COMPLAINED OF NAUSEA.
[2022-08-20 04:06] VITALS: BP 134/87
--- NOTE | 2022-08-20 04:11 | NUR ---
PATIENT REMAINS RESTING IN BED WITH EYES CLOSED. NO SIGNS OF DISTRESS NOTED. NO COMPLAINTS VOICED AT THIS TIME. NO MORE COMPLAINTS OF NAUSEA SINCE PRN ZOFRAN GIVEN ORDERED. BED REMAINS IN LOW POSITION. CALL LIGHT IN REACH.
--- NOTE | 2022-08-20 06:00 | NUR ---
PATIENT REMOVED IV SITE EARLIER IN SHIFT. CATHETER WAS INTACT. ATTEMPTS TO START NEW IV SITE. PATIENT REFUSED. WILL INFORM DAY SHIFT NURSE.
[2022-08-20 07:00] VITALS: BP 138/97
--- NOTE | 2022-08-20 07:26 | NUR ---
RECEIVED REPORT FROM OFF GOING NURSE. RESTING IN BED NO S/S OF DISTRESS NOTED.
--- NOTE | 2022-08-20 08:30 | NUR ---
C/O HUNGAR RECIEVED BREAKFAST TRAY. PT REQUEST ANOTHER. C/O NAUSEA PRN ZOFRAN ADMINISTERED.
--- NOTE | 2022-08-20 09:18 | NUR ---
PT EXTREMELY NONCOMPLIANT. MULTIPLE ATTEMPTS MADE TO CONVINCE PT TO ALLOW REPLACEMENT OF PIV. 20GA PLACED TO LEFT AC. C/O OF HUNGAR AWAITING ADDITIONAL FOOD FROM KITCHEN. CALLED FRIEND BUSHRA TO CONVINCE PT TO STAY AND RECEIVE TX AFTER THREATS OF LEAVING AMA.
[2022-08-20] MEDS ORDERED: LABETALOL HYDR200 MG PO (10:57)
[2022-08-20] MEDS ORDERED: PROCARDIA XL90 MG PO (10:57)
[2022-08-20] MEDS ORDERED: ISOSORBIDE MONO60 MG PO (10:58)
[2022-08-20] MEDS ORDERED: VIBRAMYCIN100 M2 PO (11:00)
[2022-08-20] MEDS ORDERED: LORTAB 5/3255 MG PO (11:01)
--- NOTE | 2022-08-20 11:31 | NUR ---
DISCHARGE INSTRUCTIONS PROVIDED TO PT RECEIVED WELL. PIV TO LAC REMOVED PT TOLERATED WELL. W/C OFF UNIT BY STAFF TO PHARMACY TO COLLECT PRECRIPTIONS.
== END 2022-08-20 11:26 | disposition home or self-care (01) | DRG 304 ==
LOC: ED 11:46 → ED-I 13:37 → ED 13:51 → MS2 13:52 → ICU 13:52 → ED 13:52 → MS2 13:52 → ICU 22:02 → MS2 22:02 → ICU 22:02 → MS2 08-19 12:10
PROVIDERS: Family Medicine; ADMIT Internal Medicine; ATTEND Internal Medicine
PROC: 5A1D70Z Performance of Urinary Filtration, Intermittent, Less than 6 Hours Per Day (ICD-10-PCS; principal; 2022-08-17)
PROC: 5A1D70Z Performance of Urinary Filtration, Intermittent, Less than 6 Hours Per Day (ICD-10-PCS; 2022-08-19)
DX: I16.1 Hypertensive emergency (principal); J18.9 Pneumonia, unspecified organism; N18.6 End stage renal disease; I13.2 Hypertensive heart and chronic kidney disease with heart failure and with stage 5 chronic kidney disease, or end stage renal disease; Z99.2 Dependence on renal dialysis; I50.9 Heart failure, unspecified; D63.1 Anemia in chronic kidney disease; E21.3 Hyperparathyroidism, unspecified; R79.89 Other specified abnormal findings of blood chemistry; E87.5 Hyperkalemia; F10.10 Alcohol abuse, uncomplicated; T46.5X6A Underdosing of other antihypertensive drugs, initial encounter; F17.200 Nicotine dependence, unspecified, uncomplicated; Z91.120 Patient's intentional underdosing of medication regimen due to financial hardship
CPT/HCPCS: J1644; J1650

== ENCOUNTER 2024-03-27 02:15 | Emergency (ER) | payer SELFPAY ==
[~2024-03-27] VITALS: Ht 170.2 cm; Wt 60.0 kg
[~2024-03-27 02:15] MED LIST changes: +ISOSORBIDE MONO60 MG PO; +LABETALOL HYDR200 MG PO; +PROCARDIA XL90 MG PO; +VIBRAMYCIN100 M2 PO
[2024-03-27] MEDS ORDERED: TORADOL PO (02:31)
[2024-03-27] MEDS ORDERED: DICLOFENAC SODIUM 75 MG/TAB PO ONE (02:35)
[2024-03-27] MEDS ORDERED: ACETAMINOPHEN 500 MG TAB PO ONE (02:35)
[2024-03-27 02:38] VITALS: BP 121/91
== END 2024-03-27 02:54 | disposition home or self-care (01) | DRG 606 ==
LOC: ED 02:15
DX: L72.0 Epidermal cyst (principal); N18.6 End stage renal disease; I12.0 Hypertensive chronic kidney disease with stage 5 chronic kidney disease or end stage renal disease; Z99.2 Dependence on renal dialysis

== ENCOUNTER 2024-09-03 12:06 | Emergency (ER) | payer SELFPAY ==
[~2024-09-03] VITALS: Ht 170.2 cm; Wt 83.9 kg
[~2024-09-03 12:06] MED LIST changes: +TORADOL PO
[2024-09-03 12:15] VITALS: BP 133/107
[2024-09-03] MEDS ORDERED: ONDANSETRON HCl 4 MG/2 ML SDV IV STA (12:17)
[2024-09-03] MEDS ORDERED: MORPHINE SULFATE 4 MG/ML VIAL IV STA (12:17)
[2024-09-03 12:30] VITALS: BP 140/100
[2024-09-03] MEDS ORDERED: ONDANSETRON 4 MG/TAB ODT PO ONE (12:30)
[2024-09-03 12:43] LABS: EOS% 1.3 % (0-8); IMMATURE GRANULOCYTES 0.4 % (0.0-5.0); MEAN CELL VOLUME 100.5 fL CALC (80.0-100.0); MEAN CORPUSCULAR HGB 31.6 pG CALC (26.0-32.0); MEAN CORPUSCULAR HGB CONC 31.4 g/dL CAL (32.0-36.0); MONO% 18.3 % (2-13); NEUT# 3.87 thou/uL (1.82-7.42); RED BLOOD COUNT 4.02 mill/uL (4.70-6.10); RED CELL DISTRI WIDTH 15.7 % (11.5-15.5)
[2024-09-03 12:44] LABS: HEMATOCRIT 40.4 % (39.0-50.0); HEMOGLOBIN 12.7 g/dl (14.0-18.0)
[2024-09-03 12:55] LABS: ALBUMIN 4.8 g/dL (3.2-5.0); BILIRUBIN, TOTAL 0.4 mg/dL (0.2-1.3); POTASSIUM 4.4 mmol/l (3.5-5.1)
[2024-09-03 12:57] LABS: CREATININE 9.8 mg/dL (0.7-1.3)
[2024-09-03] MEDS ORDERED: ZOFRAN4 MG/TAB PO (13:38)
[2024-09-03] MEDS ORDERED: DICYCLOMINE HCL20 MG PO (13:42)
[2024-09-03] MEDS ORDERED: DICYCLOMINE HCL 10 MG/CAP PO ONE (13:45)
[2024-09-03 13:47] VITALS: BP 140/100
== END 2024-09-03 13:39 | disposition home or self-care (01) | DRG 391 ==
LOC: ED 12:06
PROVIDERS: Nurse Practitioner Family
DX: R10.31 Right lower quadrant pain (principal); K57.30 Diverticulosis of large intestine without perforation or abscess without bleeding; I12.0 Hypertensive chronic kidney disease with stage 5 chronic kidney disease or end stage renal disease; N18.6 End stage renal disease; Z99.2 Dependence on renal dialysis; F19.10 Other psychoactive substance abuse, uncomplicated; Z91.199 Patient's noncompliance with other medical treatment and regimen due to unspecified reason

== ENCOUNTER 2024-10-06 13:26 | Emergency (ER) | payer SELFPAY ==
[2024-10-06] VITALS (13 sets, daily range): BP systolic 67–170; BP diastolic 36–108
[~2024-10-06] VITALS: Ht 170.2 cm; Wt 105.0 kg
[~2024-10-06 13:26] MED LIST changes: +DICYCLOMINE HCL20 MG PO; +ZOFRAN4 MG/TAB PO
[2024-10-06] MEDS ORDERED: MORPHINE SULFATE 4 MG/ML VIAL IV ONE (13:40)
[2024-10-06] MEDS ORDERED: ONDANSETRON HCl 4 MG/2 ML SDV IV ONE (13:40)
[2024-10-06] MEDS ORDERED: SODIUM CHLORIDE 0.9% 1,000 ML IV ONE (13:45)
[2024-10-06 14:49] LABS: BASO% 0.7 % (0-3); EOS% 0.7 % (0-8); HEMOGLOBIN 10.6 g/dl (14.0-18.0); IMMATURE GRANULOCYTES 1.2 % (0.0-5.0); LYMPH% 9.2 % (15-41); MEAN CELL VOLUME 96.5 fL CALC (80.0-100.0); MEAN CORPUSCULAR HGB CONC 32.1 g/dL CAL (32.0-36.0); MONO% 15.7 % (2-13); NEUT# 7.19 thou/uL (1.82-7.42); NEUT% 72.5 % (42-76); RED BLOOD COUNT 3.42 mill/uL (4.70-6.10); RED CELL DISTRI WIDTH 15.4 % (11.5-15.5)
[2024-10-06 15:02] LABS: BILIRUBIN, TOTAL 0.5 mg/dL (0.2-1.3); POTASSIUM 4.4 mmol/l (3.5-5.1); TOTAL PROTEIN 6.5 g/dL (6.3-8.2)
[2024-10-06 15:19] LABS: CREATININE 8.8 mg/dL (0.7-1.3)
[2024-10-06] MEDS ORDERED: HYOSCYAMINE0.125 M3 PO (17:26)
== END 2024-10-06 17:53 | disposition home or self-care (01) | DRG 391 ==
LOC: ED 13:26
PROVIDERS: Family Medicine
DX: R10.84 Generalized abdominal pain (principal); N18.6 End stage renal disease
CPT/HCPCS: J2405

== ENCOUNTER 2024-10-18 01:21 | Emergency (ER) | payer SELFPAY ==
[2024-10-18] VITALS (8 sets, daily range): BP systolic 102–148; BP diastolic 71–110
[~2024-10-18] VITALS: Ht 170.2 cm; Wt 81.6 kg
[~2024-10-18 01:21] MED LIST changes: +HYOSCYAMINE0.125 M3 PO
[2024-10-18] MEDS ORDERED: DICYCLOMINE HCL 20 MG/2 ML VIAL IM ONE (01:40)
[2024-10-18] MEDS ORDERED: ONDANSETRON HCl 4 MG/2 ML SDV IV ONE (01:40)
[2024-10-18] MEDS ORDERED: FAMOTIDINE 10MG/ML 2ML SDV IV ONE (01:40)
[2024-10-18 01:55] LABS: BASO% 0.6 % (0-3); EOS% 2.3 % (0-8); HEMATOCRIT 36.4 % (39.0-50.0); IMMATURE GRANULOCYTES 0.4 % (0.0-5.0); MEAN CORPUSCULAR HGB 31.3 pG CALC (26.0-32.0); MONO% 11.2 % (2-13); NEUT# 7.84 thou/uL (1.82-7.42); NEUT% 75.5 % (42-76); RED BLOOD COUNT 3.83 mill/uL (4.70-6.10); RED CELL DISTRI WIDTH 14.6 % (11.5-15.5)
[2024-10-18 02:10] LABS: ALBUMIN 4.7 g/dL (3.2-5.0); BILIRUBIN, TOTAL 0.6 mg/dL (0.2-1.3); POTASSIUM 4.9 mmol/l (3.5-5.1); TOTAL PROTEIN 7.8 g/dL (6.3-8.2)
[2024-10-18 02:18] LABS: CREATININE 9.1 mg/dL (0.7-1.3)
[2024-10-18] MEDS ORDERED: MORPHINE SULFATE 4 MG/ML VIAL IV ONE (03:30)
== END 2024-10-18 04:32 | disposition home or self-care (01) | DRG 391 ==
LOC: ED 01:21
PROVIDERS: Emergency Medicine
DX: R11.2 Nausea with vomiting, unspecified (principal); N18.6 End stage renal disease; I12.0 Hypertensive chronic kidney disease with stage 5 chronic kidney disease or end stage renal disease; R10.9 Unspecified abdominal pain; R07.9 Chest pain, unspecified; Z99.2 Dependence on renal dialysis; F19.10 Other psychoactive substance abuse, uncomplicated
CPT/HCPCS: J0500; J2405

== ENCOUNTER 2024-10-20 21:26 | Emergency (ER) | payer SELFPAY ==
[~2024-10-20] VITALS: Ht 170.2 cm; Wt 81.0 kg
[2024-10-20 21:47] VITALS: BP 123/96
[2024-10-20] MEDS ORDERED: Acetaminophen 300 MG/Codeine 30 MG/COMBO PO ONE (21:50)
[2024-10-20] MEDS ORDERED: KETOROLAC TROMETHAMINE 30 MG/ML SDV IM ONE (21:50)
[2024-10-20] MEDS ORDERED: LORTAB 5/3255 MG PO (23:32)
[2024-10-20] MEDS ORDERED: VOLTAREN - GENE75 MG PO (23:32)
[2024-10-20] MEDS ORDERED: DICLOFENAC SODIUM 75 MG/TAB PO ONE (23:35)
[2024-10-20] MEDS ORDERED: HYDROcodone 5 MG/Acetaminophen 325 MG/COMBO PO ONE (23:35)
[2024-10-20 23:50] VITALS: BP 123/96
== END 2024-10-20 23:50 | disposition home or self-care (01) | DRG 551 ==
LOC: ED 21:26
DX: S32.010A Wedge compression fracture of first lumbar vertebra, initial encounter for closed fracture (principal); S32.030A Wedge compression fracture of third lumbar vertebra, initial encounter for closed fracture; S32.040A Wedge compression fracture of fourth lumbar vertebra, initial encounter for closed fracture; S86.912A Strain of unspecified muscle(s) and tendon(s) at lower leg level, left leg, initial encounter; N18.6 End stage renal disease; I12.0 Hypertensive chronic kidney disease with stage 5 chronic kidney disease or end stage renal disease; W01.0XXA Fall on same level from slipping, tripping and stumbling without subsequent striking against object, initial encounter; Z99.2 Dependence on renal dialysis

== ENCOUNTER 2024-11-22 15:46 | Emergency (ER) | payer SELFPAY ==
[2024-11-22] VITALS (8 sets, daily range): BP systolic 89–123; BP diastolic 58–87
[~2024-11-22] VITALS: Ht 170.2 cm; Wt 81.6 kg
[~2024-11-22 15:46] MED LIST changes: +VOLTAREN - GENE75 MG PO
[2024-11-22] MEDS ORDERED: KETOROLAC TROMETHAMINE 15 MG/ML SDV IV STA (16:02)
[2024-11-22] MEDS ORDERED: ONDANSETRON HCl 4 MG/2 ML SDV IV ONE (16:10)
[2024-11-22] MEDS ORDERED: KETOROLAC TROMETHAMINE 30 MG/ML SDV IV ONE (16:10)
[2024-11-22 16:47] LABS: BASO% 0.7 % (0-3); EOS% 0.9 % (0-8); HEMATOCRIT 33.3 % (39.0-50.0); HEMOGLOBIN 10.4 g/dl (14.0-18.0); IMMATURE GRANULOCYTES 0.9 % (0.0-5.0); MEAN CELL VOLUME 93.3 fL CALC (80.0-100.0); MEAN CORPUSCULAR HGB 29.1 pG CALC (26.0-32.0); MEAN CORPUSCULAR HGB CONC 31.2 g/dL CAL (32.0-36.0); NEUT# 7.76 thou/uL (1.82-7.42); NEUT% 73.5 % (42-76); RED BLOOD COUNT 3.57 mill/uL (4.70-6.10); RED CELL DISTRI WIDTH 17.1 % (11.5-15.5)
[2024-11-22 16:55] LABS: ALBUMIN 4.5 g/dL (3.2-5.0); BILIRUBIN, TOTAL 0.7 mg/dL (0.2-1.3); TOTAL PROTEIN 9.3 g/dL (6.3-8.2)
[2024-11-22 17:09] LABS: CREATININE 9.9 mg/dL (0.7-1.3); POTASSIUM 3.7 mmol/l (3.5-5.1)
[2024-11-22] MEDS ORDERED: DICLOFENAC75 MG PO (17:43)
== END 2024-11-22 18:10 | disposition home or self-care (01) | DRG 391 ==
LOC: ED 15:46
PROVIDERS: Nurse Practitioner
DX: R10.84 Generalized abdominal pain (principal); M25.562 Pain in left knee; R11.2 Nausea with vomiting, unspecified; N18.6 End stage renal disease; I12.0 Hypertensive chronic kidney disease with stage 5 chronic kidney disease or end stage renal disease; Z99.2 Dependence on renal dialysis; Z96.652 Presence of left artificial knee joint
CPT/HCPCS: J2405